=== PATIENT | male | born 1980 | race Caucasian/White ===

== ENCOUNTER 2022-11-05 22:29 | Emergency (ER) | payer OTHER, SELFPAY ==
--- NOTE | ~2022-11-05 | XR_ITS ---
Left Shoulder Technique: AP and scapular Y views were obtained. Clinical History: Pain Findings: No fracture or dislocation is seen. Osseous alignment is anatomic. Minimal spur noted infer omedial humeral head. AC joint demonstrates minimal degenerative change. Soft tissues are unremarkabl e. Impression: No fracture or dislocation. Minimal degenerative changes, as above. Reviewed, dictated and finalized at location . Impression: No fracture or dislocation. Minimal degenerative changes, as above.
--- NOTE | ~2022-11-05 | XR_ITS ---
Clinical Indication: Pain PA and lateral views of the chest: Comparison: None Findings: The lungs are clear, without evidence of focal consolidation or pleural effusion. Cardiome diastinal silhouette is within normal limits. Bones and soft tissues are unremarkable. Impression: Normal chest. Reviewed, dictated and finalized at location . Impression: Normal chest.
[2022-11-05 22:32] VITALS: BP 139/98; PULSE 80; RESP 18; TEMP 36; O2SAT 100
[2022-11-05 22:42] VITALS: BP 139/98; PULSE 82; RESP 18; O2SAT 99
[2022-11-05] MEDS: HYDROcodone/acetaminophen (*CRX) 5-325 MG TABLET 1 TAB PO (23:18)
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
[2022-11-05] MEDS: ORPHENADRINE CITRATE 30 MG/ML 2 ML VIAL 60 MG IM (23:58)
[2022-11-05] MEDS: HYDROmorphone HCL INJ (*CRX) 2 MG/ML VIAL 1 MG IM (23:59)
[2022-11-06 00:40] VITALS: BP 123/70; PULSE 80; RESP 17; TEMP 37.1; O2SAT 100
== END 2022-11-06 00:44 | disposition home or self-care (01) ==
PROVIDERS: Emergency Provider Emergency Medicine
DX: M25.512 Pain in left shoulder (principal); V48.0XXA Car driver injured in noncollision transport accident in nontraffic accident, initial encounter
CPT/HCPCS: 71046; 73030; 96372; 99284; A9270; J1170; J2360

== ENCOUNTER 2023-03-27 11:15 | Emergency (ER) | payer OTHER, SELFPAY ==
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
[2023-03-27 11:25] VITALS: BP 143/84; PULSE 90; RESP 18; O2SAT 98
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
[2023-03-27] MEDS: ORPHENADRINE CITRATE 30 MG/ML 2 ML VIAL 60 MG IM (11:42)
[2023-03-27 11:45] VITALS: TEMP 36.9
[2023-03-27 12:56] VITALS: BP 125/64; PULSE 82; RESP 18; TEMP 36.7; O2SAT 98
== END 2023-03-27 12:59 | disposition home or self-care (01) ==
PROVIDERS: Emergency Provider Emergency Medicine
DX: S79.911A Unspecified injury of right hip, initial encounter (principal); S09.90XA Unspecified injury of head, initial encounter; S19.9XXA Unspecified injury of neck, initial encounter; S99.922A Unspecified injury of left foot, initial encounter; V89.2XXA Person injured in unspecified motor-vehicle accident, traffic, initial encounter
CPT/HCPCS: 70450; 71250; 72125; 73030; 73630; 74176; 96372; 99284; J2360

== ENCOUNTER 2023-04-19 05:28 | Emergency (ER) | payer OTHER, SELFPAY ==
[2023-04-19 05:32] VITALS: BP 127/88; PULSE 91; RESP 18; TEMP 36.9; O2SAT 97
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
[2023-04-19] MEDS: ONDANSETRON HCL ODT 4 MG TABLET PO (05:57)
[2023-04-19] MEDS: MORPHINE SULFATE (*CRX) 4 MG/ML INJ IM (05:58)
[2023-04-19] MEDS: AMOXICILLIN/CLAVULANATE K 875-125 MG TAB 1 TABLET PO (06:05)
[2023-04-19 06:15] VITALS: BP 127/88; PULSE 91; RESP 18; TEMP 36.9; O2SAT 97
== END 2023-04-19 06:17 | disposition home or self-care (01) ==
PROVIDERS: Emergency Provider Internal Medicine Critical Care Medicine
DX: R22.31 Localized swelling, mass and lump, right upper limb (principal)
CPT/HCPCS: 96372; 99283; A9270; J2270

== ENCOUNTER 2023-05-27 14:49 | Emergency (ER) | payer OTHER, SELFPAY ==
[2023-05-27 15:11] VITALS: BP 90/74; PULSE 124; RESP 20; TEMP 36.5; O2SAT 98
--- NOTE | 2023-05-27 17:42 | PC.NURSE ---
Arthur from [facility] called - stated that this patient was in er waiting room and is now in [facility]
--- NOTE | 2023-05-27 17:43 | PC.NURSE ---
recieved call from [facility] stating that pt is now in their lobby
== END 2023-05-27 17:20 | disposition left against medical advice (07) ==
LOC: ANHED 20:45
DX: S09.90XA Unspecified injury of head, initial encounter (principal)
CPT/HCPCS: 99199

== ENCOUNTER 2023-05-27 17:26 | Emergency (ER) | payer OTHER, SELFPAY ==
[2023-05-27] VITALS (8 sets, daily range): BP systolic 120–130; BP diastolic 79–88; PULSE 72–102; RESP 11–19; TEMP 36.3–36.7; O2SAT 96–100
--- NOTE | ~2023-05-27 | XR_ITS ---
XR lumbar spine 2-3V 05/27/2023 18:12 Indication: Generalized pain. Fusion at L4 S1. Procedure: 3 views of the lumbar spine Comparison: 05/12/2007 Findings: There are spinal fusion changes at L4 S1. The right pedicle screw at S1 is fractured. There is instrumentation traversing the sacrum through L5 and L4 vertebral bodies. There is disc narrowing at these levels. No acute fracture is identified. No evidence for spondylolisthesis. Mild dextrocurv ature of the lumbar spine. Impression: 1: No acute abnormality of the lumbar spine. 2: Status post fusion at L4 S1-with fractured pedicle screw on the right at S1. Reviewed, dictated and finalized at location A. [employer] Impression: 1: No acute abnormality of the lumbar spine. 2: Status post fusion at L4 S1-with fractured pedicle screw on the right at S1.
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
[2023-05-27] MEDS: SODIUM CHLORIDE 0.9% IV 1,000 ML 999 ML IV CONT (18:24)
[2023-05-27 18:28] LABS: Basophils Absolute Auto 0.06 K/mm3 (0.00-0.10); Basophils Percent Auto 0.7 % (0.0-1.0); Eosinophils Percent Auto 4.4 % (1.0-6.0); Hematocrit 42.5 % (40.0-54.0); Hemoglobin 14.3 g/dL (14.0-18.0); Immature Granulocyte Absolute 0.05 K/mm3 (0.00-0.00); Immature Granulocyte Percent A 0.6 % (0.0-0.0); Lymphocytes Percent Auto 31.9 % (18.0-42.0); Mean Corpuscular HGB Conc 33.6 g/dL (32.0-36.0); Mean Corpuscular Hemoglobin 29.1 pg (27.0-31.0); Mean Corpuscular Volume 86.4 fL (78.0-102.0); Mean Platelet Volume 9.7 fl (8.7-11.0); Monocytes Absolute Auto 0.61 K/mm3 (0.10-0.90); Monocytes Percent Auto 6.7 % (2.0-11.0); Neutrophils Absolute Auto 5.1 K/mm3 (1.7-7.2); Neutrophils Percent Auto 55.7 % (50.0-70.0); Platelet Count Result 305 K/mm3 (150-420); Red Blood Count 4.92 M/mm3 (4.70-6.10); White Blood Count 9.1 K/mm3 (4.8-10.8)
[2023-05-27 18:48] LABS: Alanine Aminotransferase 24 U/L (16-63); Albumin Level 3.7 g/dL (3.4-5.0); Alkaline Phosphatase 91 U/L (46-116); Anion Gap 6 mmol/L (8-16); Aspartate Amino Transferase 20 U/L (15-37); Bilirubin,Total 0.2 mg/dL (0.00-1.00); Blood Urea Nitrogen 14 mg/dL (7-18); Calcium 9.1 mg/dL (8.5-10.1); Carbon Dioxide 32 mmol/L (21-32); Chloride 101 mmol/L (98-108); Estimated Glomerular Filt Rate > 60; Glucose 112 mg/dL (70-99); Osmolality Calculated 289 mOsm/kg (285-295); Potassium 4.7 mmol/L (3.5-5.1); Sodium 139 mmol/L (136-145); Total Protein 8.1 g/dL (6.4-8.2)
--- NOTE | 2023-05-27 18:51 | PC.NURSE ---
pt sleeping, snoring. family at bedside.
--- NOTE | 2023-05-27 19:00 | PC.NURSE ---
report to jorge cabello
[2023-05-27 19:06] LABS: Ethanol < 3 mg/dL (0-6)
[2023-05-27 19:51] LABS: Appearance Urine Clear (Clear); Bilirubin Urine Negative (Negative); Blood Urine Negative (Negative); Color Urine Light Yellow (Yellow); Glucose Urine UA Negative (Negative); Ketones Urine Negative (Negative); Leukocyte Esterase Ur Negative LEU/UL (Negative); Nitrate Urine Negative (Negative); Protein Urine Negative (Negative); Specific Grav Ur 1.025 (1.010-1.020); Urobilinogen Urine 0.2 mg/dL (0.2-1.0)
[2023-05-27 20:03] LABS: Add Urine Microscopic? NO
[2023-05-27 20:07] LABS: Amphetamine Screen Urine Positive (Negative); Barbiturate Screen Urine Negative (Negative); Benzodiazepines Screen Urine Negative (Negative); Cannabinoid Screen Urine Negative (Negative); Cocaine Screen Urine Negative (Negative); Methadone Screen Urine Negative (Negative); Opiate Screen Urine Positive (Negative); Phencyclidine Screen Urine Negative (Negative)
[2023-05-27] MEDS: KETOROLAC 30 MG/ML VIAL (*BKC) IV PUSH (20:15)
[2023-05-27] MEDS: ACETAMINOPHEN 500 MG TABLET 1000 MG PO (20:16)
== END 2023-05-27 20:39 | disposition home or self-care (01) ==
PROVIDERS: Emergency Provider Family Medicine; PCP Family Medicine
DX: M54.9 Dorsalgia, unspecified (principal); G89.29 Other chronic pain; V89.2XXA Person injured in unspecified motor-vehicle accident, traffic, initial encounter
CPT/HCPCS: 36415; 70450; 72072; 72100; 72125; 80053; 80307; 81003; 85025; 96361; 96374; 99284; J1885; J7030

== ENCOUNTER 2023-06-21 08:44 | Emergency (ER) | payer OTHER, SELFPAY ==
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
[2023-06-21 08:44] VITALS: BP 111/63; PULSE 93; RESP 12; TEMP 36.4; O2SAT 98
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
[2023-06-21] MEDS: KETOROLAC (*BKC) 60 MG/2 ML VIAL IM (09:20)
[2023-06-21] MEDS: HYDROcodone/acetaminophen (*CRX) 5-325 MG TABLET 1 TAB PO (09:21)
[2023-06-21] MEDS: methylPREDNISolone SOD SUCC 125 MG VIAL IM (09:21)
[2023-06-21 10:26] VITALS: BP 100/72; PULSE 82; RESP 12; TEMP 36.8; O2SAT 97
== END 2023-06-21 10:37 | disposition home or self-care (01) ==
PROVIDERS: Emergency Provider Emergency Medicine; PCP Family Medicine
DX: M54.16 Radiculopathy, lumbar region (principal)
CPT/HCPCS: 72100; 96372; 99284; A9270; J1885; J2930

== ENCOUNTER 2023-08-30 17:44 | Emergency (ER) | payer OTHER, SELFPAY ==
[2023-08-30 17:45] VITALS: BP 131/73; PULSE 89; RESP 20; TEMP 37; O2SAT 97
[2023-08-30] MEDS: ORPHENADRINE CITRATE 30 MG/ML 2 ML VIAL 60 MG IM (18:15)
[2023-08-30] MEDS: KETOROLAC (*BKC) 60 MG/2 ML VIAL IM (18:15)
--- NOTE | 2023-08-30 18:50 | ED.BACK ---
HPI - Back Pain/Injury General Chief Complaint: Back Pain/Injury Stated Complaint: left hip sciatica Time Seen by Provider: 08/30/23 17:46 Source: patient and family Mode of arrival: ambulatory Limitations: no limitations History of Present Illness MD elicited complaint: back pain Pertinent past history: prior back pain Onset (ago): hour(s) Timing: constant Severity: severe Pain scale (0-10): 8 Quality: aching and spasming Location: lumbar spine Radiation: left upper leg Exacerbating factors: movement, sitting upright and walking Relieving factors: immobilization Context: while lifting, turning/twisting and bending Related Data Home Medications Medication Instructions Recorded Confirmed diclofenac sodium 75 mg 75 mg PO DAILY 08/30/23 08/30/23 tablet,delayed release Allergies Allergy/AdvReac Type Severity Reaction Status Date / Time clindamycin Allergy Mild Hives Verified 08/30/23 18:06 Review of Systems Review of Systems: All systems reviewed & are unremarkable except as noted in HPI and below PMFSH Past Medical History Medical History Chronic back pain Social History Social History Social History: Fentanyl and amphetamine abuse Exam Const: General: healthy appearing and no acute distress Nutritional Appearance: well nourished Orientation/consciousness: patient oriented x3 Resp: Effort & Inspection: normal respiratory effort Auscultation: clear to auscultation bilaterally Cardio: Rate: regular rate Rhythm: regular rhythm GI: GI Palp: Yes Soft to palpation Back/Spine/Pelvis: Back: no CVA tenderness Skin: General skin exam: normal color Neuro: General: patient oriented x3, moves all extremities and no meningeal signs Extrem: Other: positive straight leg raising test on the left Psych: Mental Status: mental status grossly normal Course Course Emergency Course: patient's pain level has improved slightly will discharge and advised follow-up with his primary. Vital Signs Vital signs: Vital Signs Temperature 37.0 C 08/30/23 17:45 Pulse Rate 89 08/30/23 17:45 Respiratory Rate 20 08/30/23 17:45 Blood Pressure 131/73 08/30/23 17:45 Pulse Oximetry 97 08/30/23 17:45 Oxygen Delivery Room Air 08/30/23 17:45 Temperature 37.0 C 08/30/23 17:45 Pulse Rate 89 08/30/23 17:45 Respiratory Rate 20 08/30/23 17:45 Blood Pressure 131/73 08/30/23 17:45 Pulse Oximetry 97 08/30/23 17:45 Oxygen Delivery Room Air 08/30/23 17:45 Critical Care Time Critical Care Time Critical Care Time: No Discharge Plan Discharge Clinical Impression: Sciatica Patient Disposition: Home, Self-Care Condition: Stable Instructions: Antibiotic Form, Sciatica (ED), Acute Low Back Pain (ED) Additional Instructions: Take medicine as prescribed and follow-up with primary Prescriptions: New oxycodone-acetaminophen [Percocet] 5-325 mg tablet 1 tablet PO Q6H PRN (Reason: pain) Qty: 14 0RF cyclobenzaprine 10 mg tablet 10 mg PO TID Qty: 20 0RF No Action diclofenac sodium 75 mg tablet,delayed release (DR/EC) 75 mg PO DAILY methylprednisolone [Medrol (Ramy)] 4 mg tablets,dose pack See Rx Instructions .ROUTE .COMPLEX Qty: 21 0RF Rx Instructions: orally per package directions hydrocodone-acetaminophen 5-325 mg tablet 1 tablet PO Q8H PRN (Reason: pain) Qty: 10 0RF cyclobenzaprine 10 mg tablet 10 mg PO TID PRN (Reason: muscle spasm) Qty: 30 0RF Follow-up/Referrals: Caleb Jordan M.D. [Primary Care Provider] - Time of Disposition: 19:03
[2023-08-30 19:18] VITALS: BP 123/73; PULSE 85; RESP 18; O2SAT 97
== END 2023-08-30 19:19 | disposition home or self-care (01) ==
PROVIDERS: Emergency Provider Emergency Medicine; PCP Family Medicine
DX: M54.30 Sciatica, unspecified side (principal)
CPT/HCPCS: 96372; 99284; J1885; J2360

== ENCOUNTER 2023-12-17 22:44 | Emergency (ER) | payer OTHER, SELFPAY ==
[2023-12-17 22:45] VITALS: BP 129/80; PULSE 75; RESP 11; TEMP 36.4; O2SAT 100
--- NOTE | 2023-12-17 22:48 | ECG_ITS ---
Test Date: 2023-12-17 22:46:34 Measurements Intervals [place] Rate: 75 P: 61 SC: 141 QRS: 43 QRSD: 80 T: 38 QT: 392 QTc: 440 Interpretive Statements SINUS RHYTHM No previous ECG available for comparison Electronically Signed On 12-18-2023 13:33:49 CDT by Ayesha Thompson M.D.
[2023-12-17 22:53] VITALS: RESP 17; O2SAT 100
--- NOTE | 2023-12-17 23:08 | PC.NURSE ---
This RN was getting intial assessment done on pt. Rn didn't ask [facility] scale due to pt being under influence on drugs. Without asking, pt states he is suicidal and took those drugs because he wants to . Pt swallowed a whole bag of his fentyl (6-8 pills). Pt states having no plan. Charge nurse notified. Pt is handcuffed and being observed by police at bedside at this time.
[2023-12-17 23:14] LABS: Basophils Percent Auto 0.5 % (0.2-1.2); Eosinophils Absolute Auto 0.4 K/mm3 (0-0.3); Eosinophils Percent Auto 5.2 % (0-4.4); Hematocrit 35.5 % (42.0-52.0); Hemoglobin 11.7 g/dL (14.0-18.0); Immature Granulocyte Absolute 0.03 K/mm3 (0.00-0.031); Immature Granulocyte Percent A 0.4 % (0-0.5); Lymphocytes Absolute Auto 2.31 K/mm3 (0.9-3.2); Lymphocytes Percent Auto 29.8 % (18.3-44.2); Mean Corpuscular Hemoglobin 27.8 pg (26-34); Mean Corpuscular Volume 84.3 fl (80-100); Mean Platelet Volume 9.1 fl (7.4-10.4); Monocytes Absolute Auto 0.6 K/mm3 (0.1-0.6); Monocytes Percent Auto 7.5 % (2.6-8.5); Neutrophils Absolute Auto 4.4 K/mm3 (1.3-6.7); Neutrophils Percent Auto 56.6 % (45.5-73.1); Platelet Count Result 276 k/mm3 (150-375); Red Blood Count 4.21 M/mm3 (4.6-6.20); Red Cell Distribution Width 12.8 % (11.5-14.5); White Blood Count 7.8 K/mm3 (4.5-10.0)
[2023-12-17 23:18] LABS: Alanine Aminotransferase 13 U/L (6-50); Albumin Level 3.8 g/dL (3.5-5.1); Alkaline Phosphatase 88 U/L (38-126); Anion Gap 7 mmol/L (4-12); Aspartate Amino Transferase 19 U/L (17-59); Bilirubin,Total 0.3 mg/dL (0.2-1.3); Blood Urea Nitrogen 11 mg/dL (9-20); Calcium 8.8 mg/dL (8.4-10.2); Carbon Dioxide 28 mmol/L (22-30); Chloride 104 mmol/L (98-107); Estimated CRCL calculation 92 ml/min; Estimated Glomerular Filt Rate > 60; Glucose 166 mg/dL (65-110); Potassium 3.8 mmol/L (3.4-5.0); Sodium 139 mmol/L (137-145)
[2023-12-17 23:25] LABS: Acetaminophen < 10 ug/mL (10-30); Ethanol < 10 mg/dL (<10); Salicylate < 1.0 mg/dL (2-20)
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
[2023-12-17 23:48] LABS: Thyroid Stimulating Hormone 0.678 uIU/mL (0.465-4.680)
[2023-12-17 23:53] LABS: Influenza A QL RT-PCR Negative (Negative); Influenza B QL RT-PCR Negative (Negative); RSV RNA, RT-PCR Negative (Negative); SARS-CoV-2 RNA PCR Negative (Negative)
[2023-12-18 00:26] LABS: Appearance Urine Clear (Clear); Bilirubin Urine Negative (Negative); Blood Urine Negative (Negative); Color Urine Yellow (Yellow); Glucose Urine UA Negative (Negative); Ketones Urine Negative (Negative); Leukocyte Esterase Ur Negative LEU/UL (Negative); Nitrate Urine Negative (Negative); Protein Urine Negative (Negative); Urobilinogen Urine 0.2 mg/dL (<2.0); pH Urine 5.5 (5.0-9.0)
--- NOTE | 2023-12-18 00:27 | PC.NURSE ---
This RN called posion control at this time and spoke to Tatyana. Ross stated that we should monitor him 6 hours fo time of ingestion. As well as monitor pt 2 hours after given narcan if needed.
[2023-12-18 00:43] LABS: Barbiturate Screen Urine Negative (Negative); Benzodiazepines Screen Urine Negative (Negative)
[2023-12-18 00:44] LABS: Cannabinoid Screen Urine Negative (Negative); Cocaine Screen Urine Negative (Negative); Methadone Screen Urine Positive (Negative); Opiate Screen Urine Negative (Negative); Phencyclidine Screen Urine Negative (Negative)
[2023-12-18 00:50] VITALS: BP 114/73; PULSE 69; RESP 15; O2SAT 100
[2023-12-18 01:05] LABS: Add Urine Microscopic? NO
[2023-12-18 01:34] LABS: Amphetamine Screen Urine Positive (Negative)
[2023-12-18 04:08] VITALS: BP 107/67; PULSE 65; RESP 19; O2SAT 100
[2023-12-18 06:03] VITALS: BP 122/83; PULSE 63; RESP 10; O2SAT 98
[2023-12-18 07:15] VITALS: BP 117/83; PULSE 61; RESP 14; O2SAT 98
[2023-12-18 10:00] VITALS: BP 119/90; PULSE 62; RESP 20; O2SAT 98
--- NOTE | 2023-12-18 10:28 | PC.NURSE ---
Care coordination contacted for patient transportation home.
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
== END 2023-12-18 10:53 | disposition home or self-care (01) ==
PROVIDERS: Emergency Provider Student in an Organized Health Care Education/Training Program; PCP Family Medicine
DX: T40.412A Poisoning by fentanyl or fentanyl analogs, intentional self-harm, initial encounter (principal); F15.10 Other stimulant abuse, uncomplicated; F19.90 Other psychoactive substance use, unspecified, uncomplicated
CPT/HCPCS: 36415; 80053; 80307; 81003; 84443; 85025; 87637; 93005; 99284

== ENCOUNTER 2024-02-29 06:31 | Emergency (ER) | payer OTHER, SELFPAY ==
--- NOTE | ~2024-02-29 | CT_ITS ---
Noncontrast CT scan of the lumbar spine CLINICAL HISTORY: Back pain TECHNIQUE: Axial noncontrast imaging of the lumbar spine was performed. Sagittal and coronal reformat eleanor images were constructed. Dose reduction technique was used on this scan by utilizing automated ex posure control and iterative reconstruction technique. The dose-length product (DLP) was 298.29 mGy-c m. FINDINGS: There is posterior and interbody fusion extending from L4 through S1, stable from prior rad iographs dated 06/21/2023. Subtle fracture of the left pedicle screw at L4 is stable from prior exam. Fracture of the right S1 pedicle screw is also present, stable from prior exam. Remaining interverte bral disc spaces are well preserved. At L1-L2, there is minimal disc bulge. No spinal canal stenosis or neural foraminal narrowing evident . At L2-L3, there is no significant disc bulge or herniation. No spinal canal stenosis or neural forami nal narrowing. At L3-L4, there is minimal disc bulge and minimal facet arthropathy. No definite central canal stenos is. Possible mild left neural foraminal narrowing. Right neural foramen preserved. At L4-L5, there is no definite canal stenosis. Probable moderate bilateral neural foraminal narrowing . At L5-S1, there is probable moderate central canal stenosis. There is mild to moderate bilateral neur al foraminal narrowing. Paravertebral soft tissues are unremarkable. Impression: Posterior and interbody fusion hardware is unchanged from prior radiographs. Stable fracture of left L4 pedicle screw and right S1 pedicle screw. Degenerative spondylosis of the lumbar spine, as above. Reviewed, dictated and finalized at [facility]. Impression: Posterior and interbody fusion hardware is unchanged from prior radiographs. St able fracture of left L4 pedicle screw and right S1 pedicle screw. Degenerative spondylosis of the lumbar spine, as above.
[2024-02-29 06:34] VITALS: BP 115/73; PULSE 88; RESP 18; TEMP 36; O2SAT 100
--- NOTE | 2024-02-29 06:42 | ED.BACK ---
HPI - Back Pain/Injury General Chief Complaint: Back Pain/Injury <Rohit Su MD - Last Filed: 02/29/24 06:47> Stated Complaint: back pain <Rohit Su MD - Last Filed: 02/29/24 06:47> Time Seen by Provider: 02/29/24 07:05 <Rohit Su MD - Last Filed: 02/29/24 06:47> Source: patient and EMS <Rohit Su MD - Last Filed: 02/29/24 06:47> Mode of arrival: EMS <Rohit Su MD - Last Filed: 02/29/24 06:47> Limitations: physical limitation <Rohit Su MD - Last Filed: 02/29/24 06:47> History of Present Illness HPI Narrative: this is a 43-year-old male brought in by EMS with severe back pain radiating down his left lower extremity with no saddle paresthesias has a history of back surgeries with pins and screws. There is no dysuria no hematuria no flank pain, no fever chills patient does have trouble ambulating because of weakness in his left lower extremity. <Rohit Su MD - Last Filed: 02/29/24 06:47> MD elicited complaint: back pain <Rohit Su MD - Last Filed: 02/29/24 06:47> Pertinent past history: prior back pain <Rohit Su MD - Last Filed: 02/29/24 06:47> Onset (ago): hour(s) <Rohit Su MD - Last Filed: 02/29/24 06:47> Timing: constant <Rohit Su MD - Last Filed: 02/29/24 06:47> Severity: severe <Rohit Su MD - Last Filed: 02/29/24 06:47> Pain scale (0-10): 10 <Rohit Su MD - Last Filed: 02/29/24 06:47> Quality: aching and spasming <Rohit Su MD - Last Filed: 02/29/24 06:47> Related Data Allergies/Adverse Reactions: Allergies Allergy/AdvReac Type Severity Reaction Status Date / Time clindamycin Allergy Mild Hives Verified 02/29/24 06:37 <Rohit Su MD - Last Filed: 02/29/24 06:47> Review of Systems Review of Systems: All systems reviewed & are unremarkable except as noted in HPI and below <Rohit Su MD - Last Filed: 02/29/24 06:47> PMFSH Past Medical History Medical History: Medical History Chronic back pain History of drug abuse <Rohit Su MD - Last Filed: 02/29/24 06:47> Social History Social History: Social History Social History: Fentanyl and amphetamine abuse Substance use type: amphetamines and methamphetamine <Rohit Su MD - Last Filed: 02/29/24 06:47> Exam Const: General: no acute distress <Rohit Su MD - Last Filed: 02/29/24 06:47> Nutritional Appearance: well nourished <Rohit Su MD - Last Filed: 02/29/24 06:47> Orientation/consciousness: patient oriented x3 <Rohit Su MD - Last Filed: 02/29/24 06:47> Limitations: no limitations <Rohit Su MD - Last Filed: 02/29/24 06:47> Neck: Neck: normal visual inspection, no lymphadenopathy and no meningeal signs <Rohit Su MD - Last Filed: 02/29/24 06:47> Chest: Chest palpation & inspection: normal inspection of the chest <Roiht Su MD - Last Filed: 02/29/24 06:47> Resp: Effort & Inspection: normal respiratory effort <Rohit Su MD - Last Filed: 02/29/24 06:47> Auscultation: clear to auscultation bilaterally <Rohit Su MD - Last Filed: 02/29/24 06:47> Cardio: Rate: regular rate <Rohit Su MD - Last Filed: 02/29/24 06:47> Rhythm: regular rhythm <Rohit Su MD - Last Filed: 02/29/24 06:47> GI: GI Palp: Yes Soft to palpation <Rohit Su MD - Last Filed: 02/29/24 06:47> Skin: General skin exam: normal color <Rohit Su MD - Last Filed: 02/29/24 06:47> Rashes: no rashes <Rohit Su MD - Last Filed: 02/29/24 06:47> Neuro: General: patient oriented x3, moves all extremities, no meningeal signs and no focal motor deficits <Rohit Su MD - Last Filed: 02/29/24 06
[2024-02-29] MEDS: KETOROLAC 30 MG/ML VIAL (*BKC) IM (06:58)
[2024-02-29] MEDS: ORPHENADRINE CITRATE 30 MG/ML 2 ML VIAL 60 MG IM (06:59)
[2024-02-29 07:54] VITALS: BP 135/70; PULSE 76; RESP 18; O2SAT 100
== END 2024-02-29 07:59 | disposition home or self-care (01) ==
PROVIDERS: Emergency Provider Emergency Medicine; PCP Family Medicine
DX: M54.16 Radiculopathy, lumbar region (principal); M54.30 Sciatica, unspecified side
CPT/HCPCS: 72131; 96372; 99284; J1885; J2360

== ENCOUNTER 2024-06-12 12:32 | Emergency (ER) | payer OTHER, SELFPAY ==
--- NOTE | ~2024-06-12 | CT_ITS ---
EXAMINATION: CT soft tissue neck wo con DATE: 06/12/2024 13:32 INDICATION: Enlarged right cervical lymph node TECHNIQUE: Computed tomography (CT) of the neck was performed without intravenous contrast. Automated exposure control and iterative reconstruction technique were employed. The dose-length product was 4 25.20 mGy-cm. COMPARISON: Cervical spine CT dated 05/27/2023 FINDINGS: There are couple new enlarged right jugular chain lymph node the more cephalad posterior inferior to the angle of the mandible measures 3.3 x 2.8 x 1.8 cm in the more caudal at the level of the cephalad thyroid cartilage measures 2.9 x 2.2 x 1.2 cm. There are multiple small bilateral supraclavicular ly mph nodes which are more notable for number than size. Visualized portion of the inferior orbits are normal. Visualized portion of the paranasal sinuses are clear. Status post right mastoidectomy. Bilateral middle ear cavities and left mastoid air cells are clear. The parotid glands are symmetric. Unchanged asymmetry to the submandibular glands with atroph ic versus absent right submandibular gland. Thyroid gland is unremarkable. Airway is unremarkable in the visualized upper lungs are clear. Mild cervical spondylosis. IMPRESSION: 1. A couple enlarged right jugular chain lymph nodes which could be reactive, metastatic or related t o lymphoma. Recommend ultrasound-guided core needle biopsy. Reviewed, dictated and finalized at location A. ZONTAL RESAW OPERATOR IMPRESSION: 1. A couple enlarged right jugular chain lymph nodes which could be reactive, m etastatic or related to lymphoma. Recommend ultrasound-guided core needle biops y.
[2024-06-12 12:34] VITALS: BP 120/81; PULSE 74; RESP 20; TEMP 36.8; O2SAT 97
[2024-06-12 13:52] LABS: Strep Group A RT-PCR NOT DETECTED (Negative)
[2024-06-12] MEDS: KETOROLAC (*BKC) 60 MG/2 ML VIAL IM (13:56)
[2024-06-12] MEDS: cefTRIAXone 1 GM, LIDOCAINE 1% LOCAL INJ 2.1 ML IM (13:57)
[2024-06-12 14:30] VITALS: BP 121/79; PULSE 78; RESP 18; TEMP 36.6; O2SAT 98
--- NOTE | 2024-06-12 14:39 | ED.URI ---
HPI - URI/Sore Throat General Chief Complaint: Upper Respiratory Infection Stated Complaint: neck swelling Time Seen by Provider: 06/12/24 13:10 Source: patient Mode of arrival: ambulatory Limitations: no limitations History of Present Illness HPI Narrative: this is a 43-year-old male with a long history of substance abuse presents today with sore throat and swollen tender lymph node on the right side of his neck has been there for quite awhile is mildly tender with no fever chills no shortness of breath no nausea vomiting no chest pain or abdominal pain no shortness of breath. MD elicited complaint: sore throat Onset (ago): month(s) Related Data Home Medications ?Medication ?Instructions ?Recorded ?Confirmed ?Last Taken ?Type methocarbamol .ROUTE 06/12/24 Unknown History Allergies Allergy/AdvReac Type Severity Reaction Status Date / Time clindamycin Allergy Mild Hives Verified 06/12/24 12:35 Review of Systems Review of Systems: All systems reviewed & are unremarkable except as noted in HPI and below PMFSH Past Medical History Medical History History of drug abuse Chronic back pain Social History Social History Social History: Fentanyl and amphetamine abuse Substance use type: amphetamines and methamphetamine Exam Const: General: no acute distress Nutritional Appearance: well nourished Orientation/consciousness: patient oriented x3 Limitations: no limitations HENMT: Head: normal to inspection Ears: external ears normal Eyes: Conjunctivae: conjunctivae normal Pupils: Equal, round and reactive pupils present EOM: EOMs intact bilaterally Neck: Neck: lymphadenopathy Other: Swollen tender right lymph node on the neck Chest: Chest palpation & inspection: normal inspection of the chest Resp: Effort & Inspection: normal respiratory effort Auscultation: clear to auscultation bilaterally Cardio: Rate: regular rate Rhythm: regular rhythm GI: GI Palp: Yes Soft to palpation Auscultation: normal bowel sounds Course Course Emergency Course: scan of the soft tissue of the neck shows lymph node all all that during radiology report could be reactive, a metastatic or lymphoma and rapid strep is negative patient received a dose of pain medicine IM and ceftriaxone IM. Patient is afebrile and with the of the soft tissue scan of the neck showing lymph node advised patient to follow-up with his primary for a biopsy. Vital Signs Vital signs: Vital Signs Temperature 36.8 C 06/12/24 12:34 Pulse Rate 74 06/12/24 12:34 Respiratory Rate 20 06/12/24 12:34 Blood Pressure 120/81 06/12/24 12:34 Pulse Oximetry 97 06/12/24 12:34 Oxygen Delivery Room Air 06/12/24 12:34 Temperature 36.8 C 06/12/24 12:34 Pulse Rate 74 06/12/24 12:34 Respiratory Rate 20 06/12/24 12:34 Blood Pressure 120/81 06/12/24 12:34 Pulse Oximetry 97 06/12/24 12:34 Oxygen Delivery Room Air 06/12/24 12:34 MDM - URI/Sore Throat Lab Data Labs: Lab Results 06/12/24 Range/Units 13:15 Group A Strep (PCR) Not detected (Negative) Critical Care Time Critical Care Time Critical Care Time: No Discharge Plan Discharge Clinical Impression: Lymphadenopathy Patient Disposition: Home, Self-Care Condition: Stable Instructions: Antibiotic Form, Lymphadenopathy (ED) Additional Instructions: advised patient to follow-up with primary for referral for biopsy of enlarged cervical lymph node, was prescribed antibiotics Patient Language: Fijian Prescriptions: New amoxicillin-pot clavulanate [Augmentin] 500-125 mg tablet 1 tablet PO TID Qty: 30 0RF naproxen 500 mg tablet 500 mg PO BID PRN (Reason: pain) Qty: 20 0RF No Action methocarbamol [Robaxin] .ROUTE Follow-up/Referrals: Caleb Jordan M.D. [Primary Care Provider] - Time of Disposition: 14:43
== END 2024-06-12 14:53 | disposition home or self-care (01) ==
PROVIDERS: Emergency Provider Emergency Medicine; PCP Family Medicine
DX: R59.0 Localized enlarged lymph nodes (principal)
CPT/HCPCS: 70490; 87651; 96372; 99284; J0696; J1885; J2003

== ENCOUNTER 2025-01-01 02:50 | Day surgery (SDC) | payer OTHER, SELFPAY ==
[2024-12-30 11:59] VITALS: BMI 22.8
[2025-01-01] VITALS (7 sets, daily range): BP systolic 112–127; BP diastolic 67–82; PULSE 76–90; RESP 13–21; TEMP 36.6–36.8; O2SAT 92–98; BMI 22.0
--- OUTSIDE RECORDS SUMMARY | 2025-01-01 02:53 | XMS_ITS | Encounter Summary ---
Author Organization [facility] Address [address] [place], [place] [address] [address] Care Team Providers Care Histology Technician Name Role Phone Melissa Diamond PA-C Primary Care Provider Reason for Visit * Reason Onset Date Comments MEDICATION REFILL 12/26/2024 Encounter Details Date Type Department Care Team (Late st Contact Info) Description 12/26/2024 Refill [facility] PRE OP/POST OP [address] [place] [phone] Simone Hatfield MD [address] [place] [phone] MEDICATION REFILL Social History Tobacco Use Types Packs/Day Years Used Date Smoking Tobacco: Former Smokeless Tobacco: Never PHQ-2 Answer Date Recorded Patient Health Questionnaire-2 Score 6 03/04/2024 Sex and Gender Information Value Date Recorded Sex Assigned at Not on file 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 Answer Date of Assessment Author No 09/03/2020 2:02 PM Mike Wellington RN * Is person blind or have serious difficulty seeing? Answer Date of Assessment Author No 09/03/2020 2:02 PM Mike Wellington RN * Does person have serious difficulty walking/climbing stairs? Answer Date of Assessment Author No 09/03/2020 2:02 PM Mike Wellington RN * Does person have difficulty dressing/bathing? Answer Date of Assessment Author No 09/03/2020 2:02 PM Mike Wellington RN * Does person have difficulty doing errands alone? Answer Date of Assessment Author No 09/03/2020 2:02 PM Mike Wellington RN documented as of this encounter Mental Status * Does person have difficulty concentrating/remembering/making decisions? 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
--- OUTSIDE RECORDS SUMMARY | 2025-01-01 02:53 | XMS_ITS | Clinical Summary ---
Author Organization [facility] Address [facility] [place] [address] Care Team Providers Care Natural Fabricator Name Role Phone Caleb Jordan MD Primary Care Provider Allergies Active Allergy Reactions Criticality Noted Date Comments Clindamycin Hives,Unknown 03/09/2020 Medications methocarbamol (ROBAXIN) 750 MG Tab Take 1 tablet (750 mg total) by mouth 3 (three) times daily as needed. 3 Active oxyCODONE-aceta minophen (PERCOCET) 5-325 MG tabletIndicatio ns:Acute Pain < 3 Day Supply Take 1-2 tablets by mouth every 6 (six) hours as needed for Pain. Indications: Acute Pain < 3 Day Supply 6 tablet 5 Active naloxone (NARCAN) 4 MG/0.1ML nasal spray 1 spray by Nasal route as needed for Opioid reversal. may repeat every 2 to 3 minutes in alternating nostrils until medical assistance becomes available 1 each 5 09/23/19 26 Active Active Problems Problem Noted Date Diagnosed Date Carpal tunnel syndrome of right wrist 08/16/2023 Biceps tendinitis of right shoulder 02/05/2023 Carpal tunnel syndrome of left wrist 10/18/2022 Osteoarthritis of right glenohumeral joint 10/18 Glenoid labrum tear, left, subsequent encounter 10/18/2022 Family History Medical History Relation Comments Diabetes Father Other Father Diabetes Mother heart problems Mother Relation Status Comments Father Alive Mother Alive Social History Tobacco Use Types Packs/Day Years Used Date Smoking Tobacco: Every Day Cigarettes Smokeless Tobacco: Never Tobacco Cessation:Ready to Q uit: Not Asked; Counseling Given: Not Answered Alcohol Use Standard Drinks/Week Comments Yes 0 (1 standard drink = 0.6 oz pur e alcohol) OCCASIONAL Sex and Gender Information Value Date Recorded Sex Assigned at Male 12/01/2022 2:47 PM CDT Legal Sex Male 5:16 PM CDT Gender Identity Male 12/01/2022 2:47 PM CDT Sexual Orientation Straight 12/01/2022 2: 47 PM CDT Last Filed Vital Signs Vital Sign Reading Time Taken Comments Blood Pressure 125/94 09/22/2024 3:04 PM CDT Pulse 88 09/22/2024 3:04 PM CDT Temperature 36.8 C (98.3 F) 09/22/2024 3:04 PM CDT Respiratory Rate 16 09/22/2024 3:04 PM CDT Oxygen Saturation 97% 09/22/2024 3:04 PM CDT Inhaled Oxygen Concentration - - Weight 68 kg (150 lb) 09/22/2024 3:04 PM CDT Height 172.7 cm (5' 8) 09/22/2024 3:04 PM CDT Body Mass Index 22.81 09/22/2024 3:04 PM CDT Plan of Treatment Health Maintenance Due Date Last Done Comments Annual Physical 09/22/1983 DTaP, Tdap and Td Vaccines (6 - Tdap) 12/30/1994 12/29/1994, 01/01/1985, 10/26/1982, Additional history exists Hepatitis C 1998 Pneumococcal Vaccine: Pediatrics (0 to 5 Years) and At-Risk Patients (6 to 49 Years) (1 of 2 - PCV) 09/22/1999 Hepatitis B Vaccines (2 of 3 - 19+ 3-dose series) 02/24/2022 01/27/2022 COVID-19 Vaccine ( season) 2024 HPV Vaccines Aged Out No longer eligi ble based on patient's age to complete this topic Meningococcal B Vaccine Aged Out No l onger eligible based on patient's age to complete this topic Meningococcal Vaccine Aged Out No amparo martinez eligible based on patient's age to complete this topic RSV Immunizations Under 20 Months Aged Out No longer eligible based on patient's age to complete this topic Insurance NARC[employer] Advance Directives Documents on File Type Date Recorded Patient Food And Beverage Service Manager Expl anation Advance Directives and Living Will 08/17/2010 12:00 AM ADVANCED DIRECTIVES Care Teams Natural Fabricator Relationship Specialty Start Date End Date Caleb Jordan MD [address] [facility] [place] [phone] PCP - General FAMILY PRACTICE 10/18/22
--- OUTSIDE RECORDS SUMMARY | 2025-01-01 02:53 | XMS_ITS | Encounter Summary ---
Author Organization [facility] Address [address] [place] [address] Care Team Providers Care Mixing Roll Operator Name Role Phone Unavailable Primary Care Provider Unavailabl e Encounter Details Date Type Department Care Team (Late st Contact Info) Description 12/30/2024 External Device Data [facility] ABSTRACTION Provider, Abstract NO ADDRESS ON FILE Social History Tobacco Use Types Packs/Day Years Used Date Smoking Tobacco: Former Cigarettes 1.7 18.5 0 06/25/1996 - 06/25/2011 Smokeless Tobacco: Never Alcohol Use Standard Drinks/Week Comments Yes 0 (1 standard drink = 0.6 oz pur e alcohol) Socially Sex and Gender Information Value Date Recorded Sex Assigned at Not on file Legal Sex Male 1:22 PM CDT Gender Identity Not on file Sexual Orientation Not on file documented as of this encounter Plan of Treatment Not on file documented as of this encounter Visit Diagnoses Not on filedocumented in this encounter
--- OUTSIDE RECORDS SUMMARY | 2025-01-01 02:53 | XMS_ITS | Clinical Summary ---
Author Organization [facility] Maximino fonseca [facility] Address [address] [place] [address] Care Team Providers Care Inspector Plumbing Name Role Phone Unavailable Primary Care Provider Unavailabl e Allergies Active Allergy Reactions Criticality Noted Date Comments Clindamycin Hives High 03/09/2020 Hydrocodone-Acetaminophen Hives High 11/19/2024 Medications methocarbamoL (ROBAXIN) 750 mg tablet Take 750 mg by mouth 3 times daily as needed. 3 Active naloxone (NARCAN) 4 mg/spray [place], Non-Aerosol EMERGENCY USE ONLY: Administer 1 spray (4 mg) in one nostril one time. May repeat in alternating nostrils every 2-3 min until responsive or EMS arrives. 2 Each 3 5 Active oxyCODONE-acet aminophen (PERCOCET) 10-325 mg TabletIndicati ons:Head and neck cancer (CMS/HCC) Take 1 Tablet by mouth every 4 hours as needed for Pain. Max Daily Amount: 4 Tablets 40 Tablet 5 Active oxyCODONE-acet aminophen (PERCOCET) 10-325 mg Tablet Take 1 Tablet by mouth every 4 hours as needed. 5 12/25/19 25 Discontin ued(Reord er) Active Problems No known active problems Encounters Date Type Department Care Team Description 12/30/2024 External Device Data [facility] ABSTRACTION Provider, Abstract 12/30/2024 External Device Data [facility] ABSTRACTION Provider, Abstract 12/30/2024 External Device Data [facility] ABSTRACTION Provider, Abstract 12/24/2024 1:30 PM CDT Office Visit [facility] Oncology and Hematology - [place] [address] [place] [address] Zander Silvestre MD Head and neck cancer (CMS/HCC) (Primary Dx) from Last 3 Months Family History Medical History Relation Name Comments No Known Problems Brother No Known Problems Child Diabetes Father Diabetes Mother No Known Problems Sister 1 No Known Problems Sister 2 No Known Problems Sister 3 Relation Name Status Comments Brother Alive Child Alive Father Alive Mother Alive Sister 1 Alive Sister 2 Alive Sister 3 Alive Social History Tobacco Use Types Packs/Day Years Used Date Smoking Tobacco: Former Cigarettes 1.7 18.5 0 06/25/1996 - 06/25/2011 Smokeless Tobacco: Never Tobacco Cessation:Counseling Given: Not Answered Alcohol Use Standard Drinks/Week Comments Yes 0 (1 standard drink = 0.6 oz pur e alcohol) Socially Sex and Gender Information Value Date Recorded Sex Assigned at Not on file Legal Sex Male 1:22 PM CDT Gender Identity Not on file Sexual Orientation Not on file Last Filed Vital Signs Vital Sign Reading Time Taken Comments Blood Pressure 132/87 12/24/2024 1:21 PM CDT Pulse 69 12/24/2024 1:21 PM CDT Temperature 36.9 C (98.4 F) 12/24/2024 1:21 PM CDT Respiratory Rate 14 12/24/2024 1:21 PM CDT Oxygen Saturation 97% 12/24/2024 1:21 PM CDT Inhaled Oxygen Concentration - - Weight 65.7 kg (144 lb 12.8 oz) 12/24/2024 1:21 PM CDT Height 172.7 cm (5' 8) 12/24/2024 1:21 PM CDT Body Mass Index 22.02 12/24/2024 1:21 PM CDT Plan of Treatment Health Maintenance Due Date Last Done Comments DTAP/TDAP/TD VACCINES (6 - Tdap) 09/22/1991 01/01/1985, 10/26/1982, 03/30/1982, Additional history exists HEPATITIS B VACCINES (1 of 3 - 19+ 3-dose series) 09/22/1999 01/27/2022 Preventative Visit-Managed Medicaid 09/22/1999 INFLUENZA VACCINE (#1) 2025 HPV VACCINES Aged Out No longer eligi ble based on patient's age to complete this topic Insurance [employer] [place]
--- OUTSIDE RECORDS SUMMARY | 2025-01-01 02:53 | XMS_ITS | Encounter Summary ---
Author Organization [facility] Address [facility] [place] [address] Care Team Providers Care Air Route Controller Name Role Phone None, Provider Primary Care Provider Caleb Coulter MD Primary Care Provider Encounter Details Date Type Department Care Team (Latest Contact Info) Description 04/30/2018 Abstract [facility] Arvind Alves MD Social History Tobacco Use Types Packs/Day Years Used Date Smoking Tobacco: Never Assessed Sex and Gender Information Value Date Recorded Sex Assigned at Male 12/01/2022 2:47 PM CDT Legal Sex Male 5:16 PM CDT Gender Identity Male 12/01/2022 2:47 PM CDT Sexual Orientation Straight 12/01/2022 2: 47 PM CDT documented as of this encounter Plan of Treatment Not on file documented as of this encounter Visit Diagnoses Not on filedocumented in this encounter Care Teams Air Route Controller Relationship Specialty Start Date End Date None, Provider, PCP - General UNKNOWN PHYSICIAN SPECIALTY 09/19/22 10/17/22 Caleb Jordan MD [facility] [place] [id number] PCP - General FAMILY PRACTICE 10/18/22 documented as of this encounter
--- OUTSIDE RECORDS SUMMARY | 2025-01-01 02:53 | XMS_ITS | Encounter Summary ---
Author Organization [facility] Address [address] [place] [address] Care Team Providers Care Glass Laminating Operator Name Role Phone Melissa Diamond PA-C Primary Care Provider Reason for Visit * Reason Onset Date Comments MEDICATION REFILL 11/24/2024 Encounter Details Date Type Department Care Team (Late st Contact Info) Description 11/24/2024 Refill [facility] - [facility]NT [address] [place] [phone] Cinthia Samano MD [address] [place] [address] MEDICATION REFILL Social History Tobacco Use Types Packs/Day Years Used Date Smoking Tobacco: Former Smokeless Tobacco: Never PHQ-2 Answer Date Recorded Patient Health Questionnaire-2 Score 6 03/04/2024 Sex and Gender Information Value Date Recorded Sex Assigned at Not on file 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 Answer Entry Date Author No 09/03/2020 2:02 PM Mike Wellington, RN documented in this encounter Plan of Treatment Not on file documented as of this encounter Visit Diagnoses Diagnosis Palate mass Swelling, mass, or lump in head and neck Tonsillar mass Swelling, mass, or lump in head and neck Other dysphagia documented in this encounter Care Teams Glass Laminating Operator Relationship Specialty Start Date End Date Melissa Diamond PA-C [address] [phone] PCP - General Physician Telephone Directory Distributor Driver 09/25/24 documented as of this encounter
--- OUTSIDE RECORDS SUMMARY | 2025-01-01 02:53 | XMS_ITS | Clinical Summary ---
Author Organization [facility] Address [address] [place] [address] Care Team Providers Care Counterintelligence Analyst Name Role Phone Melissa Diamond PA-C Primary Care Provider Source Comments [facility],non-owned Affiliates and Associated Physician Practices is amultiple site organization consisting of ambulatory clinics and hospital sitesin [place], [place], [place] and [place]. This disclosure is being madepursuant to the Care Everywhere program and may not contain all information available regarding this patient. Last updated 18.[facility] Allergies Active Allergy Reactions Criticality Noted Date Comments Hydrocodone-Acetaminophen Other 11/19/2024 Medications * Be aware that medications may not be up to date on this document. Alwaysverify current medications with the patient. dextran 70-hypromellose (ARTIFICIAL TEARS) 0.1-0.3 % SOLN Active ibuprofen (MOTRIN) 400 MG tablet Take 800 mg by mouth every 6 hours as needed for Pain Active Acetaminophen (TYLENOL) 325 MG CAPS Take 500 mg by mouth Active Methocarbamol (ROBAXIN-750 PO) Take 750 mg by mouth Active gabapentin (Neurontin) 300 MG capsule Take 1 (one) capsule by mouth 3 times daily for 90 days 270 capsule 5 02/17/20 25 Active naloxone HCl (Narcan) 4 MG/0.1ML nasal spray Mineral 1 (one) spray into the nose as needed for Overdose 2 device 2 5 Active oxyCODONE-aceta minophen (Percocet) 10-325 MG tabletIndicatio ns:Tonsil cancer (HCC) Take 1 (one) tablet by mouth every 4 hours as needed for Pain 90 tablet 5 Active oxyCODONE, immediate release, (Roxicodone) 5 MG tabletIndicatio ns:Tonsil cancer (HCC) Take 1 (one) tablet by mouth every 4 hours as needed for Pain 6 tablet 5 Active oxyCODONE-aceta minophen (Percocet) 10-325 MG tabletIndicatio ns:Tonsil cancer (HCC) Take 1 (one) tablet by mouth every 4 hours as needed for Pain 90 tablet 5 12/13/19 25 Discontinu ed(Reorder ) oxyCODONE-aceta minophen (Percocet) 10-325 MG tabletIndicatio ns:Tonsil cancer (HCC) Take 1 (one) tablet by mouth every 4 hours as needed for Pain 90 tablet 5 12/26/19 25 Discontinu ed(Reorder ) Active Problems Problem Noted Date Diagnosed Date Chronic SI joint pain 09/10/2020 Encounters Date Type Department Care Team Description 12/27/2024 Orders Only [facility] - ENT [address] [place] [phone] Dwight Hung MD 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 Refill [facility] PRE OP/POST OP [facility] [place] [phone] Simone Hatfield MD MEDICATION REFILL 12/25/2024 Orders Only [facility] PRE OP/POST OP [address] [place] [phone] Simone Hatfield MD Tonsil cancer (HCC) 12/25/2024 Telephone [facility] - ENT [address] [place] [phone] Simone Hatfield MD Question 12/18/2024 10:00 AM CDT - 12/18/2024 11:59 PM CDT Hospital Encounter [facility] PET [address] [place] [phone] Simone Hatfield MD Discharge Disposition: Home or Self Care 12/18/2024 9:00 AM CDT - 12/18/2024 9:59 AM CDT Hospital Encounter [facility] PET [address] [place] [phone] Simone Hatfield MD Discharge Disposition: Home or Self Care 12/18/2024 Travel 12/12/2024 Orders Only [facility] - ENT [address] [place] [phone] Simone Hatfield MD Tonsil cancer ([facility]) 12/10/2024 Telephone [facility] - ENT [address] , [facility] [address] [place] [phone] Simone Hatfield MD [facility] 12/02/2024 Orders Only [facility] [address] [place] [phone] Simone Hatfield MD Tonsil cancer ([facility]) 12/01/2024 Orders Only [facility] [address] [facility] [address] [place] [address] Simone Hatfield MD Tonsil cancer ([facility]) 12/01/2024 Orders Only [facility] [address] [facility], [address] [phone] Simone Hatfield MD Tonsil cancer ([facility]) 11/28/2024 Telephone [facility] [address] [place] [phone] Brito, Anne-Marie Surgery Cancellation 11/26/2024 Orders Only [facility] [address] [place] [phone] Simone Hatfield MD Tonsil cancer ([facility]) 11/26/2024 Telephone [facility] [address] [place] [phone] Simone Hatfield MD Med Question 11/26/2024 Refill [facility] [address] [place] [phone] Cinthia Samano MD MEDICATION REFILL 11/24/2024 Refill [facility] [address] [place] [phone] Cinthia Samano MD MEDICATION REFILL 11/20/2024 Telephone [facility] [address] [place] [phone] June Surgery Scheduling 11/19/2024 4:04 PM CDT - 11/19/2024 11:59 PM CDT Hospital Encounter [facility] LAB OP [place] [address] [place] [phone] Melissa Diamond PA-C Discharge Disposition: Home or Self Care 11/19/2024 12:45 PM CDT Office Visit [facility] [address] [place] [phone] Simone Hatfield MD Palate mass (Primary Dx); Tonsillar mass; Other dysphagia 11/19/2024 Travel 11/18/2024 Refill [facility] - Orthopedics [address] [place] [phone] Cody Ortega MD MEDICATION REFILL 11/16/2024 10:54 PM CDT - 11/16/2024 11:05 PM CDT Emergency [facility] EMERGENCY DEPARTMENT [address] [place] [phone] Neck pain Discharge Disposition: Left Against Medical Advice/Discontinued Care 11/16/2024 Travel from Last 3 Months Immunizations Immunization Administration Dates Next Due DTP 01/01/1985, 3,03/30/1982,1980,1980 HEP A VACCINE, ADULT 01/27/2022 HEP B VACCINE, ADULT 3 DOSE 01/27/2022 MMR 02/13/1991,03/30/1982 POLIO OPV 01/01/1985, 3,04/28/1981,1980 Td (Adult), 2 Lf Tetanus Tox oid, Adsorbed, Pf 12/29/1994 Social History Tobacco Use Types Packs/Day Years Used Date Smoking Tobacco: Former Smokeless Tobacco: Never Tobacco Cessation:Counseling Given: Not Answered PHQ-2 Answer Date Recorded Patient Health Questionnaire-2 Score 6 03/04/2024 Sex and Gender Information Value Date Recorded Sex Assigned at Not on file Legal 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 Gender Identity Not on file Sexual Orientation Not on file Last Filed Vital Signs Vital Sign Reading Time Taken Comments Blood Pressure 131/83 11/19/2024 1:04 PM CDT Pulse 90 11/19/2024 1:04 PM CDT Temperature 36.4 C (97.5 F) 11/16/2024 3:55 PM CDT Respiratory Rate 16 11/16/2024 9:15 PM CDT Oxygen Saturation 100% 11/16/2024 9:15 PM CDT Inhaled Oxygen Concentration - - Weight 67.1 kg (148 lb) 11/19/2024 1:04 PM CDT Height 172.7 cm (5' 8) 11/19/2024 1:04 PM CDT Body Mass Index 22.5 11/19/2024 1:04 PM CDT Plan of Treatment Health Maintenance Due Date Last Done Comments LIPID TESTING 1980 DTAP/TDAP/TD VACCINES (6 - Tdap) 12/30/1994 12/29/1994, 01/01/1985, 10/26/1982, Additional history exists HIV SCREENING 09/22/1995 HEPATITIS C SCREENING 09/17/1998 HPV VACCINE (1 - 3-dose SCDM series) 09/22/2007 HEPATITIS B VACCINE (2 of 3 - 19+ 3-dose series) 02/24/2022 01/27/2022 COVID-19 VACCINE ( - 2023- season) 2024 DEPRESSION SCREENING 06/25/2024 INFLUENZA VACCINE (#1) 2025 ZOSTER VACCINE (1 of 2) 2030 HIB VACCINE Aged Out No longer eligi ble based on patient's age to complete this topic MENINGOCOCCAL (Group B) VACCINE SHARED DECISION-MAKING Aged Out No longer eligible based on patient's age to complete this topic MENINGOCOCCAL GROUPS A/C/Y/W VACCINE Aged Out No longer eligible based on patient's age to complete this topic PNEUMOCOCCAL VACCINE Aged Out No long er eligible based on patient's age to complete this topic Procedures Procedure Name Priority Date/Time Associated Diagnosis Comments PET CT SKULL TO MID THIGH Routine 12/18/2024 11:43 AM CDT Tonsil cancer (HCC) GLUCOSE SCREEN - POCT (IP) [facility] STAT 12/18/2024 9:50 AM CDT VA BIOPSY OF MOUTH LESION Routine 11/19/2024 4:56 PM CDT Palate mass Tonsillar mass Other dysphagia VA LARYNGOSCOPY,FLEX FIBER,DIAGNOSTIC Routine 11/19/2024 4:54 PM CDT Palate mass Tonsillar mass Other dysphagia PATHOLOGY TISSUE Routine 11/19/2024 2:15 PM CDT Palate mass Tonsillar mass Other dysphagia CT NECK SOFT TISSUE W CONT STAT 11/16/2024 6:05 PM CDT Neck pain COMPREHENSIVE METABOLIC PANEL STAT 11/16/2024 4:57 PM CDT CBC W AUTO DIFFERENTIAL STAT 11/16/2024 4:57 PM CDT from Last 3 Months Results * PET CT Skull To Mid Thigh (12/18/2024 11:43 AM CDT) Anatomical Region Laterality Modality Head, Lower Extremity Positron E mission Tomography (PET) 12/18/2024 11:4 7 AM CDT Addenda Addendum by Janelle Lynn DO on 12/22/2024 1:48 PM CDT Correction to history: Indication for scan is to is evaluate for SUBSEQUENT treatment strategy. The findings and impression are unchanged. > Interpreting Provider: Janelle Lynn DO on 12/22/2024 1:46 PM Impressions 12/18/2024 1:20 PM CDT IMPRESSION: Evaluation is limited due to diffuse increased muscle and soft tissue activity due to insulin effect which underestimates metabolic activity and can miss less avid lesions. Within these limitations: 1. FDG avid right tonsillar mass consistent with patient's known history of squamous cell carcinoma. 2. FDG avid necrotic cervical lymph nodes involving multiple lymph node stages involving level 1 extending into level 4 supraclavicular nodes consistent with jie metastasis. 3. No evidence of distant metastatic disease, however, evaluation is suboptimal due to insulin effects. Report dictated by Heriberto Sawyer MD(resident in diagnostic radiology). > Dictated by Heriberto Sawyer MD (Child Adolescent Care) 12/18/2024 11:47 AM IJanelle DO have personally reviewed and interpreted this examination/study. > Interpreting Provider: Janelle Lynn DO on 12/18/2024 1:20 PM Narrative 12/18/2024 1:20 PM CDT PROCEDURE: PET CT SKULL TO MID THIGH, DATE/TIME OF EXAM: 12/18/2024 11:43 AM, LOCATION [facility] INDICATION: C09.9: Tonsil cancer (HCC) Procedure: FDG PET/CT Study. Referring Physician: Simone Hatfield HISTORY: A[age]-year-old male with history of prior tonsillectomy and right mastoidectomy with history of a right tonsillar mass, biopsy proven to be squamous cell carcinoma (11/11/2024), and cervical lymphadenopathy.. Evaluate for initial treatment strategy. TECHNIQUE: 6.4 mCi of F-18 FDG by IV in the right hand. PET/CT image acquisition from top of the head to the feet after approximately 60 minutes post-injection with the CT being low-dose, non-contrast. No separate report for the CT was used for attenuation correction and anatomic localization. Blood glucose level at the time of injection was 140 mg/dl. Patient's BMI is 23 kg/m . Of note, prior to radiotracer administration, patient stated he had nothing to eat or drink. However, after images were complete he stated he did have breakfast with pancakes and syrup. COMPARISON: CT dated 11/16/2024 FINDINGS: For reference, SUVmax of liver is 2.1. Head and neck: Redemonstration of a FDG avid right tonsillar mass with SUV max of 6.0. Multiple enlarged FDG avid cervical lymph nodes are noted involving level 1 lymph nodes and extending into the supraclavicular level 4 lymph nodes. For example, a necrotic 2.4 cm right level 3 lymph node is noted with SUV max of 4.5. A right-sided 8 mm supraclavicular lymph node is noted with an SUV max of 4.9. There is physiological FDG activity throughout the brain parenchyma. Chest: Dependent subsegmental atelectatic changes are noted in the lungs. A 4 mm pulmonary nodules noted in the right lower lobe too small to be characterized on PET/CT. The lungs are clear of focal consolidation. No pleural effusion or focal pleural thickening is identified. There is no evidence of pneumothorax. No suspicious hypermetabolic pulmonary nodule is identified. The heart size is normal. No pericardial effusion is present. No hypermetabolic or enlarged mediastinal, axillary, or supraclavicular lymphadenopathy is seen. Abdomen and pelvis: Within the limitations of a noncontrast examination, the visceral abdominal organs are unremarkable. There is normal FDG activity throughout the small and large bowel. No free air or free fluid is identified within the abdomen. There is no hypermetabolic or enlarged abdominal or pelvic lymphadenopathy. Atherosclerotic calcification of the abdominal aorta and its branches is identified. Musculoskeletal: Spinal hardware is noted in the lower lumbar spine/pelvis. No suspicious lytic or blastic lesions are identified. No abnormal FDG uptake is seen within the osseous structures. Diffuse FDG uptake noted in the soft tissues and muscles. Of note, patient reports eating shortly prior to the PET/CT examination was performed. Procedure Note Janelle Lynn, DO - 12/18/2024 PROCEDURE: PET CT SKULL TO MID THIGH, DATE/TIME OF EXAM: 1:43 AM, LOCATION [facility] INDICATION: C09.9: Tonsil cancer (HCC) Procedure: FDG PET/CT Study. Referring Physician: Simone Hatfield HISTORY: A4 4-year-old male with history of prior tonsillectomy andright mastoidectomy with history of a right tonsillar mass, biopsy proven veda squamous cell carcinoma (11/11/2024), and cervical lymphadenopathy.. Evaluate for initial treatment strategy. TECHNIQUE: 6.4 mCi of F-18 FDG by IV in the right hand. PET/CT image acquisition from top of the head to the feet after approximately 60 minutes post-injection with the CT being low-dose, non-contrast. No separate report for the CT was used for attenuation correction andanatomic localization. Blood glucose level at the time of injection was 140mg/dl. Patient's BMI is 23 kg/m . Of note, prior to radiotracer administration, patient stated he hadnothing to eat or drink. However, after images were complete he stated he didhave breakfast with pancakes and syrup. COMPARISON: CT dated 11/16/2024 FINDINGS: For reference, SUVmax of liver is 2.1. Head and neck: Redemonstration of a FDG avid right tonsillar mass with SUV max of 6.0. Multiple enlarged FDG avid cervical lymph nodes are noted involving level1 lymph nodes and extending into the supraclavicular level 4 lymph nodes.For example, a necrotic 2.4 cm right level 3 lymph node is noted with SUVmax of 4.5. A right-sided 8 mm supraclavicular lymph node is noted with anSUV max of 4.9. There is physiological FDG activity throughout the brain parenchyma. Chest: Dependent subsegmental atelectatic changes are noted in the lungs. A 4mm pulmonary nodules noted in the right lower lobe too small to be characterized on PET/CT. The lungs are clear of focal consolidation. No pleural effusion or focal pleural thickening is identified. There is no evidence of pneumothorax. No suspicious hypermetabolic pulmonary noduleis identified. The heart size is normal. No pericardial effusion ispresent. No hypermetabolic or enlarged mediastinal, axillary, or supraclavicular lymphadenopathy is seen. Abdomen and pelvis: Within the limitations of a noncontrast examination, the visceralabdominal organs are unremarkable. There is normal FDG activity throughout thesmall and large bowel. No free air or free fluid is identified within the abdomen. There is no hypermetabolic or enlarged abdominal or pelvic lymphadenopathy. Atherosclerotic calcification of the abdominal aorta and its branches is identified. Musculoskeletal: Spinal hardware is noted in the lower lumbar spine/pelvis. No suspicious lytic or blastic lesions are identified. No abnormal FDG uptake is seen within the osseous structures. Diffuse FDG uptake noted in the softtissues and muscles. Of note, patient reports eating shortly prior to the PET/CT examination was performed. IMPRESSION: Evaluation is limited due to diffuse increased muscle and soft tissue activity due to insulin effect which underestimates metabolic activityand can miss less avid lesions. Within these limitations: 1. FDG avid right tonsillar mass consistent with patient's known historyof squamous cell carcinoma. 2. FDG avid necrotic cervical lymph nodes involving multiple lymph node stages involving level 1 extending into level 4 supraclavicular nodes consistent with jie metastasis. 3. No evidence of distant metastatic disease, however, evaluation is suboptimal due to insulin effects. Report dictated by Heriberto Sawyer MD(resident in diagnostic radiology). > Dictated by Heriberto Sawyer MD (Child Adolescent Care) 12/18/2024 11:47 AM I, Janelle Lynn DO have personally reviewed and interpreted this examination/study. > Interpreting Provider: Janelle Lynn DO on 12/18/2024 1:20 PM Simone Hatfield MD [place] ORDERABLES Edited Result - Final * (ABNORMAL) GLUCOSE SCREEN - POCT (IP) [facility] (12/18/2024 9:50 AM CDT) Glucose WB/POC 140(A) 70 - 99 mg/dL [facility] POCT TESTING Blood BLOOD SPECIMEN / Unknown 12/18/2024 9:50 AM CDT Simone Hatfield MD LAB - POINT OF CARE ORDERABLE S Final Result Performing Organization Address City/State/[facility] Co de Phone Number [facility] POCT TESTING [address] [place] [address], [facility] [phone] * VA BIOPSY OF MOUTH LESION (11/19/2024 4:56 PM CDT) Narrative Simone Hatfield MD - 11/19/2024 4:56 PM CDT Simone Hatfield MD 11/19/2024 4:58 PM After discussing risks and benefits with the patient informed consent was obtained. Topical anesthetic was sprayed on his right tonsil and palate and then 1% lidocaine with epinephrine was injected into this area a Richie-Cut forceps was used to grasp the tissue in the right tonsillar fossa and remove this and placed it in formalin. Silver nitrate was applied. He tolerated the procedure well. I performed the entire procedure. Estimated blood loss: Minimal. Simone Hatfield MD us Simone Hatfield MD PROCEDURE/MINOR SURGICAL ORDE RABLES Final Result * VA LARYNGOSCOPY,FLEX FIBER,DIAGNOSTIC (11/19/2024 4:54 PM CDT) Narrative Simone Hatfield MD - 11/19/2024 4:54 PM CDT Simone Hatfield MD 11/19/2024 4:58 PM Procedure Note Endoscopy Type: Laryngoscopy Endoscope: 4mm flexible nasopharyngoscopy Anesthesia: topical lidocaine Procedure Details: The patient was sitting upright in a chair with the head in a slightly anterior sniffing position. The endoscope was passed through the nasal cavity with the tongue retracted anteriorly. The tip of the endoscope was positioned in the oropharynx which allowed a complete view of the base of tongue, vallecula, pyriform recesses, epiglottis, bilateral true and false vocal folds, the interarytenoid and post cricoid region, and the immediate subglottis. Findings: Ulceration on the right nasopharyngeal surface of the soft palate abutting the eustachian tube on the right right tongue base involved with the papillomatous lesion otherwise true vocal folds move well and no lesions seen. Condition: Stable. Patient tolerated procedure well. Complications: None Estimated blood loss: None us Simone Hatfield MD PROCEDURE/MINOR SURGICAL ORDE RABJAMI Final Result * PATHOLOGY TISSUE (11/19/2024 2:15 PM CDT) Case Report Surgical Pathology Report Case: [id number] Authorizing Provider: Simone Hatfield MD Collected: 11/19/2024 02:15 PM Ordering Location: [facility] - Received: 11/20/2024 09:42 AM ENT Pathologist: Deb Aponte MD Specimen: Mouth, Right tonsil/palate 11/21/2024 3:38 PM CDT [facility] Final Diagnosis Oropharynx, right tonsil / palate, biopsy (A): - Squamous cell carcinoma, non-keratinizing, poorly differentiated - p16 positive 11/21/2024 3:38 PM CDT [facility] at 1538 CDT Microscopic Description and Comment Microscopic examination substantiates the final diagnosis. The biopsy does not have specific normal tonsillar architecture, and does have numerous minor salivary ducts. There is abundant poorly differentiated non-keratinizing carcinoma forming solid nests and lacking neuroendocrine nuclear features. 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 Controls stained appropriately. 11/21/2024 3:38 PM CDT [facility] Clinical History 44 year old man, smoker, with history of prior tonsillectomy and right mastoidectomy in 2015, now here with bilateral lymphadenopathy and palate mass. Pt states that he has known about a lesion in his mouth for approximately a year. No prior biopsy was performed. Exam: Ulcerative mass in the right tonsillar fossa involving the soft palate as well as the right posterior tongue. 11/21/2024 3:38 PM [facility] Gross Description The requisition and specimen(s) are identified with the patient's name, Clark Farnsworth. Received in formalin, specimen A, mouth SA is a 1.3 x 0.5 x 0.2 cm aggregate of unoriented pink-curiel, glistening soft tissue fragments with focal hemorrhage, submitted in toto as cassette A1. AL 11/21/2024 3:38 PM [facility] Pathologist Location at [facility] 11/21/2024 3:38 PM [facility] Disclaimer The performance characteristics of all immunohistochemical and indirect immunofluorescence stains (if any) cited in this report were determined by the Histopathology Laboratory of [facility]. Some of these tests were developed by our own laboratory and have not been cleared or approved by the US Food and Drug Administration. The FDA does not require this test to go through premarket FDA review. These tests are used for clinical purposes. They should not be regarded as investigational or for research. This laboratory is certified under the Clinical Laboratory Improvement Amendments (CLIA) as qualified to perform high complexity clinical laboratory testing. This case has been personally reviewed and interpreted by the attending (teaching) pathologist. 11/21/2024 3:38 PM T [facility] Embedded Images 11/21/2024 3:38 PM [facility] Pathology/Cytolo gy ENTIRE MOUTH REGION / Unknown Collection / Unknown 11/19/2024 2:15 PM CDT 11/20/2024 9:42 AM CDT Comment:Right tonsil/palate us Simone Hatfield MD LAB - PATHOLOGY/CYTOLOGY KOLE BAJWA Final Result [facility] [address] [place], [place] [address] [phone] * CT Neck Soft Tissue W Cont (11/16/2024 6:05 PM CDT) Anatomical Region Laterality Modality Head Computed Tomogra phy 11/16/2024 6:31 PM CDT Impressions 11/17/2024 10:50 AM CDT IMPRESSION: 1.There is a heterogeneously enhancing, irregular mass involving the right nasopharynx, extending along the retromolar trigone, the glossotonsillar recess, the right medial pterygoid muscle, and the right aspect of the soft palate. Findings are compatible was patient's known malignancy. 2.Multiple bilateral necrotic cervical lymphadenopathy as detailed above. 3.The visualized airway is patent. 4.There is sclerosis and loss of height of the C6 vertebral body. Findings are nonspecific and could be degenerative however, osseous metastasis cannot be totally excluded. Nuclear medicine bone scan or PET/CT could be obtained for further evaluation if clinically warranted. The report is dictated by Wanda Juárez MD (resident in diagnostic radiology) IAngie MD have personally reviewed and interpreted this examination/study. > Interpreting Provider: Angie Blount MD on 11/17/2024 10:50 AM Narrative 11/17/2024 10:50 AM CDT PROCEDURE: CT NECK SOFT TISSUE W CONT, DATE/TIME OF EXAM: 11/16/2024 6:05 PM, LOCATION [facility] INDICATION: M54.2: Neck pain ADDITIONAL CLINICAL INFORMATION: Ordering Provider Reason For Exam: r/o significant edema of airway; known throat cancer Technologist Note: Does the patient have a history of renal insufficiency?->No Additional: 44-year-old male PMH as noted below who presents with describes new esophageal cancer Dx several weeks ago in [place], [place]. Lost to follow up. Reports worsening R lateral neck swelling and mild SOB. No CP or dysphagia. No fever/chills. EXAMINATION: Computed tomography (CT) of the neck with contrast TECHNIQUE: CT of the neck was performed following the uneventful administration of 75 mL Isovue-370 intravenous contrast according to standard protocol. COMPARISON: No prior study is available for comparison at the time of this dictation. FINDINGS: There is a heterogeneously enhancing, irregular mass involving the right nasopharynx, extending along the retromolar trigone, the glossotonsillar recess, the right medial pterygoid muscle, and the right aspect of the soft palate. There is extension to the right director housekeeping space. There is extension to the right parapharyngeal space. There is extension to the right carotid space. Accurate measurement of this mass is difficult due to its irregular shape however measures approximately 4.4 x 3.4 cm at the level of the soft palate, (series 3, image 38). Multiple necrotic lymph nodes are present throughout the bilateral neck stations, more prominent on the right side. For reference, a right sided conglomerate, necrotic level II lymph nodes measuring approximately 1.8 x 1.7 cm, (series 3, image 52). A necrotic lesion in the right carotid space measuring approximately 1.3 x 1.3 cm, (series 3, image 44). A necrotic left XII lymph node measuring approximately 1.0 x 0.9 cm, (series 3, image 50). Additional right sided necrotic lymph node II measuring approximately 1.5 x 1.0 cm, (series 3, image 52). There is a chain of necrotic lymph nodes along the right aspect of the neck, for reference, a right-sided level III lymph node measuring approximately 2.6 x 1.9 cm, (series 3, image 71). This lesion abuts the inner aspect of the right sternocleidomastoid muscle, unclear whether there is invasion of the medial aspect of the muscle. This lesion severely compresses the adjacent right internal jugular vein and abuts the right common carotid artery. There is a right submandibular partially necrotic lymph node measuring 1.1 cm in short axis diameter. The right submandibular gland is indistinct, unclear whether there is involvement or prior intervention in this area. Please correlate with prior treatment history. The muscles of the neck appear normal. The cervical internal carotid arteries and left internal jugular vein appear normal. Fascial planes are preserved . The nasopharynx, oropharynx, hypopharynx and larynx appear patent. Heterogenous appearance of the parotid glands. Clinical correlation and local examination are recommended. The visualized portions of the posterior fossa and brain appear normal. There is sclerosis and loss of height of the C6 vertebral body. Findings are nonspecific and could be degenerative however, osseous metastasis cannot be totally excluded. There is mild cervical degenerative disc and joint disease. The visualized orbits and paranasal sinuses appear normal. The thyroid gland is normal. The visible lung apices are clear. Procedure Note Angie Blount MD - 11/17/2024 PROCEDURE: CT NECK SOFT TISSUE W CONT, DATE/TIME OF EXAM: 56:05 PM, LOCATION [facility] INDICATION: M54.2: Neck pain ADDITIONAL CLINICAL INFORMATION: Ordering Provider Reason For Exam: r/o significant edema of airway;known throat cancer Technologist Note: Does the patient have a history of renal insufficiency?->No Additional: 44-year-old male PMH as noted below who presents with describes new esophageal cancer Dx several weeks ago in [place], [place]. Lost to follow up. Reports worsening R lateral neck swelling and mildSOB. No CP or dysphagia. No fever/chills. EXAMINATION: Computed tomography (CT) of the neck with contrast TECHNIQUE: CT of the neck was performed following the uneventful administration of 75 mL Isovue-370 intravenous contrast according to standard protocol. COMPARISON: No prior study is available for comparison at the time ofthis dictation. FINDINGS: There is a heterogeneously enhancing, irregular mass involving the right nasopharynx, extending along the retromolar trigone, the glossotonsillar recess, the right medial pterygoid muscle, and the right aspect of thesoft palate. There is extension to the right director housekeeping space. There is extension to the right parapharyngeal space. There is extension to the right carotid space. Accurate measurement of this mass is difficult dueto its irregular shape however measures approximately 4.4 x 3.4 cm at the level of the soft palate, (series 3, image 38). Multiple necrotic lymph nodes are present throughout the bilateral neck stations, more prominent on the right side. For reference, a right sided conglomerate, necrotic level II lymph nodes measuring approximately 1.8x 1.7 cm, (series 3, image 52). A necrotic lesion in the right carotidspace measuring approximately 1.3 x 1.3 cm, (series 3, image 44). A necroticleft XII lymph node measuring approximately 1.0 x 0.9 cm, (series 3, image50). Additional right sided necrotic lymph node II measuring approximately 1.5x 1.0 cm, (series 3, image 52). There is a chain of necrotic lymph nodes along the right aspect of the neck, for reference, a right-sided level III lymph node measuring approximately 2.6 x 1.9 cm, (series 3, image 71). This lesion abuts the inner aspect of the right sternocleidomastoid muscle, unclear whetherthere is invasion of the medial aspect of the muscle. This lesion severely compresses the adjacent right internal jugular vein and abuts the right common carotid artery. There is a right submandibular partially necrotic lymph node measuring 1.1 cm in short axis diameter. The rightsubmandibular gland is indistinct, unclear whether there is involvement or prior intervention in this area. Please correlate with prior treatmenthistory. The muscles of the neck appear normal. The cervical internal carotid arteries and left internal jugular vein appear normal. Fascial planesare preserved . The nasopharynx, oropharynx, hypopharynx and larynx appear patent. Heterogenous appearance of the parotid glands. Clinical correlation and local examination are recommended. The visualized portions of the posterior fossa and brain appear normal. There is sclerosis and loss of height of the C6 vertebral body. Findings are nonspecific and could be degenerative however, osseous metastasis cannot be totally excluded. There is mild cervical degenerative disc and joint disease. The visualized orbits and paranasal sinuses appearnormal. The thyroid gland is normal. The visible lung apices are clear. IMPRESSION: 1.There is a heterogeneously enhancing, irregular mass involving theright nasopharynx, extending along the retromolar trigone, the glossotonsillar recess, the right medial pterygoid muscle, and the right aspect of thesoft palate. Findings are compatible was patient's known malignancy. 2.Multiple bilateral necrotic cervical lymphadenopathy as detailed above. 3.The visualized airway is patent. 4.There is sclerosis and loss of height of the C6 vertebral body.Findings are nonspecific and could be degenerative however, osseous metastasis cannot be totally excluded. Nuclear medicine bone scan or PET/CT couldbe obtained for further evaluation if clinically warranted. The report is dictated by Wanda Juárez MD (resident in diagnostic radiology) IAngie MD have personally reviewed and interpretedthis examination/study. > Interpreting Provider: Angie Blount MD on 11/17/2024 10:50 AM Sven Garcia PA-C CT ORDERABLES Final Resu lt * CBC W AUTO DIFFERENTIAL (11/16/2024 4:57 PM T) WBC 9.0 4.0 - 10.7 x10E9/L 11/16/2024 5:39 PM [facility] RBC Count 5.11 4.30 - 5.80 x10E12/L 11/16/2024 5:39 PM [facility] Hemoglobin 14.4 13.3 - 17.5 g/dL 11/16/2024 5:39 PM [facility] Hematocrit 42.0 38.7 - 51.1 % 11/16/2024 5:39 PM [facility] MCV 82.2 80.0 - 98.0 fL 11/16/2024 5:39 PM [facility] MCH 28.2 26.7 - 33.6 pg 11/16/2024 5:39 PM [facility] MCHC 34.3 31.7 - 36.3 g/dL 11/16/2024 5:39 PM [facility] RDW-CV 12.5 11.3 - 14.8 % 11/16/2024 5:39 PM [facility] Platelet Count 365 150 - 420 x10E9/L 11/16/2024 5:39 PM [facility] MPV 9.2 7.8 - 11.4 fL 11/16/2024 5:39 PM [facility] Neutrophil % 56.0 41.0 - 74.0 % 11/16/2024 5:39 PM [facility] Lymphocyte % 36.1 17.0 - 47.0 % 11/16/2024 5:39 PM [facility] Monocyte % 6.0 3.0 - 11.0 % 11/16/2024 5:39 PM [facility] Eosinophil % 1.1 0.0 - 7.0 % 11/16/2024 5:39 PM [facility] Basophil % 0.4 0.0 - 1.6 % 11/16/2024 5:39 PM [facility] Immature Granulocytes % 0.4 0.0 - 1.0 % 11/16/2024 5:39 PM CDT [facility] Neutrophil Absolute 5.04 1.60 - 7.50 x10E9/L 11/16/2024 5:39 PM [facility] Lymphocyte Absolute 3.25 1.00 - 4.40 x10E9/L 11/16/2024 5:39 PM [facility] Monocyte Absolute 0.54 0.15 - 1.00 x10E9/L 11/16/2024 5:39 PM [facility] Eosinophil Absolute 0.10 0.00 - 0.60 x10E9/L 11/16/2024 5:39 PM [facility] Basophil Absolute 0.04 0.00 - 0.13 x10E9/L 11/16/2024 5:39 PM [facility] Blood BLOOD SPECIMEN / Unknown Venipuncture / Unknown 11/16/2024 4:57 PM CDT 11/16/2024 5:30 PM CDT Sven Garcia PA-C LAB - HEMATOLOGY ORDERABLE S Final Result [facility] [address] [place] [id number], [facility] [phone] * (ABNORMAL) COMPREHENSIVE METABOLIC PANEL (11/16/2024 4:57 PM CDT) BUN 10 7 - 26 mg/dL 11/16/2024 5:38 PM [facility] Creatinine 0.94 0.71 - 1.16 mg/dL 11/16/2024 5:38 PM [facility] Sodium 139 136 - 145 mmol/L 11/16/2024 5:38 PM [facility] Potassium 4.2 3.5 - 4.5 mmol/L 11/16/2024 5:38 PM [facility] Chloride 106 98 - 107 mmol/L 11/16/2024 5:38 PM [facility] CO2 25 22 - 29 mmol/L 11/16/2024 5:38 PM [facility] Glucose 155(H) 70 - 99 mg/dL 11/16/2024 5:38 PM [facility] Calcium 9.3 8.4 - 10.2 mg/dL 11/16/2024 5:38 PM [facility] Protein Total 7.6 6.0 - 8.3 g/dL 11/16/2024 5:38 PM [facility] Albumin 4.0 3.4 - 5.0 g/dL 11/16/2024 5:38 PM [facility] Bilirubin Total 0.4 0.2 - 1.2 mg/dL 11/16/2024 5:38 PM [facility] Alkaline Phosphatase 106 40 - 150 U/L 11/16/2024 5:38 PM [facility] ALT 21 5 - 55 U/L 11/16/2024 5:38 PM [facility] AST 15 5 - 34 U/L 11/16/2024 5:38 PM [facility] Anion Gap 8 6 - 16 11/16/2024 5:38 PM [facility] BUN/Creatinine Ratio 11 7 - 23 11/16/2024 5:38 PM [facility] Osmolality Calculated 290 275 - 295 mOsm/kg 11/16/2024 5:38 PM [facility] Albumin/Globulin Ratio 1.1 1.1 - 2.3 11/16/2024 5:38 PM [facility] eGFR by CKD-EPI >90 >=90 mL/min/1.7 3 m2 11/16/2024 5:38 PM [facility] Blood BLOOD SPECIMEN / Unknown Venipuncture / Unknown 11/16/2024 4:57 PM CDT 11/16/2024 5:11 PM [facility] us Sven Garcia PA-C LAB - CHEMISTRY ORDERABLES Final Result [facility] [address] [place] [address], [place] [phone] from Last 3 Months Insurance [facility] MEDICAID - [place] Care Teams Counterintelligence Analyst Relationship Specialty Start Date End Date Melissa Diamond PA-C [address] [phone] PCP - General Physician Plant Physiology Teacher 09/25/24
--- OUTSIDE RECORDS SUMMARY | 2025-01-01 02:53 | XMS_ITS | Encounter Summary ---
Author Organization [facility] Address [address] [place] [address] Care Team Providers Care Saw Man Name Role Phone Melissa Diamond PA-C Primary Care Provider Reason for Visit * Reason Onset Date Comments MEDICATION REFILL 11/26/2024 Encounter Details Date Type Department Care Team (Late st Contact Info) Description 11/26/2024 Refill [facility] - ENT [address] [place] [phone] Cinthia Samano MD [address] [place] [address] MEDICATION REFILL Social History Tobacco Use Types Packs/Day Years Used Date Smoking Tobacco: Former Smokeless Tobacco: Never PHQ-2 Answer Date Recorded Patient Health Questionnaire-2 Score 6 03/04/2024 Sex and Gender Information Value Date Recorded Sex Assigned at Not on file 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
--- NOTE | 2025-01-01 13:02 | WPDANESEPPF ---
Anes - Initial Pre Proc Eval Procedure: Operation Date: 01/01/25 12:00 Proposed Procedures p Percutaneous Endoscopic Gastrostomy - Hugo Mcadams MD Date/Time: 01/01/25 13:02 Surgeon: Hugo Mcadams MD Pre Op Diagnosis: Malignant neoplasm of head, face and neck Patient Data Age: 44 Gender: M Height: 1.73 m Weight: 65.8 kg Last Vital Signs Temp 98.2 F 01/01/25 12:11 Pulse 85 01/01/25 12:11 Resp 18 01/01/25 12:11 BP 127/82 01/01/25 12:11 Pulse Ox 98 01/01/25 12:11 O2 Del Method Room Air 01/01/25 12:11 Allergies Allergy/AdvReac Type Severity Reaction Status Date / Time clindamycin Allergy Mild Hives Verified 12/30/24 11:57 hydrocodone AdvReac Hives Verified 12/30/24 11:57 Home Medications ?Medication ?Instructions ?Recorded ?Confirmed ?Type methocarbamol 750 mg PO DAILY 06/12/24 01/01/25 History naproxen 500 mg tablet 500 mg PO BID PRN pain #20 tabs 06/12/24 12/30/24 Rx gabapentin 300 mg capsule 300 mg PO TID 12/30/24 01/01/25 History oxycodone 5 mg tablet 10 mg PO Q4H PRN pain 12/30/24 01/01/25 History Patient hx anesthesia problems: none Family hx anesthesia problems: none Results Review: All pre-operative results and documents have been reviewed as part of the pre-operative evaluation. [facility] Past Medical History Medical History History of drug abuse Chronic back pain Social History Social History Social History: Fentanyl and amphetamine abuse Smoking status: Current every day smoker Substance use: current Substance use type: marijuana Living arrangements: with family Spiritual care concerns: No Anes - Eval Final PreProcedure Day of Procedure 01/01/25 13:02 Patient weight: normal and thin Lungs: normal air movement Airway: Mallampati scale class II and special considerations (Upper edentulous. ) Neurological: alert and oriented Last oral intake: >/= 8 hours ASA classification: III Emergent: no Anesthetic plan: proceed Anesthesia type and monitoring: general GIVS and standard monitoring Results Review: All pre-operative results and documents have been reviewed as part of the pre-operative evaluation. Hx of Hep C/substance use disorder. 40 pack year smoker and cont to smoke, hx of H and N ca (tonsillar) no radiation at this point, now w dysphagia and need for EGD. Informed Consent: The patient's anesthetic plan and its attendant risks and benefits were discussed with the patient/family/POA. Questions were solicited and answers provided to the satisfaction of the patient/family/POA.
[2025-01-01] MEDS: LACTATED RINGERS 1,000 ML 150 ML IV CONT (13:25)
[2025-01-01] MEDS: ceFAZolin 1 GM in SODIUM CHLORIDE 0.9% IV 50 ML 100 ML IVPB (13:26)
--- NOTE | 2025-01-01 13:43 | P.CONGI_ITS ---
Assessment and Plan Assessment and plan (1) Dysphagia: Code(s): R13.10 - Dysphagia, unspecified Status: Acute Assessment and Plan: due to malignancy, he was already evaluated by hem-onc and will start chemoradi ation therapy soon he will be admitted as observation status, will place PEG tube now so he can start getting nutrition and gain some weight back specially since will be starting treatment soon he is agreeable to EGD with peg placement will continue NPO status and anticipate more than 90 days of tube feeding dietitian to recommend continuous feeding vs bolus to use with water flush (2) Squamous cell carcinoma of neck: Code(s): C44.42 - Squamous cell carcinoma of skin of scalp and neck Status: Acute (3) Weight loss: Code(s): R63.4 - Abnormal weight loss Status: Acute (4) Anorexia: Code(s): R63.0 - Anorexia Status: Acute (5) History of drug abuse: Code(s): F19.11 - Other psychoactive substance abuse, in remission Status: Acute GI Consult Note Consult date/time: 01/01/25 13:43 Reason for consult: dysphagia HPI: Jose Manuel Farnsworth is a 44 year old male with diagnosed of SCC of neck with difficulty swallowing and weight loss for last few months. He has been evaluated by oncologist and he is about to start radiation chemotherapy next week. Here for PEG placement. Denies gastric surgery. He is smoker. Review of Systems Constitutional: Constitutional: Reports poor appetite and Reports weight loss Eyes: Eyes: Denies blurry vision ENT: Reports dysphagia Cardiovascular: Cardiovascular: Denies chest pain Respiratory: Respiratory: Denies dyspnea on exertion Gastrointestinal: Comments: dysphagia Genitourinary: Genitourinary: Denies dysuria Musculoskeletal: Musculoskeletal: Denies myalgias Integumentary/Breasts: Skin/Breast: Denies rash Neurologic: Denies confusion Psychiatric: Psychiatric: Denies behavioral changes PMFSH Past Medical History Medical History (Updated 01/01/25 @ 14:12 by Hugo Mcadams MD) Anorexia Weight loss Squamous cell carcinoma of neck Dysphagia History of drug abuse Chronic back pain Social History Social History Social History: Fentanyl and amphetamine abuse Smoking status: Current every day smoker Substance use: current Substance use type: marijuana Living arrangements: with family Spiritual care concerns: No Meds Home Medications and Allergies Home Medications ?Medication ?Instructions ?Recorded ?Confirmed ?Type methocarbamol 750 mg PO DAILY 06/12/24 01/01/25 History naproxen 500 mg tablet 500 mg PO BID PRN pain #20 tabs 06/12/24 12/30/24 Rx gabapentin 300 mg capsule 300 mg PO TID 12/30/24 01/01/25 History oxycodone 5 mg tablet 10 mg PO Q4H PRN pain 12/30/24 01/01/25 History Allergies Allergy/AdvReac Type Severity Reaction Status Date / Time clindamycin Allergy Mild Hives Verified 12/30/24 11:57 hydrocodone AdvReac Hives Verified 12/30/24 11:57 Vital Signs Vital Signs - 24 hr 01/01/25 12:11 Temperature 98.2 F Pulse Rate 85 Respiratory Rate 18 Blood Pressure 127/82 Pulse Oximetry 98 Oxygen Delivery Room Air Exam Const: General: no acute distress Nutritional Appearance: well nourished Orientation/consciousness: patient oriented x3 Limitations: no limitations HENMT: Head: normal to inspection Eyes: Conjunctivae: conjunctivae normal Pupils: Equal, round and reactive pupils present Neck: Neck: lymphadenopathy Other: Swollen tender right lymph node on the neck Chest: Chest palpation & inspection: normal inspection of the chest Resp: Effort & Inspection: normal respiratory effort Auscultation: clear to auscultation bilaterally Cardio: Rate: regular rate Rhythm: regular rhythm GI: GI Palp: Yes Soft to palpation and No Tenderness to palpation present (GI) Auscultation: normal bowel sounds Skin: General skin exam: normal color Neuro: Speech: normal speech Motor exam (neuro): 5/5 motor strength present throughout Extrem: General: normal to inspection Psych: Mental Status: mental status grossly normal
[2025-01-01] MEDS: BENZOCAINE (*SP) 60 ML SPRAY CAN (HURRICAINE) 1 SPRAY MUCOUS MEM (13:47)
--- NOTE | 2025-01-01 14:00 | SUR.OPER ---
Pt to be admitted for observation. Dr. Sherwood called hospitalist to give report post peg placement.
--- NOTE | 2025-01-01 15:20 | PCDIET ---
TUBE FEEDING NOTE: Continuous feedings overnight tonight: Jevity 1.5 @ goal rate 40 ml/h with 100 ml flushes QID. 1320 kcal, 56 g protein, 670 ml free water (based on 22 hours) -Start at 30 ml/h and advance 10 ml q 4 hours until goal rate is reached, as tolerated Will determine final rate of bolus feedings tomorrow
--- NOTE | 2025-01-01 15:22 | PM.IMHP ---
H&P: HPI History of Present Illness Date/Time: 01/01/25 15:22 Chief Complaint: PEG tube placement and tube feeding initiation Narrative: 44 yo male who was recently diagnosed of throat cancer, admitted from the endoscopy suite for observation and initiation of tube feeding. Patient reported he was diagnosed of throat cancer about 4 months and is starting Chemoradiation next month. However he stated having difficulty swallowing and consulted with GI and was brought in for PEG tube placement. PEG tube was placed and GI admitted or overnight observation and initiation of tube feeding. Patient otherwise denies any diarrhea, vomiting, abd pain or dysuria. Partner was present at bedside Vital signs were stable and within normal limits Review of Systems Review of Systems: All [facility] Past Medical History Medical History (Updated 01/01/25 @ 14:12 by Hugo Mcadams MD) Anorexia Weight loss Squamous cell carcinoma of neck Dysphagia History of drug abuse Chronic back pain Social History Social History Social History: Fentanyl and amphetamine abuse Years smoked: 20 Smoking status: Current every day smoker Tobacco type: cigarettes Alcohol intake: former Drinks per week: 40 Substance use: current Substance use type: marijuana Other substance usage details: 2 smokes per week Do You Feel Safe in your Home?: Yes Lack of Transportation: YES Lack of Food: Never True Current Housing: I Have Housing Concerned About Future Housing: No Difficulty Paying Gas/Electric Bills: YES Difficulty Paying for Meds: No Currently Unemployed: YES Education: High School Diploma/GED Difficulty w/ Childcare or Family Care: No Living arrangements: with family Spiritual care concerns: No Meds Home Medications and Allergies Home Medications ?Medication ?Instructions ?Recorded ?Confirmed ?Type methocarbamol 750 mg PO DAILY 06/12/24 01/01/25 History naproxen 500 mg tablet 500 mg PO BID PRN pain #20 tabs 06/12/24 12/30/24 Rx gabapentin 300 mg capsule 300 mg PO TID 12/30/24 01/01/25 History oxycodone 5 mg tablet 10 mg PO Q4H PRN pain 12/30/24 01/01/25 History Allergies Allergy/AdvReac Type Severity Reaction Status Date / Time clindamycin Allergy Mild Hives Verified 12/30/24 11:57 hydrocodone AdvReac Hives Verified 12/30/24 11:57 Vital Signs Vital Signs - 24 hr 01/01/25 12:11 01/01/25 14:03 01/01/25 14:13 Temperature 98.2 F Pulse Rate 85 79 79 Respiratory Rate 18 13 21 H Blood Pressure 127/82 116/67 112/69 Pulse Oximetry 98 92 95 Oxygen Delivery Room Air Room Air Room Air 01/01/25 14:23 Temperature Pulse Rate 76 Respiratory Rate 14 Blood Pressure 117/76 Pulse Oximetry 98 Oxygen Delivery Room Air Exam Narrative: General: alert and comfortable Eyes: EOMI, PERRLA ENNT External ears normal, Neck is supple, no masses, Respiratory systems: Clear to auscultation Cardiovascular S1, S2, normal rhythm, no murmur, rub, or gallop; no thrill or palpable murmurs on palpation. Gastrointestinal: soft, PEG tube in place, BS present Skin: no rash, lesions, ulcerations, subcutaneous nodules or induration Musculoskeletal: no abnormality and no tenderness, normal ROM Neurologic: Alert and oriented x3, non focal Mental Status Exam: normal affect Assessment and Plan Assessment and plan (1) Squamous cell carcinoma of neck: Code(s): C44.42 - Squamous cell carcinoma of skin of scalp and neck Status: Acute (2) Dysphagia: Code(s): R13.10 - Dysphagia, unspecified Status: Acute Plan Throat cancer Patient starting chemoradiation next week continue follow up with Oncology as schedule d Dysphagia S/p PEG tube placement NPO, start tube feeding per GI Dr Sherwood monitor overnight Possible discharge tomorrow DVT prophylaxis on Sq Lovenox Hospitalist [facility] Advance Care Plan I have confirmed that the patient's Advanced Care Plan is present, code status is documented, or surrogate decision maker is listed in patient medical record.: Yes Medication Reconciliation I have utilized all available resources to obtain, update and review the patients current medications (includes all prescriptions, OTC, herbals, cannabis, and nutritional supplements).: Yes
--- NOTE | 2025-01-01 15:22 | ADMGEN ---
This patient, Jose Manuel Farnsworth, was admitted to Medical Room 242-. Patient/family oriented to hospital policies and general routines including ID bracelet, bed and alarms, visiting hours, pain management, procedures, bathroom and other care routines, personal items, smoking policy, room service/diet, and visiting hours. Information on how to activate the Rapid Response Team has been discussed. Patient/Family are encouraged to report perceived risks to care and to ask questions if they do not understand what they are told or what they should do.
[2025-01-01] MEDS: oxyCODONE/ACETAMINOPHEN (*CRX) 10-325 MG TABLET 1 TAB PO (18:34)
[2025-01-01] MEDS: MORPHINE SULFATE (*CRX) 4 MG/ML INJ IV PUSH (20:48)
--- NOTE | 2025-01-01 22:10 | PC.NURSE ---
2108 at patient request, called Clement from the [employer] monitoring [employer], to inform them that the patient is an inpatient at the present time. Patient worried about the ankle monitor being low on battery, and that he is supposed to be back at home, only had clearance for the procedure today, not the overnight stay. Clement states to have the patient or family get the notch machine operator to hospital as soon as he can, but also aware that patient states he is unable to obtain tonight. Patient informed of conversation and no further needs at this time.
[2025-01-02 01:30] VITALS: BP 131/74; PULSE 80; RESP 18; TEMP 36.6; O2SAT 98
[2025-01-02] MEDS: MORPHINE SULFATE (*CRX) 4 MG/ML INJ IV PUSH (04:19)
[2025-01-02 05:02] LABS: Hematocrit 40.0 % (42.0-52.0); Hemoglobin 12.7 g/dL (14.0-18.0); Immature Granulocyte Percent A 0.5 % (0-0.5); Lymphocytes Absolute Auto 1.91 K/mm3 (0.9-3.2); Mean Corpuscular HGB Conc 31.8 g/dl (32-36); Mean Corpuscular Hemoglobin 28.2 pg (26-34); Mean Corpuscular Volume 88.9 fl (80-100); Nucleated Red Blood Cells Absolute Auto 0.000 K/mm3 (0.0-0.012); Nucleated Red Blood Cells Perc 0.0 % (0.0-0.2); Platelet Count Result 253 k/mm3 (150-375); Red Blood Count 4.50 M/mm3 (4.6-6.20); White Blood Count 7.9 K/mm3 (4.5-10.0)
[2025-01-02 05:13] LABS: Alanine Aminotransferase 14 U/L (6-50); Albumin Level 3.8 g/dL (3.5-5.1); Alkaline Phosphatase 77 U/L (38-126); Anion Gap 6 mmol/L (4-12); Aspartate Amino Transferase 24 U/L (17-59); Bilirubin,Total 0.5 mg/dL (0.2-1.3); Blood Urea Nitrogen 8 mg/dL (9-20); Calcium 8.6 mg/dL (8.4-10.2); Carbon Dioxide 28 mmol/L (22-30); Chloride 101 mmol/L (98-107); Estimated CRCL calculation 100 ml/min; Estimated Glomerular Filt Rate > 60; Glucose 111 mg/dL (65-110); Magnesium 2.2 mg/dL (1.6-2.3); Potassium 4.0 mmol/L (3.4-5.0); Sodium 135 mmol/L (137-145); Total Protein 7.1 g/dL (6.3-8.2)
[2025-01-02 06:00] VITALS: BP 106/51
[2025-01-02] MEDS: ENOXAPARIN 40 MG/0.4 ML SYRINGE SUB-Q (08:04)
[2025-01-02] MEDS: oxyCODONE/ACETAMINOPHEN (*CRX) 10-325 MG TABLET 1 TAB PO (08:04)
--- NOTE | 2025-01-02 10:48 | PC.NURSE ---
Patient left the floor before receiving his discharge papers, this nurse did remove the patients' IV access and did G-tube flush instructions with the patient and significant other before they walked out.
--- NOTE | 2025-01-02 12:33 | P.DS_ITS ---
DS: Admitting Diagnosis Discharge Date 01/02/25 Admitting Diagnosis PEG tube placement and tube feeding initiation DS: Discharge Diagnosis Discharge Diagnosis (1) Dysphagia: Code(s): R13.10 - Dysphagia, unspecified Status: Acute (2) Squamous cell carcinoma of neck: Code(s): C44.42 - Squamous cell carcinoma of skin of scalp and neck Status: Acute DS: Summary Hospital Course Hospital Course: 44 yo male who was recently diagnosed of throat cancer, admitted from the endoscopy suite for observation and initiation of tube feeding. Patient reported he was diagnosed of throat cancer about 4 months and is starting Chemoradiation next month. However he stated having difficulty swallowing and consulted with GI and was brought in for PEG tube placement. PEG tube was placed and GI admitted or overnight observation and initiation of tube feeding. Patient otherwise denies any diarrhea, vomiting, abd pain or dysuria. Partner was present at bedside Vital signs were stable and within normal limits Patient had PEG tube placed and started on tube feeds overnight. Tolerating tube feedings and discharged today. Patient will follow up with oncology for chemoradiation next week continue follow up with GI as instructed F/u with PCP in 3-5 days Time Spent with Patient Time attestation: Total time spent providing and/or coordinating discharge services: DS: Data Data Completed and Pending Labs on day of discharge: Labs from last 24 hours 01/02/25 04:29 WBC 7.9 RBC 4.50 L Hgb 12.7 L Hct 40.0 L MCV 88.9 MCH 28.2 MCHC 31.8 L RDW 12.3 Plt Count 253 MPV 9.5 Immature Gran % (Auto) 0.5 Neut % (Auto) 63.9 Lymph % (Auto) 24.1 [place] % (Auto) 7.1 Eos % (Auto) 4.0 Baso % (Auto) 0.4 Lymph # (Auto) 1.91 [place] # (Auto) 0.6 Eos # (Auto) 0.3 Baso # (Auto) 0.0 Abs Immat Gran (auto) 0.04 H Absolute Neuts (auto) 5.1 Absolute Nucleated RBC 0.000 Nucleated RBC % 0.0 Sodium 135 L Potassium 4.0 Chloride 101 Carbon Dioxide 28 Anion Gap 6 BUN 8 L Creatinine 0.76 Estim Creat Clear Calc 100 Estimated GFR > 60 Glucose 111 H Calcium 8.6 Magnesium 2.2 Total Bilirubin 0.5 AST 24 ALT 14 Alkaline Phosphatase 77 Total Protein 7.1 Albumin 3.8 Discharge Plan Discharge Patient Disposition: Home Discharge Instructions: Follow up with GI physician. Call office for appointment. Patient Language: Vietnamese Follow-up/Referrals: Hugo Mcadams MD [Physician] - Discharge Orders: Discharge Order (Routine); Ordered 01/02/25 Ordered By: Hugo Mcadams Discharge Medications: Continued methocarbamol [Robaxin] 750 mg PO DAILY naproxen 500 mg tablet 500 mg PO BID PRN (Reason: pain) Qty: 20 0RF Patient Comments: Pt states no longer taking oxycodone 5 mg tablet 10 mg PO Q4H PRN (Reason: pain) gabapentin 300 mg capsule 300 mg PO TID
--- NOTE | 2025-01-02 16:44 | WPDGIPROGNO ---
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 Respiratory systems: Clear to auscultation Cardiovascular S1, S2, normal rhythm, no murmur. Gastrointestinal: soft, PEG tube in place, BS present Skin: no rash Musculoskeletal: no abnormality and no tenderness, normal ROM Neurologic: Alert and oriented x3, non focal Mental Status Exam: normal affect Objective Data Vital Signs Vital Signs: Vital Signs - 24 hr 01/01/25 16:51 01/01/25 20:00 01/01/25 22:00 Temperature 98 F Pulse Rate 90 88 Respiratory Rate 14 18 Blood Pressure 120/71 Pulse Oximetry 95 96 Oxygen Delivery Room Air Room Air 01/02/25 01:30 01/02/25 06:00 01/02/25 08:16 Temperature 97.8 F Pulse Rate 80 Respiratory Rate 18 Blood Pressure 131/74 106/51 L Pulse Oximetry 98 Oxygen Delivery Room Air Intake/Output Intake/Output: Intake & Output 12/30/24 12/31/24 01/01/25 01/02/25 23:59 23:59 23:59 23:59 Intake Total 150 761 Output Total 600 Balance 150 161 Labs Labs: Laboratory Results - last 24 hr 01/02/25 04:29 WBC 7.9 RBC 4.50 L Hgb 12.7 L Hct 40.0 L MCV 88.9 MCH 28.2 MCHC 31.8 L RDW 12.3 Plt Count 253 MPV 9.5 Immature Gran % (Auto) 0.5 Neut % (Auto) 63.9 Lymph % (Auto) 24.1 [place] % (Auto) 7.1 Eos % (Auto) 4.0 Baso % (Auto) 0.4 Lymph # (Auto) 1.91 [place] # (Auto) 0.6 Eos # (Auto) 0.3 Baso # (Auto) 0.0 Abs Immat Gran (auto) 0.04 H Absolute Neuts (auto) 5.1 Absolute Nucleated RBC 0.000 Nucleated RBC % 0.0 Sodium 135 L Potassium 4.0 Chloride 101 Carbon Dioxide 28 Anion Gap 6 BUN 8 L Creatinine 0.76 Estim Creat Clear Calc 100 Estimated GFR > 60 Glucose 111 H Calcium 8.6 Magnesium 2.2 Total Bilirubin 0.5 AST 24 ALT 14 Alkaline Phosphatase 77 Total Protein 7.1 Albumin 3.8
== END 2025-01-02 10:51 | disposition home or self-care (01) ==
LOC: ANHENDO 11:55 → ANH2MED 15:22
PROVIDERS: Internal Medicine; Referring Provider Internal Medicine Hematology & Oncology; Visit Provider Internal Medicine Gastroenterology
PROC: 0DH63UZ Insertion of Feeding Device into Stomach, Percutaneous Approach (ICD-10-PCS; CPT 43246; principal; 2025-01-01 12:00)
DX: C44.42 Squamous cell carcinoma of skin of scalp and neck (principal); G89.29 Other chronic pain; M54.9 Dorsalgia, unspecified; F17.210 Nicotine dependence, cigarettes, uncomplicated; F12.90 Cannabis use, unspecified, uncomplicated; F19.11 Other psychoactive substance abuse, in remission; Z79.1 Long term (current) use of non-steroidal anti-inflammatories (NSAID); Z79.891 Long term (current) use of opiate analgesic
CPT/HCPCS: 36415; 43246; 80053; 83735; 85025; A9270; J0690; J1650; J2003; J2270; J2704; J7120

== ENCOUNTER 2025-01-03 21:43 | Emergency (ER) | payer OTHER, SELFPAY ==
--- NOTE | ~2025-01-03 | CT_ITS ---
CT of the Abdomen and Pelvis: Indication: Abdominal pain, recent G-tube insertion Technique: 2.5 mm axial scans were obtained through the abdomen and pelvis following intravenous adm inistration of 100 cc of Omnipaque 350. Dose reduction technique was used on this scan by utilizing a utomated exposure control and iterative reconstruction technique. The dose-length product (DLP) was 3 36.85 mGy-cm. COMPARISON: 03/27/2023 Findings: Scans through the lung bases are unremarkable. The liver, spleen, pancreas, gallbladder, adrenals and kidneys are within normal limits. No evidence of aortic aneurysm. No lymphadenopathy. No bowel obstruction or bowel wall thickening. Percutaneous gastrostomy tube is in satisfactory posit ion. Probable constipation. Images through the pelvis were performed. Urinary bladder unremarkable. No pelvic mass seen. No ascit es. Stable postoperative changes of the lumbar spine noted. Impression: No acute abnormality. Percutaneous gastrostomy tube in satisfactory position. Constipation. Reviewed, dictated and finalized at location . Impression: No acute abnormality. Percutaneous gastrostomy tube in satisfactory position. Constipation.
--- OUTSIDE RECORDS SUMMARY | 2025-01-03 21:45 | XMS_ITS | Encounter Summary ---
Author Organization [facility] Health Address [address] [place] [address] Care Team Providers Care Tax Assistant Name Role Phone Melissa Diamond PA-C Primary Care Provider Reason for Visit * Reason Comments FEEDING TUBE PROBLEM BIBSELF complaint o f new PEG tube pain nonradiating. 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 Last admin via PEG at 0900 today. GCS 15. Encounter Details Date Type Department Care Team (Late st Contact Info) Description 01/02/2025 11:48 PM CDT - 01/03/2025 4:02 AM CDT Emergency [facility] [address] [place] [address] [phone] Caio Maria MD [address] [place] [address] [place] [address] Shortness of breath; Abdominal pain, unspecified abdominal location Discharge Disposition: Left Against Medical Advice/Discontinued Care Social History Tobacco Use Types Packs/Day Years Used Date Smoking Tobacco: Former Smokeless Tobacco: Never PHQ-2 Answer Date Recorded Patient Health Questionnaire-2 Score 6 03/04/2024 Sex and Gender Information Value Date Recorded Sex Assigned at Not on file 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 Gender Identity Not on file Sexual Orientation Not on file documented as of this encounter Last Filed Vital Signs Vital Sign Reading Time Taken Comments Blood Pressure 136/82 01/03/2025 12:09 AM CDT Pulse 84 01/03/2025 12:09 AM CDT Temperature 37.3 C (99.1 F) 01/02/2025 9:49 PM CDT Respiratory Rate 20 01/03/2025 12:09 AM CDT Oxygen Saturation 98% 01/03/2025 12:09 AM CDT Inhaled Oxygen Concentration - - Weight 65.8 kg (145 lb) 01/02/2025 9:49 PM CDT Height 172.7 cm (5' 8) 01/02/2025 9:49 PM CDT Body Mass Index 22.05 01/02/2025 9:49 PM CDT documented in this encounter Functional Status * Is person [...] Mike Wellington RN documented in this encounter Medications at Time of Discharge Acetaminophen (TYLENOL) 325 MG CAPS Take 500 mg by mouth dextran 70-hypromellose (ARTIFICIAL TEARS) 0.1-0.3 % SOLN gabapentin (Neurontin) 300 MG capsule Take 1 (one) capsule by mouth 3 times daily for 90 days 270 capsule 11/18/2024 02/16/2025 ibuprofen (MOTRIN) 400 MG tablet Take 800 mg by mouth every 6 hours as needed for Pain Methocarbamol (ROBAXIN-750 PO) Take 750 mg by mouth naloxone HCl (Narcan) 4 MG/0.1ML nasal spray [place] 1 (one) spray into the nose as needed for Overdose 2 device 2 11/19/2024 oxyCODONE, immediate release, (Roxicodone) 5 MG tabletIndication s:Tonsil cancer (HCC) Take 1 (one) tablet by mouth every 4 hours as needed for Pain 6 tablet 12/27/2024 oxyCODONE-acetam inophen (Percocet) 10-325 MG tabletIndication s:Tonsil cancer (HCC) Take 1 (one) tablet by mouth every 4 hours as needed for Pain 90 tablet 12/25/2024 documented as of this encounter ED Notes * Ting Sifuentes RN - 01/03/2025 2:52 AM CDT Pt has still not returned to his stretcher, unable to locate in common areas, pt to be ama'ed and removed off the board * Ting Sifuentes RN - 01/03/2025 2:35 AM CDT Pt has not returned to his stretcher, unable to locate pt in common areas, will look for pt again in 15 minutes before removing off the board * Hemant Morales RN - 01/03/2025 2:18 AM CDT Pt seen leaving ED at this time * Katlyn Vo RN - 01/03/2025 2:18 AM CDT Pt seen leaving ED at this time RN asked pt if they are leaving pt yelled yes! And proceed to walk out the doors. * Florina Brewster RN - 01/02/2025 11:48 PM CDT Bed: [address] Expected date: Expected time: Means of arrival: Personal Transport/Walk In Comments: * Marybel Loaiza CNA - 01/02/2025 11:36 PM CDT Patient called to be roomed. Patient attempting to exit the department att. Patient informed he hada room that we would take him to, and that he should not exit the department. Patient cursing and verbally aggressive with this technical proposal writer, refusing to remain in department. Patient exited department despite staff attempts at education. * Francesca Avalos PA-C - 01/02/2025 10:11 PM CDT Medical Screening Exam 01/02/2025 10:11 PM Provider contact with the patient Jose Manuel [place] CC: FEEDING TUBE PROBLEM (BIBSELF complaint of new PEG tube pain nonradiating. 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 Last admin via PEG at 0900 today. GCS 15. ) Chief complaint narrative was entered by triage nurse, not by provider Provider in Triage HPI: Jose Manuel [place] is a 44 year old male PMH as noted below who presents with abdominal pain that has been constant since he had a PEG tube placed yesterday. Last admin via tube was 0900 this morning. States this worsened the pain. Reports subjective fevers, endorses nausea. Has been taking percocet without relief, last dose 6 hours ago. States he called the surgeon and left a message but they did not get back to him today, prompting his visit to the ED. Limited Chart History: Past Medical History[1] Past Surgical History[2] Medications[3] Allergies[4] PCP: Melissa Diamond PA-C (Above may be pending completion) Review of Systems: Primary System Noted in HPI. All other systems reviewed and are negative. Vital Signs reviewed in Triage BP 124/76 Pulse 80 Temp 99.1 ??F (37.3 ??C) (Tympanic) Resp 18 Ht 1.727 m (5' 8) Wt 65.8kg (145 lb) SpO2 99% Constitutional: vitals as above, patient appears very uncomfortable due to pain Head: Head normocephalic, atraumatic Eyes: conjunctiva clear Resp: respirations even and unlabored CV: Heart RRR Abd: nondistended, patient guarding his abdomen, G-tube in place Skin: warm, dry,color normal for ethnicity MSK: using wheelchair, moves all extremities Neuro: A&O x 3 Complete physical exam is limited due to patient sitting in up right position in chair MDM: I have reviewed all lab and imaging resulted ordered during this visit and available at the time ofthis note. Triage notes and available nursing notes reviewed. Previous medical record reviewed whenavailable. Management options include but not limited to: physical exam, laboratory testing, discussion with other providers. Clinical Impression: 1.abdominal pain S/P g-tube placement Based on the Medical Screening Exam performed and diagnostic tests at this time, further evaluationis indicated and will be performed. Patient will be transferred to a main ED room when one is available and care will be transferred to ER provider. Francesca Avalos PA-C [1] Past Medical History: Diagnosis Date Hepatitis C [2] Past Surgical History: Procedure Laterality Date Back Surgery EAR SURGERY Hernia Repair OTHER SURGERY spinal infusion [3] Current Facility-Administered Medications Medication Dose Route Frequency Provider Last Rate Last Admin 0.9% NaCl injection 3 mL 3 mL Intracatheter q8h Francesca Avalos PA-C And 0.9% NaCl injection 1-10 mL 1-10 mL Intracatheter PRN Francesca Avalos PA-C diatrizoate meglumine & sodium (Gastroview; Gastrografin) solution Tube Once Jared Granado MD ondansetron (Zofran) injection 4 mg 4 mg Intravenous Now Francesca Avalos PA-C oxyCODONE (immediate release) (Roxicodone) tablet 5 mg 5 mg Oral Now Jared Granado MD Current Outpatient Medications Medication Sig Dispense Refill Acetaminophen (TYLENOL) 325 MG CAPS Take 500 mg by mouth (Patient not taking: Reported on 11/19/2024) dextran 70-hypromellose (ARTIFICIAL TEARS) 0.1-0.3 % SOLN gabapentin (Neurontin) 300 MG capsule Take 1 (one) capsule by mouth 3 times daily for 90 days 270 capsule 0 ibuprofen (MOTRIN) 400 MG tablet Take 800 mg by mouth every 6 hours as needed for Pain Methocarbamol (ROBAXIN-750 PO) Take 750 mg by mouth (Patient not taking: Reported on 11/19/2024) naloxone HCl (Narcan) 4 MG/0.1ML nasal spray [place] 1 (one) spray into the nose as needed for Overdose 2 device 2 oxyCODONE, immediate release, (Roxicodone) 5 MG tablet Take 1 (one) tablet by mouth every 4 hours as needed for Pain 6 tablet 0 oxyCODONE-acetaminophen (Percocet) 10-325 MG tablet Take 1 (one) tablet by mouth every 4 hours as needed for Pain 90 tablet 0 [4] Allergies Allergen Reactions Clindamycin Urticaria Hydrocodone-Acetaminophen Other documented in this encounter Plan of Treatment Not on file documented as of this encounter Procedures Procedure Name Priority Date/Time Associated Diagnosis Comments XR CHEST 2VW STAT 01/02/2025 11:03 PM CDT Shortness of breath LACTIC ACID BLOOD REFLEX TO REPEAT STAT 01/02/2025 10:16 PM CDT CBC W AUTO DIFFERENTIAL STAT 01/02/2025 10:16 PM CDT COMPREHENSIVE METABOLIC PANEL STAT 01/02/2025 10:16 PM CDT documented in this encounter Results * XR CHEST 2VW (01/02/2025 11:03 PM CDT) Anatomical Region Laterality Modality Chest Digital Radiogra phy 01/02/2025 11:0 8 PM CDT Narrative 01/03/2025 6:59 AM CDT PROCEDURE: XR CHEST 2VW, DATE/TIME OF EXAM: 01/02/2025 11:03 PM, LOCATION [facility] INDICATION: R06.02: Shortness of breath ADDITIONAL CLINICAL INFORMATION: Ordering Provider Reason For Exam: r/o pneumoperitoneum vs other Technologist Note: Additional: COMPARISON: None. TECHNIQUE: PA and Lateral radiograph of the chest. FINDINGS/IMPRESSION: The lungs are clear. There is no focal consolidation, pleural effusion, or pneumothorax. The cardiomediastinal silhouette is normal. The visible bony thorax is intact. Partially visualized gastrostomy tube is noted. Report dictated by Apryl Figueroa MD, (Signal Worker). Juan Jose Willis MD have personally reviewed and interpreted this examination/study. > Interpreting Provider: Juan Jose Holguin MD on 01/03/2025 6:59 AM Procedure Note Juan Jose Holguin MD - 01/03/2025 PROCEDURE: XR CHEST 2VW, DATE/TIME OF EXAM: 01/02/2025 11:03 PM, LOCATION [facility] INDICATION: R06.02: Shortness of breath ADDITIONAL CLINICAL INFORMATION: Ordering Provider Reason For Exam: r/o pneumoperitoneum vs other Technologist Note: Additional: COMPARISON: None. TECHNIQUE: PA and Lateral radiograph of the chest. FINDINGS/IMPRESSION: The lungs are clear. There is no focal consolidation, pleural effusion,or pneumothorax. The cardiomediastinal silhouette is normal. The visiblebony thorax is intact. Partially visualized gastrostomy tube is noted. Report dictated by Apryl Figueroa MD, (Signal Worker). Juan Jose Willis MD have personally reviewed and interpreted this examination/study. > Interpreting Provider: Juan Jose Holguin MD on 56:59 AM us Francesca Avalos PA-C DIAGNOSTIC IMAGING ORDERABLES Final Result * LACTIC ACID BLOOD REFLEX TO REPEAT (01/02/2025 10:16 PM CDT) Lactic Acid-Stat 0.9 <=2.0 mmol/L 01/02/2025 10:53 PM CDT [facility] Blood BLOOD SPECIMEN / Unknown Venipuncture / Unknown 01/02/2025 10:16 PM CDT 01/02/2025 10:25 PM CDT us Jared Granado MD LAB - CHEMISTRY ORDERABLES Fi nal Result [facility] [address] [place] [address], [facility] [phone] * (ABNORMAL) COMPREHENSIVE METABOLIC PANEL (01/02/2025 10:[address] [facility]) BUN 11 7 - 26 mg/dL 01/02/2025 10:55 PM [facility] Creatinine 0.75 0.71 - 1.16 mg/dL 01/02/2025 10:55 PM [facility] Sodium 133(L) 136 - 145 mmol/L 01/02/2025 10:55 PM [facility] Potassium 4.2 3.5 - 4.5 mmol/L 01/02/2025 10:55 PM [facility] Chloride 101 98 - 107 mmol/L 01/02/2025 10:55 PM [facility] CO2 26 22 - 29 mmol/L 01/02/2025 10:55 PM [facility] Glucose 160(H) 70 - 99 mg/dL 01/02/2025 10:55 PM [facility] Calcium 9.0 8.4 - 10.2 mg/dL 01/02/2025 10:55 PM [facility] Protein Total 7.5 6.0 - 8.3 g/dL 01/02/2025 10:55 PM [facility] Albumin 3.7 3.4 - 5.0 g/dL 01/02/2025 10:55 PM [facility] Bilirubin Total 0.6 0.2 - 1.2 mg/dL 01/02/2025 10:55 PM [facility] Alkaline Phosphatase 90 40 - 150 U/L 01/02/2025 10:55 PM [facility] ALT 10 5 - 55 U/L 01/02/2025 10:55 PM [facility] AST 13 5 - 34 U/L 01/02/2025 10:55 PM [facility] Anion Gap 6 6 - 16 01/02/2025 10:55 PM [facility] BUN/Creatinine Ratio 15 7 - 23 01/02/2025 10:55 PM [facility] Osmolality Calculated 279 275 - 295 mOsm/kg 01/02/2025 10:55 PM [facility] Albumin/Globulin Ratio 1.0(L) 1.1 - 2.3 01/02/2025 10:55 PM [facility] eGFR by CKD-EPI >90 >=90 mL/min/1.7 3 m2 01/02/2025 10:55 PM [facility] Comment:Estimated Glomerular Filtration Rate (eGFR) calculated using the CKD-EPI Creatinine Equation (2020), per the National Kidney Foundation and [place] [employer]ph[employer] recommendations. Blood BLOOD SPECIMEN / Unknown Venipuncture / Unknown 01/02/2025 10:16 PM CDT 01/02/2025 10:24 PM CDT Francesca Avalos PA-C LAB - CHEMISTRY ORDERABLES Fi nal Result [address] [id number] [phone] * (ABNORMAL) CBC W AUTO DIFFERENTIAL (01/02/2025 10:16 PM CDT) WBC 12.6(H) 4.0 - 10.7 x10E9/L 01/02/2025 10:30 PM [facility] RBC Count 4.62 4.30 - 5.80 x10E12/L 01/02/2025 10:30 PM [facility] Hemoglobin 13.0(L) 13.3 - 17.5 g/dL 01/02/2025 10:30 PM [facility] Hematocrit 38.0(L) 38.7 - 51.1 % 01/02/2025 10:30 PM [facility] MCV 82.3 80.0 - 98.0 fL 01/02/2025 10:30 PM [facility] MCH 28.1 26.7 - 33.6 pg 01/02/2025 10:30 PM [facility] MCHC 34.2 31.7 - 36.3 g/dL 01/02/2025 10:30 PM [facility] RDW-CV 12.3 11.3 - 14.8 % 01/02/2025 10:30 PM [facility] Platelet Count 263 150 - 420 x10E9/L 01/02/2025 10:30 PM [facility] MPV 9.1 7.8 - 11.4 fL 01/02/2025 10:30 PM [facility] Neutrophil % 81.7(H) 41.0 - 74.0 % 01/02/2025 10:30 PM [facility] Lymphocyte % 10.9(L) 17.0 - 47.0 % 01/02/2025 10:30 PM [facility] Monocyte % 6.3 3.0 - 11.0 % 01/02/2025 10:30 PM [facility] Eosinophil % 0.6 0.0 - 7.0 % 01/02/2025 10:30 PM [facility] Basophil % 0.2 0.0 - 1.6 % 01/02/2025 10:30 PM [facility] Immature Granulocytes % 0.3 0.0 - 1.0 % 01/02/2025 10:30 PM [facility] Neutrophil Absolute 10.25(H) 1.60 - 7.50 x10E9/L 01/02/2025 10:30 PM [facility] Lymphocyte Absolute 1.37 1.00 - 4.40 x10E9/L 01/02/2025 10:30 PM [facility] Monocyte Absolute 0.79 0.15 - 1.00 x10E9/L 01/02/2025 10:30 PM [facility] Eosinophil Absolute 0.08 0.00 - 0.60 x10E9/L 01/02/2025 10:30 PM [facility] Basophil Absolute 0.03 0.00 - 0.13 x10E9/L 01/02/2025 10:30 PM [facility] Blood BLOOD SPECIMEN / Unknown Venipuncture / Unknown 01/02/2025 10:16 PM CDT 01/02/2025 10:25 PM T Francesca Avalos PA-C LAB - HEMATOLOGY ORDERABLES F inal Result [facility] [address] [place] [address], [facility] [phone] documented in this encounter Visit Diagnoses Diagnosis Shortness of breath Abdominal pain, unspecified abdominal location documented in this encounter Administered Medications Inactive Administered Medications - up to 3 most recent administrations Medication Order MAR Action Action Date Dose Rate Site 0.9% NaCl injection 1-10 mL 1-10 mL, Intracatheter, PRN, Other, peripheral line flush, Starting on Sun01/02/25 at 2200, Until 01/03/25 at 0502, Flush peripheral IV catheter with 1-10 mL of normal saline before and after medications and prn to clear blood from the line or to verify patency. 0.9% NaCl injection 3 mL 3 mL, Intracatheter, EVERY 8 HOURS, First dose on Sun01/02/25 at 2245, Until Discontinued, Flush peripheral IV catheter with 3 mL of normal saline every 8 hours. HYDROmorphone (Dilaudid) injection 0.5 mg 0.5 mg, Intravenous, NOW, 1 dose, On 01/03/25 at 0130, Patient preference for lesser PRN pain meds may be honored when the patient requests a less strong medication, a lower dose, or a less intrusive route of administration when the lesser drug, dose and route have been ordered for the patient. This patient request must be documented in the MAR. If both oral and IV options are ordered for the same pain severity, give oral first unless patient cannot tolerate oral intake $ Given 01/03/2025 1:32 AM CDT 0.5 mg ondansetron (Zofran) injection 4 mg 4 mg, Intravenous, NOW, 1 dose, On Sun01/02/25 at 2215, Administer over 2 to 5 minutes. $ Given 01/02/2025 10:18 PM CDT 4 mg oxyCODONE (immediate release) (Roxicodone) tablet 5 mg 5 mg, Oral, NOW, 1 dose, On Sun01/02/25 at 2215, Patient preference for lesser PRN pain meds may be honored when the patient requests a less strong medication, a lower dose, or a less intrusive route of administration when the lesser drug, dose and route have been ordered for the patient. This patient request must be documented in the MAR. If both oral and IV options are ordered for the same pain severity, give oral first unless patient cannot tolerate oral intake $ Given 01/02/2025 10:18 PM CDT 5 mg documented in this encounter Active and Recently Administered Medications Times are shown in CDT. Scheduled Medication Order 01/01/2025 01/02/2025 01/03/2025 0.9% NaCl injection 3 mL(Linked Group 1) 3 mL, Intracatheter, EVERY 8 HOURS, First dose on Sun01/02/25 at 2245, Until Discontinued, Flush peripheral IV catheter with 3 mL of normal saline every 8 hours. 2213 (Not Administered - Provider: Bob Owens RN - Reason: IV Currently Infusing) diatrizoate meglumine & sodium (Gastroview; Gastrografin) solution Tube, ONCE, 1 dose, On Sun01/02/25 at 2230 2230 (Due) HYDROmorphone (Dilaudid) injection 0.5 mg (COMPLETED) 0.5 mg, Intravenous, NOW, 1 dose, On 01/03/25 at 0130, Patient preference for lesser PRN pain meds may be honored when the patient requests a less strong medication, a lower dose, or a less intrusive route of administration when the lesser drug, dose and route have been ordered for the patient. This patient request must be documented in the MAR. If both oral and IV options are ordered for the same pain severity, give oral first unless patient cannot tolerate oral intake 0132 ($ Given - Provider: Ting Sifuentes RN) ketamine (Ketalar) injection 20 mg 20 mg, Intravenous, ONCE, 1 dose, On 01/03/25 at 0215, . 0215 (Due) lactated ringers infusion at 125 mL/hr, Intravenous, NOW, 1 dose, On 01/03/25 at 0145 0145 (Due) lactated ringers IV bolus 1,500 mL, at 1,956.52 mL/hr, Administer over 46 Minutes, ONCE, 1 dose, On 01/03/25 at 0200 0200 (Due) ondansetron (Zofran) injection 4 mg (COMPLETED) 4 mg, Intravenous, NOW, 1 dose, On Sun01/02/25 at 2215, Administer over 2 to 5 minutes. 2218 ($ Given - Provider: Bob Owens, DAMARIS) oxyCODONE (immediate release) (Roxicodone) tablet 5 mg (COMPLETED) 5 mg, Oral, NOW, 1 dose, On Sun01/02/25 at 2215, Patient preference for lesser PRN pain meds may be honored when the patient requests a less strong medication, a lower dose, or a less intrusive route of administration when the lesser drug, dose and route have been ordered for the patient. This patient request must be documented in the MAR. If both oral and IV options are ordered for the same pain severity, give oral first unless patient cannot tolerate oral intake 2217 ($ Given - Provider: Bob Owens RN) PRN Medication Order 01/01/2025 01/02/2025 01/03/2025 0.9% NaCl injection 1-10 mL(Linked Group 1) 1-10 mL, Intracatheter, PRN, Other, peripheral line flush, Starting on Sun01/02/25 at 2200, Until 01/03/25 at 0502, Flush peripheral IV catheter with 1-10 mL of normal saline before and after medications and prn to clear blood from the line or to verify patency. Linked Groups Order Group 1: SALINE LOCK, INSERT AND MAINTAIN (CANCELED) Routine, CONTINUOUS, Starting on Sun01/02/25 at 2215, Until Specified, New collection, Task Completed: Yes And 0.9% NaCl injection 3 mLJump to med 3 mL, Intracatheter, EVERY 8 HOURS, First dose on Sun01/02/25 at 2245, Until Discontinued, Flush peripheral IV catheter with 3 mL of normal saline every 8 hours. And 0.9% NaCl injection 1-10 mLJump to med 1-10 mL, Intracatheter, PRN, Other, peripheral line flush, Starting on Sun01/02/25 at 2200, Until 01/03/25 at 0502, Flush peripheral IV catheter with 1-10 mL of normal saline before and after medications and prn to clear blood from the line or to verify patency. documented in this encounter Care Teams Tax Assistant Relationship Specialty Start Date End Date Melissa Diamond PA-C [address] [place] [phone] PCP - General Physician Hardware Engineering Manager 09/25/24 documented as of this encounter
[2025-01-03 21:46] VITALS: BP 113/66; PULSE 94; RESP 18; TEMP 38.6; O2SAT 97
--- OUTSIDE RECORDS SUMMARY | 2025-01-03 21:46 | XMS_ITS | Encounter Summary ---
Author Organization [facility] Address [address] [place], [place] [address] [address] Care Team Providers Care Dobby Looms Pegger Name Role Phone Melissa Diamond PA-C Primary Care Provider Reason for Visit * Reason Onset Date Comments MEDICATION REFILL 12/26/2024 Encounter Details Date Type Department Care Team (Late st Contact Info) Description 12/26/2024 Refill [facility] PRE OP/POST OP [address] [place] [phone] Simone Hatfield MD [address] [facility] 2L [place] [id number] MEDICATION REFILL Social History Tobacco Use Types Packs/Day Years Used Date Smoking Tobacco: Former Smokeless Tobacco: Never PHQ-2 Answer Date Recorded Patient Health Questionnaire-2 Score 6 03/04/2024 Sex and Gender Information Value Date Recorded Sex Assigned at Not on file 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
--- OUTSIDE RECORDS SUMMARY | 2025-01-03 21:46 | XMS_ITS | Clinical Summary ---
Author Organization [facility] Address [facility] [place] [address] Care Team Providers Care Hydrology Teacher Name Role Phone Caleb Jordan MD Primary [...] Documents on File Type Date Recorded Patient Behavioral Geneticist Expl anation Advance Directives and Living Will 08/17/2010 12:00 AM ADV[employer]ED DIRECTIVES Care Teams Hydrology Teacher Relationship Specialty Start Date End Date Caleb Jordan MD [address] [place] [phone] PCP - General FAMILY PRACTICE 10/18/22
--- OUTSIDE RECORDS SUMMARY | 2025-01-03 21:46 | XMS_ITS | Clinical Summary ---
Author Organization [facility] Address [address] [place] [address] Care Team Providers Care Steam Fitter Helper Name Role Phone Melissa Diamond PA-C Primary Care Provider Source Comments [facility],non-owned Affiliates and Associated Physician Practices is amultiple site organization consisting of ambulatory clinics and hospital sitesin [place], [place], [place] and [place]. This disclosure is being madepursuant to the Care Everywhere program and may not contain all information available regarding this patient. Last updated 18.[facility] Allergies Active Allergy Reactions Criticality Noted Date Comments Clindamycin Urticaria Medium 03/09/2020 Hydrocodone-Acetaminophen Other 11/19/2024 Medications * Be aware [...] naloxone HCl (Narcan) 4 MG/0.1ML nasal spray [place] 1 (one) spray into the nose as [...] Encounters Date Type Department Care Team Description 01/02/2025 11:48 PM CDT - 01/03/2025 4:02 AM CDT Emergency [facility] EMERGENCY DEPARTMENT [address] [place] [phone] Caio Maria MD Shortness of breath; Abdominal pain, unspecified abdominal location Discharge Disposition: Left Against Medical Advice/Discontinued Care 01/02/2025 Travel 12/27/2024 Orders Only [facility] - ENT [address] [place] [phone] Dwight Hung MD 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 Refill [facility] PRE OP/POST OP [address] [place] [phone] Simone Hatfield MD MEDICATION REFILL 12/25/2024 Orders Only [facility] PRE OP/POST OP [address] [place] [phone] Simone Hatfield MD Tonsil cancer (HCC) 12/25/2024 Telephone [facility] [address] [place] [phone] Simone Hatfield MD Question 12/18/2024 10:00 AM CDT - 12/18/2024 11:59 PM CDT Hospital Encounter [facility] PET [address] [place] [address] Simone Hatfield MD Discharge Disposition: Home or Self Care 12/18/2024 9:00 AM CDT - 12/18/2024 9:59 AM CDT Hospital Encounter [facility] PET [address] [place] [address] Simone Hatfield MD Discharge Disposition: Home or Self Care 12/18/2024 Travel 12/12/2024 Orders Only [facility] [address] [place] [phone] Simone Hatfield MD Tonsil cancer ([facility]) 12/10/2024 Telephone [facility] [address] , [address] [phone] [facility] 12/02/2024 Orders Only [facility] [address] [place] [phone] Simone Hatfield MD Tonsil cancer ([facility]) 12/01/2024 Orders Only [facility] [address] , [address] [phone] Simone Hatfield MD Tonsil cancer ([facility]) 12/01/2024 Orders Only [facility] [address] , [address] [phone] Simone Hatfield MD Tonsil cancer ([facility]) 11/28/2024 Telephone [facility] [address] [place] [phone] Brito, Anne-Marie Surgery Cancellation 11/26/2024 Orders Only [facility] [address] [place] [phone] Simone Hatfield MD Tonsil cancer ([facility]) 11/26/2024 Telephone [facility] [address] [place] [phone] Simone Hatfield MD Med Question 11/26/2024 Refill [facility] [address] [place] [phone] Cinthia Samano MD MEDICATION REFILL 11/24/2024 Refill [facility] [address] [place] [phone] Cinthia Samano MD MEDICATION REFILL 11/20/2024 Telephone [facility] [address] [place] [phone] June Surgery Scheduling 11/19/2024 4:04 PM CDT - 11/19/2024 11:59 PM CDT Hospital Encounter [facility] LAB OP DRAW STATION [address] [place] [address] Melissa Diamond PA-C Discharge Disposition: Home or Self Care 11/19/2024 12:45 PM CDT Office Visit [facility] [address] [place] [phone] Simone Hatfield MD Palate mass (Primary Dx); Tonsillar mass; Other dysphagia 11/19/2024 Travel 11/18/2024 Refill 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 Gender Identity Not on file Sexual Orientation [...] Mass Index 22.05 01/02/2025 9:49 PM CDT Plan of Treatment Health Maintenance Due Date Last Done Comments LIPID TESTING 1980 DTAP/TDAP/TD VACCINES (6 - Tdap) 12/30/1994 12/29/1994, 01/01/1985, 10/26/1982, Additional history exists HIV SCREENING 09/22/1995 HEPATITIS C SCREENING 09/17/1998 HPV VACCINE (1 - 3-dose SCDM series) 09/22/2007 HEPATITIS B VACCINE (2 of 3 - 19+ 3-dose series) 02/24/2022 01/27/2022 COVID-19 VACCINE (1 - season) 2024 DEPRESSION SCREENING 06/25/2024 INFLUENZA VACCINE [...] TO REPEAT STAT 01/02/2025 10:16 PM CDT COMPREHENSIVE METABOLIC PANEL STAT 01/02/2025 10:16 PM CDT CBC W AUTO DIFFERENTIAL STAT 01/02/2025 10:[address] SKULL TO MID THIGH Routine 12/18/2024 11:43 AM CDT Tonsil cancer (HCC) GLUCOSE SCREEN - POCT (IP) [facility] STAT 12/18/2024 9:50 AM CDT DC BIOPSY OF MOUTH LESION Routine 11/19/2024 4:56 PM CDT Palate mass Tonsillar mass Other dysphagia DC LARYNGOSCOPY,FLEX FIBER,DIAGNOSTIC Routine 11/19/2024 4:54 PM CDT Palate mass Tonsillar mass Other dysphagia PATHOLOGY TISSUE Routine 11/19/2024 2:15 PM CDT Palate mass Tonsillar mass Other dysphagia CT NECK SOFT TISSUE W CONT STAT 11/16/2024 6:05 PM CDT Neck pain COMPREHENSIVE METABOLIC PANEL STAT 11/16/2024 4:57 PM CDT CBC W AUTO DIFFERENTIAL STAT 11/16/2024 4:57 PM CDT from Last 3 Months Results * XR CHEST 2VW (01/02/2025 11:03 PM CDT) Anatomical Region Laterality Modality Chest Digital Radiogra phy 01/02/2025 11:0 8 PM CDT Narrative 01/03/2025 6:59 AM CDT PROCEDURE: XR CHEST 2VW, DATE/TIME OF EXAM: 01/02/2025 11:03 PM, LOCATION [facility] INDICATION: R06.02: Shortness of breath ADDITIONAL CLINICAL [...] noted. Report dictated by Apryl Figueroa MD, (Freight Brake Operator). Juan Jose Willis MD have personally reviewed and interpreted this examination/study. > Interpreting Provider: Juan Jose Holguin MD on 01/03/2025 6:59 AM Procedure Note Juan Jose Holguin MD - 01/03/2025 PROCEDURE: XR CHEST 2VW, DATE/TIME OF EXAM: 01/02/2025 11:03 PM, LOCATION [facility] INDICATION: R06.02: Shortness of breath ADDITIONAL CLINICAL [...] noted. Report dictated by Apryl Figueroa MD, (Freight Brake Operator). Juan Jose Willis MD have personally reviewed and interpreted this examination/study. > Interpreting Provider: Juan Jose Holguin MD on 56:59 AM Francesca Avalos PA-C DIAGNOSTIC IMAGING ORDERABLES Final Result * LACTIC ACID BLOOD REFLEX TO REPEAT (01/02/2025 10:16 PM CDT) [facility] Lactic Acid-Stat 0.9 <=2.0 mmol/L 01/02/2025 10:53 PM T [facility] Blood BLOOD SPECIMEN / Unknown Venipuncture / Unknown 01/02/2025 10:16 PM CDT 01/02/2025 10:25 PM CDT us Jared Granado MD LAB - CHEMISTRY ORDERABLES Fi nal Result [address] [phone], [facility] [phone] * (ABNORMAL) CBC W AUTO DIFFERENTIAL (01/02/2025 10:16 PM CDT) Only the most recent of2 resultswithin the time period is included. [facility] WBC 12.6(H) 4.0 - 10.7 x10E9/L 01/02/2025 10:30 PM [facility] RBC Count 4.62 4.30 - 5.80 x10E12/L 01/02/2025 10:30 PM [facility] Hemoglobin 13.0(L) 13.3 - 17.5 g/dL 01/02/2025 10:30 PM [facility] Hematocrit 38.0(L) 38.7 - 51.1 % 01/02/2025 10:30 PM [facility] MCV 82.3 80.0 - 98.0 fL 01/02/2025 10:30 PM [facility] MCH 28.1 26.7 - 33.6 pg 01/02/2025 10:30 PM [facility] MCHC 34.2 31.7 - 36.3 g/dL 01/02/2025 10:30 PM [facility] RDW-CV 12.3 11.3 - 14.8 % 01/02/2025 10:30 PM [facility] Platelet Count 263 150 - 420 x10E9/L 01/02/2025 10:30 PM [facility] MPV 9.1 7.8 - 11.4 fL 01/02/2025 10:30 PM [facility] Neutrophil % 81.7(H) 41.0 - 74.0 % 01/02/2025 10:30 PM [facility] Lymphocyte % 10.9(L) 17.0 - 47.0 % 01/02/2025 10:30 PM [facility] Monocyte % 6.3 3.0 - 11.0 % 01/02/2025 10:30 PM [facility] Eosinophil % 0.6 0.0 - 7.0 % 01/02/2025 10:30 PM [facility] Basophil % 0.2 0.0 - 1.6 % 01/02/2025 10:30 PM [facility] Immature Granulocytes % 0.3 0.0 - 1.0 % 01/02/2025 10:30 PM [facility] Neutrophil Absolute 10.25(H) 1.60 - 7.50 x10E9/L 01/02/2025 10:30 PM [facility] Lymphocyte Absolute 1.37 1.00 - 4.40 x10E9/L 01/02/2025 10:30 PM [facility] Monocyte Absolute 0.79 0.15 - 1.00 x10E9/L 01/02/2025 10:30 PM [facility] Eosinophil Absolute 0.08 0.00 - 0.60 x10E9/L 01/02/2025 10:30 PM [facility] Basophil Absolute 0.03 0.00 - 0.13 x10E9/L 01/02/2025 10:30 PM [facility] Blood BLOOD SPECIMEN / Unknown Venipuncture / Unknown 01/02/2025 10:16 PM CDT 01/02/2025 10:25 PM [facility] us Francesca Avalos PA-C LAB - HEMATOLOGY ORDERABLES F inal Result [facility] [address] [place] [phone] [phone] * (ABNORMAL) COMPREHENSIVE METABOLIC PANEL (01/02/2025 10:16 PM [facility]) Only the most recent of2 resultswithin the time period is included. BUN 11 7 - 26 mg/dL 01/02/2025 10:55 PM [facility] Creatinine 0.75 0.71 - 1.16 mg/dL 01/02/2025 10:55 PM [facility] Sodium 133(L) 136 - 145 mmol/L 01/02/2025 10:55 PM [facility] Potassium 4.2 3.5 - 4.5 mmol/L 01/02/2025 10:55 PM [facility] Chloride 101 98 - 107 mmol/L 01/02/2025 10:55 PM [facility] CO2 26 22 - 29 mmol/L 01/02/2025 10:55 PM [facility] Glucose 160(H) 70 - 99 mg/dL 01/02/2025 10:55 PM [facility] Calcium 9.0 8.4 - 10.2 mg/dL 01/02/2025 10:55 PM [facility] Protein Total 7.5 6.0 - 8.3 g/dL 01/02/2025 10:55 PM [facility] Albumin 3.7 3.4 - 5.0 g/dL 01/02/2025 10:55 PM [facility] Bilirubin Total 0.6 0.2 - 1.2 mg/dL 01/02/2025 10:55 PM [facility] Alkaline Phosphatase 90 40 - 150 U/L 01/02/2025 10:55 PM [facility] ALT 10 5 - 55 U/L 01/02/2025 10:55 PM [facility] AST 13 5 - 34 U/L 01/02/2025 10:55 PM [facility] Anion Gap 6 6 - 16 01/02/2025 10:55 PM [facility] BUN/Creatinine Ratio 15 7 - 23 01/02/2025 10:55 PM [facility] Osmolality Calculated 279 275 - 295 mOsm/kg 01/02/2025 10:55 PM CDT [facility] Albumin/Globulin Ratio 1.0(L) 1.1 - 2.3 01/02/2025 10:55 PM CDT [facility] eGFR by CKD-EPI >90 >=90 mL/min/1.7 3 m2 01/02/2025 10:55 PM CDT [facility] Comment:Estimated Glomerular Filtration Rate (eGFR) calculated using the CKD-EPI Creatinine Equation (2020), per the National Kidney Foundation and [place] [employer] Neph[employer] recommendations. Blood BLOOD SPECIMEN / Unknown Venipuncture / Unknown 01/02/2025 10:16 PM CDT 01/02/2025 10:24 PM CDT Francesca Avalos PA-C LAB - CHEMISTRY ORDERABLES Fi nal Result [facility] [address] [place] [address], [facility] [phone] * PET CT Skull To Mid Thigh [...] insulin effects. Report dictated by Heriberto Sawyer MD(radiology manager). > Dictated by Heriberto Sawyer MD (Freight Brake Operator) 12/18/2024 11:47 AM I, Janelle Lynn DO have personally reviewed and interpreted this examination/study. > Interpreting Provider: Janelle Lnyn DO on 12/18/2024 1:20 PM Narrative 12/18/2024 1:20 PM CDT PROCEDURE: PET CT SKULL TO MID THIGH, DATE/TIME OF EXAM: 12/18/2024 11:43 AM, LOCATION [facility] INDICATION: C09.9: Tonsil cancer (HCC) Procedure: FDG [...] THIGH, DATE/TIME OF EXAM: 1:43 AM, LOCATION 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 Report dictated by Heriberto Sawyer MD(radiology manager). > Dictated by Heriberto Sawyer MD (Freight Brake Operator) 12/18/2024 11:47 AM I, Janelle Lynn DO have personally reviewed and interpreted this examination/study. > Interpreting Provider: Janelle Lynn DO on 12/18/2024 1:20 PM Simone Hatfield MD [place] ORDERABLES Edited Result - Final * (ABNORMAL) GLUCOSE SCREEN - POCT (IP) [facility] (12/18/2024 9:50 AM CDT) Glucose WB/POC 140(A) 70 - 99 mg/dL [facility] POCT TESTING Blood BLOOD SPECIMEN / Unknown 12/18/2024 9:50 AM CDT Simone Hatfield MD LAB - POINT OF CARE ORDERABLE S Final Result Performing Organization Address City/State/[facility] Co de Phone Number [facility] POCT TESTING [address] [place] [address], [facility] [phone] * DC BIOPSY OF MOUTH LESION (11/19/2024 4:56 PM CDT) Simone Rosario MD - 11/19/2024 4:56 PM CDT Simone [...] the entire procedure. Estimated blood loss: Minimal. Smione Hatfield MD us Simone Hatfield MD PROCEDURE/MINOR SURGICAL ORDE RABLES Final Result * DC LARYNGOSCOPY,FLEX FIBER,DIAGNOSTIC (11/19/2024 4:54 PM CDT) Siomne Rosario MD - 11/19/2024 4:54 PM CDT Simone [...] PROCEDURE/MINOR SURGICAL ORDE RABLES Final Result * PATHOLOGY TISSUE (11/19/2024 2:15 PM CDT) Case Report Surgical Pathology Report Case: [id number] Authorizing Provider: Simone Hatfield MD Collected: 11/19/2024 02:15 PM Ordering Location: [facility] - Received: 11/20/2024 09:42 AM ENT Pathologist: Deb Aponte MD Specimen: Mouth, Right tonsil/palate 11/21/2024 3:38 PM CDT [facility] Final Diagnosis Oropharynx, right tonsil / palate, biopsy (A): - Squamous cell carcinoma, non-keratinizing, poorly differentiated - p16 positive 11/21/2024 3:38 PM CDT [facility] at 1538 CDT Microscopic Description and Comment Microscopic examination substantiates the final diagnosis. The biopsy does not have specific normal tonsillar architecture, and does have numerous minor salivary ducts. There is abundant poorly differentiated non-keratinizing carcinoma forming solid nests and lacking neuroendocrine nuclear features. The tumor is positive for p16 (3+, 100%, block-like) and for p40 (3+, 100%), consistent with a [id number] oropharyngeal squamous cell carcinoma. Controls stained appropriately. [...] the right posterior tongue. 11/21/2024 3:38 PM T [facility] Gross Description The requisition and specimen(s) are identified with the patient's name, Clark Farnsworth. Received in formalin, specimen A, mouth SA is a 1.3 x 0.5 x 0.2 cm aggregate of unoriented pink-curiel, glistening soft tissue fragments with focal hemorrhage, submitted in toto as cassette A1. AL 11/21/2024 3:38 PM CDT [facility] Pathologist Location at [facility] 11/21/2024 3:38 PM CDT [facility] Disclaimer The performance characteristics of all immunohistochemical and indirect immunofluorescence stains (if any) cited in this report were determined by the Histopathology Laboratory of [facility]. Some of these tests were developed [...] the attending (teaching) pathologist. 11/21/2024 3:38 PM CDT [facility] Embedded Images 11/21/2024 3:38 PM T [facility]Y LAB Pathology/Cytolo gy ENTIRE MOUTH REGION / Unknown Collection / Unknown 11/19/2024 2:15 PM CDT 11/20/2024 9:42 AM CDT Comment:Right tonsil/palate us Simone Hatfield MD LAB - PATHOLOGY/CYTOLOGY KOLE BAJWA Final Result [facility] [address] [place] [address], [facility] [phone] * CT Neck Soft Tissue W Cont [...] report is dictated by Wanda Juárez MD (radiology manager) I, Angie Blount MD have personally reviewed and interpreted this examination/study. > Interpreting Provider: Angie Blount MD on 11/17/2024 10:50 AM Narrative 11/17/2024 10:50 AM CDT PROCEDURE: CT NECK SOFT TISSUE W CONT, DATE/TIME OF EXAM: 11/16/2024 6:05 PM, LOCATION [facility] INDICATION: M54.2: Neck pain ADDITIONAL CLINICAL INFORMATION: Ordering Provider Reason For Exam: r/o significant edema of airway; known throat cancer Technologist Note: Does the patient have a history of renal insufficiency?->No Additional: 44-year-old male PMH as noted below who presents with describes new esophageal cancer Dx several weeks ago in [place]. Lost to follow up. Reports worsening [...] palate. There is extension to the right talent coordinator space. There is extension to the right [...] SOFT TISSUE W CONT, DATE/TIME OF EXAM: :05 PM, LOCATION [facility] INDICATION: M54.2: Neck pain ADDITIONAL CLINICAL INFORMATION: Ordering Provider Reason For Exam: r/o significant edema of airway;known throat cancer Technologist Note: Does the patient have a history of renal insufficiency?->No Additional: 44-year-old male PMH as noted below who presents with describes new esophageal cancer Dx several weeks ago in [place]. Lost to follow up. Reports worsening [...] palate. There is extension to the right talent coordinator space. There is extension to the right [...] report is dictated by Wanda Juárez MD (radiology manager) I, Angie Blount MD have personally reviewed and interpretedthis examination/study. > Interpreting Provider: Angie Blount MD on 11/17/2024 10:50 AM Sven Garcia PA-C CT ORDERABLES Final Resu lt from Last [address] [place] [address] MEDICAID [place] Care Teams Steam Fitter Helper Relationship Specialty Start Date End Date Melissa Diamond PA-C [address] [phone] PCP - General Physician Sap Architect 09/25/24
--- OUTSIDE RECORDS SUMMARY | 2025-01-03 21:46 | XMS_ITS | Clinical Summary ---
Author Organization [facility] Maximino fonseca [facility] Address [address] [place] [address] Care Team Providers Care Forging Machine Hand Name Role Phone Unavailable Primary Care Provider Unavailabl e Allergies Active Allergy Reactions Criticality Noted Date Comments Clindamycin Hives High 03/09/2020 Hydrocodone-Acetaminophen Hives High 11/19/2024 Medications methocarbamoL (ROBAXIN) 750 mg tablet Take 750 mg by mouth 3 times daily as needed. 3 Active naloxone (NARCAN) 4 mg/spray [place], Non-Aerosol EMERGENCY USE ONLY: Administer 1 spray [...] [facility] Oncology and Hematology - [place] [address] [place] [address] Zander Silvestre MD Head and [...] 3 - 19+ 3-dose series) 09/22/1999 01/27/2022 INFLUENZA VACCINE (#1) 2025 HPV VACCINES Aged Out No longer eligi ble based on patient's age to complete this topic Insurance [place]
--- OUTSIDE RECORDS SUMMARY | 2025-01-03 21:46 | XMS_ITS | Encounter Summary ---
Author Organization [facility] Address [address] [place] [address] 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
--- OUTSIDE RECORDS SUMMARY | 2025-01-03 21:46 | XMS_ITS | Encounter Summary ---
Author Organization [facility] Address [facility] [place] [address] Care Team Providers Care Jewel Bearing Polisher Name Role Phone None, Provider Primary Care Provider Caleb Coulter MD Primary Care Provider Encounter Details Date Type Department Care Team (Latest Contact Info) Description 04/30/2018 Abstract [facility] Arvind Alves MD Social History [...] on filedocumented in this encounter Care Teams Jewel Bearing Polisher Relationship Specialty Start Date End Date None, Provider, PCP - General UNKNOWN PHYSICIAN SPECIALTY 09/19/22 10/17/22 Caleb Jordan MD [facility] [place] [phone] PCP - General FAMILY PRACTICE 10/18/22 documented as of this encounter
--- OUTSIDE RECORDS SUMMARY | 2025-01-03 21:46 | XMS_ITS | Encounter Summary ---
Author Organization [facility] Address [address] [facility] [place] [address] Care Team Providers Care Director Quality Assurance Name Role Phone Melissa Diamond PA-C Primary Care Provider Reason for Visit * Reason Onset Date Comments MEDICATION REFILL 11/26/2024 Encounter Details Date Type Department Care Team (Late st Contact Info) Description 11/26/2024 Refill [facility] [address] [place] [phone] Cinthia Samano MD [address] [place] [address] MEDICATION REFILL Social History Tobacco Use Types Packs/Day Years Used Date Smoking Tobacco: Former Smokeless Tobacco: Never PHQ-2 Answer Date Recorded Patient Health Questionnaire-2 Score 6 03/04/2024 Sex and Gender Information Value Date Recorded Sex Assigned at Not on file Legal Sex Male 7:39 PM BIAZZI NITRATOR OPERATOR Gender Identity Not on file Sexual Orientation [...] dysphagia documented in this encounter Care Teams Director Quality Assurance Relationship Specialty Start Date End Date Melissa Diamond PA-C [address] [phone] PCP - General Physician Operations Support Representative 09/25/24 documented as of this encounter
--- OUTSIDE RECORDS SUMMARY | 2025-01-03 21:46 | XMS_ITS | Encounter Summary ---
Author Organization [facility] Address [address] [facility] [place] [address] Care Team Providers Care Scaffold Worker Name Role Phone Melissa Diamond PA-C Primary Care Provider Reason for Visit * Reason Onset Date Comments MEDICATION REFILL 11/24/2024 Encounter Details Date Type Department Care Team (Late st Contact Info) Description 11/24/2024 Refill [facility] [address] [place] [phone] Cinthia Samano MD [address] [place] [address] MEDICATION REFILL Social History Tobacco Use Types Packs/Day Years Used Date Smoking Tobacco: Former Smokeless Tobacco: Never PHQ-2 Answer Date Recorded Patient Health Questionnaire-2 Score 6 03/04/2024 Sex and Gender Information Value Date Recorded Sex Assigned at Not on file Legal Sex Male 7:39 PM TARE MAN Gender Identity Not on file Sexual Orientation [...] dysphagia documented in this encounter Care Teams Scaffold Worker Relationship Specialty Start Date End Date Melissa Diamond PA-C [address] [phone] PCP - General Physician Block Breaker Operator 09/25/24 documented as of this encounter
--- NOTE | 2025-01-03 22:03 | PC.NURSE ---
LAB AT THE BEDSIDE. ATTEMPTED IV LINE PLACEMENT X 1. UNSUCCESSFULL
[2025-01-03] MEDS: SODIUM CHLORIDE 0.9% IV 1,000 ML 999 ML IV CONT (22:17)
[2025-01-03] MEDS: MORPHINE SULFATE (*CRX) 4 MG/ML INJ IM (22:19)
[2025-01-03] MEDS: KETOROLAC 30 MG/ML VIAL (*BKC) IV PUSH (22:20)
--- NOTE | 2025-01-03 22:20 | PC.NURSE ---
TO CT VIA STRETCHER
[2025-01-03 22:24] LABS: Hematocrit 37.2 % (40.0-54.0); Hemoglobin 12.6 g/dL (14.0-18.0); Immature Granulocyte Percent A 0.5 % (0.0-0.0); Lymphocytes Absolute Auto 1.38 K/mm3 (1.10-4.50); Mean Corpuscular HGB Conc 33.9 g/dL (32-36); Mean Corpuscular Hemoglobin 28.6 pg (27.0-31.0); Mean Corpuscular Volume 84.5 fL (78.0-102.0); Nucleated Red Blood Cells Absolute Auto 0.00 K/mm3 (0.00-0.00); Nucleated Red Blood Cells Perc 0.0 % (0-0.0); Platelet Count Result 245 K/mm3 (150-420); Red Blood Count 4.40 M/mm3 (4.70-6.10); White Blood Count 8.5 K/mm3 (4.8-10.8)
--- NOTE | 2025-01-03 22:24 | ED_ITS ---
HPI - Abdominal Pain General Chief Complaint: Abdominal Pain Stated Complaint: Feeding Tube Issues Time Seen by Provider: 01/03/25 21:44 Source: patient Mode of arrival: ambulatory Limitations: no limitations History of Present Illness HPI narrative: this is a 44-year-old male diagnosed approximately 4 months ago with squamous cell cancer of the throat was recently at [facility] and had a G-tube placed. Patient was sent home on the 02 of January but states that he has been having pain since discharge and intensified over the last 24hours currently rating his pain at 10/10 doubled over in pain with fever 101.6. Currently no nausea or vomiting no diarrhea constipation no chest pain no shortness of breath. MD elicited complaint: abdominal pain Onset (ago): day(s) Pain Consistency: constant Location: diffuse Severity: severe Pain scale (0-10): 10 Quality: aching and sharp Migration to: no migration Exacerbating factors: nothing Relieving factors: nothing Related Data Home Medications ?Medication ?Instructions ?Recorded ?Confirmed ?Last Taken ?Type methocarbamol 750 mg PO DAILY 06/12/24 01/01/25 12/31/24 History gabapentin 300 mg capsule 300 mg PO TID 12/30/24 01/01/25 12/31/24 History oxycodone 5 mg tablet 10 mg PO Q4H PRN pain 12/30/24 01/01/25 12/31/24 History Allergies Allergy/AdvReac Type Severity Reaction Status Date / Time clindamycin Allergy Mild Hives Verified 01/03/25 22:04 hydrocodone AdvReac Hives Verified 01/03/25 22:04 Review of Systems 2 Review of Systems: All systems reviewed & are unremarkable except as noted in HPI and below PMFSH Past Medical History Medical History Anorexia Weight loss Squamous cell carcinoma of neck Dysphagia History of drug abuse Chronic back pain Social History Social History Social History: Fentanyl and amphetamine abuse Years smoked: 20 Smoking status: Current every day smoker Tobacco type: cigarettes Alcohol intake: former Drinks per week: 40 Substance use: current Substance use type: marijuana Other substance usage details: 2 smokes per week Do You Feel Safe in your Home?: Yes Lack of Transportation: YES Lack of Food: Never True Current Housing: I Have Housing Concerned About Future Housing: No Difficulty Paying Gas/Electric Bills: YES Difficulty Paying for Meds: No Currently Unemployed: YES Education: High School Diploma/GED Difficulty w/ Childcare or Family Care: No Living arrangements: with family Spiritual care concerns: No Exam 2 Const: General: ill appearing Nutritional Appearance: thin O rientation/consciousness: patient oriented x3 Limitations: no limitations HENMT: Head: normal to inspection Neck: Neck: normal visual inspection, no lymphadenopathy and no meningeal signs Chest: Chest palpation & inspection: normal inspection of the chest Resp: Effort & Inspection: normal respiratory effort Auscultation: clear to auscultation bilaterally Cardio: Rate: regular rate Rhythm: regular rhythm GI: GI Palp: Yes Soft to palpation, Yes Tenderness to palpation present (GI) and Yes Guarding due to palpation present (GI) Auscultation: normal bowel sounds Other: Has a G-tube in place : General: Yes bladder normal to palpation Urinary Catheter: Urinary Catheter: patent and draining Back/Spine/Pelvis: Back: no CVA tenderness Skin: General skin exam: normal color Rashes: no rashes Neuro: General: patient oriented x3, moves all extremities, no meningeal signs and no focal motor deficits Extrem: General: normal to inspection, no clubbing, cyanosis or edema and no pedal edema Course Course Emergency Course: patient with severe abdominal pain after he had a D and G tube placed on the 02 of January, has oxycodone that he takes for pain which is not giving him any relief. Patient received formal 4mg of IV morphine, started on IV fluids with normal saline. Vital Signs Vital signs: Vital Signs Temperature 38.6 C H 01/03/25 21:46 Pulse Rate 94 01/03/25 21:46 Respiratory Rate 18 01/03/25 21:46 Blood Pressure 113/66 01/03/25 21:46 Pulse Oximetry 97 01/03/25 21:46 Oxygen Delivery Room Air 01/03/25 21:46 Temperature 38.6 C H 01/03/25 21:46 Pulse Rate 94 01/03/25 21:46 Respiratory Rate 18 01/03/25 21:46 Blood Pressure 113/66 01/03/25 21:46 Pulse Oximetry 97 01/03/25 21:46 Oxygen Delivery Room Air 01/03/25 21:46 MDM - Abdominal Pain Lab Data 01/03/25 22:12 01/03/25 22:12 Labs: Lab Results 01/03/25 Range/Units 22:12 WBC 8.5 (4.8-10.8) K/mm3 RBC 4.40 L (4.70-6.10) M/mm3 Hgb 12.6 L (14.0-18.0) g/dL Hct 37.2 L (40.0-54.0) % MCV 84.5 (78.0-102.0) fL MCH 28.6 (27.0-31.0) pg MCHC 33.9 (32-36) g/dL RDW 12.1 (11.6-14.4) % Plt Count 245 (150-420) K/mm3 MPV 9.1 (8.7-11.0) fl Immature Gran % (Auto) 0.5 H (0.0-0.0) % Neut % (Auto) 74.6 H (50.0-70.0) % Lymph % (Auto) 16.2 L (18.0-42.0) % Alfalfa % (Auto) 6.8 (2.0-11.0) % Eos % (Auto) 1.5 (1.0-6.0) % Baso % (Auto) 0.4 (0.0-1.0) % Lymph # (Auto) 1.38 (1.10-4.50) K/mm3 Alfalfa # (Auto) 0.58 (0.10-0.90) K/mm3 Eos # (Auto) 0.13 (0.02-0.50) K/mm3 Baso # (Auto) 0.03 (0.00-0.10) K/mm3 Abs Immat Gran (auto) 0.04 H (0.00-0.00) K/mm3 Absolute Neuts (auto) 6.38 (1.70-7.20) K/mm3 Absolute Nucleated RBC 0.00 (0.00-0.00) K/mm3 Nucleated RBC % 0.0 (0-0.0) % PT 11.4 (9.50-12.1) Seconds INR 1.0 APTT 34.8 H (23.9-30.70) Sec Sodium 133 L (137-145) mmol/L Potassium 3.8 (3.4-5.0) mmol/L Chloride 96 L (98-107) mmol/L Carbon Dioxide 30 (22-30) mmol/L Anion Gap 7 (4-12) mmol/L BUN 17 (9-20) mg/dL Creatinine 0.78 (0.7-1.3) mg/dL Estim Creat Clear Calc 94 ml/min Estimated GFR > 60 (59 - ) Glucose 168 H (65-110) mg/dL Calculated Osmolality 281 L (285-295) mOsm/kg Lactic Acid 1.2 (0.4-2.0) mmol/L Calcium 8.7 (8.4-10.2) mg/dL Total Bilirubin 1.0 (0.2-1.3) mg/dL AST 23 (17-59) U/L ALT 15 (6-50) U/L Alkaline Phosphatase 81 (38-126) U/L Total Protein 7.4 (6.3-8.2) g/dL Albumin 3.9 (3.5-5.1) g/dL Lipase 33 (23-300) U/L Discharge Plan Discharge Clinical Impression: Skin infection at gastrostomy tube site Constipation Qualifiers: Constipation type: unspecified constipation type Qualified Code(s): K59.00 - Constipation, unspecified Patient Disposition: Home Condition: Stable Instructions: Antibiotic Form, Constipation (ED) Additional Instructions: advised patient to take medication as prescribed and to follow with primary care physician within next 3 to 5 days further evaluation treatment. Patient Language: Frisian Prescriptions: New docusate sodium [Colace] 100 mg capsule 100 mg PO BID Qty: 20 0RF magnesium citrate [OneLAX Magnesium Citrate] Solution 150 ml PO BID PRN (Reason: constipation) Qty: 296 0RF amoxicillin-pot clavulanate [Augmentin] 500-125 mg tablet 1 tablet PO TID Qty: 30 0RF No Action methocarbamol [Robaxin] 750 mg PO DAILY naproxen 500 mg tablet 500 mg PO BID PRN (Reason: pain) Qty: 20 0RF Patient Comments: Pt states no longer taking oxycodone 5 mg tablet 10 mg PO Q4H PRN (Reason: pain) gabapentin 300 mg capsule 300 mg PO TID Follow-up/Referrals: Guillermo Arciniega MD [Primary Care Provider] - Time of Disposition: 23:30
[2025-01-03 22:29] LABS: Alanine Aminotransferase 15 U/L (6-50); Albumin Level 3.9 g/dL (3.5-5.1); Alkaline Phosphatase 81 U/L (38-126); Anion Gap 7 mmol/L (4-12); Aspartate Amino Transferase 23 U/L (17-59); Bilirubin,Total 1.0 mg/dL (0.2-1.3); Blood Urea Nitrogen 17 mg/dL (9-20); Calcium 8.7 mg/dL (8.4-10.2); Carbon Dioxide 30 mmol/L (22-30); Chloride 96 mmol/L (98-107); Estimated CRCL calculation 94 ml/min; Estimated Glomerular Filt Rate > 60; Glucose 168 mg/dL (65-110); Lipase 33 U/L (23-300); Osmolality Calculated 281 mOsm/kg (285-295); Potassium 3.8 mmol/L (3.4-5.0); Sodium 133 mmol/L (137-145); Total Protein 7.4 g/dL (6.3-8.2)
[2025-01-03 22:31] LABS: INR 1.0; Partial Thromboplastin Time 34.8 Sec (23.9-30.70); Prothrombin Time 11.4 Seconds (9.50-12.1)
--- OUTSIDE RECORDS SUMMARY | 2025-01-03 22:47 | XMS_ITS | Encounter Summary ---
Author Organization [facility] Address [address] [place] [address] Care Team Providers Care Mold Operator Name Role Phone Melissa Diamond PA-C [...] CDT - 01/03/2025 4:02 AM CDT Emergency [facility] [address] [place] [address] [phone] Caio Maria MD [address] [place] [address] [place] [address] Shortness of breath; Abdominal pain, unspecified abdominal location Discharge Disposition: Left Against Medical Advice/Discontinued Care Social History Tobacco Use Types Packs/Day Years Used Date Smoking Tobacco: Former Smokeless Tobacco: Never PHQ-2 Answer Date Recorded Patient Health Questionnaire-2 Score 6 03/04/2024 Sex and Gender Information Value Date Recorded Sex Assigned at Not on file 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 Patient attempting to exit the department att. Patient informed he hada room that we would take him to, and that he should not exit the department. Patient cursing and verbally aggressive with this auto service writer, refusing to remain in department. Patient [...] naloxone HCl (Narcan) 4 MG/0.1ML nasal spray Kent 1 (one) spray into the nose as [...] DATE/TIME OF EXAM: 01/02/2025 11:03 PM, LOCATION [facility] INDICATION: R06.02: Shortness of breath ADDITIONAL CLINICAL [...] noted. Report dictated by Apryl Figueroa MD, (Talend Etl Developer). Juan Jose Willis MD have personally reviewed and interpreted this examination/study. > Interpreting Provider: Juan Jose Holguin MD on 01/03/2025 6:59 AM Procedure Note Juan Jose Holguin MD - 01/03/2025 PROCEDURE: XR CHEST 2VW, DATE/TIME OF EXAM: 01/02/2025 11:03 PM, LOCATION [facility] INDICATION: R06.02: Shortness of breath ADDITIONAL CLINICAL [...] noted. Report dictated by Apryl Figueroa MD, (Talend Etl Developer). Juan Jose Willis MD have personally reviewed and interpreted this examination/study. > Interpreting Provider: Juan Jose Holguin MD on 56:59 AM us Francesca Avalos PA-C DIAGNOSTIC IMAGING ORDERABLES Final Result * LACTIC ACID BLOOD REFLEX TO REPEAT (01/02/2025 10:16 PM CDT) Lactic Acid-Stat 0.9 <=2.0 mmol/L 01/02/2025 10:53 PM CDT [facility] Blood BLOOD SPECIMEN / Unknown Venipuncture / Unknown 01/02/2025 10:16 PM CDT 01/02/2025 10:25 PM CDT us Jared Granaod MD LAB - CHEMISTRY ORDERABLES Fi nal Result [facility] [address] [place] [address], [facility] [phone] * (ABNORMAL) COMPREHENSIVE METABOLIC PANEL (01/02/2025 10:16 PM [facility]) BUN 11 7 - 26 mg/dL 01/02/2025 10:55 PM [facility] Creatinine 0.75 0.71 - 1.16 mg/dL 01/02/2025 10:55 PM [facility] Sodium 133(L) 136 - 145 mmol/L 01/02/2025 10:55 PM [facility] Potassium 4.2 3.5 - 4.5 mmol/L 01/02/2025 10:55 PM [facility] Chloride 101 98 - 107 mmol/L 01/02/2025 10:55 PM [facility] CO2 26 22 - 29 mmol/L 01/02/2025 10:55 PM [facility] Glucose 160(H) 70 - 99 mg/dL 01/02/2025 10:55 PM [facility] Calcium 9.0 8.4 - 10.2 mg/dL 01/02/2025 10:55 PM [facility] Protein Total 7.5 6.0 - 8.3 g/dL 01/02/2025 10:55 PM [facility] Albumin 3.7 3.4 - 5.0 g/dL 01/02/2025 10:55 PM [facility] Bilirubin Total 0.6 0.2 - 1.2 mg/dL 01/02/2025 10:55 PM [facility] Alkaline Phosphatase 90 40 - 150 U/L 01/02/2025 10:55 PM [facility] ALT 10 5 - 55 U/L 01/02/2025 10:55 PM [facility] AST 13 5 - 34 U/L 01/02/2025 10:55 PM [facility] Anion Gap 6 6 - 16 01/02/2025 10:55 PM [facility] BUN/Creatinine Ratio 15 7 - 23 01/02/2025 10:55 PM [facility] Osmolality Calculated 279 275 - 295 mOsm/kg 01/02/2025 10:55 PM [facility] Albumin/Globulin Ratio 1.0(L) 1.1 - 2.3 01/02/2025 10:55 PM [facility] eGFR by CKD-EPI >90 >=90 mL/min/1.7 3 m2 01/02/2025 10:55 PM [facility] Comment:Estimated Glomerular Filtration Rate (eGFR) calculated using the CKD-EPI Creatinine Equation (2020), per the National Kidney Foundation and [place] [employer] Nephrology recommendations. Blood BLOOD SPECIMEN / Unknown Venipuncture / Unknown 01/02/2025 10:16 PM CDT 01/02/2025 10:24 PM CDT Francesca Avalos PA-C LAB - CHEMISTRY ORDERABLES Fi nal Result [address] [address] [phone] * (ABNORMAL) CBC W AUTO DIFFERENTIAL (01/02/2025 10:16 PM CDT) WBC 12.6(H) 4.0 - 10.7 x10E9/L 01/02/2025 10:30 PM [facility] RBC Count 4.62 4.30 - 5.80 x10E12/L 01/02/2025 10:30 PM [facility] Hemoglobin 13.0(L) 13.3 - 17.5 g/dL 01/02/2025 10:30 PM [facility] Hematocrit 38.0(L) 38.7 - 51.1 % 01/02/2025 10:30 PM [facility] MCV 82.3 80.0 - 98.0 fL 01/02/2025 10:30 PM [facility] MCH 28.1 26.7 - 33.6 pg 01/02/2025 10:30 PM [facility] MCHC 34.2 31.7 - 36.3 g/dL 01/02/2025 10:30 PM [facility] RDW-CV 12.3 11.3 - 14.8 % 01/02/2025 10:30 PM [facility] Platelet Count 263 150 - 420 x10E9/L 01/02/2025 10:30 PM [facility] MPV 9.1 7.8 - 11.4 fL 01/02/2025 10:30 PM [facility] Neutrophil % 81.7(H) 41.0 - 74.0 % 01/02/2025 10:30 PM [facility] Lymphocyte % 10.9(L) 17.0 - 47.0 % 01/02/2025 10:30 PM [facility] Monocyte % 6.3 3.0 - 11.0 % 01/02/2025 10:30 PM [facility] Eosinophil % 0.6 0.0 - 7.0 % 01/02/2025 10:30 PM [facility] Basophil % 0.2 0.0 - 1.6 % 01/02/2025 10:30 PM [facility] Immature Granulocytes % 0.3 0.0 - 1.0 % 01/02/2025 10:30 PM [facility] Neutrophil Absolute 10.25(H) 1.60 - 7.50 x10E9/L 01/02/2025 10:30 PM [facility] Lymphocyte Absolute 1.37 1.00 - 4.40 x10E9/L 01/02/2025 10:30 PM [facility] Monocyte Absolute 0.79 0.15 - 1.00 x10E9/L 01/02/2025 10:30 PM [facility] Eosinophil Absolute 0.08 0.00 - 0.60 x10E9/L 01/02/2025 10:30 PM [facility] Basophil Absolute 0.03 0.00 - 0.13 x10E9/L 01/02/2025 10:30 PM [facility] Blood BLOOD SPECIMEN / Unknown Venipuncture / Unknown 01/02/2025 10:16 PM CDT 01/02/2025 10:25 PM T Francesca Avalos PA-C LAB - HEMATOLOGY ORDERABLES F inal Result [facility] [address] [place] [address], [facility] [phone] documented in this encounter Visit Diagnoses Diagnosis [...] patency. documented in this encounter Care Teams Mold Operator Relationship Specialty Start Date End Date Melissa Diamond PA-C [address] [place] [phone] PCP - General Physician Ingredient Mixer 09/25/24 documented as of this encounter
--- OUTSIDE RECORDS SUMMARY | 2025-01-03 22:48 | XMS_ITS | Encounter Summary ---
Author Organization [facility] Address [address] [facility] [place] [address] Care Team Providers Care Beverage Host Name Role Phone Melissa Diamond PA-C Primary Care Provider Reason for Visit * Reason Onset Date Comments MEDICATION REFILL 11/26/2024 Encounter Details Date Type Department Care Team (Late st Contact Info) Description 11/26/2024 Refill [facility] - E[facility] [address] [place] [phone] Cinthia Samano MD [address] [place] [address] MEDICATION REFILL Social History Tobacco Use Types Packs/Day Years Used Date Smoking Tobacco: Former Smokeless Tobacco: Never PHQ-2 Answer Date Recorded Patient Health Questionnaire-2 Score 6 03/04/2024 Sex and Gender Information Value Date Recorded Sex Assigned at Not on file 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
--- OUTSIDE RECORDS SUMMARY | 2025-01-03 22:48 | XMS_ITS | Clinical Summary ---
Author Organization [facility] Address [facility] [place] [address] Care Team Providers Care Hazardous Materials Tanker Driver Name Role Phone Caleb Jordan MD Primary [...] Documents on File Type Date Recorded Patient Well Site Drilling Engineer Expl anation Advance Directives and Living Will 08/17/2010 12:00 AM ADVANCED DIRECTIVES Care Teams Hazardous Materials Tanker Driver Relationship Specialty Start Date End Date Caleb Jordan MD [address] [place] [phone] PCP - General FAMILY PRACTICE 10/18/22
--- OUTSIDE RECORDS SUMMARY | 2025-01-03 22:48 | XMS_ITS | Clinical Summary ---
Author Organization [facility] Maximino fonseca [facility] Address [address] [facility] [place] [address] Care Team Providers Care Brand Recorder Name Role Phone Unavailable Primary Care Provider Unavailabl e Allergies Active Allergy Reactions Criticality Noted Date Comments Clindamycin Hives High 03/09/2020 Hydrocodone-Acetaminophen Hives High 11/19/2024 Medications methocarbamoL (ROBAXIN) 750 mg tablet Take 750 mg by mouth 3 times daily as needed. 3 Active naloxone (NARCAN) 4 mg/spray [place], Non-Aerosol EMERGENCY USE ONLY: Administer 1 spray [...] Abstract 12/24/2024 1:30 PM CDT Office Visit [facility] Oncology and Hematology - [place] [address] [place] [address] Zander Silvestre MD Head and [...]
--- OUTSIDE RECORDS SUMMARY | 2025-01-03 22:48 | XMS_ITS | Encounter Summary ---
Author Organization [facility] Address [address] [place] [address] Care Team Providers Care Software Configuration Analyst Name Role Phone Melissa Diamond PA-C Primary Care Provider Reason for Visit * Reason Onset Date Comments MEDICATION REFILL 11/24/2024 Encounter Details Date Type Department Care Team (Late st Contact Info) Description 11/24/2024 Refill [facility] - [facility] [address] [place] [phone] Cinthia Samano MD [address] [place] [address] MEDICATION REFILL Social History Tobacco Use Types Packs/Day Years Used Date Smoking Tobacco: Former Smokeless Tobacco: Never PHQ-2 Answer Date Recorded Patient Health Questionnaire-2 Score 6 03/04/2024 Sex and Gender Information Value Date Recorded Sex Assigned at Not on file 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
--- OUTSIDE RECORDS SUMMARY | 2025-01-03 22:48 | XMS_ITS | Encounter Summary ---
Author Organization [facility] Address [address] [place], [place] [address] [place] [address] Care Team Providers Care Pole Peeling Machine Operator Name Role Phone Melissa Diamond PA-C Primary Care Provider Reason for Visit * Reason Onset Date Comments MEDICATION REFILL 12/26/2024 Encounter Details Date Type Department Care Team (Late st Contact Info) Description 12/26/2024 Refill [facility] PRE OP/POST OP [address] [place] [phone] Simone Hatfield MD [address] [facility] [address] [place] [phone] MEDICATION REFILL Social History Tobacco Use Types Packs/Day Years Used Date Smoking Tobacco: Former Smokeless Tobacco: Never PHQ-2 Answer Date Recorded Patient Health Questionnaire-2 Score 6 03/04/2024 Sex and Gender Information Value Date Recorded Sex Assigned at Not on file 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
--- OUTSIDE RECORDS SUMMARY | 2025-01-03 22:48 | XMS_ITS | Encounter Summary ---
Author Organization [facility] Address [facility] [place] [address] Care Team Providers Care Pressing Machine Operator Name Role Phone None, Provider Primary Care Provider Caleb Coulter MD Primary Care Provider [phone] Encounter Details Date Type Department Care Team (Latest Contact Info) Description 04/30/2018 Abstract [facility] Medical Group Arvind Alves MD Social History [...] on filedocumented in this encounter Care Teams Pressing Machine Operator Relationship Specialty Start Date End Date None, Provider, PCP - General UNKNOWN PHYSICIAN SPECIALTY 09/19/22 10/17/22 Caleb Jordan MD [facility] [facility] [place] [phone] PCP - General FAMILY PRACTICE 10/18/22 documented as of this encounter
--- OUTSIDE RECORDS SUMMARY | 2025-01-03 22:48 | XMS_ITS | Clinical Summary ---
Author Organization [facility] Address [address] [place] [address] Care Team Providers Care Flagstone Layer Name Role Phone Melissa Diamond PA-C Primary Care Provider Source Comments [facility] [employer]non-owned Affiliates and Associated Physician Practices is amultiple site organization consisting of ambulatory clinics and hospital sitesin [place], [place]. This disclosure is being madepursuant to the Care Everywhere program and may not contain all information available regarding this patient. Last updated 18.[facility] [employer] 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 Refill [facility] PRE OP/POST OP [address] [place] [phone] Simone Hatfield MD MEDICATION REFILL 12/25/2024 Orders Only [facility] PRE OP/POST OP [address] [place] [phone] Simone Hatfield MD Tonsil cancer (HCC) 12/25/2024 Telephone [facility] [address] [place] [phone] Simone Hatfield MD Question 12/18/2024 10:00 AM CDT - 12/18/2024 11:59 PM CDT Hospital Encounter [facility] PET [address] [place] [address] Simone Hatfield MD Discharge Disposition: Home or Self Care 12/18/2024 9:00 AM CDT - 12/18/2024 9:59 AM CDT Hospital Encounter [facility] PET [address] [place] [address] Simone Hatfield MD Discharge Disposition: Home or Self Care 12/18/2024 Travel 12/12/2024 Orders Only [facility] [address] [place] [phone] Simone Hatfield MD Tonsil cancer ([facility]) 12/10/2024 Telephone [facility] [address] , [address] [phone] Simone Hatfield MD [facility] 12/02/2024 Orders Only [facility] [address] [place] [phone] Simone Hatfield MD Tonsil cancer ([facility]) 12/01/2024 Orders Only [facility] [address] , [address] [phone] Simone Hatfield MD Tonsil cancer ([facility]) 12/01/2024 Orders Only [facility] [address] , [address] [phone] Simone Hatfield MD Tonsil cancer ([facility]) 11/28/2024 Telephone [facility] [address] [place] [phone] Brito, Anne-Marie Surgery Cancellation 11/26/2024 Orders Only [facility] [address] [place] [phone] Simone Hatfield MD Tonsil cancer ([facility]) 11/26/2024 Telephone [facility] [address] [place] [phone] Simone Hatfield MD Med Question 11/26/2024 Refill [facility] [address] [place] [phone] Cinthia Samano MD MEDICATION REFILL 11/24/2024 Refill [facility] [address] [place] [phone] Cinthia Samano MD MEDICATION REFILL 11/20/2024 Telephone [facility] [address] [place] [phone] June Surgery Scheduling 11/19/2024 4:04 PM CDT - 11/19/2024 11:59 PM CDT Hospital Encounter [facility] LAB OP DRAW STATION [address] [place] [address] Melissa Diamond PA-C Discharge Disposition: Home or Self Care 11/19/2024 12:45 PM CDT Office Visit [facility] - ENT [address] [place] [phone] Simone Hatfield MD Palate mass (Primary Dx); Tonsillar mass; Other dysphagia 11/19/2024 Travel 11/18/2024 Refill [facility] - Orthopedics [address] [place] [phone] Cody Ortega MD MEDICATION REFILL 11/16/2024 10:54 PM CDT - 11/16/2024 11:05 PM CDT Emergency [facility] EMERGENCY DEPARTMENT [address] [place] [phone] Neck pain Discharge Disposition: Left Against Medical [...] on file 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 Report dictated by Apryl Figueroa MD, ([employer]). Juan Jose Willis MD have personally reviewed and interpreted this examination/study. > Interpreting Provider: Juan Jose Holguin MD on 01/03/2025 6:59 AM Procedure Note Juan Jose Holguin MD - 01/03/2025 PROCEDURE: XR CHEST 2VW, DATE/TIME OF EXAM: 01/02/2025 11:03 PM, LOCATION [facility] INDICATION: R06.02: Shortness of breath ADDITIONAL [...] noted. Report dictated by Apryl Figueroa MD, ([employer]). Juan Jose Willis MD have personally reviewed and interpreted this examination/study. > Interpreting Provider: Juan Jose Holguin MD on 56:59 AM Francesca Avalos PA-C DIAGNOSTIC IMAGING ORDERABLES Final Result * LACTIC ACID BLOOD REFLEX TO REPEAT (01/02/2025 10:16 PM CDT) [facility] Lactic Acid-Stat 0.9 <=2.0 mmol/L 01/02/2025 10:53 PM T [facility] Blood BLOOD SPECIMEN / Unknown Venipuncture / Unknown 01/02/2025 10:16 PM CDT 01/02/2025 10:25 PM CDT us Jared Granado MD LAB - CHEMISTRY ORDERABLES Fi nal Result [address] [phone], [facility] [phone] * (ABNORMAL) CBC W AUTO DIFFERENTIAL (01/02/2025 10:16 PM CDT) Only the most recent of2 resultswithin the time period is included. [facility] WBC 12.6(H) 4.0 - 10.7 x10E9/L 01/02/2025 10:30 PM [facility] RBC Count 4.62 4.30 - 5.80 x10E12/L 01/02/2025 10:30 PM [facility] Hemoglobin 13.0(L) 13.3 - 17.5 g/dL 01/02/2025 10:30 PM [facility] Hematocrit 38.0(L) 38.7 - 51.1 % 01/02/2025 10:30 PM [facility] MCV 82.3 80.0 - 98.0 fL 01/02/2025 10:30 PM [facility] MCH 28.1 26.7 - 33.6 pg 01/02/2025 10:30 PM [facility] MCHC 34.2 31.7 - 36.3 g/dL 01/02/2025 10:30 PM [facility] RDW-CV 12.3 11.3 - 14.8 % 01/02/2025 10:30 PM [facility] Platelet Count 263 150 - 420 x10E9/L 01/02/2025 10:30 PM [facility] MPV 9.1 7.8 - 11.4 fL 01/02/2025 10:30 PM [facility] Neutrophil % 81.7(H) 41.0 - 74.0 % 01/02/2025 10:30 PM [facility] Lymphocyte % 10.9(L) 17.0 - 47.0 % 01/02/2025 10:30 PM [facility] Monocyte % 6.3 3.0 - 11.0 % 01/02/2025 10:30 PM [facility] Eosinophil % 0.6 0.0 - 7.0 % 01/02/2025 10:30 PM [facility] Basophil % 0.2 0.0 - 1.6 % 01/02/2025 10:30 PM [facility] Immature Granulocytes % 0.3 0.0 - 1.0 % 01/02/2025 10:30 PM [facility] Neutrophil Absolute 10.25(H) 1.60 - 7.50 x10E9/L 01/02/2025 10:30 PM [facility] Lymphocyte Absolute 1.37 1.00 - 4.40 x10E9/L 01/02/2025 10:30 PM [facility] Monocyte Absolute 0.79 0.15 - 1.00 x10E9/L 01/02/2025 10:30 PM [facility] Eosinophil Absolute 0.08 0.00 - 0.60 x10E9/L 01/02/2025 10:30 PM [facility] Basophil Absolute 0.03 0.00 - 0.13 x10E9/L 01/02/2025 10:30 PM [facility] Blood BLOOD SPECIMEN / Unknown Venipuncture / Unknown 01/02/2025 10:16 PM CDT 01/02/2025 10:25 PM [facility] us Francesca Avalos PA-C LAB - HEMATOLOGY ORDERABLES F inal Result [facility] [address] [place] [phone] [phone] * (ABNORMAL) COMPREHENSIVE METABOLIC PANEL (01/02/2025 10:16 PM [facility]) Only the most recent of2 resultswithin the time period is included. BUN 11 7 - 26 mg/dL 01/02/2025 10:55 PM [facility] Creatinine 0.75 0.71 - 1.16 mg/dL 01/02/2025 10:55 PM [facility] Sodium 133(L) 136 - 145 mmol/L 01/02/2025 10:55 PM [facility] Potassium 4.2 3.5 - 4.5 mmol/L 01/02/2025 10:55 PM [facility] Chloride 101 98 - 107 mmol/L 01/02/2025 10:55 PM [facility] CO2 26 22 - 29 mmol/L 01/02/2025 10:55 PM [facility] Glucose 160(H) 70 - 99 mg/dL 01/02/2025 10:55 PM [facility] Calcium 9.0 8.4 - 10.2 mg/dL 01/02/2025 10:55 PM [facility] Protein Total 7.5 6.0 - 8.3 g/dL 01/02/2025 10:55 PM [facility] Albumin 3.7 3.4 - 5.0 g/dL 01/02/2025 10:55 PM [facility] Bilirubin Total 0.6 0.2 - 1.2 mg/dL 01/02/2025 10:55 PM [facility] Alkaline Phosphatase 90 40 - 150 U/L 01/02/2025 10:55 PM [facility] ALT 10 5 - 55 U/L 01/02/2025 10:55 PM [facility] AST 13 5 - 34 U/L 01/02/2025 10:55 PM [facility] Anion Gap 6 6 - 16 01/02/2025 10:55 PM [facility] BUN/Creatinine Ratio 15 7 - 23 01/02/2025 10:55 PM [facility] Osmolality Calculated 279 275 - 295 mOsm/kg 01/02/2025 10:55 PM CDT [facility] Albumin/Globulin Ratio 1.0(L) 1.1 - 2.3 01/02/2025 10:55 PM CDT [facility] eGFR by CKD-EPI >90 >=90 mL/min/1.7 3 m2 01/02/2025 10:55 PM CDT [facility] Comment:Estimated Glomerular Filtration Rate (eGFR) calculated using the CKD-EPI Creatinine Equation (2020), per the National Kidney Foundation and [place] [employer] of Nephrology recommendations. Blood BLOOD SPECIMEN / Unknown Venipuncture / Unknown 01/02/2025 10:16 PM CDT 01/02/2025 10:24 PM CDT Francesca Avalos PA-C LAB - CHEMISTRY ORDERABLES Fi nal Result [facility] [address] [place] [address], [facility] [phone] * PET CT Skull To Mid Thigh [...] insulin effects. Report dictated by Heriberto Sawyer MD(vice president industrial relations). > Dictated by Heriberto Sawyer MD ([employer]) 12/18/2024 11:47 AM I, Janelle Lynn DO have personally reviewed and interpreted this examination/study. 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 Report dictated by Heriberto Sawyer MD(vice president industrial relations). > Dictated by Heriberto Sawyer MD ([employer]) 12/18/2024 11:47 AM I, Janelle Lynn DO have personally reviewed and interpreted this examination/study. > Interpreting Provider: Janelle Lynn DO on 12/18/2024 1:20 PM Simone Hatfield MD [place] ORDERABLES Edited Result - Final * (ABNORMAL) GLUCOSE SCREEN - POCT (IP) [facility] (12/18/2024 9:50 AM CDT) Glucose WB/POC 140(A) 70 - 99 mg/dL [facility] POCT TESTING Blood BLOOD SPECIMEN / Unknown 12/18/2024 9:50 AM CDT Simone Hatfield MD LAB - POINT OF CARE ORDERABLE S Final Result Performing Organization Address City/State/[facility] Co de Phone Number [facility] POCT TESTING [address] [place] [address], [facility] [phone] * [place] BIOPSY OF MOUTH LESION (11/19/2024 4:56 PM [...] PROCEDURE/MINOR SURGICAL ORDE RABLES Final Result * [place] LARYNGOSCOPY,FLEX FIBER,DIAGNOSTIC (11/19/2024 4:54 PM CDT) Simone Rosario MD - 11/19/2024 4:54 PM CDT [...] CDT) Case Report Surgical Pathology Report Case: [id number] Authorizing Provider: Simone Hatfield MD Collected: 11/19/2024 02:15 PM Ordering Location: [facility] - Received: 11/20/2024 09:42 AM ENT Pathologist: Deb Aponte MD Specimen: Mouth, Right tonsil/palate 11/21/2024 3:38 PM CDT [facility] Final Diagnosis Oropharynx, right tonsil / palate, biopsy (A): - Squamous cell carcinoma, non-keratinizing, poorly differentiated - p16 positive 11/21/2024 3:38 PM CDT [facility] at 1538 CDT Microscopic [...] for p40 (3+, 100%), consistent with a [id number] oropharyngeal squamous cell carcinoma. Controls stained appropriately. [...] right posterior tongue. 11/21/2024 3:38 PM T [facility] Gross Description The requisition and specimen(s) are identified with the patient's name, Clark Farnsworth. Received in formalin, specimen A, mouth SA is a 1.3 x 0.5 x 0.2 cm aggregate of unoriented pink-curiel, glistening soft tissue fragments with focal hemorrhage, submitted in toto as cassette A1. AL 11/21/2024 3:38 PM CDT [facility] Pathologist Location at [facility] 11/21/2024 3:38 PM CDT [facility] Disclaimer The performance characteristics of all immunohistochemical and indirect immunofluorescence stains (if any) cited in this report were determined by the Histopathology Laboratory of [facility]. Some of these tests were developed [...] attending (teaching) pathologist. 11/21/2024 3:38 PM CDT [facility] Embedded Images 11/21/2024 3:38 PM T [facility] Pathology/Cytolo gy ENTIRE MOUTH REGION / Unknown Collection / Unknown 11/19/2024 2:15 PM CDT 11/20/2024 9:42 AM CDT Comment:Right tonsil/palate us Simone Hatfield MD LAB - PATHOLOGY/CYTOLOGY KOLE BAJWA Final Result [facility] [address] [place] [address], [facility] [phone] * CT Neck Soft Tissue W Cont [...] report is dictated by Wanda Juárez MD (vice president industrial relations) I, Angie Blount MD have personally reviewed and interpreted this examination/study. > Interpreting Provider: Angie Blount MD on 11/17/2024 10:50 AM Narrative 11/17/2024 10:50 AM CDT PROCEDURE: CT NECK SOFT TISSUE W CONT, DATE/TIME OF EXAM: 11/16/2024 6:05 PM, LOCATION [facility] INDICATION: M54.2: Neck pain ADDITIONAL CLINICAL INFORMATION: Ordering Provider Reason For Exam: r/o significant edema of airway; known throat cancer Technologist Note: Does the patient have a history of renal insufficiency?->No Additional: 44-year-old male PMH as noted below who presents with describes new esophageal cancer Dx several weeks ago in [place], [place]. Lost to follow up. Reports worsening [...] palate. There is extension to the right parking officer space. There is extension to the right [...] CONT, DATE/TIME OF EXAM: :05 PM, LOCATION [facility] INDICATION: M54.2: Neck pain ADDITIONAL CLINICAL INFORMATION: Ordering Provider Reason For Exam: r/o significant edema of airway;known throat cancer Technologist Note: Does the patient have a history of renal insufficiency?->No Additional: 44-year-old male PMH as noted below who presents with describes new esophageal cancer Dx several weeks ago in [place], [place]. Lost to follow up. Reports worsening [...] palate. There is extension to the right parking officer space. There is extension to the right [...] report is dictated by Wanda Juárez MD (vice president industrial relations) I, Angie Blount MD have personally reviewed and interpretedthis examination/study. > Interpreting Provider: Angie Blount MD on 11/17/2024 10:50 AM Sven Garcia PA-C CT ORDERABLES Final Resu lt from Last [address] [place] [address] [place] [address] MEDICAID [place] Care Teams Flagstone Layer Relationship Specialty Start Date End Date Melissa Diamond PA-C [address] [phone] PCP - General Physician Linen Tech 09/25/24
--- OUTSIDE RECORDS SUMMARY | 2025-01-03 22:48 | XMS_ITS | Encounter Summary ---
Author Organization [facility] Address [address] [place] [address] 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
--- NOTE | 2025-01-03 23:09 | PC.NURSE ---
PATIENT AND SIGNIFICANT OTHER NOTIFIED THAT LAB WORK HAS RESULTED. CURRENTLY WAITING ON CT RESULTS. PATIENT CURRENTLY RESTING ON STRETCHER WITH EYES CLOSED. APPEARS RELAXED. RESP EVEN AND UNLABORED. CALL LIGHT IN REACH
--- NOTE | 2025-01-03 23:22 | PC.NURSE ---
DR ROBERTSON AT THE BEDSIDE
[2025-01-03] MEDS: cefTRIAXone 1 GM in SODIUM CHLORIDE 0.9% IV 50 ML 100 ML IVPB (23:32)
[2025-01-03 23:39] VITALS: BP 106/62; PULSE 86; RESP 20; TEMP 37.2; O2SAT 95
--- NOTE | 2025-01-03 23:42 | PC.NURSE ---
DRESSING CHANGE COMPLETED TO G TUBE SITE. EDUCATED SIGNIFICANT OTHER ON HOW TO DO DRESSING CHANGE. VERBALIZED UNDERSTANDING. SENT SUPPLIES HOME WITH SIGNIFICANT OTHER TO BE ABLE TO DO DRESSING CHANGES AT HOME
--- NOTE | 2025-01-06 12:26 | PC.NURSE ---
Preliminary blood culture report; no growth at this time.
--- NOTE | 2025-01-07 13:12 | PC.NURSE ---
Preliminary blood cultures x2 reviewed. no growthto date
--- NOTE | 2025-01-11 13:22 | PC.NURSE ---
FINAL BLOOD CULTURE REPORT; NO GROWTH IN 5 DAYS X2.
--- NOTE | 2025-01-12 15:47 | PC.NURSE ---
final blood culture results x2: no growth after 5 days
== END 2025-01-04 00:30 | disposition home or self-care (01) ==
PROVIDERS: Emergency Provider Emergency Medicine; PCP Internal Medicine
DX: K94.22 Gastrostomy infection (principal); K59.00 Constipation, unspecified; F17.210 Nicotine dependence, cigarettes, uncomplicated; Z79.891 Long term (current) use of opiate analgesic
CPT/HCPCS: 36415; 74177; 80053; 83605; 83690; 85025; 85610; 85730; 96361; 96365; 96372; 96375; 99284; J0696; J1885; J2270; J7030; Q9967

== ENCOUNTER 2025-01-13 09:08 | Outpatient (CLI) | payer OTHER, SELFPAY ==
--- OUTSIDE RECORDS SUMMARY | 2025-01-13 09:11 | XMS_ITS | Clinical Summary ---
Author Organization [facility] Address [address] [place] [address] Care Team Providers Care Caltrans Equipment Operator Name Role Phone Melissa Diamond PA-C Primary Care Provider Source Comments [facility],non-owned Affiliates and Associated Physician Practices is amultiple site organization consisting of ambulatory clinics and hospital sitesin [place], [place], [place] and [place]. This disclosure is being madepursuant to the Care Everywhere program and may not contain all information available regarding this patient. Last updated 18.[facility] Allergies Active Allergy Reactions Criticality Noted Date [...] naloxone HCl (Narcan) 4 MG/0.1ML nasal spray Arcadia 1 (one) spray into the nose as [...] Encounters Date Type Department Care Team Description 01/09/2025 Telephone [facility] - Otolaryngology [address] [facility] [address] [place] [address] Jose Muir MD Refill Request 01/07/2025 Telephone [facility] - ENT [address], [facility] [address] [place] [phone] Simone Hatfield MD Refill Request 01/02/2025 11:48 PM CDT - 01/03/2025 4:02 AM CDT Emergency [facility] EMERGENCY DEPARTMENT [address] [place] [phone] Caio Maria MD Shortness of breath; Abdominal pain, unspecified abdominal location Discharge Disposition: Left Against Medical Advice/Discontinued Care 01/02/2025 Travel 12/27/2024 Orders Only [facility] - ENT [address] [facility], [place] [phone] Dwight Hung MD 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 Refill [facility] PRE OP/POST OP [address] [place] [phone] Simone Hatfield MD MEDICATION REFILL 12/25/2024 Orders Only [facility] PRE OP/POST OP [address] [place] [phone] Simone Hatfield MD Tonsil cancer (HCC) 12/25/2024 Telephone [facility] - ENT [address] [place] [phone] Simone Hatfield MD Question 12/18/2024 10:00 AM CDT - 12/18/2024 11:59 PM CDT Hospital Encounter [facility] PET [address] [place] [address] Simone Hatfield MD Discharge Disposition: Home or Self Care 12/18/2024 9:00 AM CDT - 12/18/2024 9:59 AM CDT Hospital Encounter [facility] PET [address] [place] [address] Simone Hatfield MD Discharge Disposition: Home or Self Care 12/18/2024 Travel 12/12/2024 Orders Only [facility] - ENT [address] [place] [phone] Simone Hatfield MD Tonsil cancer (FORMERLY [facility]) 12/10/2024 Telephone [facility] - ENT [address], [address] [phone] iSmone Hatfield MD [facility] 12/02/2024 Orders Only [facility] - ENT [address] [place] [phone] Simone Hatfield MD Tonsil cancer ([facility]) 12/01/2024 Orders Only [facility] - ENT [address], [address] [phone] Simone Hatfield MD Tonsil cancer ([facility]) 12/01/2024 Orders Only [facility] - ENT [address], [address] [phone] Simone Hatfield MD Tonsil cancer ([facility]) 11/28/2024 Telephone [facility] - ENT [address] [place] [phone] Brito, Anne-Marie Surgery Cancellation 11/26/2024 Orders Only [facility] ENT [address] [place] [phone] Simone Haftield MD Tonsil cancer (HCC) 11/26/2024 Telephone [facility] ENT [address] [place] [phone] Simone Hatfield MD Med Question 11/26/2024 Refill [facility] [address] [place] [phone] Cinthia Samano MD MEDICATION REFILL 11/24/2024 Refill [facility] [address] [place] [phone] Cinthia Samano MD MEDICATION REFILL 11/20/2024 Telephone [facility] ENT [address] [place] [phone] June Surgery Scheduling 11/19/2024 4:04 PM CDT - 11/19/2024 11:59 PM CDT Hospital Encounter [facility] LAB OP DRAW STATION [address] [place] [phone] Melissa Diamond PA-C Discharge Disposition: Home or Self Care 11/19/2024 12:45 PM CDT Office Visit [facility] - ENT [address] [place] [phone] Simone Hatfield MD Palate mass (Primary Dx); Tonsillar mass; Other dysphagia 11/19/2024 Travel 11/18/2024 Refill [facility] - Orthopedics [address] [place] [phone] Cody Ortega MD MEDICATION REFILL 11/16/2024 10:54 PM CDT - 11/16/2024 11:05 PM CDT Emergency [facility] EMERGENCY DEPARTMENT [address] [place] [phone] Neck pain Discharge Disposition: Left Against Medical [...] on file 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 Report dictated by Apryl Figueroa MD, (Underwater Hunter). Juan Jose Willis MD have personally reviewed and interpreted this examination/study. > Interpreting Provider: Juan Jose Holguin MD on 01/03/2025 6:59 AM Procedure Note Juan Jose Holguin MD - 01/03/2025 PROCEDURE: XR CHEST 2VW, DATE/TIME OF EXAM: 01/02/2025 11:03 PM, LOCATION [facility] INDICATION: R06.02: Shortness of breath ADDITIONAL CLINICAL [...] noted. Report dictated by Apryl Figueroa MD, (Underwater Hunter). Juan Jose Willis MD have personally reviewed and interpreted this examination/study. > Interpreting Provider: Juan Jose Holguin MD on 56:59 AM us Francesca Avalos PA-C DIAGNOSTIC IMAGING ORDERABLES Final Result * LACTIC ACID BLOOD REFLEX TO REPEAT (01/02/2025 10:16 PM CDT) [facility] Lactic Acid-Stat 0.9 <=2.0 mmol/L 01/02/2025 10:53 PM T [facility] Blood BLOOD SPECIMEN / Unknown Venipuncture / Unknown 01/02/2025 10:16 PM CDT 01/02/2025 10:25 PM CDT us Jared Granado MD LAB - CHEMISTRY ORDERABLES Fi nal Result [facility] [address] [place] [phone], [facility] [phone] * (ABNORMAL) CBC W AUTO DIFFERENTIAL (01/02/2025 10:16 PM CDT) Only the most recent of2 resultswithin the time period is included. [facility] WBC 12.6(H) 4.0 - 10.7 x10E9/L 01/02/2025 10:30 PM [facility] RBC Count 4.62 4.30 - 5.80 x10E12/L 01/02/2025 10:30 PM [facility] Hemoglobin 13.0(L) 13.3 - 17.5 g/dL 01/02/2025 10:30 PM [facility] Hematocrit 38.0(L) 38.7 - 51.1 % 01/02/2025 10:30 PM [facility] MCV 82.3 80.0 - 98.0 fL 01/02/2025 10:30 PM [facility] MCH 28.1 26.7 - 33.6 pg 01/02/2025 10:30 PM [facility] MCHC 34.2 31.7 - 36.3 g/dL 01/02/2025 10:30 PM [facility] RDW-CV 12.3 11.3 - 14.8 % 01/02/2025 10:30 PM [facility] Platelet Count 263 150 - 420 x10E9/L 01/02/2025 10:30 PM [facility] MPV 9.1 7.8 - 11.4 fL 01/02/2025 10:30 PM [facility] Neutrophil % 81.7(H) 41.0 - 74.0 % 01/02/2025 10:30 PM [facility] Lymphocyte % 10.9(L) 17.0 - 47.0 % 01/02/2025 10:30 PM [facility] Monocyte % 6.3 3.0 - 11.0 % 01/02/2025 10:30 PM [facility] Eosinophil % 0.6 0.0 - 7.0 % 01/02/2025 10:30 PM [facility] Basophil % 0.2 0.0 - 1.6 % 01/02/2025 10:30 PM [facility] Immature Granulocytes % 0.3 0.0 - 1.0 % 01/02/2025 10:30 PM [facility] Neutrophil Absolute 10.25(H) 1.60 - 7.50 x10E9/L 01/02/2025 10:30 PM [facility] Lymphocyte Absolute 1.37 1.00 - 4.40 x10E9/L 01/02/2025 10:30 PM [facility] Monocyte Absolute 0.79 0.15 - 1.00 x10E9/L 01/02/2025 10:30 PM [facility] Eosinophil Absolute 0.08 0.00 - 0.60 x10E9/L 01/02/2025 10:30 PM [facility] Basophil Absolute 0.03 0.00 - 0.13 x10E9/L 01/02/2025 10:30 PM [facility] Blood BLOOD SPECIMEN / Unknown Venipuncture / Unknown 01/02/2025 10:16 PM CDT 01/02/2025 10:25 PM T us Francesca Wahler PA-C LAB - HEMATOLOGY ORDERABLES F inal Result [facility] [address] [place] [address], [facility] [phone] * (ABNORMAL) COMPREHENSIVE METABOLIC PANEL (01/02/2025 10:16 PM [facility]) Only the most recent of2 resultswithin the time period is included. BUN 11 7 - 26 mg/dL 01/02/2025 10:55 PM [facility] Creatinine 0.75 0.71 - 1.16 mg/dL 01/02/2025 10:55 PM [facility] Sodium 133(L) 136 - 145 mmol/L 01/02/2025 10:55 PM [facility] Potassium 4.2 3.5 - 4.5 mmol/L 01/02/2025 10:55 PM [facility] Chloride 101 98 - 107 mmol/L 01/02/2025 10:55 PM [facility] CO2 26 22 - 29 mmol/L 01/02/2025 10:55 PM [facility] Glucose 160(H) 70 - 99 mg/dL 01/02/2025 10:55 PM [facility] Calcium 9.0 8.4 - 10.2 mg/dL 01/02/2025 10:55 PM [facility] Protein Total 7.5 6.0 - 8.3 g/dL 01/02/2025 10:55 PM [facility] Albumin 3.7 3.4 - 5.0 g/dL 01/02/2025 10:55 PM [facility] Bilirubin Total 0.6 0.2 - 1.2 mg/dL 01/02/2025 10:55 PM [facility] Alkaline Phosphatase 90 40 - 150 U/L 01/02/2025 10:55 PM [facility] ALT 10 5 - 55 U/L 01/02/2025 10:55 PM [facility] AST 13 5 - 34 U/L 01/02/2025 10:55 PM [facility] Anion Gap 6 6 - 16 01/02/2025 10:55 PM [facility] BUN/Creatinine Ratio 15 7 - 23 01/02/2025 10:55 PM CDT [facility] Osmolality Calculated 279 275 - 295 mOsm/kg 01/02/2025 10:55 PM CDT [facility] Albumin/Globulin Ratio 1.0(L) 1.1 - 2.3 01/02/2025 10:55 PM CDT [facility] eGFR by CKD-EPI >90 >=90 mL/min/1.7 3 m2 01/02/2025 10:55 PM CDT [facility] Comment:Estimated Glomerular Filtration Rate (eGFR) calculated using the CKD-EPI Creatinine Equation (2020), per the National Kidney Foundation and [place] [employer] Neph[employer] recommendations. Blood BLOOD SPECIMEN / Unknown Venipuncture / Unknown 01/02/2025 10:16 PM CDT 01/02/2025 10:24 PM CDT Francesca Avalos PA-C LAB - CHEMISTRY ORDERABLES Fi nal Result [facility] [address] [place] [phone], [facility] [phone] * PET CT Skull To Mid Thigh [...] Report dictated by Heriberto Sawyer MD(vice president digital strategist). > Dictated by Heriberto Sawyer MD (Underwater Hunter) 12/18/2024 11:47 AM IJanelle DO have personally reviewed and interpreted this examination/study. > Interpreting Provider: Janelle Lynn DO on 12/18/2024 1:20 PM Narrative 12/18/2024 1:20 PM CDT PROCEDURE: PET CT SKULL TO MID THIGH, DATE/TIME OF EXAM: 12/18/2024 11:43 AM, LOCATION [facility] INDICATION: C09.9: Tonsil cancer (HCC) [...] SKULL TO MID THIGH, DATE/TIME OF EXAM: :43 AM, LOCATION [facility] INDICATION: C09.9: Tonsil cancer (HCC) [...] Report dictated by Heriberto Sawyer MD(vice president digital strategist). > Dictated by Heriberto Sawyer MD (Underwater Hunter) 12/18/2024 11:47 AM I, Janelle Lynn DO have personally reviewed and interpreted this examination/study. > Interpreting Provider: Janelle Lynn DO on 12/18/2024 1:20 PM Simone Hatfield MD NM ORDERABLES Edited Result - Final * (ABNORMAL) GLUCOSE SCREEN - POCT (IP) [facility] (12/18/2024 9:50 AM CDT) Glucose WB/POC 140(A) 70 - 99 mg/dL [facility] POCT TESTING Blood BLOOD SPECIMEN / Unknown 12/18/2024 9:50 AM CDT Simone Hatfield MD LAB - POINT OF CARE ORDERABLE S Final Result [facility] POCT TESTING [address] [place] [address], [facility] [phone] * MS BIOPSY OF MOUTH LESION (11/19/2024 4:56 PM [...] PROCEDURE/MINOR SURGICAL ORDE RABLES Final Result * MS LARYNGOSCOPY,FLEX FIBER,DIAGNOSTIC (11/19/2024 4:54 PM CDT) Narrative [...] us Simone Hatfield MD PROCEDURE/MINOR SURGICAL ORDE AYDEE Final Result * PATHOLOGY TISSUE (11/19/2024 2:15 PM CDT) Case Report Surgical Pathology Report Case: [id number] Authorizing Provider: Simone Hatfield MD Collected: 11/19/2024 02:15 PM Ordering Location: [facility] - Received: 11/20/2024 09:42 AM ENT Pathologist: Deb Aponte MD Specimen: Mouth, Right tonsil/palate 11/21/2024 3:38 PM CDT [facility] Final Diagnosis Oropharynx, right tonsil [...] for p40 (3+, 100%), consistent with a [id number] oropharyngeal squamous cell carcinoma. Controls stained appropriately. 11/21/2024 3:38 PM CDT [facility] Clinical History 44 year old [...] the right posterior tongue. 11/21/2024 3:38 PM [facility] Gross Description The requisition and specimen(s) are identified with the patient's name, Clark Farnsworth. Received in formalin, specimen A, mouth SA is a 1.3 x 0.5 x 0.2 cm aggregate of unoriented pink-curiel, glistening soft tissue fragments with focal hemorrhage, submitted in toto as cassette A1. AL 11/21/2024 3:38 PM [facility] Pathologist Location at [facility] 11/21/2024 3:38 PM T [facility] Disclaimer The performance characteristics of all immunohistochemical and indirect immunofluorescence stains (if any) cited in this report were determined by the Histopathology Laboratory of [facility]. Some of these tests were developed [...] attending (teaching) pathologist. 11/21/2024 3:38 PM T [facility] Embedded Images 11/21/2024 3:38 PM [facility] Pathology/Cytolo gy ENTIRE MOUTH REGION / Unknown Collection / Unknown 11/19/2024 2:15 PM CDT 11/20/2024 9:42 AM CDT Comment:Right tonsil/palate us Simone Hatfield MD LAB - PATHOLOGY/CYTOLOGY KOLE BAJWA Final Result [facility] [address] [place] [address] * CT Neck Soft Tissue W Cont [...] dictated by Wanda Juárez MD (vice president digital strategist) I, Angie Blount MD have personally reviewed and interpreted this examination/study. > Interpreting Provider: Angie Blount MD on 11/17/2024 10:50 AM Narrative 11/17/2024 10:50 AM CDT PROCEDURE: CT NECK SOFT TISSUE W CONT, DATE/TIME OF EXAM: 11/16/2024 6:05 PM, LOCATION [facility] INDICATION: M54.2: Neck pain ADDITIONAL CLINICAL INFORMATION: Ordering Provider Reason For Exam: r/o significant edema of airway; known throat cancer Technologist Note: Does the patient have a history of renal insufficiency?->No Additional: 44-year-old male PMH as noted below who presents with describes new esophageal cancer Dx several weeks ago in [place], [place]. Lost to follow up. Reports worsening [...] palate. There is extension to the right auto mechanic supervisor space. There is extension to the right [...] CONT, DATE/TIME OF EXAM: 56:05 PM, LOCATION [facility] INDICATION: M54.2: Neck pain ADDITIONAL CLINICAL INFORMATION: Ordering Provider Reason For Exam: r/o significant edema of airway;known throat cancer Technologist Note: Does the patient have a history of renal insufficiency?->No Additional: 44-year-old male PM as noted below who presents with describes new esophageal cancer Dx several weeks ago in [place], [place]. Lost to follow up. Reports worsening [...] palate. There is extension to the right auto mechanic supervisor space. There is extension to the right [...] dictated by Wanda Juárez MD (vice president digital strategist) IAngie MD have personally reviewed and interpretedthis examination/study. > Interpreting Provider: Angie Blount MD on 11/17/2024 10:50 AM Sven Garcia PA-C CT ORDERABLES Final Resu lt from Last 3 Months Insurance [facility] MED[facility] - [place] Care Teams Caltrans Equipment Operator Relationship Specialty Start Date End Date Melissa Diamond PA-C [address] [phone] PCP - General Physician Wan Support Specialist 09/25/24
--- OUTSIDE RECORDS SUMMARY | 2025-01-13 09:12 | XMS_ITS | Clinical Summary ---
Author Organization [facility] Address [facility] [place] [address] Care Team Providers Care Counter Clerk Tractor Parts Name Role Phone Caleb Jordan MD Primary [...] Years) (1 of 2 - PCV) 09/22/1999 HPV Vaccines (1 - 3-dose SCDM series) 09/22/2007 Hepatitis B Vaccines (2 of 3 - 19+ 3-dose series) 02/24/2022 01/27/2022 COVID-19 Vaccine ( - season) 2024 Meningococcal B Vaccine Aged Out No l onger eligible based on patient's age to complete this topic Meningococcal Vaccine Aged Out No amparo martinez eligible based on patient's age to complete this topic RSV Immunizations Under 20 Months Aged Out No longer eligible based on patient's age to complete this topic Insurance NARC[employer] Advance Directives Documents on File Type Date Recorded 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
--- OUTSIDE RECORDS SUMMARY | 2025-01-13 09:12 | XMS_ITS | Encounter Summary ---
Author Organization [facility] Address [address] [facility] [place] [address] Care Team Providers Care Yard Crane Operator Name Role Phone Melissa Diamond PA-C Primary Care Provider Reason for Visit * Reason Onset Date Comments MEDICATION REFILL 11/26/2024 Encounter Details Date Type Department Care Team (Late st Contact Info) Description 11/26/2024 Refill [facility] [address] [place] [phone] Cinthia Samano MD [address] [place] [address] MEDICATION REFILL Social History Tobacco Use Types Packs/Day Years Used Date Smoking Tobacco: Former Smokeless Tobacco: Never PHQ-2 Answer Date Recorded Patient Health Questionnaire-2 Score 6 03/04/2024 Sex and Gender Information Value Date Recorded Sex Assigned at Not on file 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
--- OUTSIDE RECORDS SUMMARY | 2025-01-13 09:12 | XMS_ITS | Encounter Summary ---
Author Organization [facility] Address [address] [facility] [place] [facility] [place] [address] Care Team Providers Care Credit Negotiator Name Role Phone Melissa Diamond PA-C Primary Care Provider Reason for Visit * Reason Onset Date Comments MEDICATION REFILL 11/24/2024 Encounter Details Date Type Department Care Team (Late st Contact Info) Description 11/24/2024 Refill [facility]NT [address] [place] [phone] Cinthia Samano MD [address] [place] [address] MEDICATION REFILL Social History Tobacco Use Types Packs/Day Years Used Date Smoking Tobacco: Former Smokeless Tobacco: Never PHQ-2 Answer Date Recorded Patient Health Questionnaire-2 Score 6 03/04/2024 Sex and Gender Information Value Date Recorded Sex Assigned at Not on file 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
--- OUTSIDE RECORDS SUMMARY | 2025-01-13 09:12 | XMS_ITS | Encounter Summary ---
Author Organization [facility] Address [facility] [place] [address] Care Team Providers Care Power Plant Operations Manager Name Role Phone None, Provider Primary Care Provider Caleb Coulter MD Primary Care Provider [phone] Encounter Details Date Type Department Care Team (Latest Contact Info) Description 04/30/2018 Abstract [facility] Arvind Alves MD Social History [...] on filedocumented in this encounter Care Teams Power Plant Operations Manager Relationship Specialty Start Date End Date None, Provider, PCP - General UNKNOWN PHYSICIAN SPECIALTY 09/19/22 10/17/22 Caleb Jordan MD [facility] [place] [phone] PCP - General FAMILY PRACTICE 10/18/22 documented as of this encounter
--- OUTSIDE RECORDS SUMMARY | 2025-01-13 09:12 | XMS_ITS | Encounter Summary ---
Author Organization [facility] Address [address] [place], [place] [address] [address] Care Team Providers Care Investor Relations Director Name Role Phone Melissa Diamond PA-C Primary Care Provider Reason for Visit * Reason Onset Date Comments MEDICATION REFILL 12/26/2024 Encounter Details Date Type Department Care Team (Late st Contact Info) Description 12/26/2024 Refill [facility] PRE OP/POST OP [address] [place] [phone] Simone Hatfield MD [address] [facility] 2L [place] [phone] MEDICATION REFILL Social History Tobacco Use Types Packs/Day Years Used Date Smoking Tobacco: Former Smokeless Tobacco: Never PHQ-2 Answer Date Recorded Patient Health Questionnaire-2 Score 6 03/04/2024 Sex and Gender Information Value Date Recorded Sex Assigned at Not on file 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
[2025-01-13 09:27] LABS: Hematocrit 34.7 % (42.0-52.0); Hemoglobin 11.6 g/dL (14.0-18.0); Immature Granulocyte Percent A 0.3 % (0-0.5); Lymphocytes Absolute Auto 2.26 K/mm3 (0.9-3.2); Mean Corpuscular HGB Conc 33.4 g/dl (32-36); Mean Corpuscular Hemoglobin 28.6 pg (26-34); Mean Corpuscular Volume 85.5 fl (80-100); Nucleated Red Blood Cells Absolute Auto 0.000 K/mm3 (0.0-0.012); Nucleated Red Blood Cells Perc 0.0 % (0.0-0.2); Platelet Count Result 286 k/mm3 (150-375); Red Blood Count 4.06 M/mm3 (4.6-6.20); White Blood Count 6.6 K/mm3 (4.5-10.0)
[2025-01-13 09:30] LABS: Blood Urea Nitrogen 15 mg/dL (8-26); Carbon Dioxide 26 mmol/L (22-30); Chloride 99 mmol/L (98-109); Estimated Glomerular Filt Rate > 60; Glucose 135 mg/dL (70-105); Ionized Calcium (POC) 1.20 mmol/L (1.11-1.31); Potassium 4.1 mmol/L (3.5-4.9); Sodium 138 mmol/L (138-146)
[2025-01-13 10:30] LABS: Alanine Aminotransferase 19 U/L (6-50); Albumin Level 3.8 g/dL (3.5-5.1); Alkaline Phosphatase 102 U/L (38-126); Anion Gap 7 mmol/L (4-12); Aspartate Amino Transferase 29 U/L (17-59); Bilirubin,Total 0.2 mg/dL (0.2-1.3); Blood Urea Nitrogen 15 mg/dL (9-20); Calcium 8.8 mg/dL (8.4-10.2); Carbon Dioxide 29 mmol/L (22-30); Chloride 102 mmol/L (98-107); Estimated Glomerular Filt Rate > 60; Glucose 139 mg/dL (65-110); Potassium 4.1 mmol/L (3.4-5.0); Sodium 138 mmol/L (137-145); Total Protein 7.1 g/dL (6.3-8.2)
== END 2025-01-13 09:09 | disposition home or self-care (01) ==
PROVIDERS: Visit Provider Internal Medicine Hematology & Oncology
DX: C76.0 Malignant neoplasm of head, face and neck (principal)
CPT/HCPCS: 36415; 80047; 80053; 85025

== ENCOUNTER 2025-01-13 19:25 | Observation (INO) | payer OTHER, SELFPAY ==
[2025-01-13] VITALS (16 sets, daily range): BP systolic 107–142; BP diastolic 66–111; PULSE 70–116; RESP 9–33; TEMP 36.4; O2SAT 88–100
--- NOTE | ~2025-01-13 | CT_ITS ---
EXAMINATION: CT brain wo con DATE: 01/13/2025 21:30 INDICATION: DRUG OVERDOSE/CONFUSED/COMBATIVE/BEST AVAILABLE . TECHNIQUE: Computed tomography (CT) of the head was performed without intravenous contrast. The mA wa s adjusted according to patient size. Iterative reconstruction technique was employed. The dose-lengt h product was 756.67 mGy-cm. COMPARISON: 05/27/2023. FINDINGS: Mild motion artifact. No acute intracranial hemorrhage or extra-axial fluid collection. No hydrocephalus, mass, or herniation. No acute ischemic infarct. Unremarkable dural venous sinus attenuation. No acute osseous abnormality. The aerated spaces are clear. Status post right mastoidectomy. IMPRESSION: No acute intracranial process. Reviewed, dictated and finalized at location K.
--- NOTE | ~2025-01-13 | XR_ITS ---
EXAMINATION: XR chest 1V portable Exam Date/Time: 01/13/2025 20:20 CDT HISTORY: possible aspiration/DRUG OVERDOSE/WOULD NOT HOLD STILL Comparison: 11/05/2022. RESULT: Lines, tubes, and devices: G-tube over the stomach. Lungs and pleura: Clear. Cardiomediastinal silhouette: Stable. Other: No acute osseous or upper abdominal finding. IMPRESSION: No acute cardiopulmonary process. Reviewed, dictated and finalized at location K.
[2025-01-13] MEDS: NALOXONE HCL INJ 2 MG/2 ML AMP 0.4 MG NASAL (19:30)
--- OUTSIDE RECORDS SUMMARY | 2025-01-13 19:31 | XMS_ITS | Clinical Summary ---
Author Organization [facility] Address [address] [place] [address] Care Team Providers Care Follow Up Manager Name Role Phone Melissa Diamond PA-C Primary Care Provider Source Comments [facility],non-owned Affiliates and Associated Physician Practices is amultiple site organization consisting of ambulatory clinics and hospital sitesin [place], [place], [place] and [place]. This disclosure is being madepursuant to the Care Everywhere program and may not contain all information available regarding this patient. Last updated 18.[facility] Allergies Active Allergy Reactions Criticality Noted Date [...] naloxone HCl (Narcan) 4 MG/0.1ML nasal spray Russell 1 (one) spray into the nose as [...] 01/09/2025 Telephone [facility] - Otolaryngology [address] [facility] [address] [place] [address] Jose Muir MD Refill Request 01/07/2025 Telephone [facility] - ENT [address], [facility] [address] [place] [phone] Simone Hatfield MD Refill Request 01/02/2025 11:48 PM CDT - 01/03/2025 4:02 AM CDT Emergency [facility] EMERGENCY DEPARTMENT [address] [place] [phone] Caio Maria MD Shortness of breath; Abdominal pain, unspecified abdominal location Discharge Disposition: Left Against Medical Advice/Discontinued Care 01/02/2025 Travel 12/27/2024 Orders Only [facility] - ENT [address] 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 Refill [facility] PRE OP/POST OP [address] [place] [phone] Simone Hatfield MD MEDICATION REFILL 12/25/2024 Orders Only [facility] PRE OP/POST OP [address] [place] [phone] Simone Hatfield MD Tonsil cancer (HCC) 12/25/2024 Telephone [facility] - ENT [address] [place] [phone] Simone Hatfield MD Question 12/18/2024 10:00 AM CDT - 12/18/2024 11:59 PM CDT Hospital Encounter [facility] PET [address] [place] [address] Simone Hatfield MD Discharge Disposition: Home or Self Care 12/18/2024 9:00 AM CDT - 12/18/2024 9:59 AM CDT Hospital Encounter [facility] PET [address] [place] [address] Simone Hatfield MD Discharge Disposition: Home or Self Care 12/18/2024 Travel 12/12/2024 Orders Only [facility] - ENT [address] [place] [phone] Simone Hatfield MD Tonsil cancer ([facility]) 12/10/2024 Telephone [facility] - ENT [address], [address] [phone] Simone Hatfield MD [facility] 12/02/2024 Orders Only [facility] ENT [address] [place] [phone] Simone Hatfield MD Tonsil cancer ([facility]) 12/01/2024 Orders Only [facility] ENT [address], [address] [phone] Simone Hatfield MD Tonsil cancer ([facility]) 12/01/2024 Orders Only [facility] E[facility] [address], [address] [phone] Simone Hatfield MD Tonsil cancer ([facility]) 11/28/2024 Telephone [facility] ENT [address] [place] [phone] Brito, Anne-Marie Surgery Cancellation 11/26/2024 Orders Only [facility] ENT [address] [place] [phone] Simone Hatfield MD Tonsil cancer (HCC) 11/26/2024 Telephone [facility] E[facility] [address] [place] [phone] Simone Hatfield MD Med Question 11/26/2024 Refill [facility] [address] [place] [phone] Cinthia Samano MD MEDICATION REFILL 11/24/2024 Refill [facility] [address] [place] [phone] Cinthia Samano MD MEDICATION REFILL 11/20/2024 Telephone [facility] [address] [place] [phone] June Surgery Scheduling 11/19/2024 4:04 PM CDT - 11/19/2024 11:59 PM CDT Hospital Encounter [facility] LAB OP DRAW STATION [address] [place] [phone] Melissa Diamond PA-C Discharge Disposition: Home or Self Care 11/19/2024 12:45 PM CDT Office Visit [facility] - ENT [address] [place] [phone] Simone Hatfield MD Palate mass (Primary Dx); Tonsillar mass; Other dysphagia 11/19/2024 Travel 11/18/2024 Refill [facility] - Orthopedics [address] [place] [phone] Cody Ortega MD MEDICATION REFILL 11/16/2024 10:54 PM CDT - 11/16/2024 11:05 PM CDT Emergency [facility] [address] [place] [phone] Neck pain Discharge Disposition: Left Against Medical [...] on file 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 Report dictated by Apryl Figueroa MD, (Land Title Examiner). Juan Jose Willis MD have personally reviewed and interpreted this examination/study. > Interpreting Provider: Juan Jose Holguin MD on 01/03/2025 6:59 AM Procedure Note Juan Jose Holguin MD - 01/03/2025 PROCEDURE: XR CHEST 2VW, DATE/TIME OF EXAM: 01/02/2025 11:03 PM, LOCATION [facility] INDICATION: R06.02: Shortness of breath ADDITIONAL [...] noted. Report dictated by Apryl Figueroa MD, (Land Title Examiner). Juan Jose Willis MD have personally reviewed and interpreted this examination/study. > Interpreting Provider: Juan Jose Holguin MD on 56:59 AM us Francesca Avalos PA-C DIAGNOSTIC IMAGING ORDERABLES Final Result * LACTIC ACID BLOOD REFLEX TO REPEAT (01/02/2025 10:16 PM CDT) [facility] Lactic Acid-Stat 0.9 <=2.0 mmol/L 01/02/2025 10:53 PM T [facility] Blood BLOOD SPECIMEN / Unknown Venipuncture / Unknown 01/02/2025 10:16 PM CDT 01/02/2025 10:25 PM CDT us Jared Granado MD LAB - CHEMISTRY ORDERABLES Fi nal Result [facility] [address] [place] [phone], [facility] [phone] * (ABNORMAL) CBC W AUTO DIFFERENTIAL (01/02/2025 10:16 PM CDT) Only the most recent of2 resultswithin the time period is included. [facility] WBC 12.6(H) 4.0 - 10.7 x10E9/L 01/02/2025 10:30 PM [facility] RBC Count 4.62 4.30 - 5.80 x10E12/L 01/02/2025 10:30 PM [facility] Hemoglobin 13.0(L) 13.3 - 17.5 g/dL 01/02/2025 10:30 PM [facility] Hematocrit 38.0(L) 38.7 - 51.1 % 01/02/2025 10:30 PM [facility] MCV 82.3 80.0 - 98.0 fL 01/02/2025 10:30 PM [facility] MCH 28.1 26.7 - 33.6 pg 01/02/2025 10:30 PM [facility] MCHC 34.2 31.7 - 36.3 g/dL 01/02/2025 10:30 PM [facility] RDW-CV 12.3 11.3 - 14.8 % 01/02/2025 10:30 PM [facility] Platelet Count 263 150 - 420 x10E9/L 01/02/2025 10:30 PM [facility] MPV 9.1 7.8 - 11.4 fL 01/02/2025 10:30 PM [facility] Neutrophil % 81.7(H) 41.0 - 74.0 % 01/02/2025 10:30 PM [facility] Lymphocyte % 10.9(L) 17.0 - 47.0 % 01/02/2025 10:30 PM [facility] Monocyte % 6.3 3.0 - 11.0 % 01/02/2025 10:30 PM [facility] Eosinophil % 0.6 0.0 - 7.0 % 01/02/2025 10:30 PM [facility] Basophil % 0.2 0.0 - 1.6 % 01/02/2025 10:30 PM [facility] Immature Granulocytes % 0.3 0.0 - 1.0 % 01/02/2025 10:30 PM [facility] Neutrophil Absolute 10.25(H) 1.60 - 7.50 x10E9/L 01/02/2025 10:30 PM [facility] Lymphocyte Absolute 1.37 1.00 - 4.40 x10E9/L 01/02/2025 10:30 PM [facility] Monocyte Absolute 0.79 0.15 - 1.00 x10E9/L 01/02/2025 10:30 PM [facility] Eosinophil Absolute 0.08 0.00 - 0.60 x10E9/L 01/02/2025 10:30 PM [facility] Basophil Absolute 0.03 0.00 - 0.13 x10E9/L 01/02/2025 10:30 PM [facility] Blood BLOOD SPECIMEN / Unknown Venipuncture / Unknown 01/02/2025 10:16 PM CDT 01/02/2025 10:25 PM T us Francesca Wahler PA-C LAB - HEMATOLOGY ORDERABLES F inal Result [facility] [address] [place] [address], [facility] [phone] * (ABNORMAL) COMPREHENSIVE METABOLIC PANEL (01/02/2025 10:16 PM [facility]) Only the most recent of2 resultswithin the time period is included. BUN 11 7 - 26 mg/dL 01/02/2025 10:55 PM [facility] Creatinine 0.75 0.71 - 1.16 mg/dL 01/02/2025 10:55 PM [facility] Sodium 133(L) 136 - 145 mmol/L 01/02/2025 10:55 PM [facility] Potassium 4.2 3.5 - 4.5 mmol/L 01/02/2025 10:55 PM [facility] Chloride 101 98 - 107 mmol/L 01/02/2025 10:55 PM [facility] CO2 26 22 - 29 mmol/L 01/02/2025 10:55 PM [facility] Glucose 160(H) 70 - 99 mg/dL 01/02/2025 10:55 PM [facility] Calcium 9.0 8.4 - 10.2 mg/dL 01/02/2025 10:55 PM [facility] Protein Total 7.5 6.0 - 8.3 g/dL 01/02/2025 10:55 PM [facility] Albumin 3.7 3.4 - 5.0 g/dL 01/02/2025 10:55 PM [facility] Bilirubin Total 0.6 0.2 - 1.2 mg/dL 01/02/2025 10:55 PM [facility] Alkaline Phosphatase 90 40 - 150 U/L 01/02/2025 10:55 PM [facility] ALT 10 5 - 55 U/L 01/02/2025 10:55 PM [facility] AST 13 5 - 34 U/L 01/02/2025 10:55 PM [facility] Anion Gap 6 6 - 16 01/02/2025 10:55 PM [facility] BUN/Creatinine Ratio 15 7 - 23 01/02/2025 10:55 PM CDT [facility] Osmolality Calculated 279 275 - 295 mOsm/kg 01/02/2025 10:55 PM CDT [facility] Albumin/Globulin Ratio 1.0(L) 1.1 - 2.3 01/02/2025 10:55 PM CDT [facility] eGFR by CKD-EPI >90 >=90 mL/min/1.7 3 m2 01/02/2025 10:55 PM CDT [facility] Comment:Estimated Glomerular Filtration Rate (eGFR) calculated using the CKD-EPI Creatinine Equation (2020), per the National Kidney Foundation and [place] [employer] Neph[employer] recommendations. Blood BLOOD SPECIMEN / Unknown Venipuncture / Unknown 01/02/2025 10:16 PM CDT 01/02/2025 10:24 PM CDT Francesca Avalos PA-C LAB - CHEMISTRY ORDERABLES Fi nal Result [facility] [address] [place] [phone], [facility] [phone] * PET CT Skull To Mid Thigh [...] insulin effects. Report dictated by Heriberto Sawyer MD(founder president and ceo). > Dictated by Heriberto Sawyer MD (Land Title Examiner) 12/18/2024 11:47 AM IJanelle DO have personally reviewed and interpreted this examination/study. 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 Report dictated by Heriberto Sawyer MD(founder president and ceo). > Dictated by Heriberto Sawyer MD (Land Title Examiner) 12/18/2024 11:47 AM I, Janelle Lynn DO have personally reviewed and interpreted this examination/study. > Interpreting Provider: Janelle Lynn DO on 12/18/2024 1:20 PM Simone Hatfield MD [place] ORDERABLES Edited Result - Final * (ABNORMAL) GLUCOSE SCREEN - POCT (IP) [facility] (12/18/2024 9:50 AM CDT) Glucose WB/POC 140(A) 70 - 99 mg/dL [facility] POCT TESTING Blood BLOOD SPECIMEN / Unknown 12/18/2024 9:50 AM CDT Simone Hatfield MD LAB - POINT OF CARE ORDERABLE S Final Result [facility] POCT TESTING [address] [place] [address], [facility] [phone] * MA BIOPSY OF MOUTH LESION (11/19/2024 4:56 PM [...] PROCEDURE/MINOR SURGICAL ORDE RABLES Final Result * MA LARYNGOSCOPY,FLEX FIBER,DIAGNOSTIC (11/19/2024 4:54 PM CDT) Narrative [...] CDT) Case Report Surgical Pathology Report Case: [id number] Authorizing Provider: Simone Hatfield MD Collected: 11/19/2024 02:15 PM Ordering Location: [facility] - Received: 11/20/2024 09:42 AM [...] for p40 (3+, 100%), consistent with a [id number] oropharyngeal squamous cell carcinoma. Controls stained appropriately. [...] the right posterior tongue. 11/21/2024 3:38 PM [facility] Gross Description The requisition and specimen(s) are identified with the patient's name, Clark Farnsworth. Received in formalin, specimen A, mouth SA is a 1.3 x 0.5 x 0.2 cm aggregate of unoriented pink-curiel, glistening soft tissue fragments with focal hemorrhage, submitted in toto as cassette A1. [place] 11/21/2024 3:38 PM [facility] Pathologist Location at [facility] 11/21/2024 3:38 PM T [facility] Disclaimer The performance characteristics of all immunohistochemical and indirect immunofluorescence stains (if any) cited in this report were determined by the Histopathology Laboratory of [facility]. Some of these tests were developed [...] attending (teaching) pathologist. 11/21/2024 3:38 PM T [facility] Embedded Images 11/21/2024 3:38 PM [facility] Pathology/Cytolo gy ENTIRE MOUTH REGION / Unknown Collection / Unknown 11/19/2024 2:15 PM CDT 11/20/2024 9:42 AM CDT Comment:Right tonsil/palate us Simone Hatfield MD LAB - PATHOLOGY/CYTOLOGY KOLE BAJWA Final Result [facility] [address] [place] [address] * CT Neck Soft Tissue W Cont [...] report is dictated by Wanda Juárez MD (founder president and ceo) I, Angie Blount MD have personally reviewed and interpreted this examination/study. > Interpreting Provider: Angie Blount MD on 11/17/2024 10:50 AM Narrative 11/17/2024 10:50 AM CDT PROCEDURE: CT NECK SOFT TISSUE W CONT, DATE/TIME OF EXAM: 11/16/2024 6:05 PM, LOCATION [facility] INDICATION: M54.2: Neck pain ADDITIONAL CLINICAL INFORMATION: Ordering Provider Reason For Exam: r/o significant edema of airway; known throat cancer Technologist Note: Does the patient have a history of renal insufficiency?->No Additional: 44-year-old male PMH as noted below who presents with describes new esophageal cancer Dx several weeks ago in [place], [place]. Lost to follow up. Reports worsening [...] palate. There is extension to the right records analyst space. There is extension to the right [...] CONT, DATE/TIME OF EXAM: 56:05 PM, LOCATION [facility] INDICATION: M54.2: Neck pain ADDITIONAL CLINICAL INFORMATION: Ordering Provider Reason For Exam: r/o significant edema of airway;known throat cancer Technologist Note: Does the patient have a history of renal insufficiency?->No Additional: 44-year-old male PM as noted below who presents with describes new esophageal cancer Dx several weeks ago in [place], [place]. Lost to follow up. Reports worsening [...] palate. There is extension to the right records analyst space. There is extension to the right [...] report is dictated by Wanda Juárez MD (founder president and ceo) IAngie MD have personally reviewed and interpretedthis examination/study. > Interpreting Provider: Angie Blount MD on 11/17/2024 10:50 AM Sven Garcia PA-C CT ORDERABLES Final Resu lt from Last 3 Months Insurance [facility] Care Address: [address] [phone] MEDICAID [place] Care Teams Follow Up Manager Relationship Specialty Start Date End Date Melissa Diamond PA-C [address] [phone] PCP - General Physician Mine Engineering Superintendent 09/25/24
--- OUTSIDE RECORDS SUMMARY | 2025-01-13 19:31 | XMS_ITS | Encounter Summary ---
Author Organization [facility] Address [address] [place] [address] Care Team Providers Care Lens Mounter Name Role Phone Melissa Diamond PA-C Primary Care Provider Reason for Visit * Reason Onset Date Comments MEDICATION REFILL 11/24/2024 Encounter Details Date Type Department Care Team (Late st Contact Info) Description 11/24/2024 Refill [facility] - [facility] [address] [place] [phone] Cinthia Samano MD [address] [place] [address] MEDICATION REFILL Social History Tobacco Use Types Packs/Day Years Used Date Smoking Tobacco: Former Smokeless Tobacco: Never PHQ-2 Answer Date Recorded Patient Health Questionnaire-2 Score 6 03/04/2024 Sex and Gender Information Value Date Recorded Sex Assigned at Not on file 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
--- OUTSIDE RECORDS SUMMARY | 2025-01-13 19:31 | XMS_ITS | Encounter Summary ---
Author Organization [facility] Address [address] [place], [place] [address] [address] Care Team Providers Care Professor Of Art History Name Role Phone Melissa Diamond PA-C Primary Care Provider Reason for Visit * Reason Onset Date Comments MEDICATION REFILL 12/26/2024 Encounter Details Date Type Department Care Team (Late st Contact Info) Description 12/26/2024 Refill [facility] PRE OP/POST OP [address] [place] [phone] Simone Hatfield MD [address] [facility] 2L [place] [phone] MEDICATION REFILL Social History Tobacco Use Types Packs/Day Years Used Date Smoking Tobacco: Former Smokeless Tobacco: Never PHQ-2 Answer Date Recorded Patient Health Questionnaire-2 Score 6 03/04/2024 Sex and Gender Information Value Date Recorded Sex Assigned at Not on file 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
--- OUTSIDE RECORDS SUMMARY | 2025-01-13 19:31 | XMS_ITS | Encounter Summary ---
Author Organization [facility] Address [address] [facility] [place] [address] Care Team Providers Care Skiver Blockers Name Role Phone Melissa Diamond PA-C Primary Care Provider Reason for Visit * Reason Onset Date Comments MEDICATION REFILL 11/26/2024 Encounter Details Date Type Department Care Team (Late st Contact Info) Description 11/26/2024 Refill [facility] [address] [place] [phone] Cinthia Samano MD [address] [place] [address] MEDICATION REFILL Social History Tobacco Use Types Packs/Day Years Used Date Smoking Tobacco: Former Smokeless Tobacco: Never PHQ-2 Answer Date Recorded Patient Health Questionnaire-2 Score 6 03/04/2024 Sex and Gender Information Value Date Recorded Sex Assigned at Not on file 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
--- OUTSIDE RECORDS SUMMARY | 2025-01-13 19:31 | XMS_ITS | Encounter Summary ---
Author Organization [facility] Address [facility] [place] [address] Care Team Providers Care Assembler Rubber Footwear Name Role Phone None, Provider Primary Care Provider Caleb Coulter MD Primary Care Provider Encounter Details Date Type Department Care Team (Latest Contact Info) Description 04/30/2018 Abstract [facility] Arvind Alves MD Social History [...] on filedocumented in this encounter Care Teams Assembler Rubber Footwear Relationship Specialty Start Date End Date None, Provider, PCP - General UNKNOWN PHYSICIAN SPECIALTY 09/19/22 10/17/22 Caleb Jordan MD [facility] [facility] [place] [phone] PCP - General FAMILY PRACTICE 10/18/22 documented as of this encounter
--- OUTSIDE RECORDS SUMMARY | 2025-01-13 19:31 | XMS_ITS | Clinical Summary ---
Author Organization [facility] Address [facility] [place] [address] Care Team Providers Care Ict Analyst Name Role Phone Caleb Jordan MD Primary [...] Documents on File Type Date Recorded Patient Still Cleaner Expl anation Advance Directives and Living Will 08/17/2010 12:00 AM ADVANCED DIRECTIVES Care Teams Ict Analyst Relationship Specialty Start Date End Date Caleb Jordan MD [address] [place] [phone] PCP - General FAMILY PRACTICE 10/18/22
[2025-01-13] MEDS: NALOXONE HCL 0.4 MG/ML VIAL IV PUSH (19:36)
--- NOTE | 2025-01-13 19:47 | PC.NURSE ---
PATIENT STARTING TO MOVE AROUND THE BED. CONTINUES TO NOT ANSWER QUESTIONS. EYES CLSOED.
--- NOTE | 2025-01-13 19:53 | ED_ITS ---
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 All history was obtained from her. He was reportedly on oxycodone but was started on morphine as well today. Related Data Home Medications ?Medication ?Instructions ?Recorded ?Confirmed ?Last Taken ?Type methocarbamol 750 mg PO DAILY 06/12/24 01/01/25 12/31/24 History gabapentin 300 mg capsule 300 mg PO TID 12/30/24 01/01/25 12/31/24 History oxycodone 5 mg tablet 10 mg PO Q4H PRN pain 12/30/24 01/01/25 12/31/24 History Allergies Allergy/AdvReac Type Severity Reaction Status Date / Time clindamycin Allergy Mild Hives Verified 01/03/25 22:04 hydrocodone AdvReac Hives Verified 01/03/25 22:04 Review of Systems 2 Review of Systems: All systems reviewed & are unremarkable except as noted in HPI and below PMFSH Past Medical History Medical History Anorexia Weight loss Squamous cell carcinoma of neck Dysphagia History of drug abuse Chronic back pain Social History Social History Social History: Fentanyl and amphetamine abuse Smoking packs per day: 2 Smoking cigarettes per day: 40.0 Years smoked: 20 Smoking pack-years: 40.00 Smoking status: Current every day smoker Tobacco type: cigarettes Second hand tobacco smoke exposure: Yes Alcohol intake: current Drinks per week: 40 Substance use: current Substance use type: marijuana Other substance usage details: 2 smokes per week Do You Feel Safe in your Home?: Yes Lack of Transportation: YES Lack of Food: Never True Current Housing: I Have Housing Concerned About Future Housing: No Difficulty Paying Gas/Electric Bills: YES Difficulty Paying for Meds: No Currently Unemployed: YES Education: High School Diploma/GED Difficulty w/ Childcare or Family Care: No Living arrangements: with family Exam 2 Const: General: well developed HENMT: Head: normal to inspection, normocephalic and atraumatic Ears: h earing grossly normal bilaterally and external ears normal Face/Nose/Sinus: N ormal external nose present Eyes: General: appearance normal, both eyes and all related structures P eriorbital: periorbital findings normal Sclera: sclerae normal Pupils: E qual, round and reactive pupils present Other: Pinpoint pupils Neck: Neck: normal visual inspection Chest: Chest palpation & inspection: normal inspection of the chest Resp: Auscultation: clear to auscultation bilaterally Other: Bradypnea Cardio: Jugular venous distension: no JVD Rate: regular rate Rhythm: r egular rhythm GI: GI Palp: Yes Soft to palpation Auscultation: normal bowel sounds O ther: G-tube in place Skin: General skin exam: normal color and no rashes or lesions noted Neuro: General: oriented to person, oriented to place and oriented to time Cranial nerves: Yes Equal, round and reactive pupils present Extrem: General: normal to inspection Course Course Emergency Course: Given AMS and recent changes in opioids with pinpoint pupils Narcan was given. He only responded moderately so 2 additional doses had to be given. After narcan he was wiggling in bed with heavy snoring and loud breathing. His girlfriend left very quickly and further history could not be obtained. As he had not returned to baseline CT brain and labs ordered. Upon drawing blood Jose Manuel became very agitated at started swinging his fists at staff. He was writhing in the bed uncontrollably. Despite attempts from staff he could not be calmed down. After a face to face examination it was determined he was a threat to staff and himself he was placed in soft restraints at 2031. EXAMINATION: XR chest 1V portable Exam Date/Time: 01/13/2025 20:20 CDT HISTORY: possible aspiration/DRUG OVERDOSE/WOULD NOT HOLD STILL Comparison: 11/05/2022. RESULT: Lines, tubes, and devices: G-tube over the stomach. Lungs and pleura: Clear. Cardiomediastinal silhouette: Stable. Other: No acute osseous or upper abdominal finding. IMPRESSION: No acute cardiopulmonary process. EXAMINATION: CT brain wo con DATE: 01/13/2025 21:30 INDICATION: DRUG OVERDOSE/CONFUSED/COMBATIVE/BEST AVAILABLE . TECHNIQUE: Computed tomography (CT) of the head was performed without intravenous contrast. The mA was adjusted according to patient size. Iterative reconstruction technique was employed. The dose-length product was 756.67 mGy- cm. COMPARISON: 05/27/2023. FINDINGS: Mild motion artifact. No acute intracranial hemorrhage or extra-axial fluid collection. No hydrocephalus, mass, or herniation. No acute ischemic infarct. Unremarkable dural venous sinus attenuation. No acute osseous abnormality. The aerated spaces are clear. Status post right mastoidectomy. IMPRESSION: No acute intracranial process. As patient is not back at baseline mental status will admit to observation. He wont follow commands but he will withdraw from pain or loud noises. He was speaking with his girlfriend but will not speak with staff. at around 530 I was called to the patient room as he wanted to leave AMA stating he had to work. He then admitted to taking extra pain meds and Xanex. Next he demanded to leave as he has to go to work andrea a house today. I recommended he stay for the rest of his observation as he could decompensate. I told him that andrea was not a good idea and if he takes meds he could potentially OD again. He expressed understanding but still wanted to leave knowing it could result in disability or . I personally explained to the patient the further risks and consequences involved in leaving this facility at this time. The benefits of continued treatment/hospitalization and the alternatives. I have not identified any psychosis, mental illness, or medical illness that alters decision-making capacity. At this time the Xanex would largely be out of his system as well as opioids and has capacity and is thus able to leave AMA as he did. Vital Signs Vital signs: Vital Signs Temperature 97.6 F 01/13/25 19:25 Pulse Rate 80 01/13/25 19:25 Respiratory Rate 18 01/13/25 19:25 Blood Pressure 119/81 01/13/25 19:25 Pulse Oximetry 99 01/13/25 19:25 Oxygen Delivery Room Air 01/13/25 19:25 Temperature 97.6 F 01/13/25 19:25 Pulse Rate 71 01/14/25 00:45 Respiratory Rate 18 01/14/25 00:45 Blood Pressure 127/66 01/13/25 23:17 Pulse Oximetry 96 01/14/25 01:17 Oxygen Delivery Room Air 01/14/25 01:17 Medical Decision Making Vital Signs Vital Signs: Vital Signs Temperature 97.6 F 01/13/25 19:25 Pulse Rate 80 01/13/25 19:25 Respiratory Rate 18 01/13/25 19:25 Blood Pressure 119/81 01/13/25 19:25 Pulse Oximetry 99 01/13/25 19:25 Oxygen Delivery Room Air 01/13/25 19:25 Temperature 97.6 F 01/13/25 19:25 Pulse Rate 71 01/14/25 00:45 Respiratory Rate 18 01/14/25 00:45 Blood Pressure 127/66 01/13/25 23:17 Pulse Oximetry 96 01/14/25 01:17 Oxygen Delivery Room Air 01/14/25 01:17 Lab Data 01/13/25 20:06 01/13/25 20:28 Labs: Lab Results 01/13/25 01/13/25 01/13/25 Range/Units 20:06 20:07 20:28 WBC 7.3 (4.8-10.8) K/mm3 RBC 4.32 L (4.70-6.10) M/mm3 Hgb 12.1 L (14.0-18.0) g/dL Hct 37.7 L (40.0-54.0) % MCV 87.3 (78.0-102.0) fL MCH 28.0 (27.0-31.0) pg MCHC 32.1 (32-36) g/dL RDW 11.9 (11.6-14.4) % Plt Count 283 (150-420) K/mm3 MPV 9.0 (8.7-11.0) fl Immature Gran % (Auto) 0.4 H (0.0-0.0) % Neut % (Auto) 59.4 (50.0-70.0) % Lymph % (Auto) 29.1 (18.0-42.0) % Elmore % (Auto) 6.8 (2.0-11.0) % Eos % (Auto) 3.8 (1.0-6.0) % Baso % (Auto) 0.5 (0.0-1.0) % Lymph # (Auto) 2.13 (1.10-4.50) K/mm3 Elmore # (Auto) 0.50 (0.10-0.90) K/mm3 Eos # (Auto) 0.28 (0.02-0.50) K/mm3 Baso # (Auto) 0.04 (0.00-0.10) K/mm3 Abs Immat Gran (auto) 0.03 H (0.00-0.00) K/mm3 Absolute Neuts (auto) 4.35 (1.70-7.20) K/mm3 Absolute Nucleated RBC 0.00 (0.00-0.00) K/mm3 Nucleated RBC % 0.0 (0-0.0) % PT 11.5 (9.50-12.1) Seconds INR 1.0 Sodium 139 (137-145) mmol/L Potassium 4.7 (3.4-5.0) mmol/L Chloride 105 (98-107) mmol/L Carbon Dioxide 29 (22-30) mmol/L Anion Gap 5 (4-12) mmol/L BUN 12 (9-20) mg/dL Creatinine 0.67 L (0.7-1.3) mg/dL Estim Creat Clear Calc 114 ml/min Estimated GFR > 60 (59 - ) Glucose 115 H (65-110) mg/dL Calculated Osmolality 288 (285-295) mOsm/kg Calcium 8.5 (8.4-10.2) mg/dL Magnesium 2.3 (1.6-2.3) mg/dL Total Bilirubin 0.6 (0.2-1.3) mg/dL AST 32 (17-59) U/L ALT 18 (6-50) U/L Alkaline Phosphatase 88 (38-126) U/L Ammonia 18 (9-30) umol/L Troponin I < 0.012 (0.000-0.034) ng/mL Total Protein 7.5 (6.3-8.2) g/dL Albumin 4.0 (3.5-5.1) g/dL TSH 0.695 (0.465-4.680) uIU/mL Ethyl Alcohol < 10 (<10) mg/dL Discharge Plan Discharge Clinical Impression: Acute drug overdose Patient Disposition: Left Against Medical Advice Condition: Guarded Prognosis
--- OUTSIDE RECORDS SUMMARY | 2025-01-13 19:55 | XMS_ITS | Clinical Summary ---
Author Organization [facility] Address [address] [place] [address] Care Team Providers Care Wood Veneer Taper Name Role Phone Melissa Daimond PA-C Primary Care Provider Source Comments [facility],non-owned Affiliates and Associated Physician Practices is amultiple site organization consisting of ambulatory clinics and hospital sitesin [place], [place], [place] and [place]. This disclosure is being madepursuant to the Care Everywhere program and may not contain all information available regarding this patient. Last updated 18.[facility] Allergies Active Allergy Reactions Criticality Noted Date [...] naloxone HCl (Narcan) 4 MG/0.1ML nasal spray [place] 1 (one) spray into the nose as [...] 01/09/2025 Telephone [facility] - Otolaryngology [address] [facility] [address] [place] [phone] Jose Muir MD Refill Request 01/07/2025 Telephone [facility] - ENT [address], [facility] [address] [place] [phone] Simone Hatfield MD Refill Request 01/02/2025 11:48 PM CDT - 01/03/2025 4:02 AM CDT Emergency [facility] EMERGENCY [facility]PARTMENT [address] [place] [phone] Caio Maria MD Shortness of breath; Abdominal pain, unspecified abdominal location Discharge Disposition: Left Against Medical Advice/Discontinued Care 01/02/2025 Travel 12/27/2024 Orders Only [facility] - ENT [address] [facility], [place] [phone] Dwight Hung MD 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 Refill [facility] PRE OP/POST OP [address] [place] [phone] Simone Hatfield MD MEDICATION REFILL 12/25/2024 Orders Only [facility] PRE OP/POST OP [address] [place] [phone] Simone Hatfield MD Tonsil cancer (HCC) 12/25/2024 Telephone [facility] - ENT [address] [place] [phone] Simone Hatfield MD Question 12/18/2024 10:00 AM CDT - 12/18/2024 11:59 PM CDT Hospital Encounter [facility] PET [address] [place] [address] Simone Hatfield MD Discharge Disposition: Home or Self Care 12/18/2024 9:00 AM CDT - 12/18/2024 9:59 AM CDT Hospital Encounter [facility] PET [address] [place] [address] Simone Hatfield MD Discharge Disposition: Home or Self Care 12/18/2024 Travel 12/12/2024 Orders Only [facility] - ENT [address] [place] [phone] Simone Hatfield MD Tonsil cancer ([facility]) 12/10/2024 Telephone [facility] - ENT [address], [address] [phone] Simone Hatfield MD [facility] 12/02/2024 Orders Only [facility] - ENT [address] [place] [phone] Simone Hatfield MD Tonsil cancer ([facility]) 12/01/2024 Orders Only [facility] - ENT [address], [address] [phone] Simone Hatfield MD Tonsil cancer ([facility]) 12/01/2024 Orders Only [facility] ENT [address], [address] [phone] Simone Hatfield MD Tonsil cancer ([facility]) 11/28/2024 Telephone [facility] ENT [address] [place] [phone] Brito, Anne-Marie Surgery Cancellation 11/26/2024 Orders Only [facility] - ENT [address] [place] [phone] Simone Hatfield MD Tonsil cancer (HCC) 11/26/2024 Telephone [facility] - ENT [address] [place] [phone] Simone Hatfield MD Med Question 11/26/2024 Refill [facility] [address] [place] [phone] Cinthia Samano MD MEDICATION REFILL 11/24/2024 Refill [facility] ENT [address] [place] [phone] Cinthia Samano MD MEDICATION REFILL 11/20/2024 Telephone [facility] - ENT [address] [place] [phone] June Surgery Scheduling 11/19/2024 4:04 PM CDT - 11/19/2024 11:59 PM CDT Hospital Encounter [facility] LAB OP DRAW STATION [address] [place] [phone] Melissa Diamond PA-C Discharge Disposition: Home or Self Care 11/19/2024 12:45 PM CDT Office Visit [facility] - ENT [address] [place] [phone] Simone Hatfield MD Palate mass (Primary Dx); Tonsillar mass; Other dysphagia 11/19/2024 Travel 11/18/2024 Refill [facility] - Orthopedics [address] [place] [phone] Cody Ortega MD MEDICATION REFILL 11/16/2024 10:54 PM CDT - 11/16/2024 11:05 PM CDT Emergency [facility] EM[facility] [address] [place] [phone] Neck pain Discharge Disposition: Left Against Medical [...] on file Legal Sex Male 7:39 PM HAT [employer] Gender Identity Not on file Sexual Orientation [...] (IP) [facility] STAT 12/18/2024 9:50 AM CDT VT BIOPSY OF MOUTH LESION Routine 11/19/2024 4:56 PM CDT Palate mass Tonsillar mass Other dysphagia VT LARYNGOSCOPY,FLEX FIBER,DIAGNOSTIC Routine 11/19/2024 4:54 PM CDT [...] DATE/TIME OF EXAM: 01/02/2025 11:03 PM, LOCATION [facility] INDICATION: R06.02: Shortness of breath ADDITIONAL CLINICAL [...] noted. Report dictated by Apryl Figueroa MD, (Product Support Sales Representative). Juan Jose Willis MD have personally reviewed and interpreted this examination/study. > Interpreting Provider: Juan Jose Holguin MD on 01/03/2025 6:59 AM Procedure Note Juan Jose Holguin MD - 01/03/2025 PROCEDURE: XR CHEST 2VW, DATE/TIME OF EXAM: 01/02/2025 11:03 PM, LOCATION [facility] INDICATION: R06.02: Shortness of breath ADDITIONAL CLINICAL [...] noted. Report dictated by Apryl Figueroa MD, (Product Support Sales Representative). Juan Jose Willis MD have personally reviewed and interpreted this examination/study. > Interpreting Provider: Juan Jose Holguin MD on 56:59 AM us Francesca Avalos PA-C DIAGNOSTIC IMAGING ORDERABLES Final Result * LACTIC ACID BLOOD REFLEX TO REPEAT (01/02/2025 10:16 PM CDT) [facility] Lactic Acid-Stat 0.9 <=2.0 mmol/L 01/02/2025 10:53 PM T [facility] Blood BLOOD SPECIMEN / Unknown Venipuncture / Unknown 01/02/2025 10:16 PM CDT 01/02/2025 10:25 PM CDT us Jared Granado MD LAB - CHEMISTRY ORDERABLES Fi nal Result [facility] [address] [place] [phone], [facility] [phone] * (ABNORMAL) CBC W AUTO DIFFERENTIAL (01/02/2025 10:16 PM CDT) Only the most recent of2 resultswithin the time period is included. [facility] WBC 12.6(H) 4.0 - 10.7 x10E9/L 01/02/2025 10:30 PM [facility] RBC Count 4.62 4.30 - 5.80 x10E12/L 01/02/2025 10:30 PM [facility] Hemoglobin 13.0(L) 13.3 - 17.5 g/dL 01/02/2025 10:30 PM [facility] Hematocrit 38.0(L) 38.7 - 51.1 % 01/02/2025 10:30 PM [facility] MCV 82.3 80.0 - 98.0 fL 01/02/2025 10:30 PM [facility] MCH 28.1 26.7 - 33.6 pg 01/02/2025 10:30 PM [facility] MCHC 34.2 31.7 - 36.3 g/dL 01/02/2025 10:30 PM [facility] RDW-CV 12.3 11.3 - 14.8 % 01/02/2025 10:30 PM [facility] Platelet Count 263 150 - 420 x10E9/L 01/02/2025 10:30 PM [facility] MPV 9.1 7.8 - 11.4 fL 01/02/2025 10:30 PM [facility] Neutrophil % 81.7(H) 41.0 - 74.0 % 01/02/2025 10:30 PM [facility] Lymphocyte % 10.9(L) 17.0 - 47.0 % 01/02/2025 10:30 PM [facility] Monocyte % 6.3 3.0 - 11.0 % 01/02/2025 10:30 PM [facility] Eosinophil % 0.6 0.0 - 7.0 % 01/02/2025 10:30 PM [facility] Basophil % 0.2 0.0 - 1.6 % 01/02/2025 10:30 PM [facility] Immature Granulocytes % 0.3 0.0 - 1.0 % 01/02/2025 10:30 PM [facility] Neutrophil Absolute 10.25(H) 1.60 - 7.50 x10E9/L 01/02/2025 10:30 PM [facility] Lymphocyte Absolute 1.37 1.00 - 4.40 x10E9/L 01/02/2025 10:30 PM [facility] Monocyte Absolute 0.79 0.15 - 1.00 x10E9/L 01/02/2025 10:30 PM [facility] Eosinophil Absolute 0.08 0.00 - 0.60 x10E9/L 01/02/2025 10:30 PM [facility] Basophil Absolute 0.03 0.00 - 0.13 x10E9/L 01/02/2025 10:30 PM [facility] Blood BLOOD SPECIMEN / Unknown Venipuncture / Unknown 01/02/2025 10:16 PM CDT 01/02/2025 10:25 PM T us Francesca Wahler PA-C LAB - HEMATOLOGY ORDERABLES F inal Result [facility] [address] [place] [phone], [facility] [phone] * (ABNORMAL) COMPREHENSIVE METABOLIC PANEL (01/02/2025 10:16 PM [facility]) Only the most recent of2 resultswithin the time period is included. BUN 11 7 - 26 mg/dL 01/02/2025 10:55 PM [facility] Creatinine 0.75 0.71 - 1.16 mg/dL 01/02/2025 10:55 PM [facility] Sodium 133(L) 136 - 145 mmol/L 01/02/2025 10:55 PM [facility] Potassium 4.2 3.5 - 4.5 mmol/L 01/02/2025 10:55 PM [facility] Chloride 101 98 - 107 mmol/L 01/02/2025 10:55 PM [facility] CO2 26 22 - 29 mmol/L 01/02/2025 10:55 PM [facility] Glucose 160(H) 70 - 99 mg/dL 01/02/2025 10:55 PM [facility] Calcium 9.0 8.4 - 10.2 mg/dL 01/02/2025 10:55 PM [facility] Protein Total 7.5 6.0 - 8.3 g/dL 01/02/2025 10:55 PM [facility] Albumin 3.7 3.4 - 5.0 g/dL 01/02/2025 10:55 PM [facility] Bilirubin Total 0.6 0.2 - 1.2 mg/dL 01/02/2025 10:55 PM [facility] Alkaline Phosphatase 90 40 - 150 U/L 01/02/2025 10:55 PM [facility] ALT 10 5 - 55 U/L 01/02/2025 10:55 PM [facility] AST 13 5 - 34 U/L 01/02/2025 10:55 PM [facility] Anion Gap 6 6 - 16 01/02/2025 10:55 PM [facility] BUN/Creatinine Ratio 15 7 - 23 01/02/2025 10:55 PM CDT [facility] Osmolality Calculated 279 275 - 295 mOsm/kg 01/02/2025 10:55 PM CDT [facility] Albumin/Globulin Ratio 1.0(L) 1.1 - 2.3 01/02/2025 10:55 PM CDT [facility] eGFR by CKD-EPI >90 >=90 mL/min/1.7 3 m2 01/02/2025 10:55 PM CDT [facility] Comment:Estimated Glomerular Filtration Rate (eGFR) calculated using the CKD-EPI Creatinine Equation (2020), per the National Kidney Foundation and [place] [employer]ph[employer] recommendations. Blood BLOOD SPECIMEN / Unknown Venipuncture / Unknown 01/02/2025 10:16 PM CDT 01/02/2025 10:24 PM CDT Francesca Avalos PA-C LAB - CHEMISTRY ORDERABLES Fi nal Result [facility] [address] [place] [phone], [facility] [phone] * PET CT Skull To Mid Thigh [...] effects. Report dictated by Heriberto Sawyer MD(radiology teacher). > Dictated by Heriberto Sawyer MD (Product Support Sales Representative) 12/18/2024 11:47 AM IJanelle DO have personally reviewed and interpreted this examination/study. 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 Report dictated by Heriberto Sawyer MD(radiology teacher). > Dictated by Heriberto Sawyer MD (Product Support Sales Representative) 12/18/2024 11:47 AM I, Janelle Lynn DO [...] Final Result [facility] POCT TESTING [address] [place] [address], [facility] [phone] * VT BIOPSY OF MOUTH LESION (11/19/2024 4:56 PM [...] PROCEDURE/MINOR SURGICAL ORDE RABLES Final Result * VT LARYNGOSCOPY,FLEX FIBER,DIAGNOSTIC (11/19/2024 4:54 PM CDT) Narrative [...] CDT) Case Report Surgical Pathology Report Case: [id number] Authorizing Provider: Simone Hatfield MD Collected: 11/19/2024 02:15 PM Ordering Location: [facility] - Received: 11/20/2024 09:42 [...] for p40 (3+, 100%), consistent with a [id number] oropharyngeal squamous cell carcinoma. Controls stained appropriately. [...] the right posterior tongue. 11/21/2024 3:38 PM [facility] Gross Description The requisition and specimen(s) are identified with the patient's name, Clark Farnsworth. Received in formalin, specimen A, mouth SA is a 1.3 x 0.5 x 0.2 cm aggregate of unoriented pink-curiel, glistening soft tissue fragments with focal hemorrhage, submitted in toto as cassette A1. AL 11/21/2024 3:38 PM [facility] Pathologist Location at [facility] 11/21/2024 3:38 PM T [facility] Disclaimer The performance characteristics of all immunohistochemical and indirect immunofluorescence stains (if any) cited in this report were determined by the Histopathology Laboratory of [facility]. Some of these tests were developed by [...] attending (teaching) pathologist. 11/21/2024 3:38 PM T [facility] Embedded Images 11/21/2024 3:38 PM [facility] Pathology/Cytolo gy ENTIRE MOUTH REGION / Unknown Collection / Unknown 11/19/2024 2:15 PM CDT 11/20/2024 9:42 AM CDT Comment:Right tonsil/palate us Simone Hatfield MD LAB - PATHOLOGY/CYTOLOGY KOLE BAJWA Final Result [facility] [address] [place] [address] * CT Neck Soft Tissue W Cont [...] is dictated by Wanda Juárez MD (radiology teacher) I, Angie Blount MD have personally reviewed and interpreted this examination/study. > Interpreting Provider: Angie Blount MD on 11/17/2024 10:50 AM Narrative 11/17/2024 10:50 AM CDT PROCEDURE: CT NECK SOFT TISSUE W CONT, DATE/TIME OF EXAM: 11/16/2024 6:05 PM, LOCATION [facility] INDICATION: M54.2: Neck pain ADDITIONAL CLINICAL INFORMATION: Ordering Provider Reason For Exam: r/o significant edema of airway; known throat cancer Technologist Note: Does the patient have a history of renal insufficiency?->No Additional: 44-year-old male PMH as noted below who presents with describes new esophageal cancer Dx several weeks ago in [place], [place]. Lost to follow up. Reports worsening [...] palate. There is extension to the right agricultural purchasing agent space. There is extension to the right [...] CONT, DATE/TIME OF EXAM: 56:05 PM, LOCATION [facility] INDICATION: M54.2: Neck pain ADDITIONAL CLINICAL INFORMATION: Ordering Provider Reason For Exam: r/o significant edema of airway;known throat cancer Technologist Note: Does the patient have a history of renal insufficiency?->No Additional: 44-year-old male PM as noted below who presents with describes new esophageal cancer Dx several weeks ago in [place], [place]. Lost to follow up. Reports worsening [...] palate. There is extension to the right agricultural purchasing agent space. There is extension to the right [...] is dictated by Wanda Juárez MD (radiology teacher) IAngie MD have personally reviewed and interpretedthis examination/study. > Interpreting Provider: Angie Blount MD on 11/17/2024 10:50 AM Sven Garcia PA-C CT ORDERABLES Final Resu lt from Last 3 Months Insurance [facility] MEDICAID - [place] Care Teams Wood Veneer Taper Relationship Specialty Start Date End Date Melissa Diamond PA-C [address] [phone] PCP - General Physician Director Of Litigation 09/25/24
--- OUTSIDE RECORDS SUMMARY | 2025-01-13 19:55 | XMS_ITS | Encounter Summary ---
Author Organization [facility] Address [address] [facility] [place] [address] Care Team Providers Care Spiral Spring Winder Name Role Phone Melissa Diamond PA-C Primary Care Provider Reason for Visit * Reason Onset Date Comments MEDICATION REFILL 11/24/2024 Encounter Details Date Type Department Care Team (Late st Contact Info) Description 11/24/2024 Refill [facility] [address] [place] [phone] Cinthia Samano MD [address] [place] [address] MEDICATION REFILL Social History Tobacco Use Types Packs/Day Years Used Date Smoking Tobacco: Former Smokeless Tobacco: Never PHQ-2 Answer Date Recorded Patient Health Questionnaire-2 Score 6 03/04/2024 Sex and Gender Information Value Date Recorded Sex Assigned at Not on file Legal 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
--- OUTSIDE RECORDS SUMMARY | 2025-01-13 19:55 | XMS_ITS | Clinical Summary ---
Author Organization [facility] Address [facility] [place] [address] Care Team Providers Care Internal Controls Analyst Name Role Phone Caleb Jordan MD [...] Documents on File Type Date Recorded Patient Sales Counselor Expl anation Advance Directives and Living Will 08/17/2010 12:00 AM ADVANCED DIRECTIVES Care Teams Internal Controls Analyst Relationship Specialty Start Date End Date Caleb Jordan MD [address] [facility] [place] [phone] PCP - General FAMILY PRACTICE 10/18/22
--- OUTSIDE RECORDS SUMMARY | 2025-01-13 19:55 | XMS_ITS | Encounter Summary ---
Author Organization [facility] Address [facility] [place] [address] Care Team Providers Care Pricing/Signage Team Member Name Role Phone None, Provider Primary Care Provider Caleb Coulter MD Primary Care Provider Encounter Details Date Type Department Care Team (Latest Contact Info) Description 04/30/2018 Abstract [facility] Arvind Alves MD [...] on filedocumented in this encounter Care Teams Pricing/Signage Team Member Relationship Specialty Start Date End Date None, Provider, PCP - General UNKNOWN PHYSICIAN SPECIALTY 09/19/22 10/17/22 Caleb Jordan MD [facility] [place] [phone] PCP - General FAMILY PRACTICE 10/18/22 documented as of this encounter
--- OUTSIDE RECORDS SUMMARY | 2025-01-13 19:55 | XMS_ITS | Encounter Summary ---
Author Organization [facility] Address [address] [place], [place] [address] [address] Care Team Providers Care Supervisor Fish Hatchery Name Role Phone Melissa Diamond PA-C Primary Care Provider Reason for Visit * Reason Onset Date Comments MEDICATION REFILL 12/26/2024 Encounter Details Date Type Department Care Team (Late st Contact Info) Description 12/26/2024 Refill [facility]/POST OP [address] [place] [phone] Simone Hatfield MD [address] [facility] [address] [place] [phone] MEDICATION REFILL Social History Tobacco Use Types Packs/Day Years Used Date Smoking Tobacco: Former Smokeless Tobacco: Never PHQ-2 Answer Date Recorded Patient Health Questionnaire-2 Score 6 03/04/2024 Sex and Gender Information Value Date Recorded Sex Assigned at Not on file Legal Sex Male 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
--- OUTSIDE RECORDS SUMMARY | 2025-01-13 19:55 | XMS_ITS | Encounter Summary ---
Author Organization [facility] Address [address] [facility] [place] [address] Care Team Providers Care Slate Cutter Operator Name Role Phone Melissa Diamond PA-C Primary Care Provider Reason for Visit * Reason Onset Date Comments MEDICATION REFILL 11/26/2024 Encounter Details Date Type Department Care Team (Late st Contact Info) Description 11/26/2024 Refill [facility] [address] [place] [phone] Cinthia Samano MD [address] [place] [address] MEDICATION REFILL Social History Tobacco Use Types Packs/Day Years Used Date Smoking Tobacco: Former Smokeless Tobacco: Never PHQ-2 Answer Date Recorded Patient Health Questionnaire-2 Score 6 03/04/2024 Sex and Gender Information Value Date Recorded Sex Assigned at Not on file Legal Sex Male 7:39 PM 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
--- NOTE | 2025-01-13 20:12 | PC.NURSE ---
PATIENT IS RESTING ON STRETCHER. WOB NON LABORED. CONTINUES TO BE RESPONSIVE TO PAIN ONLY. WIGGLES AROUND IN BED.
--- NOTE | 2025-01-13 20:14 | PC.NURSE ---
SIGNIFICANT OTHER HAS LEFT SHORTLY AFTER DROPPING PATIENT OFF.
--- NOTE | 2025-01-13 20:17 | PC.NURSE ---
LAB AT THE BEDSIDE
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
--- NOTE | 2025-01-13 20:32 | PC.NURSE ---
PATIENT HAS NOW BEEN PLACED INTO 4 POINT SOFT RESTRAINTS. WILL REMOVE RESTRAINTS PATIENT SETTLES DOWN.
--- NOTE | 2025-01-13 20:36 | PC.NURSE ---
SIGNIFICANT OTHER IS NOW BACK AT THE BEDSIDE.
[2025-01-13 20:48] LABS: Alanine Aminotransferase 18 U/L (6-50); Albumin Level 4.0 g/dL (3.5-5.1); Alkaline Phosphatase 88 U/L (38-126); Ammonia 18 umol/L (9-30); Anion Gap 5 mmol/L (4-12); Aspartate Amino Transferase 32 U/L (17-59); Bilirubin,Total 0.6 mg/dL (0.2-1.3); Blood Urea Nitrogen 12 mg/dL (9-20); Calcium 8.5 mg/dL (8.4-10.2); Carbon Dioxide 29 mmol/L (22-30); Chloride 105 mmol/L (98-107); Estimated CRCL calculation 114 ml/min; Estimated Glomerular Filt Rate > 60; Glucose 115 mg/dL (65-110); Osmolality Calculated 288 mOsm/kg (285-295); Potassium 4.7 mmol/L (3.4-5.0); Sodium 139 mmol/L (137-145); Total Protein 7.5 g/dL (6.3-8.2)
--- NOTE | 2025-01-13 20:50 | PC.NURSE ---
SIGNIFICANT OTHER AT THE BEDSIDE. ASKED HER NOT TO STIMULATE PATIENT. SIGNIFICANT OTHER ROLLED HER EYES AT THIS RN
[2025-01-13 21:07] LABS: Troponin I < 0.012 ng/mL (0.000-0.034)
[2025-01-13 21:21] LABS: Magnesium 2.3 mg/dL (1.6-2.3)
[2025-01-13 21:40] LABS: Thyroid Stimulating Hormone 0.695 uIU/mL (0.465-4.680)
[2025-01-13 21:41] LABS: Hematocrit 37.7 % (40.0-54.0); Hemoglobin 12.1 g/dL (14.0-18.0); Immature Granulocyte Percent A 0.4 % (0.0-0.0); Lymphocytes Absolute Auto 2.13 K/mm3 (1.10-4.50); Mean Corpuscular HGB Conc 32.1 g/dL (32-36); Mean Corpuscular Hemoglobin 28.0 pg (27.0-31.0); Mean Corpuscular Volume 87.3 fL (78.0-102.0); Nucleated Red Blood Cells Absolute Auto 0.00 K/mm3 (0.00-0.00); Nucleated Red Blood Cells Perc 0.0 % (0-0.0); Platelet Count Result 283 K/mm3 (150-420); Red Blood Count 4.32 M/mm3 (4.70-6.10); White Blood Count 7.3 K/mm3 (4.8-10.8)
[2025-01-13 21:54] LABS: INR 1.0; Prothrombin Time 11.5 Seconds (9.50-12.1)
[2025-01-14 00:15] VITALS: PULSE 71; RESP 18; O2SAT 98
[2025-01-14 00:45] VITALS: PULSE 71; RESP 18; O2SAT 98
--- NOTE | 2025-01-14 00:46 | PC.NURSE ---
Addendum entered by Celsa Foster RN 01/14/25 00:55: Original Note: Pt's girlfriend is Cathy Linda. Please call her with any updates, if pt is discharged or decides to leave AMA. She will pick him up.
--- NOTE | 2025-01-14 01:07 | PC.NURSE ---
ED SBAR printed and reviewed.
[2025-01-14 01:17] VITALS: O2SAT 96; BMI 17.6
--- NOTE | 2025-01-14 02:01 | ADMGEN ---
This patient, Jose Manuel Farnsworth, was admitted to 2nd Floor Room 226-2. Pt is currently unresponsive excluding pain stimuli. Pt's girlfriend is aware of his location and status. Pt belongings include a necklace and ankle monitor on person and a pair of tennis shoes beside pt's bed.
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
[2025-01-14 04:00] VITALS: PULSE 75
--- NOTE | 2025-01-14 05:50 | PC.NURSE ---
Pt is awake and oriented to person, place, and time. Pt drowsy, but able to communicate understanding of the risks of leaving AMA. Dr. Guardado communicated risks to pt as well. Pt ambulated to wheelchair safely. Pt wheeled to his s/o's car w/no issues.
--- OUTSIDE RECORDS SUMMARY | 2025-01-14 07:15 | XMS_ITS | Clinical Summary ---
Author Organization [facility] Address [address] [address] Care Team Providers Care Sales Product Specialist Name Role Phone Melissa Diamond PA-C Primary Care Provider Source Comments [facility] [email or web address],non-owned Affiliates and Associated Physician Practices is amultiple site organization consisting of ambulatory clinics and hospital sitesin [place], [place], [place] and [place]. This disclosure is being madepursuant to the Care Everywhere program and may not contain all information available regarding this patient. Last updated 18.[facility] [email or web address] Allergies Active Allergy Reactions Criticality Noted Date [...] naloxone HCl (Narcan) 4 MG/0.1ML nasal spray Start 1 (one) spray into the nose as [...] 01/09/2025 Telephone [facility] - Otolaryngology [address] [address] [facility] [address] [place] [address] Jose Muir MD Refill Request 01/07/2025 Telephone [facility] - ENT [address], [facility] [address] [place] [phone] Simone Hatfield MD Refill Request 01/02/2025 11:48 PM CDT - 01/03/2025 4:02 AM CDT Emergency [facility] EMERGENCY DEPARTMENT [address] [place] [phone] Caio Maria MD Shortness of breath; Abdominal pain, unspecified abdominal location Discharge Disposition: Left Against Medical Advice/Discontinued Care 01/02/2025 Travel 12/27/2024 Orders Only [facility] - ENT [address] [facility], [place] [phone] Dwight Hung MD 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 Refill [facility] PRE OP/POST OP [address] [place] [phone] Simone Hatfield MD MEDICATION REFILL 12/25/2024 Orders Only [facility] PRE OP/POST OP [address] [place] [phone] Simone Hatfield MD Tonsil cancer (HCC) 12/25/2024 Telephone [facility] - ENT [address] [place] [phone] Simone Hatfield MD Question 12/18/2024 10:00 AM CDT - 12/18/2024 11:59 PM CDT Hospital Encounter [facility] PET [address] [place] [address] Simone Hatfield MD Discharge Disposition: Home or Self Care 12/18/2024 9:00 AM CDT - 12/18/2024 9:59 AM CDT Hospital Encounter [facility] PET [address] [place] [address] Simone Hatfield MD Discharge Disposition: Home or Self Care 12/18/2024 Travel 12/12/2024 Orders Only [facility] - ENT [address] [place] [phone] Simone Hatfield MD Tonsil cancer ([facility]) 12/10/2024 Telephone [facility] ENT [address], [address] [phone] Simone Hatfield MD [facility] 12/02/2024 Orders Only [facility] ENT [address] [place] [phone] Simone Hatfield MD Tonsil cancer ([facility]) 12/01/2024 Orders Only [facility] ENT [address], [address] [phone] Simone Hatfield MD Tonsil cancer ([facility]) 12/01/2024 Orders Only [facility] ENT [address], [address] [phone] Simone Hatfield MD Tonsil cancer ([facility]) 11/28/2024 Telephone [facility] ENT [address] [place] [phone] Brito, Anne-Marie Surgery Cancellation 11/26/2024 Orders Only [facility] ENT [address] [place] [phone] Simone Hatfield MD Tonsil cancer (HCC) 11/26/2024 Telephone [facility] [address] [place] [phone] Simone Hatfield MD Med Question 11/26/2024 Refill [facility] [address] [place] [phone] Cinthia Samano MD MEDICATION REFILL 11/24/2024 Refill [facility] [address] [place] [phone] Cinthia Samano MD MEDICATION REFILL 11/20/2024 Telephone [facility] ENT [address] [place] [phone] June Surgery Scheduling 11/19/2024 4:04 PM CDT - 11/19/2024 11:59 PM CDT Hospital Encounter [facility] LAB OP DRAW STATION [address] [place] [phone] Melissa Diamond PA-C Discharge Disposition: Home or Self Care 11/19/2024 12:45 PM CDT Office Visit [facility] - ENT [address] [place] [phone] Simone Hatfield MD Palate mass (Primary Dx); Tonsillar mass; Other dysphagia 11/19/2024 Travel 11/18/2024 Refill [facility] - Orthopedics [address] [place] [phone] Cody Ortega MD MEDICATION REFILL 11/16/2024 10:54 PM CDT - 11/16/2024 11:05 PM CDT Emergency [facility] EMERGENCY DEPARTMENT [address] [place] [phone] Neck pain Discharge Disposition: Left Against Medical [...] on file 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 Report dictated by Apryl Figueroa MD, (Steel Sampler). Juan Jose Willis MD have personally reviewed and interpreted this examination/study. > Interpreting Provider: Juan Jose Holguin MD on 01/03/2025 6:59 AM Procedure Note Juan Jose Holguin MD - 01/03/2025 PROCEDURE: XR CHEST 2VW, DATE/TIME OF EXAM: 01/02/2025 11:03 PM, LOCATION [facility] INDICATION: R06.02: Shortness of breath ADDITIONAL [...] noted. Report dictated by Apryl Figueroa MD, (Steel Sampler). Juan Jose Willis MD have personally reviewed and interpreted this examination/study. > Interpreting Provider: Juan Jose Holguin MD on 56:59 AM us Francesca Avalos PA-C DIAGNOSTIC IMAGING ORDERABLES Final Result * LACTIC ACID BLOOD REFLEX TO REPEAT (01/02/2025 10:16 PM CDT) [facility] Lactic Acid-Stat 0.9 <=2.0 mmol/L 01/02/2025 10:53 PM T [facility] Blood BLOOD SPECIMEN / Unknown Venipuncture / Unknown 01/02/2025 10:16 PM CDT 01/02/2025 10:25 PM CDT us Jared Granado MD LAB - CHEMISTRY ORDERABLES Fi nal Result [facility] [address] [place] [phone], [facility] [phone] * (ABNORMAL) CBC W AUTO DIFFERENTIAL (01/02/2025 10:16 PM CDT) Only the most recent of2 resultswithin the time period is included. [facility] WBC 12.6(H) 4.0 - 10.7 x10E9/L 01/02/2025 10:30 PM [facility] RBC Count 4.62 4.30 - 5.80 x10E12/L 01/02/2025 10:30 PM [facility] Hemoglobin 13.0(L) 13.3 - 17.5 g/dL 01/02/2025 10:30 PM [facility] Hematocrit 38.0(L) 38.7 - 51.1 % 01/02/2025 10:30 PM [facility] MCV 82.3 80.0 - 98.0 fL 01/02/2025 10:30 PM [facility] MCH 28.1 26.7 - 33.6 pg 01/02/2025 10:30 PM [facility] MCHC 34.2 31.7 - 36.3 g/dL 01/02/2025 10:30 PM [facility] RDW-CV 12.3 11.3 - 14.8 % 01/02/2025 10:30 PM [facility] Platelet Count 263 150 - 420 x10E9/L 01/02/2025 10:30 PM [facility] MPV 9.1 7.8 - 11.4 fL 01/02/2025 10:30 PM [facility] Neutrophil % 81.7(H) 41.0 - 74.0 % 01/02/2025 10:30 PM [facility] Lymphocyte % 10.9(L) 17.0 - 47.0 % 01/02/2025 10:30 PM [facility] Monocyte % 6.3 3.0 - 11.0 % 01/02/2025 10:30 PM [facility] Eosinophil % 0.6 0.0 - 7.0 % 01/02/2025 10:30 PM [facility] Basophil % 0.2 0.0 - 1.6 % 01/02/2025 10:30 PM [facility] Immature Granulocytes % 0.3 0.0 - 1.0 % 01/02/2025 10:30 PM [facility] Neutrophil Absolute 10.25(H) 1.60 - 7.50 x10E9/L 01/02/2025 10:30 PM [facility] Lymphocyte Absolute 1.37 1.00 - 4.40 x10E9/L 01/02/2025 10:30 PM [facility] Monocyte Absolute 0.79 0.15 - 1.00 x10E9/L 01/02/2025 10:30 PM [facility] Eosinophil Absolute 0.08 0.00 - 0.60 x10E9/L 01/02/2025 10:30 PM [facility] Basophil Absolute 0.03 0.00 - 0.13 x10E9/L 01/02/2025 10:30 PM [facility] Blood BLOOD SPECIMEN / Unknown Venipuncture / Unknown 01/02/2025 10:16 PM CDT 01/02/2025 10:25 PM T us Francesca Wahler PA-C LAB - HEMATOLOGY ORDERABLES F inal Result [facility] [address] [place] [address], [facility] [phone] * (ABNORMAL) COMPREHENSIVE METABOLIC PANEL (01/02/2025 10:16 PM [facility]) Only the most recent of2 resultswithin the time period is included. BUN 11 7 - 26 mg/dL 01/02/2025 10:55 PM [facility] Creatinine 0.75 0.71 - 1.16 mg/dL 01/02/2025 10:55 PM [facility] Sodium 133(L) 136 - 145 mmol/L 01/02/2025 10:55 PM [facility] Potassium 4.2 3.5 - 4.5 mmol/L 01/02/2025 10:55 PM [facility] Chloride 101 98 - 107 mmol/L 01/02/2025 10:55 PM [facility] CO2 26 22 - 29 mmol/L 01/02/2025 10:55 PM [facility] Glucose 160(H) 70 - 99 mg/dL 01/02/2025 10:55 PM [facility] Calcium 9.0 8.4 - 10.2 mg/dL 01/02/2025 10:55 PM [facility] Protein Total 7.5 6.0 - 8.3 g/dL 01/02/2025 10:55 PM [facility] Albumin 3.7 3.4 - 5.0 g/dL 01/02/2025 10:55 PM [facility] Bilirubin Total 0.6 0.2 - 1.2 mg/dL 01/02/2025 10:55 PM [facility] Alkaline Phosphatase 90 40 - 150 U/L 01/02/2025 10:55 PM [facility] ALT 10 5 - 55 U/L 01/02/2025 10:55 PM [facility] AST 13 5 - 34 U/L 01/02/2025 10:55 PM [facility] Anion Gap 6 6 - 16 01/02/2025 10:55 PM [facility] BUN/Creatinine Ratio 15 7 - 23 01/02/2025 10:55 PM CDT [facility] Osmolality Calculated 279 275 - 295 mOsm/kg 01/02/2025 10:55 PM CDT [facility] Albumin/Globulin Ratio 1.0(L) 1.1 - 2.3 01/02/2025 10:55 PM CDT [facility] eGFR by CKD-EPI >90 >=90 mL/min/1.7 3 m2 01/02/2025 10:55 PM CDT [facility] Comment:Estimated Glomerular Filtration Rate (eGFR) calculated using the CKD-EPI Creatinine Equation (2020), per the National Kidney Foundation and [place] [employer]ph[employer] recommendations. Blood BLOOD SPECIMEN / Unknown Venipuncture / Unknown 01/02/2025 10:16 PM CDT 01/02/2025 10:24 PM CDT Francesca Avalos PA-C LAB - CHEMISTRY ORDERABLES Fi nal Result [facility] [address] [place] [phone], [facility] [phone] * PET CT Skull To Mid Thigh [...] insulin effects. Report dictated by Heriberto Sawyer MD(interventional radiology rn). > Dictated by Heriberto Sawyer MD (Steel Sampler) 12/18/2024 11:47 AM IJanelle DO have personally reviewed and interpreted this examination/study. 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 Report dictated by Heriberto Sawyer MD(interventional radiology rn). > Dictated by Heriberto Sawyer MD (Steel Sampler) 12/18/2024 11:47 AM I, Janelle Lynn DO have personally reviewed and interpreted this examination/study. > Interpreting Provider: Janelle Lynn DO on 12/18/2024 1:20 PM Simone Hatfield MD NM ORDERABLES Edited Result - Final * (ABNORMAL) GLUCOSE SCREEN - POCT (IP) [facility] (12/18/2024 9:50 AM CDT) Glucose WB/POC 140(A) 70 - 99 mg/dL [facility] POCT TESTING Blood BLOOD SPECIMEN / Unknown 12/18/2024 9:50 AM CDT Simone Hatfield MD LAB - POINT OF CARE ORDERABLE S Final Result [facility] POCT TESTING [address] [place] [address], [facility] [phone] * [place] BIOPSY OF MOUTH LESION (11/19/2024 4:56 PM [...] PROCEDURE/MINOR SURGICAL ORDE RABLES Final Result * [place] LARYNGOSCOPY,FLEX FIBER,DIAGNOSTIC (11/19/2024 4:54 PM CDT) Narrative [...] CDT) Case Report Surgical Pathology Report Case: [id number] Authorizing Provider: Simone Hatfield MD Collected: 11/19/2024 02:15 PM Ordering Location: [facility] - Received: 11/20/2024 09:42 AM [...] for p40 (3+, 100%), consistent with a [id number] oropharyngeal squamous cell carcinoma. Controls stained appropriately. [...] the right posterior tongue. 11/21/2024 3:38 PM [facility] Gross Description The requisition and specimen(s) are identified with the patient's name, Clark Farnsworth. Received in formalin, specimen A, mouth SA is a 1.3 x 0.5 x 0.2 cm aggregate of unoriented pink-curiel, glistening soft tissue fragments with focal hemorrhage, submitted in toto as cassette A1. [place] 11/21/2024 3:38 PM [facility] Pathologist Location at [facility] 11/21/2024 3:38 PM T [facility] Disclaimer The performance characteristics of all immunohistochemical and indirect immunofluorescence stains (if any) cited in this report were determined by the Histopathology Laboratory of [facility]. Some of these tests were [...] attending (teaching) pathologist. 11/21/2024 3:38 PM T [facility] Embedded Images 11/21/2024 3:38 PM [facility] Pathology/Cytolo gy ENTIRE MOUTH REGION / Unknown Collection / Unknown 11/19/2024 2:15 PM CDT 11/20/2024 9:42 AM CDT Comment:Right tonsil/palate us Simone Hatfield MD LAB - PATHOLOGY/CYTOLOGY KOLE BAJWA Final Result [facility] LAB [address] [place] [address] * CT Neck Soft Tissue W Cont [...] report is dictated by Wanda Juárez MD (interventional radiology rn) I, Angie Blount MD have personally reviewed and interpreted this examination/study. > Interpreting Provider: Angie Blount MD on 11/17/2024 10:50 AM Narrative 11/17/2024 10:50 AM CDT PROCEDURE: CT NECK SOFT TISSUE W CONT, DATE/TIME OF EXAM: 11/16/2024 6:05 PM, LOCATION [facility] INDICATION: M54.2: Neck pain ADDITIONAL CLINICAL INFORMATION: Ordering Provider Reason For Exam: r/o significant edema of airway; known throat cancer Technologist Note: Does the patient have a history of renal insufficiency?->No Additional: 44-year-old male PMH as noted below who presents with describes new esophageal cancer Dx several weeks ago in [place], [place]. Lost to follow up. Reports worsening [...] palate. There is extension to the right bill collector space. There is extension to the right [...] CONT, DATE/TIME OF EXAM: 56:05 PM, LOCATION [facility] INDICATION: M54.2: Neck pain ADDITIONAL CLINICAL INFORMATION: Ordering Provider Reason For Exam: r/o significant edema of airway;known throat cancer Technologist Note: Does the patient have a history of renal insufficiency?->No Additional: 44-year-old male PM as noted below who presents with describes new esophageal cancer Dx several weeks ago in [place], [place]. Lost to follow up. Reports worsening [...] palate. There is extension to the right bill collector space. There is extension to the right [...] report is dictated by Wanda Juárez MD (interventional radiology rn) IAngie MD have personally reviewed and interpretedthis examination/study. > Interpreting Provider: Angie Blount MD on 11/17/2024 10:50 AM Sven Garcia PA-C CT ORDERABLES Final Resu lt from Last 3 Months Insurance [facility] Care Address: [address] [phone] MEDICAID [place] Care Teams Sales Product Specialist Relationship Specialty Start Date End Date Melissa Diamond PA-C [address] [phone] PCP - General Physician Corporate Communications Intern 09/25/24
--- OUTSIDE RECORDS SUMMARY | 2025-01-14 07:15 | XMS_ITS | Encounter Summary ---
Author Organization [facility] Address [address] [facility] [place] [place] [address] Care Team Providers Care News Department Intern Name Role Phone Melissa Diamond PA-C Primary Care Provider Reason for Visit * Reason Onset Date Comments MEDICATION REFILL 11/24/2024 Encounter Details Date Type Department Care Team (Late st Contact Info) Description 11/24/2024 Refill [facility] [address] [place] [phone] Cinthia Samano MD [address] [place] [address] MEDICATION REFILL Social History Tobacco Use Types Packs/Day Years Used Date Smoking Tobacco: Former Smokeless Tobacco: Never PHQ-2 Answer Date Recorded Patient Health Questionnaire-2 Score 6 03/04/2024 Sex and Gender Information Value Date Recorded Sex Assigned at Not on file Legal Sex Male 7:39 PM 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
--- OUTSIDE RECORDS SUMMARY | 2025-01-14 07:15 | XMS_ITS | Encounter Summary ---
Author Organization [facility] Address [address] [place], [place] [address] [address] Care Team Providers Care Certified Juvenile Probation Officer Name Role Phone Melissa Diamond PA-C Primary Care Provider Reason for Visit * Reason Onset Date Comments MEDICATION REFILL 12/26/2024 Encounter Details Date Type Department Care Team (Late st Contact Info) Description 12/26/[address] [facility] PRE OP/POST OP [address] [place] [phone] Simone Hatfield MD [address] [facility] 2[address] [place] [phone] MEDICATION REFILL Social History Tobacco Use Types Packs/Day Years Used Date Smoking Tobacco: Former Smokeless Tobacco: Never PHQ-2 Answer Date Recorded Patient Health Questionnaire-2 Score 6 03/04/2024 Sex and Gender Information Value Date Recorded Sex Assigned at Not on file Legal Sex Male 7:39 PM REIMBURSEMENT SPEC Gender Identity Not on file Sexual Orientation [...] Assessment Author No 09/03/2020 2:02 PM Mike Wellnigton RN documented as of this encounter Mental Status * Does person have difficulty concentrating/remembering/making decisions? 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
--- OUTSIDE RECORDS SUMMARY | 2025-01-14 07:15 | XMS_ITS | Encounter Summary ---
Author Organization [facility] Address [address] [facility] [place] [address] Care Team Providers Care Department Chairperson Name Role Phone Melissa Diamond PA-C Primary Care Provider Reason for Visit * Reason Onset Date Comments MEDICATION REFILL 11/26/2024 Encounter Details Date Type Department Care Team (Late st Contact Info) Description 11/26/2024 Refill [facility]NT [address] [place] [phone] Cinthia Samano MD [address] [place] [address] MEDICATION REFILL Social History Tobacco Use Types Packs/Day Years Used Date Smoking Tobacco: Former Smokeless Tobacco: Never PHQ-2 Answer Date Recorded Patient Health Questionnaire-2 Score 6 03/04/2024 Sex and Gender Information Value Date Recorded Sex Assigned at Not on file Legal Sex Male 7:39 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
--- OUTSIDE RECORDS SUMMARY | 2025-01-14 07:15 | XMS_ITS | Clinical Summary ---
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
--- OUTSIDE RECORDS SUMMARY | 2025-01-14 07:15 | XMS_ITS | Encounter Summary ---
Author Organization [facility] BILL Ceja [facility] Address [address] [place] [address] Care Team Providers Care Skates Operator Name Role Phone Unavailable Primary Care Provider Unavailabl e Encounter Details Date Type Department Care Team ([facility] Contact Info) Description 01/13/2025 Orders Only [facility] Oncology and Hematology [facility] [address] [place] [address] Zander Silvestre MD [address] [employer] [address] [place] [phone] Head and neck cancer (CMS/HCC) (Primary Dx) Social History Tobacco Use Types Packs/Day Years Used Date Smoking Tobacco: Former Cigarettes 1.7 18.6 0 06/25/1996 - 06/25/2011 Smokeless Tobacco: Never Alcohol Use Standard Drinks/Week Comments Yes 0 (1 standard drink = 0.6 oz pur e alcohol) Socially Sex and Gender Information Value Date Recorded Sex Assigned at Not on file Legal Sex Male 1:22 PM CDT Gender Identity Not on file Sexual Orientation Not on file documented as of this encounter Plan of Treatment Upcoming Encounters Date Type Department Care Team (Late Contact Info) Description 02/12/2025 8:45 AM CDT Office Visit [facility] Oncology and Hematology - [address] [place] [address] Zander Silvestre MD [address] [employer] [address] [place] [address] Scheduled Orders Name Type Priority Associated Diagnoses Orde r Schedule CBC WITH DIFFERENTIAL Lab Routine Head and neck cancer (CMS/HCC) Every Two Weeks for 99 Occurrences starting 01/13/2025 until 01/13/2026 BASIC METABOLIC PANEL Lab Routine Head and neck cancer (CMS/HCC) Every Two Weeks for 99 Occurrences starting 01/13/2025 until 01/13/2026 MAGNESIUM LEVEL Lab Routine Head and neck cancer (CMS/HCC) Every Two Weeks for 99 Occurrences starting 01/13/2025 until 01/13/2026 documented as of this encounter Visit Diagnoses Diagnosis Head and neck cancer (CMS/HCC)- Primary Malignant neoplasm of head, face, and neck documented in this encounter
--- OUTSIDE RECORDS SUMMARY | 2025-01-14 07:15 | XMS_ITS | Encounter Summary ---
Author Organization [facility] Address [facility] access hospital[address] [place] [address] Care Team Providers Care Litigation Counsel Name Role Phone None, Provider Primary Care Provider Caleb Coulter MD Primary Care Provider Encounter Details Date Type Department Care Team (Latest Contact Info) Description 04/30/2018 Abstract [facility] Arvind Alves MD Social History [...] on filedocumented in this encounter Care Teams Litigation Counsel Relationship Specialty Start Date End Date None, Provider, PCP - General UNKNOWN PHYSICIAN SPECIALTY 09/19/22 10/17/22 Caleb Jordan MD Formerly [facility], [facility] [facility] [place] [id number] PCP - General FAMILY PRACTICE 10/18/22 documented as of this encounter
--- OUTSIDE RECORDS SUMMARY | 2025-01-14 07:15 | XMS_ITS | Clinical Summary ---
Author Organization [facility] Address [address] [place] [address] Care Team Providers Care Assembler [place] Name Role Phone Unavailable Primary Care Provider Unavailabl e Allergies Active Allergy Reactions Criticality Noted Date Comments Clindamycin Hives High 03/09/2020 Hydrocodone-Acetaminophen Hives High 11/19/2024 Medications methocarbamoL (ROBAXIN) 750 mg tablet Take 750 mg by mouth 3 times daily as needed. 3 Active naloxone (NARCAN) 4 mg/spray [place], Non-Aerosol EMERGENCY USE ONLY: Administer 1 spray (4 mg) in one nostril one time. May repeat in alternating nostrils every 2-3 min until responsive or EMS arrives. 2 Each 3 5 Active morphine (MS CONTIN) 15 mg Controlled Release tabletIndicati ons:Head and neck cancer (CMS/HCC) Take 1 Tablet (15 mg) by mouth every 12 hours for 14 days. Max Daily Amount: 30 mg 28 Tablet 5 01/22/20 25 Active ondansetron (ZOFRAN ODT) 8 mg Tablet, Rapid Dissolve Dissolve 1 tablet on top of tongue then swallow with saliva every 8 hours as needed for nausea or vomiting 30 Tablet 1 5 Active oxyCODONE-acet aminophen (PERCOCET) 10-325 mg TabletIndicati ons:Head and neck cancer (CMS/HCC) Take 1 Tablet by mouth every 4 hours as needed for Pain. Max Daily Amount: 4 Tablets 90 Tablet 5 Active oxyCODONE-acet aminophen (PERCOCET) 10-325 mg Tablet Take 1 Tablet by mouth every 4 hours as needed. 5 12/25/19 25 Discontin ued(Reord er) oxyCODONE-acet aminophen (PERCOCET) 10-325 mg TabletIndicati ons:Head and neck cancer (CMS/HCC) Take 1 Tablet by mouth every 4 hours as needed for Pain. Max Daily Amount: 4 Tablets 40 Tablet 01/14/20 25 Discontin ued(Reord er) Active Problems No known active problems Encounters Date Type Department Care Team Description 01/13/2025 9:00 AM CDT Office Visit [facility] Jayjay Nye [address] [place] [address] Zander Silvestre MD Head and neck cancer ([facility]/HCC) 01/13/2025 Orders Only [facility] Kaylynn Nye [address] [address] Zander Silvsetre MD Head and neck cancer ([facility]/HCC) (Primary Dx) 01/12/2025 Telephone [facility] Kaylynn Nye [address] [address] Zander Silvestre MD Missed Call 01/12/2025 Orders Only [facility] Hernandez Nye [address] [address] Zander Silvestre MD 01/07/2025 Refill [facility] Hernandez Nye [address] [address] Zander Silvestre MD Head and neck cancer ([facility]/HCC) (Primary Dx) 01/06/2025 Telephone [facility] [address] Zander Silvestre MD Appointment Correction 01/06/2025 Orders Only [facility] - [place] [address] [place] [id number] Zander Silvestre MD Head and neck cancer ([facility]/HCC) (Primary Dx) 01/05/2025 Telephone [facility] [address] Kaylynn [address] [place] [phone] Zander Silvestre MD Pain with feeding tube 12/30/2024 External Device Data [facility] ABSTRACTION Provider, Abstract 12/30/2024 External Device Data [facility] ABSTRACTION Provider, Abstract 12/30/2024 External Device Data [facility] ABSTRACTION Provider, Abstract 12/24/2024 1:30 PM CDT Office Visit [facility] [address]lynn [address] [place] [address] Zander Silvestre MD Head and neck cancer [...] Sign Reading Time Taken Comments Blood Pressure 130/81 01/13/2025 9:34 AM CDT Pulse 76 01/13/2025 9:31 AM CDT Temperature 36.7 C (98 F) 01/13/2025 9:31 AM CDT Respiratory Rate 16 01/13/2025 9:31 AM CDT Oxygen Saturation 95% 01/13/2025 9:31 AM CDT Inhaled Oxygen Concentration - - Weight 66.6 kg (146 lb 12.8 oz) 01/13/2025 9:31 AM CDT Height 172.7 cm (5' 8) 12/24/2024 1:21 PM CDT Body Mass Index 22.32 12/24/2024 1:21 PM CDT Plan of Treatment Upcoming Encounters Date Type Department Care Team (Late st Contact Info) Description 02/12/2025 8:45 AM CDT Office Visit [facility] [place] [address] [address] [place] [address] Zander Silvestre MD [address] [place] [address] Health Maintenance Due Date Last Done Comments DTAP/TDAP/TD VACCINES (6 - Tdap) 09/22/1991 01/01/1985, 10/26/1982, 03/30/1982, Additional history exists HPV VACCINES (1 - Male 3-dos e series) 09/22/1995 HEPATITIS B VACCINES (1 of 3 - 19+ 3-dose series) 09/22/1999 01/27/2022 INFLUENZA VACCINE (#1) 2025 Insurance [employer] [place]
--- OUTSIDE RECORDS SUMMARY | 2025-01-14 07:15 | XMS_ITS | Encounter Summary ---
Author Organization [facility] Address [address] [place] [address] Care Team Providers Care Aerospace Assembler Name Role Phone Unavailable Primary Care Provider Unavailabl e Reason for Visit * Reason Comments Chemotherapy Follow Up Encounter Details Date Type Department Care Team (Late st Contact Info) Description 01/13/2025 9:00 AM CDT Office Visit [facility] Oncology and Hematology - [place] [address] [facility] [address] [place] [address] Zander Silvestre MD [address] [facility] [address] [place] [address] Head and neck cancer (CMS/HCC) Social History Tobacco Use Types Packs/Day Years [...] 12.8 oz) 01/13/2025 9:31 AM CDT Height - - Body Mass Index 22.32 12/24/2024 1:21 PM CDT documented in this encounter Progress Notes * Zander Silvestre MD - 01/13/2025 10:09 AM CDT HEMATOLOGY / ONCOLOGY PROGRESS NOTE Patient Identification: Name: Jose Manuel Farnsworth Age: 44 y.o. 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 P16 positive. CURRENT TREATMENT Expectant TREATMENT HISTORY SUBJECTIVE Patient came into the office for follow-up visit and to start chemotherapy cycle 1. He has been complaining of pain at the PEG tube site along discomfort in the mouth. He gained 2 pound weight. No other new complaint. Review of system Constitutional: Patient did not mention fevers, sweats, fatigue, malaise, weight loss HEENT: Patient did not mention sinus congestion, hearing or vision problems Respiratory: Patient did not mention cough, dyspnea, wheeze Cardiovascular: Patient did not mention chest pain, exertional chest pressure/discomfort, nausea, syncope, shortness of breath GI: Patient did not mention constipation, diarrhea, dsyphagia, reflux symptoms, vomiting, melena, complain of abdominal discomfort on the PEG tube site : Patient did not mention dysuria, frequency, incontinence, urgency Integumentary system: no lymphadenopathy, sweats, flushing Musculoskeletal: Patient not mention: myalgia, arthralgia Neurological: Patient did not mention blurry or disturbed vision, numbness/weakness, dizziness Skin: No lumps, bumps or rashes. Objective: Vital signs in last 24 hours: As per nursing note Exam: General appearance: alert, cooperative, no distress, appears stated age Head: normocephalic, without obvious abnormality, atraumatic Eyes: conjunctivae/corneas clear, EOM's intact Ears: normal external ear canals AU Nose: Nares normal. Septum midline. Mucosa normal. No drainage or sinus tenderness Throat: Lips, mucosa, and tongue normal. Teeth and gums normal Neck: supple, symmetrical, trachea midline. Lungs: clear to auscultation bilaterally Heart: regular rate and rhythm, S1, S2 normal, no murmur, click, rub or gallop Abdomen: soft, non-tender. Bowel sounds normal. No masses, No organomegaly Extremities: extremities normal, atraumatic, no cyanosis or edema Skin: Skin color, texture, turgor normal. No rashes or lesions Lymph nodes: No lymphadenopathy Neuro: No obvious focal deficit PATH LABS Labs from January 13 showed WBC 6.6 hemoglobin 11.6 platelet 286,000 creatinine 0.9 @IMAGEIMP@ Assessment: Plan: There are no active problems to display for this patient. 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 P16 positive. PET scan done on December 18, 2024 showed right tonsillar mass with SUV of 6 with multiple enlarged cervical lymph nodes involving level 1 and extending into the supraclavicular level 4. There was 2.4 cmright level 3 lymph node SUV of 4.5. Right sided 8 mm supraclavicular lymph node with SUV of 4.9. There was no distant metastasis. There was 4 mm right lower lobe pulmonary nodule too small to be characterized on the PET scan. PEG tube has been placed. Plan to start chemotherapy with cisplatin every 3 weeks for 3 times alongwith radiation therapy treatment. He will get simulation for radiation therapy today. He came late for the chemotherapy today and chemotherapy has to be rescheduled. I plan to see him back in 3 weekswith cycle #2 of chemotherapy. Dysphagia status post PEG tube placement. PEG tube site discomfort. Patient is on morphine 15 mg twice a day. He will receive refill on Stokes today. I recommended to do not take Stokes more than 4 times a day. We will not prescribe any further pain medication after completion of his chemotherapy treatments. According the patient he was on long-term pain medication due to back surgery and discomfort from the pain clinic previously. ? TOBACCO COUNSELING He was counseled to discontinue tobacco/nicotine use. 01/13/2025 Zander Silvestre MD documented in this encounter Plan of Treatment Upcoming Encounters Date Type Department Care Team (Late st Contact Info) Description 02/12/2025 8:45 AM CDT Office Visit [facility] Oncology and Hematology - [place] [address] [place] [address] Zander Silvestre MD [address] [facility] [address] [place] [address] Scheduled Orders Name Type Priority Associated Diagnoses Orde r Schedule BASIC METABOLIC PANEL Lab Stat Head and neck cancer (CMS/HCC) Expected: 02/03/2025, Expires: 01/13/2026 CBC WITH DIFFERENTIAL Lab Stat Head and neck cancer (CMS/HCC) Expected: 02/03/2025, Expires: 01/13/2026 documented as of this encounter Visit Diagnoses Diagnosis Head and neck cancer (CMS/HCC) Malignant neoplasm of head, face, and neck documented in this encounter
--- NOTE | 2025-01-16 10:35 | PC.NURSE ---
Discharge call back attempted, unable to leave voice mail.
== END 2025-01-14 05:50 | disposition left against medical advice (07) ==
LOC: CHSED 19:53 → CHS2ND 01-14 06:18
PROVIDERS: Admitting Provider Internal Medicine; Emergency Provider Family Medicine; Visit Provider Internal Medicine
DX: T50.911A Poisoning by multiple unspecified drugs, medicaments and biological substances, accidental (unintentional), initial encounter (principal); R41.82 Altered mental status, unspecified; F15.10 Other stimulant abuse, uncomplicated; F17.210 Nicotine dependence, cigarettes, uncomplicated; M54.9 Dorsalgia, unspecified; G89.29 Other chronic pain; Z79.891 Long term (current) use of opiate analgesic; Z85.89 Personal history of malignant neoplasm of other organs and systems; Z93.1 Gastrostomy status
CPT/HCPCS: 36415; 70450; 71045; 80053; 82077; 82140; 83735; 84443; 84484; 85025; 85610; 96374; 96375; 96376; 99285; G0378; J2312

== ENCOUNTER 2025-06-01 18:55 | Emergency (ER) | payer OTHER, SELFPAY ==
[2025-06-01] VITALS (9 sets, daily range): BP systolic 93–157; BP diastolic 47–81; PULSE 88–98; RESP 16–20; TEMP 37.7–39.7; O2SAT 94–100
--- NOTE | ~2025-06-01 | XR_ITS ---
EXAMINATION: XR chest 1V portable DATE: 06/01/2025 19:47 INDICATION: Fever TECHNIQUE: A single frontal view of the chest was obtained. COMPARISON: Chest x-ray dated 01/13/2025 FINDINGS: Heart size is normal. Lungs are clear of acute processes. IMPRESSION: 1. No acute pulmonary findings. Reviewed, dictated and finalized at location T. NCE INSTRUCTOR
--- NOTE | 2025-06-01 19:10 | PC.NURSE ---
Report received, upon assessment, pt c/o weakness all day and n/v and fever. Pt states home meds not working well to help w/ nausea.
--- NOTE | 2025-06-01 19:12 | PC.NURSE ---
Handoff report given to DAMARIS Mary.
--- NOTE | 2025-06-01 19:13 | ED.GENADULT ---
HPI - General Adult General Chief complaint: Unspecified Stated complaint: weakness Time Seen by Provider: 06/01/25 19:10 Source: patient and family Mode of arrival: ambulatory Limitations: no limitations History of Present Illness HPI narrative: Patient is a 44-year-old male with stage IV throat cancer getting chemo and radiation at [facility] but missed the last 2 visits. He normally gets chemotherapy and IV fluids and steroid IV and IV nausea medicine when he sees the oncologist. Due to trouble getting to the facility with no car, he missed the last 2 visits. They are here to get IV fluids and IV steroids and IV nausea medicine. His main complaint was to get the fluids and medications IV in his poor with his generalized malaise and fatigue and weakness. Onset (ago): week(s) (One) Location: abdomen (Nausea) Radiation: non-radiation Severity: moderate Severity scale (1-10): 1 Quality: other (No pain particularly at this time) Pain Consistency: now resolved Relieving factors: other (Chronic pain meds) Exacerbating factors: other (Metastatic cancer from throat) Associated symptoms: malaise, nausea/vomiting and weakness Treatments prior to arrival: none Related Data Home Medications ?Medication ?Instructions ?Recorded ?Confirmed ?Last Taken ?Type dexamethasone 4 mg tablet mg 06/01/25 Unknown History lidocaine HCl 2 % mucosal solution 06/01/25 Unknown History naloxone 4 mg/actuation nasal spray intranasal 06/01/25 Unknown History ondansetron HCl 8 mg tablet mg 06/01/25 Unknown History oxycodone-acetaminophen 10 mg-325 tablet 06/01/25 Unknown History mg tablet prochlorperazine maleate 10 mg mg 06/01/25 Unknown History tablet Allergies Allergy/AdvReac Type Severity Reaction Status Date / Time clindamycin Allergy Mild Hives Verified 06/01/25 19:02 hydrocodone AdvReac Hives Verified 06/01/25 19:02 Review of Systems Review of Systems: All systems reviewed & are unremarkable except as noted in HPI and below Constitutional: Constitutional: Reports no additional constitutional complaints Eyes: Eyes: Reports no additional eye complaints ENT: Reports system reviewed and no additional complaints, except as documented Cardiovascular: Cardiovascular: Reports no additional cardiovascular complaints Respiratory: Respiratory: Reports no additional respiratory complaints Gastrointestinal: Gastrointestinal: Reports no additional gastrointestinal complaints Genitourinary: Genitourinary: Reports no additional male genitourinary complaints Musculoskeletal: Musculoskeletal: Reports no additional musculoskeletal complaints Integumentary/Breasts: Skin/Breast: Reports system reviewed and no additional complaints, except as docu Neurologic: Reports system reviewed and no additional complaints, except as documented Psychiatric: Psychiatric: Reports no additional psychiatric complaints Endocrine: Endocrine: Reports no additional endocrine complaints Hematologic/Lymphatic: Hematologic/Lymphatic: Reports no additional hematologic/lymphatic complaints Allergic/Immunologic: Allergic/Immunologic: Reports no additional allergic/immunologic complaints PMFSH Past Medical History Medical History Anorexia Weight loss Squamous cell carcinoma of neck Dysphagia History of drug abuse Chronic back pain Surgical History Surgical History PEG (percutaneous endoscopic gastrostomy) status Social History Social History Social History: Fentanyl and amphetamine abuse Smoking packs per day: 2 Smoking cigarettes per day: 40.0 Years smoked: 20 Smoking pack-years: 40.00 Smoking status: Current every day smoker Tobacco type: cigarettes Second hand tobacco smoke exposure: Yes Alcohol intake: current Drinks per week: 40 Substance use: current Substance use type: marijuana Other substance usage details: 2 smokes per week Lack of Transportation: YES Lack of Food: Never True Current Housing: I Have Housing Concerned About Future Housing: No Difficulty Paying Gas/Electric Bills: YES Difficulty Paying for Meds: No Currently Unemployed: YES Education: High School Diploma/GED Difficulty w/ Childcare or Family Care: No Living arrangements: with family Exam Const: General: comfortable, no acute distress, ill appearing and lethargic Nutritional Appearance: cachectic and thin Orientation/consciousness: oriented to person, oriented to place, oriented to time, patient oriented x3 and lethargic HENMT: Head: normal to inspection, No palpable skull fracture present and normocephalic Eyes: General: appearance normal, both eyes and all related structures Visual Talamantes: normal visual talamantes by confrontation Alignment and Position: alignment normal Neck: Neck: normal visual inspection, full ROM and no lymphadenopathy Chest: Chest palpation & inspection: normal inspection of the chest and normal palpation of entire chest wall Resp: Effort & Inspection: normal respiratory effort, able to speak in complete sentences and normal respiratory pattern Auscultation: clear to auscultation bilaterally and bronchovesicular breath sounds Cardio: Jugular venous distension: no JVD Palpation: normal PMI Rate: regular rate Rhythm: regular rhythm Heart sounds: S1 normal heart sound present and S2 normal heart sound present GI: Inspection: normal to inspection GI Palp: No abdominal tenderness, No Firmness to palpation present (GI), No Tenderness to palpation present (GI), No Guarding due to palpation present (GI) and No Rigid due to palpation Auscultation: normal bowel sounds Back/Spine/Pelvis: Back: no CVA tenderness, No mass and No erythema Skin: General skin exam: No normal color (Pale and gomes color/neelam color), no rashes or lesions noted and elasticity normal Neuro: General: oriented to person, oriented to place, oriented to time, patient oriented x3, gait normal, tone normal and moves all extremities Cranial nerves: Yes CN's II-XII intact bilaterally and Yes facial sensation intact/muscles of mastication intact Extrem: General: normal to inspection, full ROM and capillary refill normal Psych: Appearance: grossly normal and well kempt Mental Status: mental status grossly normal Course Vital Signs Vital signs: Vital Signs Temperature 37.7 C H 06/01/25 18:55 Pulse Rate 97 06/01/25 18:55 Respiratory Rate 16 06/01/25 18:55 Blood Pressure 116/80 06/01/25 18:55 Pulse Oximetry 100 06/01/25 18:55 Oxygen Delivery Room Air 06/01/25 18:55 Temperature 39.7 C H 06/01/25 21:42 Pulse Rate 98 06/01/25 21:42 Respiratory Rate 20 06/01/25 21:42 Blood Pressure 93/51 L 06/01/25 21:42 Pulse Oximetry 98 06/01/25 21:30 Oxygen Delivery Room Air 06/01/25 20:28 MDM MDM Narrative Medical decision making narrative: Patient is a 44-year-old male with metastatic throat cancer who missed 2 chemo/IV fluid therapy sessions over the past week. Family came in with patient to get the fluids and medication. Call oncologist for definite plan that they use for the patient. Check labs and urine and chest x-ray with slight temperature elevation. Patient spiked a fever of 103.4. We are putting him on a sepsis run of protocol. I discussed with the forklift operator/oncologist at [facility] and they accepted transfer. Will start on broad-spectrum antibiotics while we searched for the source. Cultures taken. He will board in the emergency room until a bed ready at [facility]. Recurrent steroid use and we will give him dexamethasone 8 mg IV now. Differential Diagnosis Differential Diagnosis: Sepsis, dehydration, worsening disease process Lab Data MDM Lab Attestation statement: I personally reviewed the patient's lab results. 06/01/25 19:26 06/01/25 19:26 Labs: Lab Results 06/01/25 06/01/25 06/01/25 Range/Units 19:26 20:49 20:56 WBC 4.9 (4.8-10.8) K/mm3 RBC 4.33 L (4.70-6.10) M/mm3 Hgb 12.1 L (14.0-18.0) g/dL Hct 36.5 L (40.0-54.0) % MCV 84.3 (78.0-102.0) fL MCH 27.9 (27.0-31.0) pg MCHC 33.2 (32-36) g/dL RDW 13.2 (11.6-14.4) % Plt Count 144 L (150-420) K/mm3 MPV 8.9 (8.7-11.0) fl Immature Gran % (Auto) 0.4 H (0.0-0.0) % Neut % (Auto) 91.5 H (50.0-70.0) % Lymph % (Auto) 4.5 L (18.0-42.0) % [place] % (Auto) 1.8 L (2.0-11.0) % Eos % (Auto) 1.6 (1.0-6.0) % Baso % (Auto) 0.2 (0.0-1.0) % Lymph # (Auto) 0.22 L (1.10-4.50) K/mm3 [place] # (Auto) 0.09 L (0.10-0.90) K/mm3 Eos # (Auto) 0.08 (0.02-0.50) K/mm3 Baso # (Auto) 0.01 (0.00-0.10) K/mm3 Abs Immat Gran (auto) 0.02 H (0.00-0.00) K/mm3 Absolute Neuts (auto) 4.51 (1.70-7.20) K/mm3 Absolute Nucleated RBC 0.00 (0.00-0.00) K/mm3 Nucleated RBC % 0.0 (0-0.0) % % Immature Plt Fraction 0.8 L (1.0-7.0) % Sodium 131 L (137-145) mmol/L Potassium 4.0 (3.4-5.0) mmol/L Chloride 96 L (98-107) mmol/L Carbon Dioxide 28 (22-30) mmol/L Anion Gap 7 (4-12) mmol/L BUN 19 (9-20) mg/dL Creatinine 0.66 L (0.7-1.3) mg/dL Estim Creat Clear Calc 102 ml/min Estimated GFR > 60 (59 - ) Glucose 119 H (65-110) mg/dL Calculated Osmolality 275 L (285-295) mOsm/kg Lactic Acid 0.9 (0.7-2.0) mmol/L Calcium 8.5 (8.4-10.2) mg/dL Total Bilirubin 0.8 (0.2-1.3) mg/dL AST 42 (17-59) U/L ALT 90 H (6-50) U/L Alkaline Phosphatase 110 (38-126) U/L C-Reactive Protein 1.4 H (<1.0) mg/dL Total Protein 6.9 (6.3-8.2) g/dL Albumin 3.9 (3.5-5.1) g/dL Procalcitonin Pending Urine Color Urine Appearance Urine pH Ur Specific [place] Urine Protein Urine Glucose (UA) Urine Ketones Ur Blood (Man) Urine Nitrate Urine Bilirubin Urine Urobilinogen Leukocyte Esterase Rfl Influenza A (RT-PCR) Negative (Negative) Influenza B (RT-PCR) Negative (Negative) RSV (RT-PCR) Negative (Negative) SARS-CoV-2 RNA (RT-PCR) Negative (Negative) 06/01/25 Range/Units 21:48 WBC (4.8-10.8) K/mm3 RBC (4.70-6.10) M/mm3 Hgb (14.0-18.0) g/dL Hct (40.0-54.0) % MCV (78.0-102.0) fL MCH (27.0-31.0) pg MCHC (32-36) g/dL RDW (11.6-14.4) % Plt Count (150-420) K/mm3 MPV (8.7-11.0) fl Immature Gran % (Auto) (0.0-0.0) % Neut % (Auto) (50.0-70.0) % Lymph % (Auto) (18.0-42.0) % [place] % (Auto) (2.0-11.0) % Eos % (Auto) (1.0-6.0) % Baso % (Auto) (0.0-1.0) % Lymph # (Auto) (1.10-4.50) K/mm3 [place] # (Auto) (0.10-0.90) K/mm3 Eos # (Auto) (0.02-0.50) K/mm3 Baso # (Auto) (0.00-0.10) K/mm3 Abs Immat Gran (auto) (0.00-0.00) K/mm3 Absolute Neuts (auto) (1.70-7.20) K/mm3 Absolute Nucleated RBC (0.00-0.00) K/mm3 Nucleated RBC % (0-0.0) % % Immature Plt Fraction (1.0-7.0) % Sodium (137-145) mmol/L Potassium (3.4-5.0) mmol/L Chloride (98-107) mmol/L Carbon Dioxide (22-30) mmol/L Anion Gap (4-12) mmol/L BUN (9-20) mg/dL Creatinine (0.7-1.3) mg/dL Estim Creat Clear Calc ml/min Estimated GFR (59 - ) Glucose (65-110) mg/dL Calculated Osmolality (285-295) mOsm/kg Lactic Acid (0.7-2.0) mmol/L Calcium (8.4-10.2) mg/dL Total Bilirubin (0.2-1.3) mg/dL AST (17-59) U/L ALT (6-50) U/L Alkaline Phosphatase (38-126) U/L C-Reactive Protein (<1.0) mg/dL Total Protein (6.3-8.2) g/dL Albumin (3.5-5.1) g/dL Procalcitonin Urine Color Pending Urine Appearance Pending Urine pH Pending Ur Specific [place] Pending Urine Protein Pending Urine Glucose (UA) Pending Urine Ketones Pending Ur Blood (Man) Pending Urine Nitrate Pending Urine Bilirubin Pending Urine Urobilinogen Pending Leukocyte Esterase Rfl Pending Influenza A (RT-PCR) (Negative) Influenza B (RT-PCR) (Negative) RSV (RT-PCR) (Negative) SARS-CoV-2 RNA (RT-PCR) (Negative) Imaging Data Attestation: I personally reviewed and interpreted this imaging study as follows: Radiologist's impression: ITS Impressions Chest X-Ray 06/01/25 19:48 IMPRESSION: 1. No acute pulmonary findings. Discharge Plan Discharge Clinical Impression: Primary squamous cell carcinoma of head and neck, Metastatic disease, Sepsis Patient Disposition: Acute Care Hospital Condition: Guarded Prognosis Patient Language: Croatian Prescriptions: No Action ondansetron HCl 8 mg tablet prochlorperazine maleate 10 mg tablet oxycodone-acetaminophen 10-325 mg tablet dexamethasone 4 mg tablet lidocaine HCl 2 % solution naloxone 4 mg/actuation spray,non-aerosol INTRANASAL Follow-up/Referrals: UNKNOWN,DOCTOR [Non-Staff] Time of Disposition: 22:04
--- NOTE | 2025-06-01 19:25 | PC.NURSE ---
Port-a-cath accessed and blood drawn and given to lab.
[2025-06-01] MEDS: ONDANSETRON INJ 4 MG/2 ML VIAL IV PUSH (19:33)
[2025-06-01] MEDS: SODIUM CHLORIDE 0.9% IV 1,000 ML 999 ML IV CONT ×2 (19:33→20:47)
[2025-06-01 19:50] LABS: Hematocrit 36.5 % (40.0-54.0); Hemoglobin 12.1 g/dL (14.0-18.0); Immature Granulocyte Percent A 0.4 % (0.0-0.0); Immature Platelet Fraction Pct 0.8 % (1.0-7.0); Lymphocytes Absolute Auto 0.22 K/mm3 (1.10-4.50); Mean Corpuscular HGB Conc 33.2 g/dL (32-36); Mean Corpuscular Hemoglobin 27.9 pg (27.0-31.0); Mean Corpuscular Volume 84.3 fL (78.0-102.0); Nucleated Red Blood Cells Absolute Auto 0.00 K/mm3 (0.00-0.00); Nucleated Red Blood Cells Perc 0.0 % (0-0.0); Platelet Count Result 144 K/mm3 (150-420); Red Blood Count 4.33 M/mm3 (4.70-6.10); White Blood Count 4.9 K/mm3 (4.8-10.8)
[2025-06-01 20:00] LABS: Alanine Aminotransferase 90 U/L (6-50); Albumin Level 3.9 g/dL (3.5-5.1); Alkaline Phosphatase 110 U/L (38-126); Anion Gap 7 mmol/L (4-12); Aspartate Amino Transferase 42 U/L (17-59); Bilirubin,Total 0.8 mg/dL (0.2-1.3); Blood Urea Nitrogen 19 mg/dL (9-20); Calcium 8.5 mg/dL (8.4-10.2); Carbon Dioxide 28 mmol/L (22-30); Chloride 96 mmol/L (98-107); Estimated CRCL calculation 102 ml/min; Estimated Glomerular Filt Rate > 60; Glucose 119 mg/dL (65-110); Osmolality Calculated 275 mOsm/kg (285-295); Potassium 4.0 mmol/L (3.4-5.0); Sodium 131 mmol/L (137-145); Total Protein 6.9 g/dL (6.3-8.2)
--- OUTSIDE RECORDS SUMMARY | 2025-06-01 20:24 | XMS_ITS | Encounter Summary ---
Author Organization [facility] Address [facility] [place] [address] Care Team Providers Care Client Experience Specialist Name Role Phone None, Provider Primary Care Provider Caleb Coulter MD Primary Care Provider Encounter Details Date Type Department Care Team (Latest Contact Info) Description 04/30/2018 Abstract [facility] Arvind Alves MD Social [...] on filedocumented in this encounter Care Teams Client Experience Specialist Relationship Specialty Start Date End Date None, Provider, PCP - General UNKNOWN PHYSICIAN SPECIALTY 09/19/22 10/17/22 Caleb Jordan MD [facility] [facility] [place] [id number] PCP - General FAMILY PRACTICE 10/18/22 documented as of this encounter
--- OUTSIDE RECORDS SUMMARY | 2025-06-01 20:24 | XMS_ITS | Encounter Summary ---
Author Organization [facility] Address [address] [place] [address] Care Team Providers Care Airplane First Officer Name Role Phone Unavailable Primary Care Provider Unavailabl e Encounter Details Date Type Department Care Team (Late st Contact Info) Description 06/01/2025 Orders Only [facility] - Marc [address] [facility] [address] [place] [address] Zander Silvestre MD [address] [facility] [address] [place] [address] Head and neck cancer (CMS/HCC) Social History Tobacco Use Types Packs/Day Years Used Date Smoking Tobacco: Former Cigarettes 1.7 18.9 0 06/25/1996 - 06/25/2011 Smokeless Tobacco: Never [...]
--- OUTSIDE RECORDS SUMMARY | 2025-06-01 20:24 | XMS_ITS ---
Author Organization [address] Address [address] [place] [id number] Care Team Providers Care Speech Therapy Assistant Name Role Phone Caleb Jordan MD Primary Care Provider [phone]- [phone] Zander Silvestre MD Unavailable [phone] Cody Osman MD Unavailable [phone] Melody SorianoW Unavailable Unavaila ble Active Problems Problem Noted Date Diagnosed Date Communication problem 03/19/2025 Radiculopathy, lumbosacral region 02/25/2025 Sacroiliitis 02/25/2025 Postlaminectomy syndrome, lumbar 02/25/2025 Throat pain 02/24/2025 Chronic left-sided low back pain with left-sided sciatica 02/24/2025 Malignant neoplasm of tonsil 02/09/2025 Current Treatment and Therapy Plans CISplatin with Concurrent Radiation 21 Day Cycles - Head and Neck* Plan Start Date:03/02/2025 Plan Provider:Cody Osman MD Linked Problems Malignant neoplasm of tonsil Treatment Medications Current Day (Day 2 , Cycle 2 - Planned for 05/29/2025) Next Day (Day 3, Cycle 2 - Planned for 06/01/2025) CISplatin (PLATINOL)CISplati n (PLATINOL) IVPB in 500 mLdexAMETHasone (DECADRON) No medications scheduled. No medications scheduled. Past Treatment and Therapy Plans No past plan information found. Current Radiation Episodes * Radiation TherapyOverview* First Treatment Date Latest Treatment Date Treatment Site Technique Goal Episode Provider 04/08/2025 05/28/2025 * Linked Problems Treatment Courses* Course [id number]/08/2025 - 05/28/2025 Treatment Period Fraction Dose Fractions Total Dose Plans Planned H&N 04/08/2025 - 05/28/2025 200 17 / 7 ,000 Reference Points Delivered [id number] 04/08/2025 - 05/28/2025 3,400 Lifetime Dose Tracking * Chemical Lifetime Dose Automatic Entry Manual Entr y Fluoro Time 0.3 minutes 0.3 minutes 0 minutes Air kerma at the reference point (Ka,r) 1 mGy 1 mGy 0 mGy
--- OUTSIDE RECORDS SUMMARY | 2025-06-01 20:24 | XMS_ITS | Clinical Summary ---
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 Name Role Phone Caleb Jordan MD Primary Care Provider [phone]- [phone] Zander Silvestre MD Unavailable [phone] LuisapeCody panchal MD Unavailable [phone] Melody SorianoW Unavailable Unavaila ble Allergies Active Allergy Reactions Criticality Noted Date Comments Clindamycin Hives,Unknown,Urticaria High 03/09/2020 Hydrocodone Hives Medium 01/03/2025 Hydrocodone-Acetaminophen Hives,Other (See comments) High 11/19/2024 Prochlorperazine Itching Low 04/30/2025 Propoxyphene-Acetaminophen Medications ibuprofen 200 mg tab/cap Take 4 tablet/capsule (800 mg total) by mouth every 6 (six) hours as needed for pain Active docusate sodium (COLACE) 100 mg capsule Take 1 capsule (100 mg total) by mouth 2 (two) times a day 025 Active gabapentin (NEURONTIN) 300 mg capsule Take 1 capsule (300 mg total) by mouth 3 (three) times a day 025 Active dexAMETHasone (DECADRON) 4 mg tabletIndicat ions:Malignan t neoplasm of tonsil Take 8 mg (2 tabs) daily on Days 2, 3 and 4. 30 tablet 3 025 Active ondansetron (ZOFRAN) 8 mg tabletIndicat ions:Malignan t neoplasm of tonsil Take 1 tablet (8 mg total) by mouth every 8 (eight) hours as needed for nausea or vomiting Use if prochlorperazine does not stop nausea. 24 tablet 3 025 Active prochlorperaz ine (Compazine) 10 mg tabletIndicat ions:Malignan t neoplasm of tonsil Take 1 tablet (10 mg total) by mouth every 6 (six) hours as needed for nausea or vomiting Use first for nausea. 120 tablet 3 025 Active al & mag hydroxide with simethicone-d iphenhydramin e-lidocaine (MAGIC MOUTHWASH) suspension [id number] ons:Malignant neoplasm of tonsil Swish and swallow 15 mL every 4 (four) hours as needed (Pain) 2400 mL 3 025 Active oxyCODONE 5 mg tablet, oral only Take 5 mg by mouth every 4 (four) hours Active oxyCODONE-frankie taminophen (PERCOCET) 10-325 mg per tabletIndicat ions:Malignan t neoplasm of tonsil TAKE ONE TABLET BY MOUTH EVERY 4 HOURS NEEDED FOR PAIN 180 tablet 025 Active oxyCODONE-frankie taminophen (PERCOCET) 10-325 mg per tabletIndicat ions:Malignan t neoplasm of tonsil Take 1 tablet by mouth every 4 (four) hours as needed for pain for pain 180 tablet 025 2024 Discontinued Active Problems Problem Noted Date Diagnosed Date Communication problem 03/19/2025 Radiculopathy, lumbosacral region 02/25/2025 Sacroiliitis 02/25/2025 Postlaminectomy syndrome, lumbar 02/25/2025 Throat pain 02/24/2025 Chronic left-sided low back pain with left-sided sciatica 02/24/2025 Malignant neoplasm of tonsil 02/09/2025 Encounters Date Type Department Care Team Description 06/01/2025 Documentation [facility] Medicine Oncology [address] [facility] 8 [place] [address] Giovanna Thompson MD 05/29/2025 Telephone [facility] Advanced Medicine Radiation Oncology [address] [place] [address] [place] [address] Mounika Long RN 05/28/2025 3:37 PM VENEER GRADER - 05/28/2025 11:59 PM VENEER GRADER Hospital Encounter [facility] Advanced Medicine Radiation Oncology [address] [place] [address] Maciej Bond III, MD PhD Discharge Disposition: Discharge to home or self care 05/28/2025 9:00 AM VENEER GRADER Infusion [facility] - Infusion [address] [facility] Floor 5 [place] [address] Malignant neoplasm of tonsil (Primary Dx) 05/28/2025 8:00 AM VENEER GRADER Office Visit [facility] Medicine Oncology [facility] Floor 5 [place] [address] Cody Osman MD Malignant neoplasm of tonsil (Primary Dx) 05/28/2025 7:30 AM VENEER GRADER Clinical Support [facility] - Lab Collection [address] [facility] Floor 5 [place] [address] Malignant neoplasm of tonsil 05/28/2025 7:00 AM VENEER GRADER Clinical Support [facility] Medicine Oncology Lab [address] [facility] Floor 5 [place] [address] Malignant neoplasm of tonsil 05/28/2025 Documentation [facility] Radiation Oncology [address] [place] [address] Mounika Long RN 05/28/2025 Orders Only RAD ONC TREATMENTS Miscellaneous, Not In File 05/27/2025 2:23 PM VENEER GRADER - 05/27/2025 11:59 PM VENEER GRADER Hospital Encounter [facility] Radiation Oncology [address] [place] [address] Maciej Bond III, MD PhD Discharge Disposition: Discharge to home or self care 05/27/2025 Orders Only RAD ONC TREATMENTS Miscellaneous, Not In File 05/27/2025 Telephone [facility] Nutrition Counseling 1 [place] [address] 05/27/2025 Documentation [facility] Radiation Oncology [address] [facility] [place] [address] Mounika Long RN 05/26/2025 2:40 PM VENEER GRADER - 05/26/2025 11:59 PM VENEER GRADER Hospital Encounter [facility] Radiation Oncology [address] [place] [address] [place] [address] Maciej Bond III, MD PhD Discharge Disposition: Discharge to home or self care 05/26/2025 Orders Only RAD ONC TREATMENTS Miscellaneous, Not In File 05/19/2025 2:45 PM VENEER GRADER - 05/19/2025 11:59 PM VENEER GRADER Hospital Encounter [facility] Advanced Medicine Radiation Oncology [address] [facility] [place] [address] Maciej Bond III, MD PhD Discharge Disposition: Discharge to home or self care 05/19/2025 Orders Only RAD ONC TREATMENTS Miscellaneous, Not In File 05/15/2025 2:22 PM VENEER GRADER - 05/15/2025 11:59 PM VENEER GRADER Hospital Encounter [facility] Radiation Oncology [address] [place] [address] Maciej Bond III, MD PhD Discharge Disposition: Discharge to home or self care 05/15/2025 Telephone [facility] Advanced Medicine Radiation Oncology [address] [place] [address] Leslie Osborne MD PhD 05/15/2025 Orders Only [facility] Radiation Oncology [address] [facility] [place] [address] Maciej Bond III, MD PhD 05/15/2025 Orders Only RAD ONC TREATMENTS Miscellaneous, Not In File 05/15/2025 OTV [facility] Radiation Oncology [address] [facility] [place] [address] Maciej Bond III, MD PhD 05/13/2025 Telephone [facility] Advanced Medicine Radiation Oncology [address] [facility] [place] [address] Mounika Long RN 05/07/2025 Documentation [facility] Advanced Medicine Radiation Oncology [address] [facility] [place] [address] Mounika Long RN 05/07/2025 Documentation [facility] Advanced Medicine Radiation Oncology [address] [place] [address] Khushbu Carrasco LCSW 05/06/2025 [facility] [address] [place] [phone] Carissa Kennedy, DAMARIS 05/05/2025 Telephone [facility] Advanced Medicine Radiation Oncology [address] [place] [address] Janet Delvalle, DAMARIS 05/05/2025 Orders Only [facility] [address] [facility] [address] [place] [phone] Carissa Kennedy, DAMARIS 05/04/2025 3:30 PM VENEER GRADER - 05/04/2025 6:29 PM VENEER GRADER Hospital Encounter [facility] [address] [place] [address] Zamzam Shaw, RN Malignant neoplasm of tonsil (Primary Dx) Discharge Disposition: Discharge to home or self care 05/04/2025 2:55 PM VENEER GRADER - 05/04/2025 11:59 PM VENEER GRADER Hospital Encounter [facility] Radiation Oncology [address] [place] [address] [place] [address] Maciej Bond III, MD PhD Discharge Disposition: Discharge to home or self care 05/04/2025 Orders Only RAD ONC TREATMENTS Miscellaneous, Not In File 05/04/2025 Telephone [facility] Advanced Medicine Radiation Oncology [address] [place] [address] Mounika Long RN 05/04/2025 Documentation [facility] Advanced Medicine Radiation Oncology [address] [place] [address] Khushbu Carrasco LCSW 04/30/2025 3:35 PM VENEER GRADER - 04/30/2025 11:59 PM VENEER GRADER Hospital Encounter [facility] Advanced Medicine Radiation Oncology [address] [place] [address] Maciej Bond III, MD PhD Discharge Disposition: Discharge to home or self care 04/30/2025 9:00 AM VENEER GRADER Infusion [facility] - Infusion [address] [place] [address] 5 [place] [address] Malignant neoplasm of tonsil (Primary Dx) 04/30/2025 8:15 AM VENEER GRADER Office Visit [facility] Medicine Oncology [address] [place] [address] 5 [place] [address] Cody Osman MD Malignant neoplasm of tonsil (Primary Dx) 04/30/2025 7:15 AM VENEER GRADER Clinical Support [facility] [place] - Lab Collection [facility] 5 [place] [address] Malignant neoplasm of tonsil 04/30/2025 Orders Only RAD ONC TREATMENTS Miscellaneous, Not In File 04/29/2025 3:25 PM VENEER GRADER - 04/29/2025 11:59 PM VENEER GRADER Hospital Encounter [facility] Advanced Medicine Radiation Oncology [address] [place] [address] Maciej Bond III, MD PhD Discharge Disposition: Discharge to home or self care 04/29/2025 Orders Only RAD ONC TREATMENTS Miscellaneous, Not In File 04/27/2025 1:15 PM VENEER GRADER - 04/27/2025 11:59 PM VENEER GRADER Hospital Encounter [facility] Advanced Medicine Radiation Oncology [address] [facility] [place] [address] Maciej Bond III, MD PhD Discharge Disposition: Discharge to home or self care 04/27/2025 Orders Only RAD ONC TREATMENTS Miscellaneous, Not In File 04/23/2025 3:00 PM CDT - 04/23/2025 11:59 PM CDT Hospital Encounter [facility] Advanced Medicine Radiation Oncology [address] [place] [address] Maciej Bond III, MD PhD Discharge Disposition: Discharge to home or self care 04/23/2025 Orders Only RAD ONC TREATMENTS Miscellaneous, Not In File 04/23/2025 Telephone [facility] Oncology [address] [facility] Floor 5 [place] [address] Carissa Kennedy, DAMARIS 04/21/2025 Telephone [facility] Advanced Medicine Radiation Oncology [address] [place] [address] Leslie Osborne MD PhD 04/21/2025 Telephone [facility] [address] [place] [phone] Natalie Gonzalez 04/20/2025 Telephone [facility] Nutrition Counseling 1 [place] [address] 04/17/2025 1:39 PM CDT - 04/17/2025 11:59 PM CDT Hospital Encounter [facility] Radiology [facility] 1 [place] [address] Malignant neoplasm of tonsil Discharge Disposition: Discharge to home or self care 04/17/2025 11:40 AM CDT - 04/17/2025 11:59 PM CDT Hospital Encounter [facility] Advanced Medicine Radiation Oncology [address] [place] [address] [place] [address] Maciej Bond III, MD PhD Discharge Disposition: Discharge to home or self care 04/17/2025 Orders Only RAD ONC TREATMENTS Miscellaneous, Not In File 04/15/2025 4:20 PM CDT - 04/15/2025 11:59 PM CDT Hospital Encounter [facility] Radiation Oncology [address] [place] [address] Maciej Bond III, MD PhD Discharge Disposition: Discharge to home or self care 04/15/2025 Orders Only [facility] Radiation Oncology [address] [place] [address] Leslie Osborne MD PhD Malignant neoplasm of tonsil (Primary Dx) 04/15/2025 Orders Only RAD ONC TREATMENTS Miscellaneous, Not In File 04/14/2025 2:10 PM CDT - 04/14/2025 11:59 PM CDT Hospital Encounter [facility] Radiation Oncology [address] [place] [address] Maciej Bond III, MD PhD Discharge Disposition: Discharge to home or self care 04/14/2025 Orders Only RAD ONC TREATMENTS Miscellaneous, Not In File 04/14/2025 Telephone [facility] [place] [address] Sierra Calle RN 04/13/2025 11:10 AM CDT - 04/13/2025 11:59 PM CDT Hospital Encounter [facility] Radiation Oncology [address] [place] [address] Maciej Bond III, MD PhD Discharge Disposition: Discharge to home or self care 04/13/2025 OTV [facility] Radiation Oncology [address] [place] [address] Maciej Bond III, MD PhD Malignant neoplasm of tonsil (Primary Dx) 04/13/2025 Orders Only RAD ONC TREATMENTS Miscellaneous, Not In File 04/10/2025 3:50 PM CDT - 04/10/2025 11:59 PM CDT Hospital Encounter [facility] Radiation Oncology [address] [place] [address] Maciej Bond III, MD PhD Discharge Disposition: Discharge to home or self care 04/10/2025 Orders Only RAD ONC TREATMENTS Miscellaneous, Not In File 04/09/2025 10:00 AM CDT Infusion [facility] - Infusion [address] [facility] Floor 6 [place] [address] Malignant neoplasm of tonsil (Primary Dx) 04/09/2025 9:00 AM CDT [facility] [address] [facility] Floor 5 [place] [address] Cody Osman MD Malignant neoplasm of tonsil (Primary Dx) 04/09/2025 8:30 AM CDT Lab [facility] - Lab Collection [address] [facility] Floor 5 [place] [address] Malignant neoplasm of tonsil 04/09/2025 8:00 AM CDT Lab [facility] [address] [facility] Floor 5 [place] [address] Malignant neoplasm of tonsil 04/09/2025 7:09 AM CDT - 04/09/2025 11:59 PM CDT Hospital Encounter [facility] Advanced Medicine Radiation Oncology [facility] [place] [address] Maciej Bond III, MD PhD Discharge Disposition: Discharge to home or self care 04/09/2025 Telephone [facility] [address] [facility] Floor 5 [place] [address] Carissa Kennedy RN 04/09/2025 Orders Only RAD ONC TREATMENTS Miscellaneous, Not In File 04/08/2025 1:00 PM CDT - 04/08/2025 11:59 PM CDT Hospital Encounter [facility] Radiation Oncology [address] [place] [address] [place] [address] Maciej Bond III, PhD Discharge Disposition: Discharge to home or self care 04/08/2025 Orders Only RAD ONC TREATMENTS Miscellaneous, Not In File 04/07/2025 Documentation [facility] Radiation Oncology [address] [facility] [place] [address] Nancy Thayer, MACHINE MAINTENANCE SUPERVISOR 04/06/2025 10:10 PM CDT - 04/06/2025 11:59 PM CDT Hospital Encounter [facility] Radiation Oncology [address] [place] [address] Maciej Bond III, MD PhD Discharge Disposition: Discharge to home or self care 04/06/2025 Telephone [facility] Advanced Medicine Radiation Oncology [facility] [place] [address] Mounika Long RN 04/01/[address] Advanced Medicine [address] [place] [phone] Natalie Gonzalez 04/01/2025 Telephone [facility] Oncology [address] [place] [phone] Carissa Kennedy, DAMARIS Scheduling Appointments 04/01/2025 Telephone [facility] Advanced Medicine Radiation Oncology [address] [facility] [place] [address] Mounika Long RN 03/31/[address] Advanced Medicine 1st [place] [address] Natalie Gonzalez 03/26/2025 Documentation [facility] Radiation Oncology [address] [facility] [place] [address] Khushbu Carrasco, LAUREN 03/20/2025 Telephone [facility] Oncology [address] [facility] Floor 5 [place] [address] Carissa Kennedy, DAMARIS Scheduling Appointments 03/19/2025 9:57 AM CDT - 03/19/2025 11:59 PM CDT Hospital Encounter [facility] Radiation Oncology [address] [facility] [place] [address] Maciej Bond III, MD PhD Discharge Disposition: Discharge to home or self care 03/19/2025 Telephone [facility] [address] [facility] Advanced Medicine [address] [place] [phone] Natalie Gonzalez 03/19/2025 Documentation [facility] Advanced Medicine Radiation Oncology [address] [place] [address] Mounika Long RN 03/19/2025 Documentation [facility] Radiation Oncology [address] [facility] [place] [address] Khushbu Carrasco, [facility] 03/18/2025 Documentation [facility] Advanced Medicine Radiation Oncology [address] [facility] [place] [address] Khushbu Carrasco, MACHINE MAINTENANCE SUPERVISOR 03/18/2025 Telephone [facility] Radiation Oncology [address] [facility] [place] [address] Kanchan Medellin, RN 03/17/2025 Telephone [facility] [address] [facility] [address]th [place] [address] Diane Talbot, DAMARIS Navigation follow up 03/17/2025 Telephone [facility] Advanced Medicine Radiation Oncology [address] [place] [address] Kanchan Medellin, RN 03/17/2025 Telephone [facility] Radiation Oncology [address] [facility] [place] [address] Kanchan Medellin, RN 03/17/2025 Documentation [facility] [address] [address] Melody Soriano, MACHINE MAINTENANCE SUPERVISOR 03/13/2025 Telephone [facility] Oncology [address] [place] [phone] Carissa Kennedy, DAMARIS 03/11/2025 Telephone [facility] Radiation Oncology [address] [facility] [place] [address] Maciej Bond III, MD PhD 03/10/2025 Documentation [facility] Radiation Oncology [address] [facility] [place] [address] Khushbu Carrasco, [facility] 03/09/2025 Documentation [facility] Radiation Oncology [address] [facility] [place] [address] Khushbu Carrasco, MACHINE MAINTENANCE SUPERVISOR 03/09/2025 Documentation [facility] Radiation Oncology [address] [facility] [place] [address] Khushbu Carrasco, MACHINE MAINTENANCE SUPERVISOR 03/07/2025 Documentation [facility] Radiation Oncology [address] [facility] [place] [address] Khushbu Carrasco, MACHINE MAINTENANCE SUPERVISOR 03/06/2025 Documentation [facility] Radiation Oncology [address] [facility] [place] [address] Khushbu Carrasco, MACHINE MAINTENANCE SUPERVISOR 03/06/2025 Social Work [facility] Radiation Oncology [address] [facility] [place] [address] Khushbu Carrasco, MACHINE MAINTENANCE SUPERVISOR 03/05/2025 Documentation [facility] [address] [phone] Melody Soriano, MACHINE MAINTENANCE SUPERVISOR 03/05/2025 Telephone [facility] [address] [facility] [address] [place] [address] Diane Talbot RN End Navigation 03/03/2025 Telephone [facility] [address] [place] [address] She Sanz 03/02/2025 Telephone [facility] [address] [facility] [address] [place] [address] Diane Talbot senior marketing data analyst Inital Call- 3rd attempt from Last 3 Months Surgical History Surgery Date Site/Laterality Comments HERNIA REPAIR OTHER SURGICAL HISTORY Right Ear OTHER SURGICAL HISTORY Spinal infusion PORT PLACEMENT CHEST >5 YEARS 04/17/2025 N/A Family History Medical History Relation Name Comments Lung cancer Maternal Grandmother Liver cancer Paternal Grandmother Relation Name Status Comments Maternal Grandmother Paternal Grandmother Social History Tobacco Use Types Packs/Day Years Used Date Smoking Tobacco: Some Days Cigarettes Smokeless Tobacco: Never Tobacco Cessation:Ready to Q uit: Yes; Counseling Given: Yes Alcohol Use Standard Drinks/Week Comments Never 0 (1 standard drink = 0.6 oz pur e alcohol) Social Connection and Isolation Panel Answer Date Recorded In a typical week, how many times do you talk on the phone with family, friends, or neighbors? Three times a week 02/25/20 How often do you get togethe r with friends or relatives? Three times a week 02/24/2025 How often do you attend chur or baptism services? Never 02/24/2025 Do you belong to any clubs o r organizations such as confucianist groups, unions, fraternal or athletic groups, or school groups? No 02/24/2025 How often do you attend meet ings of the clubs or organizations you belong to? Never 02/24/2025 Are you , , di vorced, , never , or living with a partner? Living with partner 02/24/2025 AUDIT-C Answer Date Recorded Q1: How often do you have a drink containing alcohol? Never 02/20/2025 Q2: How many drinks containi ng alcohol do you have on a typical day when you are drinking? Patient does not drink Q3: How often do you have si x or more drinks on one occasion? Never 02/20/2025 Overall Financial Resource Strain (CARDIA) Answe r Date Recorded How hard is it for you to pa y for the very basics like food, housing, medical care, and heating? Very hard 02/24/2025 Hunger Vital Sign Answer Date Recorded Within the past 12 months, y ou worried that your food would run out before you got the money to buy more. Sometimes true Within the past 12 months, t he food you bought just didn't last and you didn't have money to get more. Sometimes true 07/2024 PRAPARE - Transportation Answer Date Re corded In the past 12 months, has l ack of transportation kept you from medical appointments or from getting medications? No 07/2024 In the past 12 months, has l ack of transportation kept you from meetings, work, or from getting things needed for daily living? No 02/24/2025 Housing Stability Vital Sign Answer Arden e Recorded In the last 12 months, was t here a time when you were not able to pay the mortgage or rent on time? Yes 02/24/2025 In the past 12 months, how m any times have you moved where you were living? 1 02/24/2025 At any time in the past 12 m [facility], were you homeless or living in a [facility] (including now)? Yes 02/24/2025 [facility] Utilities Answer Date Recorded In the past 12 months has th e electric, gas, oil, or water company threatened to shut off services in your home? No 02/24/2025 Personal Safety Answer Date Recorded Have you ever been in or are you currently in a harmful physical or emotional relationship or is someone making you feel afraid or unsafe? Denies 04/17/2025 Sex and Gender Information Value Date Recorded Sex Assigned at Not on file Legal Sex Male 10:30 AM VENEER GRADER Gender Identity Not on file Sexual Orientation Not on file Last Filed Vital Signs Vital Sign Reading Time Taken Comments Blood Pressure 135/85 05/28/2025 8:32 AM VENEER GRADER Pulse 81 05/28/2025 8:32 AM VENEER GRADER Temperature 36.8 C (98.2 F) 05/28/2025 8:32 AM VENEER GRADER Respiratory Rate 18 05/28/2025 8:32 AM VENEER GRADER Oxygen Saturation 100% 05/28/2025 8:32 AM VENEER GRADER Inhaled Oxygen Concentration - - Weight 61.4 kg (135 lb 6.4 oz) 05/28/2025 8:32 A M VENEER GRADER Height 168 cm (5' 6.14) 04/30/2025 9:46 AM VENEER GRADER no shoes Body Mass Index 21.76 04/30/2025 9:46 AM VENEER GRADER Plan of Treatment Health Maintenance Due Date Last Done Comments Depression Screening 1980 Hepatitis C Screening 1980 Varicella Vaccines (1 of 2 - 13+ 2-dose series) 1993 DTaP/Tdap/Td Vaccine (6 - Tdap) 12/30/1994 12/29/1994, 01/01/1985, 10/26/1982, Additional history exists Regular Well Visit/Exam 18-64 1998 Pneumococcal vaccine <65 (1 of 2 - PCV) 09/22/1999 Zoster Vaccine (1 of 2) 09/22/1999 HPV Vaccines (1 - Risk 3-dos e SCDM series) 09/22/2007 Influenza Vaccine (#1) 2025 Hepatitis B Screening Completed 01/27/2022 Medical Devices Implanted Type Area Water Server Device Identifier Shelf Expiration Date Model / Serial / Lot [employer] Xcela Power Port 8fr [id number] - [id number] Implanted:Qty: 1 on 04/17/2025 by De Coleman MD at [facility] [employer] 09/14/2029 [id number] / / [id number] Procedures Procedure Name Priority Date/Time Associated Diagnosis Comments RAD ONC ARIA SESSION SUMMARY 05/28/2025 4:17 PM VENEER GRADER EGFR Routine 05/28/2025 7:59 AM VENEER GRADER Malignant neoplasm of tonsil DIFFERENTIAL AUTO Routine 05/28/2025 7:5 9 AM VENEER GRADER Malignant neoplasm of tonsil CBC WITH AUTO DIFFERENTIAL Routine 05/28/2025 7:59 AM VENEER GRADER Malignant neoplasm of tonsil COMPREHENSIVE METABOLIC PANEL Routine 05/28/2025 7:59 AM VENEER GRADER Malignant neoplasm of tonsil MAGNESIUM Routine 05/28/2025 7:59 AM VENEER GRADER Malignant neoplasm of tonsil RAD ONC ARIA SESSION SUMMARY 05/27/2025 2:57 PM VENEER GRADER RAD ONC ARIA SESSION SUMMARY 05/26/2025 4:07 PM VENEER GRADER RAD ONC ARIA SESSION SUMMARY 05/19/2025 3:31 PM VENEER GRADER RAD ONC ARIA SESSION SUMMARY 05/15/2025 3:31 PM VENEER GRADER RAD ONC ARIA SESSION SUMMARY 05/04/2025 4:59 PM VENEER GRADER RAD ONC ARIA SESSION SUMMARY 04/30/2025 5:02 PM VENEER GRADER EGFR Routine 04/30/2025 8:32 AM VENEER GRADER Malignant neoplasm of tonsil DIFFERENTIAL AUTO Routine 04/30/2025 8:3 2 AM VENEER GRADER Malignant neoplasm of tonsil CBC WITH AUTO DIFFERENTIAL Routine 04/30/2025 8:32 AM VENEER GRADER Malignant neoplasm of tonsil COMPREHENSIVE METABOLIC PANEL Routine 04/30/2025 8:32 AM VENEER GRADER Malignant neoplasm of tonsil MAGNESIUM Routine 04/30/2025 8:32 AM VENEER GRADER Malignant neoplasm of tonsil RAD ONC ARIA SESSION SUMMARY 04/29/2025 4:55 PM VENEER GRADER RAD ONC ARIA SESSION SUMMARY 04/27/2025 5:03 PM VENEER GRADER RAD ONC ARIA SESSION SUMMARY 04/23/2025 4:37 PM CDT PORT PLACEMENT CHEST >5 YEARS Schedule Routine, Read Routine (OP Routine) 04/17/2025 3:54 PM CDT Malignant neoplasm of tonsil RAD ONC ARIA SESSION SUMMARY 04/17/2025 1:23 PM CDT RAD ONC ARIA SESSION SUMMARY 04/15/2025 4:56 PM CDT RAD ONC ARIA SESSION SUMMARY 04/14/2025 2:57 PM CDT RAD ONC ARIA SESSION SUMMARY 04/13/2025 11:52 AM CDT RAD ONC ARIA SESSION SUMMARY 04/10/2025 4:04 PM CDT EGFR Routine 04/09/2025 8:22 AM CDT Malignant neoplasm of tonsil DIFFERENTIAL AUTO Routine 04/09/2025 8:2 2 AM CDT Malignant neoplasm of tonsil CBC WITH AUTO DIFFERENTIAL Routine 04/09/2025 8:22 AM CDT Malignant neoplasm of tonsil COMPREHENSIVE METABOLIC PANEL Routine 04/09/2025 8:22 AM CDT Malignant neoplasm of tonsil MAGNESIUM Routine 04/09/2025 8:22 AM CDT Malignant neoplasm of tonsil RAD ONC ARIA SESSION SUMMARY 04/09/2025 7:36 AM CDT RAD ONC ARIA SESSION SUMMARY 04/08/2025 1:27 PM CDT from Last 3 Months Results * RAD ONC ARIA SESSION SUMMARY (05/28/2025 4:17 PM VENEER GRADER) Course Name [id number] ARIA Course Plan Date 03/19/2025 11:29 AM ARIA Elapsed Days 50 ARIA Treatment Start Date 04/08/2025 ARIA Treatment Site [id number] ARIA Dose Given To Date (cGy) 3,400 ARIA Session Dosage Given (cGy) 200 ARIA Plan ID H&N ARIA Fractions Treated 17 ARIA Prescribed Dose Per Fraction (cGy) 200 ARIA Prescribed Total Dose (cGy) 7,000 ARIA 05/28/2025 4:17 PM VENEER GRADER us Not In File Miscellaneous RADIATION ONCOLOGY ORD ERABLES Final Result PHILIP * eGFR (05/28/2025 7:59 AM VENEER GRADER) eGFR >90 >=60 mL/min/1. 73 m2 Comment: Interpretive Data Reference Interval Normal >/= 90 mL/min/1.73m2 Mildly decreased* 60 - 89 mL/min/1.73m2 Mildly to moderately decreased 45 - 59 mL/min/1.73m2 Moderately to severely decreased 30 - 44 mL/min/1.73m2 Severely decreased 15 - 29 mL/min/1.73m2 Kidney Failure < 15 mL/min/1.73m2 *Relative to young adult level Estimated glomerular filtration rate is determined by the 2020 CKD-EPI equation recommended by the National Kidney Foundation (A Unifying Approach to GFR Estimation: Recommendations of the NKF-ASK Task Force on Reassessing the Inclusion of Race in Diagnosing Kidney Disease, JASN 2020). The CKD-EPI equation should not be used for patients with unstable renal function and has not been validated in children and those over 70. Current interpretive data was last reviewed 2021. Blood 05/28/2025 7:59 AM VENEER GRADER 05/28/2025 8:02 AM VENEER GRADER us Cody Osman MD LAB BLOOD ORDERABLES Final Result [facility] Department of Laboratories [place], [place] [id number] * (ABNORMAL) Differential, auto (05/28/2025 7:59 AM VENEER GRADER) Neutrophil abs 3.98 1.50 - 6.50 K/cumm Comment:Testing performed by : [facility], [address] [place] [phone] Lymphocyte abs 0.62(L) 0.80 - 3.30 K/cumm [facility] Comment:Testing performed by : [facility], [address] [place] [address] Monocyte abs 0.43 0.20 - 0.80 K/cumm [facility] Comment:Testing performed by : [facility], [address] [place], [place] [phone] Eosinophil abs 0.11 0.00 - 0.50 K/cumm [facility] Comment:Testing performed by : [facility], [address] [place], [place] [id number] Basophil abs 0.04 0.00 - 0.10 K/cumm [facility] Comment:Testing performed by : [facility], [address] [place], [place] [id number] Neutrophil pct 76.9 % [facility] Comment: Interpretive Data Percent cell count reference ranges are not reported, since discordance with absolute values may lead to misinterpretation of CBC data. Current Interpretive Data was last revised on 2017. Testing performed by: [facility], [address] [place] [address] Lymphocyte pct 11.9 % [facility] Comment: Interpretive Data Percent cell count reference ranges are not reported, since discordance with absolute values may lead to misinterpretation of CBC data. Current Interpretive Data was last revised on 2017. Testing performed by: [facility], [address] [place] [address] Monocyte pct 8.3 % [facility] Comment: Interpretive Data Percent cell count reference ranges are not reported, since discordance with absolute values may lead to misinterpretation of CBC data. Current Interpretive Data was last revised on 2017. Testing performed by: [facility], [address] [place] [phone] Eosinophil pct 2.1 % [facility] Comment: Interpretive Data Percent cell count reference ranges are not reported, since discordance with absolute values may lead to misinterpretation of CBC data. Current Interpretive Data was last revised on 2017. Testing performed by: [facility], [address] [place] [phone] Basophil pct 0.8 % [facility] Comment: Interpretive Data Percent cell count reference ranges are not reported, since discordance with absolute values may lead to misinterpretation of CBC data. Current Interpretive Data was last revised on 2017. Testing performed by: [facility], [address] [place] [address] Blood 05/28/2025 7:59 AM VENEER GRADER 05/28/2025 8:01 AM VENEER GRADER us Cody Osman MD LAB BLOOD ORDERABLES Final Result [facility] [place] [address] * (ABNORMAL) CBC with auto differential (05/28/2025 7:59 AM VENEER GRADER) WBC 5.18 3.80 - 9.90 K/cumm Comment:Testing performed by : [facility], [address] [place] [address] Hgb 12.0(L) 13.0 - 17.5 g/dL [facility] Comment:Testing performed by : [facility], [address] [place] [address] Hct 36.2(L) 38.9 - 50.3 % [facility] Comment:Testing performed by : [facility], [address] [place] [address] Plt 269 150 - 400 K/cumm [facility] Comment:Testing performed by : [facility], [address] [place] [address] MPV 6.4(L) 6.8 - 10.4 fL [facility] Comment:Testing performed by : [facility], [address] [place] [address] RBC 4.34 4.30 - 5.80 M/cumm [facility] Comment:Testing performed by : [facility], [address] [place] [address] MCV 83.3 81.3 - 96.4 fL [facility] Comment:Testing performed by : [facility], [address] [place], [place] [phone] MCH 27.7 27.1 - 33.3 pg [facility] Comment:Testing performed by : [facility], [address] [place] [address] MCHC 33.3 32.3 - 35.7 g/dL [facility] Comment:Testing performed by : [facility], [address] [place], [place] [phone] RDW CV 14.6 11.1 - 14.9 % [facility] Comment:Testing performed by : [facility], [address] [place], [place] [phone] NRBC abs 0.00 0.00 - 0.01 K/cumm [facility] Comment:Testing performed by : [facility], [address] [place], [place] [phone] Blood 05/28/2025 7:59 AM VENEER GRADER 05/28/2025 8:01 AM VENEER GRADER Cody Osman MD LAB BLOOD ORDERABLES Final Result Performing Organization Address City/[facility] Co de Phone Number [facility] Department [place] [address] * Magnesium (05/28/2025 7:59 AM VENEER GRADER) Magnesium 2.2 1.4 - 2.5 mg/dL Blood 05/28/2025 7:59 AM VENEER GRADER 05/28/2025 8:02 AM VENEER GRADER Cody Osman MD LAB BLOOD ORDERABLES Final Result Performing Organization Address [facility] Co de Phone Number [facility] Department [place] [address] * (ABNORMAL) Comprehensive metabolic panel (05/28/2025 7:59 AM VENEER GRADER) Sodium 140 135 - 145 mmol/L Potassium, pl 4.2 3.3 - 4.9 mmol/L [facility] Chloride 103 97 - 110 mmol/L [facility] CO2 30 22 - 32 mmol/L [facility] Anion gap 7 2 - 15 mmol/L [facility] BUN 14 6 - 25 mg/dL [facility] Creatinine 0.60(L) 0.80 - 1.30 mg/dL [facility] Glucose 110 70 - 199 mg/dL [facility] Comment: Interpretive Data Fasting glucose >/= 126 mg/dl is diagnostic for diabetes. Fasting is defined as no caloric intake for at least 8 hours. Fasting glucose between 100 mg/dl to 125 mg/dl is diagnostic of prediabetes. In a patient with classic symptoms of hyperglycemia or hyperglycemic crisis, a random glucose >/= 200 mg/dl is diagnostic for diabetes. In the absence of unequivocal hyperglycemia, results should be confirmed by repeat testing. The classification and Diagnosis of Diabetes Diabetes Care 2021; 46: S19-S40. Current interpretive data was last revised 2022. Calcium 8.7 8.5 - 10.3 mg/dL [facility] Bilirubin, total 0.2 0.1 - 1.2 mg/dL [facility] Protein, pl 7.1 6.5 - 8.5 g/dL [facility] Albumin 3.7 3.5 - 5.0 g/dL [facility] Alk phos 95 40 - 130 Units/L [facility] ALT 15 7 - 55 Units/L [facility] AST 15 10 - 50 Units/L [facility] Blood 05/28/2025 7:59 AM VENEER GRADER 05/28/2025 8:02 AM VENEER GRADER us Cody Osman MD LAB BLOOD ORDERABLES Final Result [facility] [place] [address] * RAD ONC ARIA SESSION SUMMARY (05/27/2025 2:57 PM VENEER GRADER) Course Name [id number] ARIA Course Plan Date 03/19/2025 11:29 AM ARIA Elapsed Days 49 ARIA Treatment Start Date 04/08/2025 ARIA Treatment Site [id number] ARIA Dose Given To Date (cGy) 3,200 ARIA Session Dosage Given (cGy) 200 ARIA Plan ID H&N ARIA Fractions Treated 16 ARIA Prescribed Dose Per Fraction (cGy) 200 ARIA Prescribed Total Dose (cGy) 7,000 ARIA 05/27/2025 2:57 PM VENEER GRADER us Not In File Miscellaneous RADIATION ONCOLOGY ORD ERABLES Final Result [facility] * RAD ONC ARIA SESSION SUMMARY (05/26/2025 4:07 PM VENEER GRADER) Course Name [id number]_HN ARIA Course Plan Date 03/19/2025 11:29 AM ARIA Elapsed Days 48 ARIA Treatment Start Date 04/08/2025 ARIA Treatment Site [id number] ARIA Dose Given To Date (cGy) 3,000 ARIA Session Dosage Given (cGy) 200 ARIA Plan ID H&N ARIA Fractions Treated 15 ARIA Prescribed Dose Per Fraction (cGy) 200 ARIA Prescribed Total Dose (cGy) 7,000 ARIA 05/26/2025 4:07 PM VENEER GRADER us Not In File Miscellaneous RADIATION ONCOLOGY ORD ERABLES Final Result [facility]IP * RAD ONC ARIA SESSION SUMMARY (05/19/2025 3:31 PM VENEER GRADER) Course Name [id number]_HN ARIA Course Plan Date 03/19/2025 11:29 AM ARIA Elapsed Days 41 ARIA Treatment Start Date 04/08/2025 ARIA Treatment Site [id number] ARIA Dose Given To Date (cGy) 2,800 ARIA Session Dosage Given (cGy) 200 ARIA Plan ID H&N ARIA Fractions Treated 14 ARIA Prescribed Dose Per Fraction (cGy) 200 ARIA Prescribed Total Dose (cGy) 7,000 ARIA 05/19/2025 3:31 PM VENEER GRADER us Not In File Miscellaneous RADIATION ONCOLOGY ORD ERABLES Final Result ARIA * RAD ONC ARIA SESSION SUMMARY (05/15/2025 3:31 PM VENEER GRADER) Course Name C1_HN ARIA Course Plan Date 03/19/2025 11:29 AM ARIA Elapsed Days 37 ARIA Treatment Start Date 04/08/2025 ARIA Treatment Site [id number] ARIA Dose Given To Date (cGy) 2,600 ARIA Session Dosage Given (cGy) 200 ARIA Plan ID H&N ARIA Fractions Treated 13 ARIA Prescribed Dose Per Fraction (cGy) 200 ARIA Prescribed Total Dose (cGy) 7,000 ARIA 05/15/2025 3:31 PM VENEER GRADER us Not In File Miscellaneous RADIATION ONCOLOGY ORD ERABLES Final Result ARIA * RAD ONC ARIA SESSION SUMMARY (05/04/2025 4:59 PM VENEER GRADER) Course Name C1_HN ARIA Course Plan Date 03/19/2025 11:29 AM ARIA Elapsed Days 26 ARIA Treatment Start Date 04/08/2025 ARIA Treatment Site [id number] ARIA Dose Given To Date (cGy) 2,400 ARIA Session Dosage Given (cGy) 200 ARIA Plan ID H&N ARIA Fractions Treated 12 ARIA Prescribed Dose Per Fraction (cGy) 200 ARIA Prescribed Total Dose (cGy) 7,000 ARIA 05/04/2025 4:59 PM VENEER GRADER us Not In File Miscellaneous RADIATION ONCOLOGY ORD ERABLES Final Result ARIA * RAD ONC ARIA SESSION SUMMARY (04/30/2025 5:02 PM VENEER GRADER) Pathologist [facility] Course Name [id number] ARIA Course Plan Date 03/19/2025 11:29 AM ARIA Elapsed Days 22 ARIA Treatment Start Date 04/08/2025 ARIA Treatment Site [id number] ARIA Dose Given To Date (cGy) 2,200 ARIA Session Dosage Given (cGy) 200 ARIA Plan ID H&N ARIA Fractions Treated 11 ARIA Prescribed Dose Per Fraction (cGy) 200 ARIA Prescribed Total Dose (cGy) 7,000 ARIA 04/30/2025 5:02 PM VENEER GRADER us Not In File Miscellaneous RADIATION ONCOLOGY ORD ERABLES Final Result [facility]ILIP * eGFR (04/30/2025 8:32 AM VENEER GRADER) [facility] eGFR >90 >=60 mL/min/1. 73 m2 Comment: Interpretive Data Reference Interval Normal >/= 90 mL/min/1.73m2 Mildly decreased* 60 - 89 mL/min/1.73m2 Mildly to moderately decreased 45 - 59 mL/min/1.73m2 Moderately to severely decreased 30 - 44 mL/min/1.73m2 Severely decreased 15 - 29 mL/min/1.73m2 Kidney Failure < 15 mL/min/1.73m2 *Relative to young adult level Estimated glomerular filtration rate is determined by the 2020 CKD-EPI equation recommended by the National Kidney Foundation (A Unifying Approach to GFR Estimation: Recommendations of the NKF-ASK Task Force on Reassessing the Inclusion of Race in Diagnosing Kidney Disease, JASN 2020). The CKD-EPI equation should not be used for patients with unstable renal function and has not been validated in children and those over 70. Current interpretive data was last reviewed 2021. Blood 04/30/2025 8:32 AM VENEER GRADER 04/30/2025 8:36 AM VENEER GRADER us Cody Osman MD LAB BLOOD ORDERABLES Final Result [facility] [place] [address] * (ABNORMAL) Differential, auto (04/30/2025 8:32 AM VENEER GRADER) Neutrophil abs 4.75 1.50 - 6.50 K/cumm Comment:Testing performed by : [facility], [address] [place] [address] Lymphocyte abs 0.77(L) 0.80 - 3.30 K/cumm [facility] Comment:Testing performed by : [facility], [address] [place], [place] [phone] Monocyte abs 0.76 0.20 - 0.80 K/cumm [facility] Comment:Testing performed by : [facility], [address] [place] [address] Eosinophil abs 0.12 0.00 - 0.50 K/cumm [facility] Comment:Testing performed by : [facility], [address] [place], [place] [phone] Basophil abs 0.04 0.00 - 0.10 K/cumm [facility] Comment:Testing performed by : [facility], [address] [place] [phone] Neutrophil pct 73.7 % [facility] Comment: Interpretive Data Percent cell count reference ranges are not reported, since discordance with absolute values may lead to misinterpretation of CBC data. Current Interpretive Data was last revised on 2017. Testing performed by: [facility], [address] [place] [phone] Lymphocyte pct 12.0 % [facility] Comment: Interpretive Data Percent cell count reference ranges are not reported, since discordance with absolute values may lead to misinterpretation of CBC data. Current Interpretive Data was last revised on 2017. Testing performed by: [facility], [address] [place], [place] [phone] Monocyte pct 11.8 % [facility] Comment: Interpretive Data Percent cell count reference ranges are not reported, since discordance with absolute values may lead to misinterpretation of CBC data. Current Interpretive Data was last revised on 2017. Testing performed by: [facility], [address] [place] [phone] Eosinophil pct 1.9 % [facility] Comment: Interpretive Data Percent cell count reference ranges are not reported, since discordance with absolute values may lead to misinterpretation of CBC data. Current Interpretive Data was last revised on 2017. Testing performed by: [facility], [address] [place] [address] Basophil pct 0.6 % [facility] Comment: Interpretive Data Percent cell count reference ranges are not reported, since discordance with absolute values may lead to misinterpretation of CBC data. Current Interpretive Data was last revised on 2017. Testing performed by: [facility], [address] [place], [place] [phone] Blood 04/30/2025 8:32 AM VENEER GRADER 04/30/2025 8:34 AM VENEER GRADER Cody Osman MD LAB BLOOD ORDERABLES Final Result [facility] [place] [address] * (ABNORMAL) CBC with auto differential (04/30/2025 8:32 AM VENEER GRADER) WBC 6.45 3.80 - 9.90 K/cumm Comment:Testing performed by : [facility], [address] [place] [address] Hgb 11.9(L) 13.0 - 17.5 g/dL [facility] Comment:Testing performed by : [facility], [address] [place] [address] Hct 34.4(L) 38.9 - 50.3 % [facility] Comment:Testing performed by : [facility], [address] [place] [address] Plt 257 150 - 400 K/cumm [facility] Comment:Testing performed by : [facility], [address] [place], [place] [phone] MPV 6.8 6.8 - 10.4 fL [facility] Comment:Testing performed by : [facility], [address] [place], [place] [phone] RBC 4.24(L) 4.30 - 5.80 M/cumm [facility] Comment:Testing performed by : [facility], [address] [place], [place] [phone] MCV 81.2(L) 81.3 - 96.4 fL [facility] Comment:Testing performed by : [facility], [address] [place], [place] [phone] MCH 28.0 27.1 - 33.3 pg [facility] Comment:Testing performed by : [facility], [address] [place], [place] [phone] MCHC 34.5 32.3 - 35.7 g/dL [facility] Comment:Testing performed by : [facility], [address] [place], [place] [phone] RDW CV 12.9 11.1 - 14.9 % [facility] Comment:Testing performed by : [facility], [address] [place], [place] [phone] NRBC abs 0.00 0.00 - 0.01 K/cumm [facility] Comment:Testing performed by : [facility], [address] [place] [address] Blood 04/30/2025 8:32 AM VENEER GRADER 04/30/2025 8:34 AM VENEER GRADER us Cody Osman MD LAB BLOOD ORDERABLES Final Result [facility] [place] [address] * Magnesium (04/30/2025 8:32 AM VENEER GRADER) Magnesium 2.0 1.4 - 2.5 mg/dL Blood 04/30/2025 8:32 AM VENEER GRADER 04/30/2025 8:36 AM VENEER GRADER us Cody Osman MD LAB BLOOD ORDERABLES Final Result [facility] [place] [address] * (ABNORMAL) Comprehensive metabolic panel (04/30/2025 8:32 AM VENEER GRADER) Pathologist [facility] Sodium 137 135 - 145 mmol/L Potassium, pl 4.3 3.3 - 4.9 mmol/L [facility] Chloride 98 97 - 110 mmol/L [facility] CO2 30 22 - 32 mmol/L [facility] Anion gap 9 2 - 15 mmol/L [facility] BUN 20 6 - 25 mg/dL [facility] Creatinine 0.79(L) 0.80 - 1.30 mg/dL [facility] Glucose 136 70 - 199 mg/dL [facility] Comment: Interpretive Data Fasting glucose >/= 126 mg/dl is diagnostic for diabetes. Fasting is defined as no caloric intake for at least 8 hours. Fasting glucose between 100 mg/dl to 125 mg/dl is diagnostic of prediabetes. In a patient with classic symptoms of hyperglycemia or hyperglycemic crisis, a random glucose >/= 200 mg/dl is diagnostic for diabetes. In the absence of unequivocal hyperglycemia, results should be confirmed by repeat testing. The classification and Diagnosis of Diabetes Diabetes Care 2021; 46: S19-S40. Current interpretive data was last revised 2022. Calcium 9.1 8.5 - 10.3 mg/dL [facility] Bilirubin, total 0.3 0.1 - 1.2 mg/dL [facility] Protein, pl 7.4 6.5 - 8.5 g/dL [facility] Albumin 3.7 3.5 - 5.0 g/dL [facility] Alk phos 84 40 - 130 Units/L [facility] ALT 14 7 - 55 Units/L [facility] AST 14 10 - 50 Units/L [facility] Blood 04/30/2025 8:32 AM VENEER GRADER 04/30/2025 8:36 AM VENEER GRADER us Cody Osman MD LAB BLOOD ORDERABLES Final Result [facility] [place] [address] * RAD ONC ARIA SESSION SUMMARY (04/29/2025 4:55 PM VENEER GRADER) Course Name [id number]_HN ARIA Course Plan Date 03/19/2025 11:29 AM ARIA Elapsed Days 21 ARIA Treatment Start Date 04/08/2025 ARIA Treatment Site [id number] ARIA Dose Given To Date (cGy) 2,000 ARIA Session Dosage Given (cGy) 200 ARIA Plan ID H&N ARIA Fractions Treated 10 ARIA Prescribed Dose Per Fraction (cGy) 200 ARIA Prescribed Total Dose (cGy) 7,000 ARIA 04/29/2025 4:55 PM VENEER GRADER us Not In File Miscellaneous RADIATION ONCOLOGY ORD ERABLES Final Result ARIA * RAD ONC ARIA SESSION SUMMARY (04/27/2025 5:03 PM VENEER GRADER) Course Name [id number] ARIA Course Plan Date 03/19/2025 11:29 AM ARIA Elapsed Days 19 ARIA Treatment Start Date 04/08/2025 ARIA Treatment Site [id number] ARIA Dose Given To Date (cGy) 1,800 ARIA Session Dosage Given (cGy) 200 ARIA Plan ID H&N ARIA Fractions Treated 9 ARIA Prescribed Dose Per Fraction (cGy) 200 ARIA Prescribed Total Dose (cGy) 7,000 ARIA 04/27/2025 5:03 PM VENEER GRADER us Not In File Miscellaneous RADIATION ONCOLOGY ORD ERABLES Final Result ARIA * RAD ONC ARIA SESSION SUMMARY (04/23/2025 4:37 PM CDT) Course Name [id number] ARIA Course Plan Date 03/19/2025 11:29 AM ARIA Elapsed Days 15 ARIA Treatment Start Date 04/08/2025 ARIA Treatment Site [id number] ARIA Dose Given To Date (cGy) 1,600 ARIA Session Dosage Given (cGy) 200 ARIA Plan ID H&N ARIA Fractions Treated 8 ARIA Prescribed Dose Per Fraction (cGy) 200 ARIA Prescribed Total Dose (cGy) 7,000 ARIA 04/23/2025 4:37 PM CDT us Not In File Miscellaneous RADIATION ONCOLOGY ORD ERABLES Final Result PHILIP * IR Port Placement Chest > 5 Years (04/17/2025 3:54 PM CDT) Anatomical Region Laterality Modality Chest N/A Radio Fluoroscop y 04/17/2025 4:35 PM CDT Impressions 04/17/2025 9:42 PM CDT Successful chest wall port placement. PLAN: The catheter is ready for immediate use. Please note that a power injectable port was placed. When treatment is completed, removal can be scheduled by calling [facility] - [phone] [facility] - [phone] Dictated by: Jesus Jackson M.D. The radiology attending physician has personally reviewed this study, and had reviewed and/or edited this written report and agrees with it. 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 SEDATION: Procedural sedation was administered under the attending physician's direction and continuous monitoring by a trained nurse specialist who was independent from those actually performing the procedure. Total monitored sedation time was 15 minutes. TECHNIQUE: The risks, benefits and alternatives were discussed and informed consent was obtained. Prior to beginning the procedure, [place] Protocol was used to confirm the patient's identity and planned procedure. Fluoroscopy time has been recorded in the electronic medical record. Prior to the procedure, the central veins were evaluated by ultrasound, an image of the patent vein was recorded and placed in the patient's electronic medical record. Maximum sterile barriers including cap, mask, hand hygiene, sterile gloves, sterile gown, large sterile drape and 2% chlorhexidine for cutaneous antisepsis were used. The skin over the right internal jugular vein was sterilely prepped, draped and infiltrated with 1% buffered lidocaine. The vein was accessed with a 21 gauge needle using realtime ultrasound guidance. A guidewire and catheter were then passed centrally using fluoroscopic guidance. The intravascular length from the access site to the right atrium was then measured. After infiltrating the skin in the subclavicular region with 1% buffered lidocaine, a short transverse incision was made and the pocket for the power injectable reservoir was formed by blunt dissection. The catheter was tunneled to the IJ access site, cut to the appropriate length and inserted through a peel-away sheath. The catheter was flushed with 100U/ml heparin and the access needle removed. The deep tissues were approximated using 4-0 Monocryl and the incision closed using skin glue. The incision in the lower neck was closed in a similar fashion. ESTIMATED BLOOD LOSS: Minimal. CONDITION: Stable DISCHARGED TO: home. FINDINGS: Ultrasound image shows a patent vein in the lower neck. The final fluoroscopic image demonstrates the catheter with its tip at the cavoatrial junction. No complications are seen. 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 SEDATION: Procedural sedation was administered under the attending physician's direction and continuous monitoring by a trained nurse specialist who was independent from those actually performing the procedure. Total monitored sedation time was 15 minutes. TECHNIQUE: The risks, benefits and alternatives were discussed and informed consent was obtained. Prior to beginning the procedure, [place] Protocol was used to confirm the patient's identity and planned procedure. Fluoroscopy time has been recorded in the electronic medical record. Prior to the procedure, the central veins were evaluated by ultrasound, an image of the patent vein was recorded and placed in the patient's electronic medical record. Maximum sterile barriers including cap, mask, hand hygiene, sterile gloves, sterile gown, large sterile drape and 2% chlorhexidine for cutaneous antisepsis were used. The skin over the right internal jugular vein was sterilely prepped, draped and infiltrated with 1% buffered lidocaine. The vein was accessed with a 21 gauge needle using realtime ultrasound guidance. A guidewire and catheter were then passed centrally using fluoroscopic guidance. The intravascular length from the access site to the right atrium was then measured. After infiltrating the skin in the subclavicular region with 1% buffered lidocaine, a short transverse incision was made and the pocket for the power injectable reservoir was formed by blunt dissection. The catheter was tunneled to the IJ access site, cut to the appropriate length and inserted through a peel-away sheath. The catheter was flushed with 100U/ml heparin and the access needle removed. The deep tissues were approximated using 4-0 Monocryl and the incision closed using skin glue. The incision in the lower neck was closed in a similar fashion. ESTIMATED BLOOD LOSS: Minimal. CONDITION: Stable DISCHARGED TO: home. FINDINGS: Ultrasound image shows a patent vein in the lower neck. The final fluoroscopic image demonstrates the catheter with its tip at the cavoatrial junction. No complications are seen. IMPRESSION: Successful chest wall port placement. PLAN: The catheter is ready for immediate use. Please note that a power injectable port was placed. When treatment is completed, removal can be scheduled by calling [facility] - [phone] [facility] - [phone] Dictated by: Jesus Jackson M.D. The radiology attending physician has personally reviewed this study, and had reviewed and/or edited this written report and agrees with it. Electronically signed by: De Bundy MD us Cody Osman MD IMG IR PROCEDURES Final Res ult * RAD ONC ARIA SESSION SUMMARY (04/17/2025 1:23 PM CDT) Course Name [id number]_HN ARIA Course Plan Date 03/19/2025 11:29 AM ARIA Elapsed Days 9 ARIA Treatment Start Date 04/08/2025 ARIA Treatment Site [id number] ARIA Dose Given To Date (cGy) 1,400 ARIA Session Dosage Given (cGy) 200 ARIA Plan ID H&N ARIA Fractions Treated 7 ARIA Prescribed Dose Per Fraction (cGy) 200 ARIA Prescribed Total Dose (cGy) 7,000 ARIA 04/17/2025 1:23 PM CDT us Not In File Miscellaneous RADIATION ONCOLOGY ORD ERABLES Final Result Performing Organization Address City/[facility] Co de Phone Number ARIA * RAD ONC ARIA SESSION SUMMARY (04/15/2025 4:56 PM CDT) Course Name ARIA Course Plan Date 03/19/2025 11:29 AM ARIA Elapsed Days 7 ARIA Treatment Start Date 04/08/2025 ARIA Treatment Site [id number] ARIA Dose Given To Date (cGy) 1,200 ARIA Session Dosage Given (cGy) 200 ARIA Plan ID H&N ARIA Fractions Treated 6 ARIA Prescribed Dose Per Fraction (cGy) 200 ARIA Prescribed Total Dose (cGy) 7,000 ARIA 04/15/2025 4:56 PM CDT us Not In File Miscellaneous RADIATION ONCOLOGY ORD ERABLES Final Result ARIA * RAD ONC ARIA SESSION SUMMARY (04/14/2025 2:57 PM CDT) Course Name ARIA Course Plan Date 03/19/2025 11:29 AM ARIA Elapsed Days 6 ARIA Treatment Start Date 04/08/2025 ARIA Treatment Site [id number] ARIA Dose Given To Date (cGy) 1,000 ARIA Session Dosage Given (cGy) 200 ARIA Plan ID H&N ARIA Fractions Treated 5 ARIA Prescribed Dose Per Fraction (cGy) 200 ARIA Prescribed Total Dose (cGy) 7,000 ARIA 04/14/2025 2:57 PM CDT us Not In File Miscellaneous RADIATION ONCOLOGY ORD ERABLES Final Result Performing Organization Address City/[facility] Co de Phone Number ARIA * RAD ONC ARIA SESSION SUMMARY (04/13/2025 11:52 AM CDT) Course Name [id number] ARIA Course Plan Date 03/19/2025 11:29 AM ARIA Elapsed Days 5 ARIA Treatment Start Date 04/08/2025 ARIA Treatment Site [id number] ARIA Dose Given To Date (cGy) 800 ARIA Session Dosage Given (cGy) 200 ARIA Plan ID H&N ARIA Fractions Treated 4 ARIA Prescribed Dose Per Fraction (cGy) 200 ARIA Prescribed Total Dose (cGy) 7,000 ARIA 04/13/2025 11:5 2 AM CDT us Not In File Miscellaneous RADIATION ONCOLOGY ORD ERABLES Final Result Performing Organization Address [facility] de Phone Number ARIEd * RAD ONC ARIA SESSION SUMMARY (04/10/2025 4:04 PM CDT) Course Name [id number]_HN ARIA Course Plan Date 03/19/2025 11:29 AM ARIA Elapsed Days 2 ARIA Treatment Start Date 04/08/2025 ARIA Treatment Site [id number] ARIA Dose Given To Date (cGy) 600 ARIA Session Dosage Given (cGy) 200 ARIA Plan ID H&N ARIA Fractions Treated 3 ARIA Prescribed Dose Per Fraction (cGy) 200 ARIA Prescribed Total Dose (cGy) 7,000 ARIA 04/10/2025 4:04 PM CDT us Not In File Miscellaneous RADIATION ONCOLOGY ORD ERABLES Final Result Performing Organization Address City/[facility] Co de Phone Number PHILIP * eGFR (04/09/2025 8:22 AM CDT) eGFR >90 >=60 mL/min/1. 73 m2 Comment: Interpretive Data Reference Interval Normal >/= 90 mL/min/1.73m2 Mildly decreased* 60 - 89 mL/min/1.73m2 Mildly to moderately decreased 45 - 59 mL/min/1.73m2 Moderately to severely decreased 30 - 44 mL/min/1.73m2 Severely decreased 15 - 29 mL/min/1.73m2 Kidney Failure < 15 mL/min/1.73m2 *Relative to young adult level Estimated glomerular filtration rate is determined by the 2020 CKD-EPI equation recommended by the National Kidney Foundation (A Unifying Approach to GFR Estimation: Recommendations of the NKF-ASK Task Force on Reassessing the Inclusion of Race in Diagnosing Kidney Disease, JASN 2020). The CKD-EPI equation should not be used for patients with unstable renal function and has not been validated in children and those over 70. Current interpretive data was last reviewed 2021. Blood 04/09/2025 8:22 AM CDT 04/09/2025 8:27 AM CDT Cody Osman MD LAB BLOOD ORDERABLES Final Result [facility] [place] [address] * Differential, auto (04/09/2025 8:22 AM CDT) Neutrophil abs 4.08 1.50 - 6.50 K/cumm Comment:Testing performed by : [facility], [address] [place] [phone] Lymphocyte abs 2.09 0.80 - 3.30 K/cumm [facility] Comment:Testing performed by : [facility], [address] [place] [phone] Monocyte abs 0.52 0.20 - 0.80 K/cumm [facility] Comment:Testing performed by : [facility], [address] [place] [phone] Eosinophil abs 0.26 0.00 - 0.50 K/cumm [facility] Comment:Testing performed by : [facility], [address] [place] [phone] Basophil abs 0.05 0.00 - 0.10 K/cumm [facility] Comment:Testing performed by : [facility], [address] [place] [phone] Neutrophil pct 58.4 % [facility] Comment: Interpretive Data Percent cell count reference ranges are not reported, since discordance with absolute values may lead to misinterpretation of CBC data. Current Interpretive Data was last revised on 2017. Testing performed by: [facility], [address] [place], [place] [phone] Lymphocyte pct 29.9 % [facility] Comment: Interpretive Data Percent cell count reference ranges are not reported, since discordance with absolute values may lead to misinterpretation of CBC data. Current Interpretive Data was last revised on 2017. Testing performed by: [facility], [address] [place] [phone] Monocyte pct 7.4 % [facility] Comment: Interpretive Data Percent cell count reference ranges are not reported, since discordance with absolute values may lead to misinterpretation of CBC data. Current Interpretive Data was last revised on 2017. Testing performed by: [facility], [address] [place] [phone] Eosinophil pct 3.7 % [facility] Comment: Interpretive Data Percent cell count reference ranges are not reported, since discordance with absolute values may lead to misinterpretation of CBC data. Current Interpretive Data was last revised on 2017. Testing performed by: [facility], [address] [place] [phone] Basophil pct 0.7 % [facility] Comment: Interpretive Data Percent cell count reference ranges are not reported, since discordance with absolute values may lead to misinterpretation of CBC data. Current Interpretive Data was last revised on 2017. Testing performed by: [facility], [address] [place] [address] Blood 04/09/2025 8:22 AM CDT 04/09/2025 8:25 AM CDT Cody Osman MD LAB BLOOD ORDERABLES Final Result [facility] [place] [address] * CBC with auto differential (04/09/2025 8:22 AM CDT) WBC 6.99 3.80 - 9.90 K/cumm Comment:Testing performed by : [facility], [address] [place] [address] Hgb 13.5 13.0 - 17.5 g/dL [facility] Comment:Testing performed by : [facility], [address] [place] [address] Hct 39.8 38.9 - 50.3 % [facility] Comment:Testing performed by : [facility], [address] [place] [address] Plt 292 150 - 400 K/cumm [facility] Comment:Testing performed by : [facility], [address] [place] [address] MPV 6.9 6.8 - 10.4 fL [facility] Comment:Testing performed by : [facility], [address] [place] [address] RBC 4.89 4.30 - 5.80 M/cumm [facility] Comment:Testing performed by : [facility], [address] [place] [address] MCV 81.3 81.3 - 96.4 fL [facility] Comment:Testing performed by : [facility], [address] [place] [address] MCH 27.5 27.1 - 33.3 pg [facility] Comment:Testing performed by : [facility], [address] [place] [phone] MCHC 33.9 32.3 - 35.7 g/dL [facility] Comment:Testing performed by : [facility], [address] [place] [phone] RDW CV 13.2 11.1 - 14.9 % [facility] Comment:Testing performed by : [facility], [address] [place] [phone] NRBC abs 0.00 0.00 - 0.01 K/cumm [facility] Comment:Testing performed by : [facility], [address] [place] [phone] Blood 04/09/2025 8:22 AM CDT 04/09/2025 8:25 AM CDT Cody Osman MD LAB BLOOD ORDERABLES Final Result Performing Organization Address [facility] Co de Phone Number [facility] [place] [address] * Magnesium (04/09/2025 8:22 AM CDT) [facility] Magnesium 2.1 1.4 - 2.5 mg/dL Blood 04/09/2025 8:22 AM CDT 04/09/2025 8:27 AM CDT Cody Osman MD LAB BLOOD ORDERABLES Final Result Performing Organization Address City/[facility] Co de Phone Number [facility] [place] [address] * (ABNORMAL) Comprehensive metabolic panel (04/09/2025 8:22 AM CDT) [facility] Sodium 138 135 - 145 mmol/L Potassium, pl 4.7 3.3 - 4.9 mmol/L [facility] Chloride 99 97 - 110 mmol/L [facility] CO2 33(H) 22 - 32 mmol/L [facility] Anion gap 6 2 - 15 mmol/L [facility] BUN 11 6 - 25 mg/dL [facility] Creatinine 0.83 0.80 - 1.30 mg/dL [facility] Glucose 159 70 - 199 mg/dL [facility] Comment: Interpretive Data Fasting glucose >/= 126 mg/dl is diagnostic for diabetes. Fasting is defined as no caloric intake for at least 8 hours. Fasting glucose between 100 mg/dl to 125 mg/dl is diagnostic of prediabetes. In a patient with classic symptoms of hyperglycemia or hyperglycemic crisis, a random glucose >/= 200 mg/dl is diagnostic for diabetes. In the absence of unequivocal hyperglycemia, results should be confirmed by repeat testing. The classification and Diagnosis of Diabetes Diabetes Care 2021; 46: S19-S40. Current interpretive data was last revised 2022. Calcium 9.5 8.5 - 10.3 mg/dL [facility] Bilirubin, total 0.3 0.1 - 1.2 mg/dL [facility] Protein, pl 7.6 6.5 - 8.5 g/dL [facility] Albumin 3.9 3.5 - 5.0 g/dL [facility] Alk phos 98 40 - 130 Units/L [facility] ALT 13 7 - 55 Units/L [facility] AST 17 10 - 50 Units/L [facility] Blood 04/09/2025 8:22 AM CDT 04/09/2025 8:27 AM CDT Cody Osman MD LAB BLOOD ORDERABLES Final Result [facility] [place] [address] * RAD ONC ARIA SESSION SUMMARY (04/09/2025 7:36 AM CDT) Course Name [id number] ARIA Course Plan Date 03/19/2025 11:29 AM ARIA Elapsed Days 1 ARIA Treatment Start Date 04/08/2025 ARIA Treatment Site [id number] ARIA Dose Given To Date (cGy) 400 ARIA Session Dosage Given (cGy) 200 ARIA Plan ID H&N ARIA Fractions Treated 2 ARIA Prescribed Dose Per Fraction (cGy) 200 ARIA Prescribed Total Dose (cGy) 7,000 ARIA 04/09/2025 7:36 AM CDT us Not In File Miscellaneous RADIATION ONCOLOGY ORD ERABLES Final Result ARIEd * RAD ONC ARIA SESSION SUMMARY (04/08/2025 1:27 PM CDT) Course Name [id number] ARIA Course Plan Date 03/19/2025 11:29 AM ARIA Elapsed Days 0 ARIA Treatment Start Date 04/08/2025 ARIA Treatment Site [id number] ARIA Dose Given To Date (cGy) 200 ARIA Session Dosage Given (cGy) 200 ARIA Plan ID H&N ARIA Fractions Treated 1 ARIA Prescribed Dose Per Fraction (cGy) 200 ARIA Prescribed Total Dose (cGy) 7,000 ARIA 04/08/2025 1:27 PM CDT us Not In File Miscellaneous RADIATION ONCOLOGY ORD ERABLES Final Result Performing Organization Address City/[facility] Co de Phone Number PHILIP from Last [address] [place] [address] [place] [address] Advance Directives For more information, please contact: [phone] * Full Code (Latest Code Status on File) Date Activated Date Inactivated Comments 04/17/2025 2:21 PM 04/18/2025 4:43 AM Care Teams Sandfill Operator Surface Relationship Specialty Start Date End Date Caleb Jordan MD [address] [address] PCP - General Family Medicine 10/02/24 Zander Silvestre MD [address] [phone] Referring Physician Hematology 02/03/25 Cody Osman MD [address] [facility] [address] [place] [address] Medical Oncologist/Government Services Professional Medical Oncology 02/05/25 Melody Soriano LCSW Roll Table Operator 02/24/25
--- OUTSIDE RECORDS SUMMARY | 2025-06-01 20:24 | XMS_ITS | Clinical Summary ---
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
--- OUTSIDE RECORDS SUMMARY | 2025-06-01 20:24 | XMS_ITS | Clinical Summary ---
Author Organization [facility] Maximino fonseca Jose Miguel Address [address] [place] [address] Care Team Providers Care Hide Or Skin Buffer Name Role Phone Unavailable Primary Care Provider Unavailabl e Allergies Active Allergy Reactions Criticality Noted Date Comments Clindamycin Hives High 03/09/2020 Hydrocodone-Acetaminophen Hives High 11/19/2024 Medications methocarbamoL (ROBAXIN) 750 mg tablet Take 750 mg by mouth 3 times daily as needed. 3 Active naloxone (NARCAN) 4 mg/spray [place], Non-Aerosol EMERGENCY USE ONLY: Administer 1 spray (4 mg) in one nostril one time. May repeat in alternating nostrils every 2-3 min until responsive or EMS arrives. 2 Each 3 5 Active ondansetron (ZOFRAN ODT) 8 mg Tablet, Rapid Dissolve Dissolve 1 tablet on top of tongue then swallow with saliva every 8 hours as needed for nausea or vomiting 30 Tablet 1 5 Active oxyCODONE-aceta minophen (PERCOCET) 10-325 mg TabletIndicatio ns:Head and neck cancer ([facility]) Take 1 Tablet by mouth every 6 hours as needed for Pain. Max Daily Amount: 4 Tablets 28 Tablet 5 Active Active Problems No known active problems Encounters Date Type Department Care Team Description 06/01/2025 Orders Only [facility] Oncology and Hematology - Marc [address] [place] [phone] Zander Silvestre MD Head and neck cancer ([facility]/HCC) 05/26/2025 External Device Data ST[facility] ABSTRACTION Provider, Abstract 05/18/2025 Orders Only [facility] Oncology and Hematology - Marc [address] [place] [phone] Zander Silvestre MD Head and neck cancer ([facility] 05/04/2025 Orders Only [facility] Oncology and Hematology - Marc [address] [place] [phone] Zander Silvestre MD Head and neck cancer ([facility]) 04/29/2025 External Device Data ST[place] ABSTRACTION Provider, Abstract 04/22/2025 External Device Data [facility] ABSTRACTION Provider, Abstract 04/20/2025 Orders Only [facility] Oncology and Hematology - Marc [address] [place] [phone] Zander Silvestre MD Head and neck cancer ([facility]) 04/06/2025 Orders Only [facility] Oncology and Hematology - Marc [address] [place] [phone] Zander Silvestre MD Head and neck cancer ([facility]) 03/23/2025 Orders Only [facility] Oncology and Hematology - Marc [address] [place] [phone] Zander Silvestre MD Head and neck cancer ([facility]) 03/09/2025 Orders Only [facility] Oncology and Hematology - Marc [address] [place] [phone] Zander Silvestre MD Head and neck cancer ([facility]) from Last 3 Months Family History Medical [...] 01/27/2022 INFLUENZA VACCINE (#1) 2025 HPV VACCINES (No Doses Required) Completed Insurance [employer] [place]
--- OUTSIDE RECORDS SUMMARY | 2025-06-01 20:24 | XMS_ITS | Encounter Summary ---
Author Organization [facility] Healthcare Address [address] [place] [address] Care Team Providers Care Doll Eye Setter Name Role Phone Caleb Jordan MD Primary Care Provider [phone]- [phone] Zander Silvestre MD Unavailable [phone] Cody Osman MD Unavailable Melody Soriano [facility] Unavailable Unavaila ble Encounter Details Date Type Department Care Team (Late st Contact Info) Description 03/17/2025 Telephone [facility] Radiation Oncology [address] [facility] [place] [address] Kanchan Medellin RN Social History Tobacco Use Types Packs/Day Years Used Date Smoking Tobacco: Some Days Cigarettes Smokeless Tobacco: Never Alcohol Use Standard Drinks/Week Comments Never 0 [...] week 02/24/2025 How often do you attend [facility] or sikhism services? Never 02/24/2025 Do you belong to any clubs o r organizations such as muslim groups, unions, fraternal or athletic groups, or [...] any time in the past 12 m [facility], were you homeless or living in a alf (including now)? Yes 02/24/2025 [facility] Utilities Answer Date Recorded In the past 12 months has th e electric, gas, oil, or water company threatened to shut off services in your home? No 02/24/2025 Personal Safety Answer Date Recorded Have you ever been in or are you currently in a harmful physical or emotional relationship or is someone making you feel afraid or unsafe? 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 Gender Identity Not on file Sexual Orientation Not on file documented as of this encounter Plan of Treatment Not on file documented as of this encounter Visit Diagnoses Not on filedocumented in this encounter Care Teams Doll Eye Setter Relationship Specialty Start Date End Date Caleb Jordan MD [address] [place] [address] PCP - General Family Medicine 10/02/24 Zander Silvestre MD [address] [phone] Referring Physician Hematology 02/03/25 Cody Osman MD [address] [facility] [address] [place] [address] Medical Oncologist/Wheel Of Fortune Dealer Medical Oncology 02/05/25 Melody Soriano LCSW Social Services Designee 02/24/25 documented as of this encounter
--- NOTE | 2025-06-01 20:29 | PC.NURSE ---
ERP Dr Esteves in to speak w/ pt and S.O. Pt reports he did have his chemo tx this past as scheduled but missed his fluids and regimen the following day. He now reports feeling very nauseated all weekend long w/ vomiting today and feeling very weak. He also now has a noted increasing temp of 101.3 IVF infusing as per order.
--- OUTSIDE RECORDS SUMMARY | 2025-06-01 20:36 | XMS_ITS | Clinical Summary ---
Author Organization [facility] Address [address] [place] [address] Care Team Providers Care Sales Specialist Name Role Phone Melissa Diamond PA-C Primary Care Provider Source Comments [facility],non-owned Affiliates and Associated Physician Practices is amultiple site organization consisting of ambulatory clinics and hospital sitesin [place], [place], [place] and [place]. This disclosure is being madepursuant to the Care Everywhere program and may not contain all information available regarding this patient. Last updated 18.[facility] Allergies Active Allergy Reactions Criticality Noted Date [...] daily for 90 days 270 capsule 5 Active Additional Information Patient taking differently:300 mg Oral 3 TIMES DAILY,As needed, Reported on 02/06/2025 naloxone HCl (Narcan) 4 MG/0.1ML nasal spray [place] 1 (one) spray into the nose as needed for Overdose 2 device 2 5 Active oxyCODONE, immediate release, (Roxicodone) 5 MG tabletIndicatio ns:Tonsil cancer (HCC) Take 1 (one) tablet by mouth every 4 hours as needed for Pain 6 tablet 5 Active amoxicillin-cla vulanate (Augmentin) 500-125 MG tablet Take 1 (one) tablet by mouth 3 times daily 5 Active docusate sodium (Colace) 100 MG capsule Take 1 (one) capsule by mouth 2 times daily 5 Active morphine CR 12hr (MS Contin) 15 MG tablet TAKE 1 TABLET (15 MG) BY MOUTH EVERY 12 HOURS FOR 14 DAYS. 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 Encounters Date Type Department Care Team Description 04/01/2025 Orders Only [facility] - Otolaryngology [address] [place] [phone] Jose Muir MD Tonsil cancer ([facility]) 04/01/2025 Telephone [facility] - ENT [address] [place] [phone] Simone Hatfield MD Question 03/19/2025 Orders Only [facility] - ENT [address] [place] [phone] Lola Patel MD Tonsil cancer ([facility]) 03/18/2025 Telephone [facility] - ENT [address] [place] [phone] Simone Hatfield MD Question 03/15/2025 Orders Only [facility] - ENT [address] [place] [phone] Dwight Hung MD Tonsil cancer (HCC) 03/04/2025 Telephone [facility] - ENT [address] [place] [phone] Simone Hatfield MD Refill Request from Last 3 Months Immunizations Immunization Administration [...] drink = 0.6 oz pur e alcohol) PHQ-2 Answer Date Recorded Patient Health Questionnaire-2 Score 6 03/04/2024 Sex and Gender Information Value Date Recorded Sex Assigned at Not on file 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 Gender Identity Not on file Sexual Orientation Not on file Last Filed Vital Signs Vital Sign Reading Time Taken Comments Blood Pressure 140/91 02/12/2025 5:05 PM CDT Pulse 112 02/12/2025 5:05 PM CDT Temperature 36.4 C (97.6 F) 02/12/2025 5:05 PM CDT Respiratory Rate 17 02/12/2025 5:05 PM CDT Oxygen Saturation 100% 02/12/2025 5:05 PM CDT Inhaled Oxygen Concentration - - Weight 65.8 kg (145 lb) 02/12/2025 5:05 PM CDT Height 172.7 cm (5' 8) 02/12/2025 5:05 PM CDT Body Mass Index 22.05 02/12/2025 5:05 PM CDT Plan of Treatment Health Maintenance Due Date Last Done Comments LIPID TESTING 1980 DTAP/TDAP/TD VACCINES (6 - Tdap) 12/30/1994 12/29/1994, 01/01/1985, 10/26/1982, Additional history exists HIV SCREENING 09/22/1995 HEPATITIS C SCREENING 09/17/1998 HPV VACCINE (1 - 3-dose SCDM series) 09/22/2007 HEPATITIS B VACCINE (2 of 3 - 19+ 3-dose series) 02/24/2022 01/27/2022 DEPRESSION SCREENING 06/25/2024 COVID-19 VACCINE (1 - season) 2025 INFLUENZA VACCINE (#1) 2025 ZOSTER VACCINE (1 [...] patient's age to complete this topic Insurance [facility] Care Teams Sales Specialist Relationship Specialty Start Date End Date Melissa Diamond PA-C [address] [phone] PCP - General Physician Key Account Executive 09/25/24
--- OUTSIDE RECORDS SUMMARY | 2025-06-01 20:37 | XMS_ITS | Encounter Summary ---
Author Organization [facility] Address [address] [facility] [place] [address] Care Team Providers Care Conductor/Engineer Name Role Phone Melissa Diamond PA-C Primary Care Provider Reason for Visit * Reason Onset Date Comments MEDICATION REFILL 11/26/2024 Encounter Details Date Type Department Care Team (Late st Contact Info) Description 11/26/2024 Refill [facility] - ENT [address] [place] [address], [place] [address] Cinthia Samano MD [address] [place] [address] [address] [place] [address] MEDICATION REFILL Social History Tobacco Use Types Packs/Day Years Used Date Smoking Tobacco: Former Smokeless Tobacco: Never PHQ-2 Answer Date Recorded Patient Health Questionnaire-2 Score 6 03/04/2024 Sex and Gender Information Value Date Recorded Sex Assigned at Not on file 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
--- OUTSIDE RECORDS SUMMARY | 2025-06-01 20:37 | XMS_ITS | Encounter Summary ---
Author Organization [facility] Address [address] [facility] [place] [address] Care Team Providers Care Ups Driver Name Role Phone Melissa Diamond PA-C Primary Care Provider Reason for Visit * Reason Onset Date Comments MEDICATION REFILL 12/26/2024 Encounter Details Date Type Department Care Team (Late st Contact Info) Description 12/26/2024 Refill 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
--- OUTSIDE RECORDS SUMMARY | 2025-06-01 20:38 | XMS_ITS | Encounter Summary ---
Author Organization [facility] Address [address] [facility] [place] [address] Care Team Providers Care Entry Level Buyer Name Role Phone Melissa Diamond PA-C Primary Care Provider Reason for Visit * Reason Onset Date Comments MEDICATION REFILL 11/24/2024 Encounter Details Date Type Department Care Team (Late st Contact Info) Description 11/24/2024 Refill [facility] - ENT [address] [place] [address], [place] [address] Cinthia Samano MD [address] [place] [address] [address] [place] [address] MEDICATION REFILL Social History Tobacco Use Types Packs/Day Years Used Date Smoking Tobacco: Former Smokeless Tobacco: Never PHQ-2 Answer Date Recorded Patient Health Questionnaire-2 Score 6 03/04/2024 Sex and Gender Information Value Date Recorded Sex Assigned at Not on file 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
[2025-06-01] MEDS: dexAMETHasone SOD PHOS INJ 10 MG/ML 1 ML VIAL 8 MG IV PUSH (20:48)
--- NOTE | 2025-06-01 20:51 | PC.NURSE ---
covid swab sent to lab
--- NOTE | 2025-06-01 20:52 | PC.NURSE ---
Report given to orlando OCAMPO at [facility] for oncology bed. Will await call back for bed placement.
[2025-06-01] MEDS: CEFEPIME 2 GM in SODIUM CHLORIDE 0.9% IV 50 ML 100 ML IVPB (20:58)
[2025-06-01 21:04] LABS: CRP 1.4 mg/dL (<1.0)
[2025-06-01 21:32] LABS: Influenza A QL RT-PCR Negative (Negative); Influenza B QL RT-PCR Negative (Negative); RSV RNA, RT-PCR Negative (Negative); SARS-CoV-2 RNA PCR Negative (Negative)
[2025-06-01] MEDS: ACETAMINOPHEN 500 MG TABLET 1000 MG PO (21:46)
[2025-06-01] MEDS: SODIUM CHLORIDE 0.9% IV 500 ML 999 ML IV CONT (21:48)
[2025-06-01] MEDS: VANCOMYCIN 1,500 MG/NS 500 ML 1,500 MG/500 ML BAG 250 MG IVPB (21:54)
[2025-06-01 21:55] LABS: Add Urine Microscopic? NO; Appearance Urine Clear (Clear); Glucose Urine UA Negative (Negative); Leukocyte Esterase Ur Negative LEU/UL (Negative); Nitrate Urine Negative (Negative); Specific Grav Ur 1.020 (1.010-1.020)
--- NOTE | 2025-06-01 21:57 | PC.NURSE ---
Informed on POC for IV antibx and fluids and monitoring until bed placement w/ oncology at [facility]. Pt resting w/ lights dimmed, pt placed in more comfortable bed w/ call lehman at side.
[2025-06-01] MEDS: SODIUM CHLORIDE 0.9% IV 1,000 ML 125 ML IV CONT (22:35)
--- NOTE | 2025-06-01 23:27 | PC.NURSE ---
Pt ate 1/2 sandwich and drinking fluids, IVF and antibx continue to run. Pt reports feeling some better. VSS, continuing to monitor until bed is available at [facility] for transfer to oncology.
[2025-06-02] VITALS: BP 96/62; PULSE 87; RESP 20; O2SAT 97
--- NOTE | 2025-06-02 00:01 | PC.NURSE ---
Pt sleeping, VSS at this time, call lehman at side and s.o. remains in room w/ pt tonight.
[2025-06-02 01:02] VITALS: O2SAT 95
--- NOTE | 2025-06-02 02:00 | PC.NURSE ---
Pt had friend arrive to ED stating he was pts ride home. When entering room, pt was sitting at bedside and stating take all this out of me, I'm leaving. Pt not wanting to stay and be transferred. Pt refusing any more treatment or transfer to [place]. Dr Esteves called to speak w/ pt and to sign AMA form.
[2025-06-02 02:15] VITALS: BP 99/55; PULSE 87; RESP 18; TEMP 37.7; O2SAT 99
--- NOTE | 2025-06-02 02:16 | PC.NURSE ---
Call placed to [facility] to release bed for transfer, pt signed AMA form and witnessed even after Dr Esteves explained all benefits and risks explained to pt.
--- NOTE | 2025-06-05 14:36 | PC.NURSE ---
PRELIMINARY BLOOD CULTURE REPORT; NO GROWTH IN 24 HOURS.
--- NOTE | 2025-06-06 13:27 | PC.NURSE ---
Preliminary blood culture x 2: No growth in 48 hours
== END 2025-06-02 02:15 | disposition left against medical advice (07) ==
PROVIDERS: Emergency Provider Emergency Medicine; PCP Family Medicine
DX: C76.0 Malignant neoplasm of head, face and neck (principal); A41.9 Sepsis, unspecified organism; F17.210 Nicotine dependence, cigarettes, uncomplicated; Z79.60 Long term (current) use of unspecified immunomodulators and immunosuppressants; Z79.52 Long term (current) use of systemic steroids; Z20.822 Contact with and (suspected) exposure to COVID-19
CPT/HCPCS: 36415; 71045; 80053; 81003; 83605; 84145; 85025; 85055; 86140; 87040; 87637; 96361; 96365; 96366; 96367; 96375; 99284; A9270; J0692; J1100; J2405; J3373; J7030; J7040